=== PATIENT | male | born 1960 | race Caucasian/White ===

== ENCOUNTER → 2016-12-20 | Outpatient (REF) | payer OTHER ==
[~2016-12-20] MED LIST: /AMLO25TA PO; /METO25TAB OD; /MOXI40TA PO; ACET50TA PO; AMIT10TA PO; AMLO5TAB2 PO; ASPI1TAB PO; CEFT500T PO; CYCL1SOL17 OS; CYCL25TA PO; DARB30SYRN SC; EUCECRE2 TOP; GABA300C3 PO; HYDR-3713 PO; LEVO100T5 PO; LEVO50TA4 PO; LEVO88TA2 PO; LOPR50TA PO; MELA5TAB14 PO; METO50TA2 PO; MULT1CHW21 PO; OMEP10CA PO; OMEP20CA3 PO; OMEPRAZOLE DR PO; PRED50TA PO; PREDOPD OS; VALA1TAB PO; VITMTA PO; ZIRG0.152 OS
[2016-12-20 20:28] LABS: CREATININE FOR GFR 1.97 MG/DL (0.70-1.30); GLOMERULAR FILTRATION RATE 37.4 (>56)
== END ==
LOC: M LAB REF 09:01
PROVIDERS: ATTEND Internal Medicine Pulmonary Disease
DX: Z01.812 Encounter for preprocedural laboratory examination (principal); R91.8 Other nonspecific abnormal finding of lung field

== ENCOUNTER → 2016-12-22 | Outpatient (CLI) | payer OTHER ==
--- NOTE | 2016-12-22 11:21 | REP ---
Clinical: Lung mass. Comparison: 06/24/2016. Findings: There is a 2.6 cm multilobulated mass in the medial aspect of the right lower lobe (images 59 - 79) which is unchanged from prior examination along with a more superior rounded lesion measuring 11 mm (images 52 - 56) which is also unchanged from prior examination. Remainder of lung patel are well-aerated, symmetric and clear. Subcentimeter mediastinal lymph nodes are again identified and nonspecific. No pleural effusion/reaction or pneumothorax. Tracheobronchial tree is patent. Mediastinum demonstrates normal heart/pericardium and thoracic aorta. Surrounding musculoskeletal structures are intact. Limited upper abdomen demonstrates normal bilateral adrenal glands and 2.1 cm right hepatic cyst. Impression: Lesions in the medial right lower lobe unchanged from prior examination. No new acute process appreciated. Signed by Alex Jacobsen MD 12/22/2016 11:12 A
== END ==
LOC: M RAD 10:38
PROVIDERS: ATTEND Internal Medicine Pulmonary Disease
DX: R91.8 Other nonspecific abnormal finding of lung field (principal); K76.89 Other specified diseases of liver

== ENCOUNTER → 2017-02-26 | Outpatient (REF) | payer OTHER ==
[~2017-02-26] MED LIST changes: +GABA-282 PO; -GABA300C3 PO
== END ==
LOC: M LAB REF 17:07
PROVIDERS: ATTEND Internal Medicine Nephrology
DX: E03.9 Hypothyroidism, unspecified (principal)

== ENCOUNTER → 2017-04-03 | Outpatient (REF) | payer OTHER ==
[2017-04-03 18:47] LABS: IMMUNOGLOBULIN A 36.6 MG/DL (70-400); IMMUNOGLOBULIN G 441 MG/DL (681-1648); IMMUNOGLOBULIN M 28.1 MG/DL (40-230); TOTAL PROTEIN 6.7 GM/DL (6.4-8.2)
[2017-04-05 12:35] LABS: ALBUMIN 4.45 GM/DL (3.29-5.55); ALBUMIN % 66.4 % (55.8-66.1); GAMMA GLOBULIN % 6.8 % (11.1-18.8)
[2017-04-06 00:06] LABS: BETA 2 MICROGLOBULIN 3.9 mg/L (0.6-2.4); FREE KAPPA LIGHT CHAINS SERUM 821.65 mg/L (3.30-19.40); FREE LAMBDA LIGHT CHAINS SERUM 18.98 mg/L (5.71-26.30); KAPPA/LAMBDA RATIO SERUM 43.29 (0.26-1.65)
== END ==
LOC: M LAB REF 16:56
PROVIDERS: ATTEND Internal Medicine Medical Oncology
DX: C90.00 Multiple myeloma not having achieved remission (principal)

== ENCOUNTER → 2017-04-10 | Outpatient (REF) | payer OTHER | LOC: M LAB REF 16:43 | PROVIDERS: ATTEND Internal Medicine Medical Oncology | DX: D75.1 Secondary polycythemia (principal); C90.00 Multiple myeloma not having achieved remission ==

== ENCOUNTER → 2017-04-13 | Outpatient (CLI) | payer OTHER ==
--- NOTE | 2017-04-13 16:13 | REP ---
Bilateral hip MRI study without contrast: History: Question AVN. Bilateral hip pain. History of steroids. Comparison radiographs are from 04/04/2017. Technique: Axial coronal and sagittal imaging planes are utilized. T1 and T2-weighted scans were obtained in the usual fashion with without fat saturation. MRI findings: Cortical and medullary bone signal intensity are normal in both proximal femurs. There is no MR evidence of avascular necrosis. The visualized bony pelvic ring shows normal cortical and medullary bone signal intensity as well. No hip joint effusion is seen. No periarticular bursal fluid collection is observed. Hamstring tendon insertions appear normal. No other evidence of tendinopathy is seen. No abdominal wall defect is observed. No acetabular labral cartilage disruption is appreciated. No mass or marrow replacement lesion is seen. Impression: Unremarkable MRI study both hips. No evidence to suggest avascular necrosis or other significant lesion. Signed by Aleksandar Garcia MD 04/13/2017 04:29 P
--- NOTE | 2017-04-13 16:14 | REP ---
MRI study of the femurs bilaterally. History: Bilateral hip and femur pain. History of multiple myeloma. Technique: Axial coronal and sagittal T1 and T2-weighted scans were obtained with without fat saturation. MRI findings: Cortical and medullary bone signal intensity are normal in the femurs bilaterally. No marrow replacement lesion is seen. There is some diffuse osteopenia. No soft tissue mass or cyst is seen. No vascular abnormality is observed. There is a 2.9 cm De La Cruz's cyst noted incidentally in the right posterior popliteal soft tissues. No other abnormalities seen. Impression: De La Cruz's cyst noted at the right knee. Otherwise negative MRI study of both femurs. Signed by Aleksandar Garcia MD 04/13/2017 04:29 P
== END ==
LOC: M RAD 13:39
PROVIDERS: ATTEND Internal Medicine Medical Oncology
DX: M25.551 Pain in right hip (principal); M25.552 Pain in left hip

== ENCOUNTER → 2017-04-15 | Outpatient (REF) | payer OTHER ==
[2017-04-20 10:15] LABS: FREE LAMBDA LIGHT CHAINS URINE 8.14 mg/L (0.24-6.66)
== END ==
LOC: M LAB REF 09:21
PROVIDERS: ATTEND Internal Medicine Medical Oncology
DX: D72.9 Disorder of white blood cells, unspecified (principal)

== ENCOUNTER → 2017-04-17 | Outpatient (CLI) | payer OTHER ==
--- NOTE | 2017-04-19 20:44 | REP ---
Whole body PET CT scan: Comparison is the chest CT dated 12/22/2016. There is also a comparison PET scan dated 2015. Scan is performed from skull base to the upper thighs. Neck and supraclavicular areas: There is uptake in bilateral normal size nodes at the thoracic inlet with the standard uptake value on the right measuring 5.3 and on the left 7.3. Chest: There is uptake in the bilateral hilar nodes with the standard uptake value maximally measuring 7.2 There is uptake in a normal size subcarinal mediastinal node within standard uptake value of 7.4. There is uptake in a periaortic node adjacent to the descending thoracic aorta with a standard uptake value of 13.3. The patient's known mass medially in the right lower lobe again demonstrates non hypermetabolic uptake with a standard uptake value with 1.90. Abdomen, pelvis and upper thighs: There are no hypermetabolic foci, as previously. Impression: There is uptake in lymph nodes at the thoracic inlet, edrrell and in a subcarinal mediastinal node. There is non hypermetabolic uptake in the patient's known right lung lower lobe mass. There are no hypermetabolic foci in the abdomen, pelvis or upper thighs. The studies performed with 10 mCi of F 18 F D G . Signed by Ezra Torre MD 04/19/2017 08:35 P
== END ==
LOC: M PLARAD 11:08
PROVIDERS: ATTEND Internal Medicine Medical Oncology
DX: C90.00 Multiple myeloma not having achieved remission (principal)

== ENCOUNTER → 2017-04-19 | Outpatient (REF) | payer OTHER ==
[2017-04-19 19:24] LABS: IMMUNOGLOBULIN A 35.6 MG/DL (70-400); IMMUNOGLOBULIN G 430 MG/DL (681-1648); IMMUNOGLOBULIN M 24.5 MG/DL (40-230)
[2017-04-22 00:06] LABS: FREE KAPPA LIGHT CHAINS SERUM 918.4 mg/L (3.3-19.4); FREE LAMBDA LIGHT CHAINS SERUM 17.6 mg/L (5.7-26.3); KAPPA/LAMBDA RATIO SERUM 52.18 (0.26-1.65)
== END ==
LOC: M LAB REF 16:46
PROVIDERS: ATTEND Internal Medicine Medical Oncology
DX: C90.00 Multiple myeloma not having achieved remission (principal)

== ENCOUNTER → 2017-04-24 | Outpatient (REF) | payer OTHER ==
[2017-04-25 14:46] LABS: TOTAL PROTEIN 6.8 GM/DL (6.4-8.2)
[2017-04-26 10:51] LABS: ALBUMIN 4.58 GM/DL (3.29-5.55); ALBUMIN % 67.3 % (55.8-66.1); GAMMA GLOBULIN % 6.6 % (11.1-18.8)
== END ==
LOC: M LAB REF 12:40
PROVIDERS: ATTEND Internal Medicine Medical Oncology
DX: C90.02 Multiple myeloma in relapse (principal)

== ENCOUNTER → 2017-05-04 | Outpatient (REF) | payer OTHER ==
[~2017-05-04] MED LIST changes: +ACYC200C8 PO; +DEXA4TA PO; -MELA5TAB14 PO; +MELA5TAB17 PO; -METO50TA2 PO; +METO50TA7 PO; +NEXI20CA PO; +REVL10CA2 PO; -VALA1TAB PO; +VALA1TAB2 PO; +VELC3.5I INJ; +[UNRECOGNIZED DRUG - OTHER] SC
== END ==
LOC: M LAB REF 10:48
PROVIDERS: ATTEND Internal Medicine Medical Oncology
DX: C90.00 Multiple myeloma not having achieved remission (principal)

== ENCOUNTER → 2017-05-09 | Outpatient (REF) | payer OTHER ==
[2017-05-09 17:53] LABS: INR 0.98
[2017-05-09 19:51] LABS: IMMUNOGLOBULIN A 34.1 MG/DL (70-400); IMMUNOGLOBULIN G 428 MG/DL (681-1648); TOTAL PROTEIN 6.8 GM/DL (6.4-8.2)
[2017-05-10 10:51] LABS: ALBUMIN 4.59 GM/DL (3.29-5.55); ALBUMIN % 67.5 % (55.8-66.1); GAMMA GLOBULIN % 6.6 % (11.1-18.8)
[2017-05-12 00:08] LABS: FREE KAPPA LIGHT CHAINS SERUM 755.6 mg/L (3.3-19.4); FREE LAMBDA LIGHT CHAINS SERUM 18.8 mg/L (5.7-26.3); KAPPA/LAMBDA RATIO SERUM 40.19 (0.26-1.65)
== END ==
LOC: M LAB REF 17:17
PROVIDERS: ATTEND Internal Medicine Medical Oncology
DX: C90.00 Multiple myeloma not having achieved remission (principal)

== ENCOUNTER → 2017-06-05 | Outpatient (REF) | payer OTHER ==
[~2017-06-05] MED LIST changes: +ASPI1TAB20 PO; +SIMV40TA2 PO
== END ==
LOC: M LAB REF 09:30
PROVIDERS: ATTEND Internal Medicine Medical Oncology
DX: C90.00 Multiple myeloma not having achieved remission (principal)

== ENCOUNTER → 2017-06-06 | Outpatient (REF) | payer OTHER ==
[2017-06-06 20:25] LABS: IMMUNOGLOBULIN A 33.3 MG/DL (70-400); IMMUNOGLOBULIN G 353 MG/DL (681-1648); IMMUNOGLOBULIN M 59.3 MG/DL (40-230); TOTAL PROTEIN 6.1 GM/DL (6.4-8.2)
[2017-06-07 10:35] LABS: ALBUMIN 3.91 GM/DL (3.29-5.55); ALBUMIN % 64.1 % (55.8-66.1); GAMMA GLOBULIN % 6.3 % (11.1-18.8)
[2017-06-09 00:07] LABS: FREE KAPPA LIGHT CHAINS SERUM 142.5 mg/L (3.3-19.4); FREE LAMBDA LIGHT CHAINS SERUM 26.7 mg/L (5.7-26.3); KAPPA/LAMBDA RATIO SERUM 5.34 (0.26-1.65)
== END ==
LOC: M LAB REF 16:30
PROVIDERS: ATTEND Internal Medicine Medical Oncology
DX: C90.00 Multiple myeloma not having achieved remission (principal)

== ENCOUNTER → 2017-08-08 | Outpatient (REF) | payer OTHER ==
[2017-08-08 16:15] LABS: IMMUNOGLOBULIN A 70.1 MG/DL (70-400); IMMUNOGLOBULIN G 398 MG/DL (681-1648); THYROXINE (T4) 14.1 UG/DL (4.5-12.0); TOTAL PROTEIN 6.7 GM/DL (6.4-8.2)
[2017-08-09 12:54] LABS: ALBUMIN 4.25 GM/DL (3.29-5.55); ALBUMIN % 63.4 % (55.8-66.1); GAMMA GLOBULIN % 6.5 % (11.1-18.8)
[2017-08-11 00:08] LABS: BETA 2 MICROGLOBULIN 2.4 mg/L (0.6-2.4); FREE LAMBDA LIGHT CHAINS SERUM 21.5 mg/L (5.7-26.3); KAPPA/LAMBDA RATIO SERUM 1.53 (0.26-1.65)
== END ==
LOC: M LAB REF 15:16
PROVIDERS: ATTEND Internal Medicine Medical Oncology
DX: C90.00 Multiple myeloma not having achieved remission (principal)

== ENCOUNTER → 2017-08-14 | Outpatient (CLI) | payer OTHER ==
--- NOTE | 2017-08-14 09:41 | REP ---
CT study of the chest without contrast: History: Hoarseness with pulmonary nodules. Comparison CT study: December 22, 2016. There is also a comparison chest CT study from June 24, 2016. CT findings: A pectus excavatum deformity is again seen. There are clips in the gallbladder fossa. A stable 2.3 cm cyst is seen in the right lobe of the liver as before. Scattered small stable normal-sized mediastinal lymph nodes are visible. The previously noted lobulated right lower lobe lung lesion is again seen. This has a elongate dimension cranial caudally of 5.0 cm which is unchanged. Its maximum transverse dimensions are 2.8 x 2.0 cm. It appears unchanged from the June 24, 2016 prior study. Above this main nodule is an additional centrally calcified right lower lobe lung nodule measuring 11 mm. This too is unchanged. No new pulmonary nodule is appreciated. Lung patel are otherwise clear. No endobronchial disease is seen. No bony destructive lesion is appreciated. Impression: Stable nodular lesions in the right lower lobe. Stable right hepatic cyst. No new lung lesion or adenopathy. Signed by Aleksandar Garcia MD 08/14/2017 05:26 P
== END ==
LOC: M RAD 07:10
PROVIDERS: ATTEND Internal Medicine Medical Oncology
DX: R49.0 Dysphonia (principal); K76.89 Other specified diseases of liver; R91.8 Other nonspecific abnormal finding of lung field

== ENCOUNTER → 2017-08-28 | Outpatient (REF) | payer OTHER | LOC: M LAB REF 09:20 | PROVIDERS: ATTEND Internal Medicine Medical Oncology | DX: C90.00 Multiple myeloma not having achieved remission (principal) ==

== ENCOUNTER → 2017-10-11 | Outpatient (REF) | payer OTHER ==
[2017-10-11 19:41] LABS: BASO # 0.1 10^3/uL (0.0-0.2); BASO % 2.1 % (0.0-1.0); EOS # 0.1 10^3/uL (0.0-0.50); EOS % 2.3 % (0.0-3.0); IMMATURE GRANULOCYTE % 1.2 % (0-0); LYMPH # 0.8 10^3/uL (1.5-4.5); LYMPH % 15.5 % (24.0-44.0); MEAN CORPUSCULAR HEMOGLOBIN 32.7 pg (27.0-33.0); MEAN CORPUSCULAR HGB CONC 34.4 g/dl (32.0-36.5); MEAN CORPUSCULAR VOLUME 95.2 fl (80.0-96.0); MONO # 0.8 10^3/uL (0.0-0.8); MONO % 15.7 % (0.0-5.0); NEUTROPHILS # 3.3 10^3/uL (1.8-7.7); NEUTROPHILS % 63.2 % (36.0-66.0); PLATELET COUNT, AUTOMATED 196 10^3/uL (150-450); RED CELL DISTRIBUTION WIDTH 15.2 % (11.5-14.5); WHITE BLOOD COUNT 5.2 10^3/uL (4.0-10.0)
[2017-10-11 20:10] LABS: ALBUMIN 3.1 GM/DL (3.2-5.2); ALBUMIN/GLOBULIN RATIO 1.07 (1.00-1.93); BILIRUBIN,TOTAL 0.4 MG/DL (0.2-1.0); CALCIUM LEVEL 8.6 MG/DL (8.5-10.1); CREATININE FOR GFR 1.65 MG/DL (0.70-1.30); GLOMERULAR FILTRATION RATE 45.7 (>56); PHOSPHORUS LEVEL 3.2 MG/DL (2.5-4.9); POTASSIUM SERUM 4.6 MEQ/L (3.5-5.1)
== END ==
LOC: M LABDRWAD 19:20
DX: C90.00 Multiple myeloma not having achieved remission (principal); Z94.81 Bone marrow transplant status

== ENCOUNTER → 2017-10-25 | Outpatient (REF) | payer OTHER ==
[2017-10-25 20:51] LABS: BASO # 0.1 10^3/uL (0.0-0.2); BASO % 1.4 % (0.0-1.0); EOS # 0.5 10^3/uL (0.0-0.50); EOS % 7.6 % (0.0-3.0); LYMPH # 1.3 10^3/uL (1.5-4.5); LYMPH % 18.2 % (24.0-44.0); MEAN CORPUSCULAR HEMOGLOBIN 31.9 pg (27.0-33.0); MEAN CORPUSCULAR HGB CONC 33.7 g/dl (32.0-36.5); MEAN CORPUSCULAR VOLUME 94.5 fl (80.0-96.0); MONO # 0.9 10^3/uL (0.0-0.8); MONO % 12.7 % (0.0-5.0); NEUTROPHILS # 4.2 10^3/uL (1.8-7.7); NEUTROPHILS % 59.1 % (36.0-66.0); PLATELET COUNT, AUTOMATED 207 10^3/uL (150-450); RED CELL DISTRIBUTION WIDTH 15.9 % (11.5-14.5); WHITE BLOOD COUNT 7.1 10^3/uL (4.0-10.0)
[2017-10-25 20:55] LABS: ALBUMIN 3.9 GM/DL (3.2-5.2); ALBUMIN/GLOBULIN RATIO 1.77 (1.00-1.93); BILIRUBIN,TOTAL 0.5 MG/DL (0.2-1.0); CALCIUM LEVEL 8.9 MG/DL (8.5-10.1); CREATININE FOR GFR 1.59 MG/DL (0.70-1.30); GLOMERULAR FILTRATION RATE 47.7 (>56); TOTAL PROTEIN 6.1 GM/DL (6.4-8.2)
== END ==
LOC: M LAB REF 12:04
PROVIDERS: ATTEND Nurse Practitioner Family
DX: C90.00 Multiple myeloma not having achieved remission (principal); Z94.81 Bone marrow transplant status

== ENCOUNTER 2017-11-13 12:38 | Outpatient (RCR) | payer OTHER | END 2017-12-05 | LOC: M OT 12:38 | DX: I69.320 Aphasia following cerebral infarction (principal) | CPT/HCPCS: 97530 ==

== ENCOUNTER → 2017-12-19 | Outpatient (REF) | payer OTHER ==
[2017-12-19 18:08] LABS: URINE TOTAL PROTEIN 30.7 MG/DL (0-12)
[2017-12-19 18:11] LABS: IMMUNOGLOBULIN G 183 MG/DL (681-1648); IMMUNOGLOBULIN M 24.8 MG/DL (40-230); TOTAL PROTEIN 6.3 GM/DL (6.4-8.2)
[2017-12-19 18:27] LABS: IMMUNOGLOBULIN A 11.7 MG/DL (70-400)
[2017-12-21 11:17] LABS: ALBUMIN 4.04 GM/DL (3.29-5.55); ALBUMIN % 64.1 % (55.8-66.1); ALPHA-1-GLOBULIN % 6.9 % (2.9-4.9); ALPHA-1-GLOBULINS 0.43 GM/DL (0.17-0.41); ALPHA-2-GLOBULINS 0.92 GM/DL (0.42-0.99); ALPHA-2-GLOBULINS % 14.6 % (7.1-11.8); BETA-1-GLOBULINS 0.39 GM/DL (0.28-0.60); BETA-1-GLOBULINS % 6.2 % (4.7-7.2); BETA-2-GLOBULINS 0.28 GM/DL (0.19-0.55); BETA-2-GLOBULINS % 4.4 % (3.2-6.5); GAMMA GLOBULIN % 3.8 % (11.1-18.8); GAMMA GLOBULINS 0.24 GM/DL (0.65-1.58)
[2017-12-22 00:06] LABS: FREE KAPPA LIGHT CHAINS SERUM 15.3 mg/L (3.3-19.4); FREE LAMBDA LIGHT CHAINS SERUM 22.6 mg/L (5.7-26.3); KAPPA/LAMBDA RATIO SERUM 0.68 (0.26-1.65)
== END ==
LOC: M LAB REF 16:26
DX: C90.00 Multiple myeloma not having achieved remission (principal)

== ENCOUNTER → 2017-12-20 | Outpatient (REF) | payer OTHER ==
[2017-12-20 19:16] LABS: THYROID STIMULATING HORMONE 0.017 uIU/ML (0.358-3.740)
== END ==
LOC: M LAB REF 17:26
DX: E03.9 Hypothyroidism, unspecified (principal)

== ENCOUNTER → 2017-12-21 | Outpatient (CLI) | payer OTHER ==
[2017-12-21 12:39] LABS: BASO # 0.1 10^3/uL (0.0-0.2); BASO % 0.7 % (0.0-1.0); EOS # 0.4 10^3/uL (0.0-0.50); EOS % 5.5 % (0.0-3.0); HEMATOCRIT 45.4 % (42.0-52.0); HEMOGLOBIN 15.4 g/dl (14.0-18.0); IMMATURE GRANULOCYTE % 0.3 % (0-3.0); LYMPH # 1.8 10^3/uL (1.5-4.5); LYMPH % 26.2 % (24.0-44.0); MEAN CORPUSCULAR HEMOGLOBIN 32.4 pg (27.0-33.0); MEAN CORPUSCULAR HGB CONC 33.9 g/dl (32.0-36.5); MEAN CORPUSCULAR VOLUME 95.6 fl (80.0-96.0); MONO # 0.8 10^3/uL (0.0-0.8); MONO % 11.8 % (0.0-5.0); NEUTROPHILS # 3.8 10^3/uL (1.8-7.7); NEUTROPHILS % 55.5 % (36.0-66.0); PLATELET COUNT, AUTOMATED 179 10^3/uL (150-450); RED BLOOD COUNT 4.75 10^6/uL (4.30-6.10); RED CELL DISTRIBUTION WIDTH 13.2 % (11.5-14.5); WHITE BLOOD COUNT 6.9 10^3/uL (4.0-10.0)
== END ==
LOC: M ADAMS 09:31
DX: J20.9 Acute bronchitis, unspecified (principal)
CPT/HCPCS: 85025

== ENCOUNTER → 2018-01-01 | Outpatient (CLI) | payer OTHER | LOC: M RAD 09:15 | DX: R91.8 Other nonspecific abnormal finding of lung field (principal) | CPT/HCPCS: 71250 ==

== ENCOUNTER → 2018-01-31 | Outpatient (REF) | payer OTHER ==
[2018-01-31 14:18] LABS: IMMUNOGLOBULIN G 831 MG/DL (681-1648); IMMUNOGLOBULIN M 42.9 MG/DL (40-230); TOTAL PROTEIN 6.6 GM/DL (6.4-8.2)
[2018-01-31 14:52] LABS: IMMUNOGLOBULIN A 11.4 MG/DL (70-400)
[2018-02-02 00:08] LABS: FREE KAPPA LIGHT CHAINS SERUM 39.5 mg/L (3.3-19.4); FREE LAMBDA LIGHT CHAINS SERUM 37.4 mg/L (5.7-26.3); KAPPA/LAMBDA RATIO SERUM 1.06 (0.26-1.65)
[2018-02-05 11:37] LABS: ALBUMIN 4.14 GM/DL (3.29-5.55); ALBUMIN % 62.8 % (55.8-66.1); ALPHA-1-GLOBULIN % 4.8 % (2.9-4.9); ALPHA-1-GLOBULINS 0.32 GM/DL (0.17-0.41); ALPHA-2-GLOBULINS 0.67 GM/DL (0.42-0.99); ALPHA-2-GLOBULINS % 10.2 % (7.1-11.8); BETA-1-GLOBULINS % 6.1 % (4.7-7.2); BETA-2-GLOBULINS 0.22 GM/DL (0.19-0.55); BETA-2-GLOBULINS % 3.4 % (3.2-6.5); GAMMA GLOBULIN % 12.7 % (11.1-18.8); GAMMA GLOBULINS 0.84 GM/DL (0.65-1.58)
== END ==
LOC: M LAB REF 13:20
DX: C90.00 Multiple myeloma not having achieved remission (principal)

== ENCOUNTER → 2018-03-05 | Outpatient (REF) | payer OTHER ==
[2018-03-05 14:06] LABS: URINE TOTAL PROTEIN 34.5 MG/DL (0-12)
[2018-03-05 14:32] LABS: IMMUNOGLOBULIN G 591 MG/DL (681-1648); TOTAL PROTEIN 6.2 GM/DL (6.4-8.2)
[2018-03-05 14:57] LABS: IMMUNOGLOBULIN A < 7.8 MG/DL (70-400); IMMUNOGLOBULIN M 13.2 MG/DL (40-230)
[2018-03-07 00:07] LABS: FREE KAPPA LIGHT CHAINS SERUM 17.9 mg/L (3.3-19.4); FREE LAMBDA LIGHT CHAINS SERUM 17.7 mg/L (5.7-26.3); KAPPA/LAMBDA RATIO SERUM 1.01 (0.26-1.65)
[2018-03-07 10:56] LABS: ALBUMIN % 64.3 % (55.8-66.1)
[2018-03-07 10:57] LABS: ALBUMIN 3.99 GM/DL (3.29-5.55); ALPHA-1-GLOBULIN % 5.3 % (2.9-4.9); ALPHA-1-GLOBULINS 0.33 GM/DL (0.17-0.41); ALPHA-2-GLOBULINS 0.63 GM/DL (0.42-0.99); ALPHA-2-GLOBULINS % 10.1 % (7.1-11.8); BETA-1-GLOBULINS % 6.5 % (4.7-7.2); BETA-2-GLOBULINS 0.24 GM/DL (0.19-0.55); BETA-2-GLOBULINS % 3.8 % (3.2-6.5); GAMMA GLOBULINS 0.62 GM/DL (0.65-1.58)
[2018-03-07 13:10] LABS: UPEP INTERPRETATION NO M-SPIKE NOTED; URINE VOLUME RANDOM ML
== END ==
LOC: M LAB REF 13:17
DX: C90.00 Multiple myeloma not having achieved remission (principal)
CPT/HCPCS: 84165

== ENCOUNTER → 2018-04-04 | Outpatient (REF) | payer OTHER ==
[2018-04-04 15:15] LABS: IMMUNOGLOBULIN G 531 MG/DL (681-1648); TOTAL PROTEIN 6.2 GM/DL (6.4-8.2)
[2018-04-04 15:29] LABS: IMMUNOGLOBULIN A < 7.8 MG/DL (70-400); IMMUNOGLOBULIN M 10.7 MG/DL (40-230)
[2018-04-06 00:07] LABS: FREE KAPPA LIGHT CHAINS SERUM 13.4 mg/L (3.3-19.4); FREE LAMBDA LIGHT CHAINS SERUM 13.8 mg/L (5.7-26.3); KAPPA/LAMBDA RATIO SERUM 0.97 (0.26-1.65)
[2018-04-09 14:29] LABS: ALBUMIN 4.01 GM/DL (3.29-5.55); ALBUMIN % 64.6 % (55.8-66.1); ALPHA-1-GLOBULIN % 5.6 % (2.9-4.9); ALPHA-1-GLOBULINS 0.35 GM/DL (0.17-0.41); ALPHA-2-GLOBULINS 0.67 GM/DL (0.42-0.99); ALPHA-2-GLOBULINS % 10.8 % (7.1-11.8); BETA-1-GLOBULINS 0.42 GM/DL (0.28-0.60); BETA-1-GLOBULINS % 6.8 % (4.7-7.2); BETA-2-GLOBULINS 0.24 GM/DL (0.19-0.55); BETA-2-GLOBULINS % 3.8 % (3.2-6.5); GAMMA GLOBULIN % 8.4 % (11.1-18.8); GAMMA GLOBULINS 0.52 GM/DL (0.65-1.58)
== END ==
LOC: M LAB REF 13:59
DX: C90.00 Multiple myeloma not having achieved remission (principal)

== ENCOUNTER → 2018-04-24 | Outpatient (REF) | payer OTHER | LOC: M LAB REF 13:21 | DX: E03.9 Hypothyroidism, unspecified (principal) ==

== ENCOUNTER → 2018-05-09 | Outpatient (REF) | payer OTHER ==
[2018-05-09 14:40] LABS: IMMUNOGLOBULIN G 445 MG/DL (681-1648); TOTAL PROTEIN 5.9 GM/DL (6.4-8.2)
[2018-05-09 14:41] LABS: IMMUNOGLOBULIN A 7.9 MG/DL (70-400); IMMUNOGLOBULIN M 7.39 MG/DL (40-230)
[2018-05-11 09:13] LABS: FREE KAPPA LIGHT CHAINS SERUM 11.5 mg/L (3.3-19.4); FREE LAMBDA LIGHT CHAINS SERUM 11.8 mg/L (5.7-26.3); KAPPA/LAMBDA RATIO SERUM 0.97 (0.26-1.65)
[2018-05-11 09:13] LABS: BETA 2 MICROGLOBULIN 3.2 mg/L (0.6-2.4)
[2018-05-14 11:26] LABS: ALBUMIN 3.98 GM/DL (3.29-5.55); ALBUMIN % 67.5 % (55.8-66.1); ALPHA-1-GLOBULIN % 5.1 % (2.9-4.9); ALPHA-2-GLOBULINS 0.55 GM/DL (0.42-0.99); ALPHA-2-GLOBULINS % 9.4 % (7.1-11.8)
[2018-05-14 11:27] LABS: BETA-1-GLOBULINS % 6.8 % (4.7-7.2); BETA-2-GLOBULINS 0.21 GM/DL (0.19-0.55); BETA-2-GLOBULINS % 3.6 % (3.2-6.5); GAMMA GLOBULIN % 7.6 % (11.1-18.8); GAMMA GLOBULINS 0.45 GM/DL (0.65-1.58)
== END ==
LOC: M LAB REF 13:43
DX: R59.1 Generalized enlarged lymph nodes (principal); D75.1 Secondary polycythemia; Z79.899 Other long term (current) drug therapy; R49.0 Dysphonia

== ENCOUNTER → 2018-06-09 | Outpatient (CLI) | payer OTHER | LOC: M ADAMS 09:12 | DX: M79.671 Pain in right foot (principal) ==

== ENCOUNTER → 2018-06-10 | Outpatient (REF) | payer OTHER ==
[2018-06-10 14:31] LABS: IMMUNOGLOBULIN A < 7.8 MG/DL (70-400); IMMUNOGLOBULIN G 439 MG/DL (681-1648); IMMUNOGLOBULIN M 7.19 MG/DL (40-230); TOTAL PROTEIN 5.9 GM/DL (6.4-8.2)
[2018-06-12 00:07] LABS: FREE KAPPA LIGHT CHAINS SERUM 11.3 mg/L (3.3-19.4); FREE LAMBDA LIGHT CHAINS SERUM 10.5 mg/L (5.7-26.3); KAPPA/LAMBDA RATIO SERUM 1.08 (0.26-1.65)
[2018-06-12 11:57] LABS: ALBUMIN 3.96 GM/DL (3.29-5.55); ALBUMIN % 67.2 % (55.8-66.1); ALPHA-1-GLOBULIN % 5.2 % (2.9-4.9); ALPHA-2-GLOBULINS % 9.5 % (7.1-11.8); BETA-1-GLOBULINS % 6.6 % (4.7-7.2); BETA-2-GLOBULINS % 3.7 % (3.2-6.5); GAMMA GLOBULIN % 7.8 % (11.1-18.8)
[2018-06-12 11:58] LABS: ALPHA-1-GLOBULINS 0.31 GM/DL (0.17-0.41); ALPHA-2-GLOBULINS 0.56 GM/DL (0.42-0.99); BETA-1-GLOBULINS 0.39 GM/DL (0.28-0.60); BETA-2-GLOBULINS 0.22 GM/DL (0.19-0.55); GAMMA GLOBULINS 0.46 GM/DL (0.65-1.58)
== END ==
LOC: M LAB REF 13:19
DX: R59.1 Generalized enlarged lymph nodes (principal); R49.0 Dysphonia; D75.1 Secondary polycythemia; Z79.899 Other long term (current) drug therapy
CPT/HCPCS: 84165

== ENCOUNTER → 2018-07-12 | Outpatient (REF) | payer OTHER ==
[2018-07-12 16:36] LABS: IMMUNOGLOBULIN G 451 MG/DL (681-1648); TOTAL PROTEIN 6.1 GM/DL (6.4-8.2)
[2018-07-12 16:39] LABS: IMMUNOGLOBULIN A < 7.8 MG/DL (70-400); IMMUNOGLOBULIN M 5.42 MG/DL (40-230)
[2018-07-14 00:07] LABS: FREE KAPPA LIGHT CHAINS SERUM 9.7 mg/L (3.3-19.4); FREE LAMBDA LIGHT CHAINS SERUM 9.2 mg/L (5.7-26.3); KAPPA/LAMBDA RATIO SERUM 1.05 (0.26-1.65)
[2018-07-17 16:09] LABS: ALBUMIN 4.17 GM/DL (3.29-5.55); ALBUMIN % 68.4 % (55.8-66.1); ALPHA-1-GLOBULIN % 4.8 % (2.9-4.9); ALPHA-1-GLOBULINS 0.29 GM/DL (0.17-0.41); ALPHA-2-GLOBULINS 0.57 GM/DL (0.42-0.99); ALPHA-2-GLOBULINS % 9.4 % (7.1-11.8); BETA-1-GLOBULINS 0.39 GM/DL (0.28-0.60); BETA-1-GLOBULINS % 6.4 % (4.7-7.2); BETA-2-GLOBULINS 0.23 GM/DL (0.19-0.55); BETA-2-GLOBULINS % 3.7 % (3.2-6.5); GAMMA GLOBULIN % 7.3 % (11.1-18.8); GAMMA GLOBULINS 0.45 GM/DL (0.65-1.58)
== END ==
LOC: M LAB REF 13:15
DX: Z51.81 Encounter for therapeutic drug level monitoring (principal); Z79.899 Other long term (current) drug therapy; R59.1 Generalized enlarged lymph nodes; D75.1 Secondary polycythemia; R59.0 Localized enlarged lymph nodes
CPT/HCPCS: 84165

== ENCOUNTER → 2018-07-29 | Outpatient (CLI) | payer OTHER ==
[2018-07-29 13:43] LABS: CHOLESTEROL LEVEL 105 MG/DL (<200); CHOLESTEROL RISK RATIO 2.441 (<5); FREE T4 1.11 NG/DL (0.76-1.46); HDL CHOLESTEROL 43 MG/DL (>40); LDL CHOLESTEROL 49 MG/DL (<100); NON-HDL-C 62 MG/DL; TRIGLYCERIDES LEVEL 66 MG/DL (<150)
== END ==
LOC: M ADAMS 10:33
DX: E03.9 Hypothyroidism, unspecified (principal); E78.2 Mixed hyperlipidemia
CPT/HCPCS: 84443

== ENCOUNTER → 2018-12-20 | Outpatient (REF) | payer OTHER ==
[~2018-12-20] MED LIST changes: +CALC1CAP31 PO; +GABA-1171 PO; -GABA-282 PO; +GABA-843 PO; +REVL5CAP2 PO
== END ==
LOC: M LAB REF 12:47
PROVIDERS: ATTEND Internal Medicine Nephrology
DX: E03.9 Hypothyroidism, unspecified (principal)

== ENCOUNTER → 2019-02-21 | Outpatient (CLI) | payer OTHER ==
[~2019-02-21] MED LIST changes: -/AMLO25TA PO; -/METO25TAB OD; -/MOXI40TA PO; -ACET50TA PO; -ASPI1TAB PO; +ASPI81TA26 PO; +AVEL1TAB2 PO; +MAPA500T17 PO; +METO1TAB87 OD; +NORV2TAB PO; +SYNT75TA PO
[2019-02-21 19:42] LABS: BASO # 0.1 10^3/uL (0.0-0.2); EOS # 0.3 10^3/uL (0.0-0.50); EOS % 12.2 % (0.0-3.0); HEMATOCRIT 44.3 % (42.0-52.0); HEMOGLOBIN 14.9 g/dl (13.5-17.5); LYMPH # 0.3 10^3/uL (1.5-4.5); MEAN CORPUSCULAR HEMOGLOBIN 32.5 pg (27.0-33.0); MEAN CORPUSCULAR HGB CONC 33.6 g/dl (32.0-36.5); MEAN CORPUSCULAR VOLUME 96.5 fl (80.0-96.0); MONO # 0.3 10^3/uL (0.0-0.8); NEUTROPHILS # 1.3 10^3/uL (1.8-7.7); NEUTROPHILS % 55.8 % (36.0-66.0); PLATELET COUNT, AUTOMATED 118 10^3/uL (150-450); RED BLOOD COUNT 4.59 10^6/uL (4.30-6.10); WHITE BLOOD COUNT 2.3 10^3/uL (4.0-10.0)
[2019-02-21 20:14] LABS: BASO % 3.1 % (0.0-1.0)
[2019-02-21 20:18] LABS: IMMUNOGLOBULIN A 8.4 MG/DL (70-400); IMMUNOGLOBULIN G 399 MG/DL (681-1648); LDH LACTATE DEHYDROGENASE 181 U/L (87-241)
[2019-02-21 20:19] LABS: IMMUNOGLOBULIN M 8.42 MG/DL (40-230); TOTAL PROTEIN 5.5 GM/DL (6.4-8.2)
[2019-02-25 12:44] LABS: ALBUMIN % 66.9 % (55.8-66.1); ALPHA-1-GLOBULIN % 5.3 % (2.9-4.9)
[2019-02-25 12:45] LABS: ALBUMIN 3.68 GM/DL (3.29-5.55); ALPHA-1-GLOBULINS 0.29 GM/DL (0.17-0.41); ALPHA-2-GLOBULINS 0.56 GM/DL (0.42-0.99); ALPHA-2-GLOBULINS % 10.1 % (7.1-11.8); BETA-1-GLOBULINS 0.39 GM/DL (0.28-0.60); BETA-2-GLOBULINS % 3.6 % (3.2-6.5); GAMMA GLOBULIN % 7.1 % (11.1-18.8); GAMMA GLOBULINS 0.39 GM/DL (0.65-1.58)
[2019-02-26 00:06] LABS: FREE KAPPA LIGHT CHAINS SERUM 13.3 mg/L (3.3-19.4); FREE LAMBDA LIGHT CHAINS SERUM 9.8 mg/L (5.7-26.3); KAPPA/LAMBDA RATIO SERUM 1.36 (0.26-1.65); TISSUE TRANSGLUTAMINASE IgA <2 U/mL (0-3)
== END ==
LOC: M LABDRWAD 11:44
PROVIDERS: ATTEND Internal Medicine Medical Oncology
DX: C90.00 Multiple myeloma not having achieved remission (principal)

== ENCOUNTER → 2019-03-24 | Outpatient (REF) | payer OTHER ==
[2019-03-24 13:12] LABS: BASO # 0.1 10^3/uL (0.0-0.2); BASO % 2.3 % (0.0-1.0); EOS # 0.3 10^3/uL (0.0-0.50); EOS % 9.8 % (0.0-3.0); HEMATOCRIT 46.5 % (42.0-52.0); HEMOGLOBIN 15.4 g/dl (13.5-17.5); LYMPH # 0.3 10^3/uL (1.5-4.5); LYMPH % 11.7 % (24.0-44.0); MEAN CORPUSCULAR HEMOGLOBIN 32.6 pg (27.0-33.0); MEAN CORPUSCULAR HGB CONC 33.1 g/dl (32.0-36.5); MEAN CORPUSCULAR VOLUME 98.5 fl (80.0-96.0); MONO # 0.4 10^3/uL (0.0-0.8); MONO % 15.8 % (0.0-5.0); NEUTROPHILS # 1.6 10^3/uL (1.8-7.7); PLATELET COUNT, AUTOMATED 128 10^3/uL (150-450); RED BLOOD COUNT 4.72 10^6/uL (4.30-6.10); WHITE BLOOD COUNT 2.7 10^3/uL (4.0-10.0)
[2019-03-25 11:25] LABS: IMMUNOGLOBULIN A < 7.8 MG/DL (70-400); IMMUNOGLOBULIN G 379 MG/DL (681-1648); LDH LACTATE DEHYDROGENASE 148 U/L (87-241); TOTAL PROTEIN 5.8 GM/DL (6.4-8.2)
[2019-03-25 13:29] LABS: ALBUMIN 3.94 GM/DL (3.29-5.55); ALBUMIN % 67.9 % (55.8-66.1); ALPHA-1-GLOBULIN % 5.1 % (2.9-4.9); ALPHA-2-GLOBULINS 0.55 GM/DL (0.42-0.99); ALPHA-2-GLOBULINS % 9.4 % (7.1-11.8); BETA-1-GLOBULINS 0.42 GM/DL (0.28-0.60); BETA-1-GLOBULINS % 7.2 % (4.7-7.2); BETA-2-GLOBULINS 0.21 GM/DL (0.19-0.55); BETA-2-GLOBULINS % 3.6 % (3.2-6.5); GAMMA GLOBULIN % 6.8 % (11.1-18.8); GAMMA GLOBULINS 0.39 GM/DL (0.65-1.58)
[2019-03-25 13:36] LABS: IMMUNOGLOBULIN M < 5.3 MG/DL (40-230)
[2019-03-26 00:08] LABS: FREE LAMBDA LIGHT CHAINS SERUM 11.4 mg/L (5.7-26.3); KAPPA/LAMBDA RATIO SERUM 1.23 (0.26-1.65)
== END ==
LOC: M LABDRWAD 12:12
PROVIDERS: ATTEND Internal Medicine Medical Oncology
DX: C90.00 Multiple myeloma not having achieved remission (principal); Z79.82 Long term (current) use of aspirin

== ENCOUNTER → 2019-04-18 | Outpatient (CLI) | payer OTHER ==
[2019-04-18 13:41] LABS: BASO # 0.1 10^3/uL (0.0-0.2); EOS # 0.3 10^3/uL (0.0-0.50); EOS % 10.7 % (0.0-3.0); HEMATOCRIT 44.8 % (42.0-52.0); HEMOGLOBIN 14.9 g/dl (13.5-17.5); LYMPH # 0.3 10^3/uL (1.5-4.5); LYMPH % 10.7 % (24.0-44.0); MEAN CORPUSCULAR HEMOGLOBIN 32.1 pg (27.0-33.0); MEAN CORPUSCULAR HGB CONC 33.3 g/dl (32.0-36.5); MEAN CORPUSCULAR VOLUME 96.6 fl (80.0-96.0); MONO # 0.4 10^3/uL (0.0-0.8); MONO % 16.5 % (0.0-5.0); NEUTROPHILS # 1.4 10^3/uL (1.8-7.7); NEUTROPHILS % 57.6 % (36.0-66.0); PLATELET COUNT, AUTOMATED 107 10^3/uL (150-450); RED BLOOD COUNT 4.64 10^6/uL (4.30-6.10); WHITE BLOOD COUNT 2.4 10^3/uL (4.0-10.0)
[2019-04-18 14:18] LABS: BASO % 4.1 % (0.0-1.0)
[2019-04-18 15:16] LABS: IMMUNOGLOBULIN A < 7.8 MG/DL (70-400); IMMUNOGLOBULIN G 441 MG/DL (681-1648); LDH LACTATE DEHYDROGENASE 207 U/L (87-241); TOTAL PROTEIN 6.1 GM/DL (6.4-8.2)
[2019-04-18 16:34] LABS: IMMUNOGLOBULIN M < 5.3 MG/DL (40-230)
[2019-04-20 00:08] LABS: FREE KAPPA LIGHT CHAINS SERUM 11.2 mg/L (3.3-19.4); FREE LAMBDA LIGHT CHAINS SERUM 9.9 mg/L (5.7-26.3); KAPPA/LAMBDA RATIO SERUM 1.13 (0.26-1.65)
[2019-04-22 12:25] LABS: ALBUMIN 4.07 GM/DL (3.29-5.55); ALBUMIN % 66.7 % (55.8-66.1); ALPHA-1-GLOBULIN % 5.1 % (2.9-4.9); ALPHA-1-GLOBULINS 0.31 GM/DL (0.17-0.41); ALPHA-2-GLOBULINS 0.63 GM/DL (0.42-0.99); ALPHA-2-GLOBULINS % 10.3 % (7.1-11.8); BETA-1-GLOBULINS 0.43 GM/DL (0.28-0.60); BETA-1-GLOBULINS % 7.1 % (4.7-7.2); BETA-2-GLOBULINS 0.23 GM/DL (0.19-0.55); BETA-2-GLOBULINS % 3.7 % (3.2-6.5); GAMMA GLOBULIN % 7.1 % (11.1-18.8); GAMMA GLOBULINS 0.43 GM/DL (0.65-1.58)
== END ==
LOC: M LABDRWAD 08:40
PROVIDERS: ATTEND Internal Medicine Medical Oncology
DX: C90.00 Multiple myeloma not having achieved remission (principal)

== ENCOUNTER → 2019-05-19 | Outpatient (REF) | payer OTHER ==
[~2019-05-19] MED LIST changes: +ASPI-524 PO; -ASPI1TAB20 PO; -MELA5TAB17 PO; +MELA5TAB31 PO; -OMEP20CA3 PO; +OMEP20CA4 PO
[2019-05-19 13:05] LABS: BASO # 0.1 10^3/uL (0.0-0.2); EOS # 0.3 10^3/uL (0.0-0.50); EOS % 11.8 % (0.0-3.0); HEMATOCRIT 45.8 % (42.0-52.0); HEMOGLOBIN 15.4 g/dl (13.5-17.5); LYMPH # 0.3 10^3/uL (1.5-4.5); LYMPH % 12.2 % (24.0-44.0); MEAN CORPUSCULAR HGB CONC 33.6 g/dl (32.0-36.5); MEAN CORPUSCULAR VOLUME 95.2 fl (80.0-96.0); MONO # 0.3 10^3/uL (0.0-0.8); MONO % 13.3 % (0.0-5.0); NEUTROPHILS # 1.5 10^3/uL (1.8-7.7); NEUTROPHILS % 59.2 % (36.0-66.0); PLATELET COUNT, AUTOMATED 132 10^3/uL (150-450); RED BLOOD COUNT 4.81 10^6/uL (4.30-6.10); WHITE BLOOD COUNT 2.6 10^3/uL (4.0-10.0)
[2019-05-19 13:27] LABS: URINE TOTAL PROTEIN 27.6 MG/DL (0-12)
[2019-05-19 13:34] LABS: BASO % 3.1 % (0.0-1.0)
[2019-05-19 14:25] LABS: ALBUMIN 3.9 GM/DL (3.2-5.2); ALT/SGPT 17 U/L (12-78); BILIRUBIN,TOTAL 0.7 MG/DL (0.2-1.0); BLOOD UREA NITROGEN 31 MG/DL (7-18); CALCIUM LEVEL 9.3 MG/DL (8.8-10.2); CARBON DIOXIDE LEVEL 32 MEQ/L (21-32); CHLORIDE LEVEL 107 MEQ/L (98-107); CREATININE FOR GFR 1.97 MG/DL (0.70-1.30); GLUCOSE, FASTING 80 MG/DL (70-100); IMMUNOGLOBULIN A < 7.8 MG/DL (70-400); IMMUNOGLOBULIN G 384 MG/DL (681-1648); LDH LACTATE DEHYDROGENASE 152 U/L (87-241); POTASSIUM SERUM 4.3 MEQ/L (3.5-5.1); SODIUM LEVEL 143 MEQ/L (136-145); TOTAL PROTEIN 6.2 GM/DL (6.4-8.2)
[2019-05-19 14:27] LABS: IMMUNOGLOBULIN M < 5.3 MG/DL (40-230)
[2019-05-20 11:57] LABS: ALBUMIN % 67.7 % (55.8-66.1); ALPHA-1-GLOBULIN % 5.4 % (2.9-4.9); ALPHA-1-GLOBULINS 0.33 GM/DL (0.17-0.41); ALPHA-2-GLOBULINS % 9.7 % (7.1-11.8); BETA-1-GLOBULINS % 6.9 % (4.7-7.2); BETA-2-GLOBULINS % 3.8 % (3.2-6.5); GAMMA GLOBULIN % 6.5 % (11.1-18.8)
[2019-05-20 11:58] LABS: BETA-1-GLOBULINS 0.43 GM/DL (0.28-0.60); BETA-2-GLOBULINS 0.24 GM/DL (0.19-0.55)
[2019-05-21 00:06] LABS: FREE KAPPA LIGHT CHAINS SERUM 12.5 mg/L (3.3-19.4); FREE LAMBDA LIGHT CHAINS SERUM 9.8 mg/L (5.7-26.3); KAPPA/LAMBDA RATIO SERUM 1.28 (0.26-1.65)
[2019-05-22 12:30] LABS: UPEP INTERPRETATION NO M-SPIKE NOTED; URINE VOLUME RANDOM ML
== END ==
LOC: M LABDRWAD 12:32
PROVIDERS: ATTEND Internal Medicine Medical Oncology
DX: C90.00 Multiple myeloma not having achieved remission (principal)

== ENCOUNTER → 2019-06-13 | Outpatient (CLI) | payer OTHER ==
[~2019-06-13] MED LIST changes: -ASPI-524 PO; +ASPI325T57 PO; +OMEP1CAP73 PO; -OMEP20CA4 PO; -SIMV40TA2 PO; +SIMV40TA20 PO; +UNIS25TA3 PO; -VALA1TAB2 PO; +VALA1TAB64 PO
[2019-06-13 12:45] LABS: BASO # 0.1 10^3/uL (0.0-0.2); BASO % 2.7 % (0.0-1.0); EOS # 0.4 10^3/uL (0.0-0.50); EOS % 13.6 % (0.0-3.0); HEMATOCRIT 42.8 % (42.0-52.0); HEMOGLOBIN 14.5 g/dl (13.5-17.5); LYMPH % 6.1 % (24.0-44.0); MEAN CORPUSCULAR HEMOGLOBIN 33.1 pg (27.0-33.0); MEAN CORPUSCULAR HGB CONC 33.9 g/dl (32.0-36.5); MEAN CORPUSCULAR VOLUME 97.7 fl (80.0-96.0); MONO # 0.4 10^3/uL (0.0-0.8); MONO % 13.6 % (0.0-5.0); NEUTROPHILS # 1.9 10^3/uL (1.8-7.7); NEUTROPHILS % 63.7 % (36.0-66.0); PLATELET COUNT, AUTOMATED 110 10^3/uL (150-450); RED BLOOD COUNT 4.38 10^6/uL (4.30-6.10); WHITE BLOOD COUNT 2.9 10^3/uL (4.0-10.0)
[2019-06-13 12:48] LABS: LYMPH # 0.2 10^3/uL (1.5-4.5)
[2019-06-13 12:50] LABS: URINE TOTAL PROTEIN 36.3 MG/DL (0-12)
[2019-06-13 13:26] LABS: IMMUNOGLOBULIN A < 7.8 MG/DL (70-400); IMMUNOGLOBULIN G 373 MG/DL (681-1648); TOTAL PROTEIN 5.6 GM/DL (6.4-8.2)
[2019-06-13 13:30] LABS: IMMUNOGLOBULIN M < 5.3 MG/DL (40-230)
[2019-06-15 00:06] LABS: FREE KAPPA LIGHT CHAINS SERUM 10.8 mg/L (3.3-19.4); FREE LAMBDA LIGHT CHAINS SERUM 9.8 mg/L (5.7-26.3); KAPPA/LAMBDA RATIO SERUM 1.1 (0.26-1.65)
[2019-06-17 14:26] LABS: ALBUMIN 3.65 GM/DL (3.29-5.55); ALBUMIN % 65.2 % (55.8-66.1); ALPHA-1-GLOBULIN % 6.3 % (2.9-4.9); ALPHA-1-GLOBULINS 0.35 GM/DL (0.17-0.41); ALPHA-2-GLOBULINS 0.68 GM/DL (0.42-0.99); ALPHA-2-GLOBULINS % 12.1 % (7.1-11.8); BETA-1-GLOBULINS 0.35 GM/DL (0.28-0.60); BETA-1-GLOBULINS % 6.2 % (4.7-7.2); BETA-2-GLOBULINS 0.23 GM/DL (0.19-0.55); BETA-2-GLOBULINS % 4.1 % (3.2-6.5); GAMMA GLOBULIN % 6.1 % (11.1-18.8); GAMMA GLOBULINS 0.34 GM/DL (0.65-1.58)
[2019-06-20 11:52] LABS: UPEP INTERPRETATION NO M-SPIKE NOTED; URINE VOLUME RANDOM ML
== END ==
LOC: M LABDRWAD 08:48
PROVIDERS: ATTEND Internal Medicine Medical Oncology
DX: R05 Cough (principal)

== ENCOUNTER → 2019-07-04 | Outpatient (REF) | payer OTHER | LOC: M LAB REF 16:52 | PROVIDERS: ATTEND Internal Medicine Nephrology | DX: E03.9 Hypothyroidism, unspecified (principal) ==

== ENCOUNTER → 2019-07-09 | Outpatient (CLI) | payer OTHER ==
--- NOTE | 2019-07-09 12:16 | REP ---
Maxillofacial CT study without contrast: History: Severe sinusitis. Comparison is made with images from head CT study September 09, 2017. Findings: On soft-tissue window settings, incidental note is made of old encephalomalacia from right parietal and left frontal cortical infarctions. The visualized bony calvarium is intact. No intraorbital abnormality is seen. There is moderate mucosal thickening affecting the right maxillary sinus with circumferential mucosal thickening. Right ostiomeatal complex is obscured by mucosal thickening. The left OMC is patent. Nasal turbinate and soft tissues are symmetric. Bony nasal septum is in the midline. There is mild mucosal thickening in several right ethmoid septations. Frontal sinuses are clear. Mastoid aeration is normal and symmetric. Sphenoid sinuses are clear. Impression: 1. Moderate right maxillary sinusitis with mucosal thickening obscuring the ostiomeatal complex. Mild mucosal changes are seen in the right ethmoid air cells. 2. 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 Electronically Signed by Aleksandar Garcia MD 07/09/2019 01:43 P
== END ==
LOC: M RAD 09:43
PROVIDERS: ATTEND Internal Medicine Medical Oncology
DX: J32.0 Chronic maxillary sinusitis (principal)

== ENCOUNTER → 2019-07-28 | Outpatient (REF) | payer OTHER ==
[~2019-07-28] MED LIST changes: -OMEP1CAP73 PO; +OMEP20CA4 PO; +SIMV40TA2 PO; -SIMV40TA20 PO; -UNIS25TA3 PO; +VALA1TAB2 PO; -VALA1TAB64 PO
[2019-07-28 13:06] LABS: BASO # 0.1 10^3/uL (0.0-0.2); BASO % 2.1 % (0.0-1.0); EOS # 0.4 10^3/uL (0.0-0.5); EOS % 14.5 % (0.0-3.0); HEMATOCRIT 46.8 % (42.0-52.0); HEMOGLOBIN 15.5 g/dl (13.5-17.5); LYMPH % 8.7 % (24.0-44.0); MEAN CORPUSCULAR HEMOGLOBIN 32.4 pg (27.0-33.0); MEAN CORPUSCULAR HGB CONC 33.1 g/dl (32.0-36.5); MEAN CORPUSCULAR VOLUME 97.9 fl (80.0-96.0); MONO # 0.3 10^3/uL (0.0-0.8); MONO % 11.6 % (0.0-5.0); NEUTROPHILS # 1.5 10^3/uL (1.5-8.5); NEUTROPHILS % 62.7 % (36.0-66.0); PLATELET COUNT, AUTOMATED 118 10^3/uL (150-450); RED BLOOD COUNT 4.78 10^6/uL (4.30-6.10); WHITE BLOOD COUNT 2.4 10^3/uL (4.0-10.0)
[2019-07-28 13:07] LABS: LYMPH # 0.2 10^3/uL (1.5-5.0)
[2019-07-28 13:29] LABS: TOTAL PROTEIN,RANDOM URINE 31.2 MG/DL (0.0-12.0); URINE TOTAL PROTEIN 31.2 MG/DL (0-12)
[2019-07-28 13:44] LABS: ALBUMIN 3.8 GM/DL (3.2-5.2); ALT/SGPT 16 U/L (12-78); BLOOD UREA NITROGEN 31 MG/DL (7-18); CARBON DIOXIDE LEVEL 30 MEQ/L (21-32); CHLORIDE LEVEL 106 MEQ/L (98-107); CREATININE FOR GFR 2.03 MG/DL (0.70-1.30); GLOMERULAR FILTRATION RATE 35.7 (>49); GLUCOSE, FASTING 112 MG/DL (70-100); POTASSIUM SERUM 3.5 MEQ/L (3.5-5.1); SODIUM LEVEL 141 MEQ/L (136-145); TOTAL PROTEIN 5.9 GM/DL (6.4-8.2)
[2019-07-28 13:45] LABS: IMMUNOGLOBULIN A < 7.8 MG/DL (70-400); IMMUNOGLOBULIN G 368 MG/DL (681-1648); TOTAL PROTEIN 5.9 GM/DL (6.4-8.2)
[2019-07-28 13:59] LABS: IMMUNOGLOBULIN M < 5.3 MG/DL (40-230)
[2019-07-29 13:44] LABS: ALBUMIN 3.99 GM/DL (3.29-5.55); ALBUMIN % 67.6 % (55.8-66.1); ALPHA-1-GLOBULIN % 5.3 % (2.9-4.9); ALPHA-1-GLOBULINS 0.31 GM/DL (0.17-0.41); ALPHA-2-GLOBULINS 0.63 GM/DL (0.42-0.99); ALPHA-2-GLOBULINS % 10.6 % (7.1-11.8); BETA-1-GLOBULINS % 6.7 % (4.7-7.2); BETA-2-GLOBULINS 0.23 GM/DL (0.19-0.55); BETA-2-GLOBULINS % 3.9 % (3.2-6.5); GAMMA GLOBULIN % 5.9 % (11.1-18.8)
[2019-07-29 13:45] LABS: GAMMA GLOBULINS 0.35 GM/DL (0.65-1.58)
[2019-07-30 00:06] LABS: FREE LAMBDA LIGHT CHAINS SERUM 11.2 mg/L (5.7-26.3); KAPPA/LAMBDA RATIO SERUM 0.98 (0.26-1.65)
[2019-07-31 12:51] LABS: UPEP INTERPRETATION NO M-SPIKE NOTED; URINE VOLUME RANDOM ML
== END ==
LOC: M LABDRWAD 11:26
PROVIDERS: ATTEND Internal Medicine Medical Oncology
DX: J34.89 Other specified disorders of nose and nasal sinuses (principal)

== ENCOUNTER → 2019-08-25 | Outpatient (CLI) | payer OTHER ==
[~2019-08-25] MED LIST changes: +UNIS25TA3 PO
[2019-08-25 13:36] LABS: BASO # 0.1 10^3/uL (0.0-0.2); BASO % 1.7 % (0.0-1.0); EOS # 0.4 10^3/uL (0.0-0.5); EOS % 11.7 % (0.0-3.0); HEMATOCRIT 47.3 % (42.0-52.0); HEMOGLOBIN 15.7 g/dl (13.5-17.5); LYMPH # 0.3 10^3/uL (1.5-5.0); LYMPH % 10.1 % (24.0-44.0); MEAN CORPUSCULAR HEMOGLOBIN 32.2 pg (27.0-33.0); MEAN CORPUSCULAR HGB CONC 33.2 g/dl (32.0-36.5); MEAN CORPUSCULAR VOLUME 96.9 fl (80.0-96.0); MONO # 0.5 10^3/uL (0.0-0.8); MONO % 15.8 % (0.0-5.0); NEUTROPHILS # 1.8 10^3/uL (1.5-8.5); NEUTROPHILS % 60.4 % (36.0-66.0); PLATELET COUNT, AUTOMATED 132 10^3/uL (150-450); RED BLOOD COUNT 4.88 10^6/uL (4.30-6.10)
[2019-08-25 14:58] LABS: IMMUNOGLOBULIN A < 7.8 MG/DL (70-400); IMMUNOGLOBULIN G 405 MG/DL (681-1648); IMMUNOGLOBULIN M 6.5 MG/DL (40-230); LDH LACTATE DEHYDROGENASE 178 U/L (87-241); TOTAL PROTEIN 6.3 GM/DL (6.4-8.2)
[2019-08-26 11:50] LABS: ALBUMIN 4.31 GM/DL (3.29-5.55); ALBUMIN % 68.4 % (55.8-66.1); ALPHA-1-GLOBULIN % 5.1 % (2.9-4.9); ALPHA-1-GLOBULINS 0.32 GM/DL (0.17-0.41); ALPHA-2-GLOBULINS 0.61 GM/DL (0.42-0.99); ALPHA-2-GLOBULINS % 9.7 % (7.1-11.8); BETA-1-GLOBULINS 0.43 GM/DL (0.28-0.60); BETA-1-GLOBULINS % 6.8 % (4.7-7.2); BETA-2-GLOBULINS 0.23 GM/DL (0.19-0.55); BETA-2-GLOBULINS % 3.7 % (3.2-6.5); GAMMA GLOBULIN % 6.3 % (11.1-18.8)
[2019-08-27 00:06] LABS: FREE KAPPA LIGHT CHAINS SERUM 11.3 mg/L (3.3-19.4); FREE LAMBDA LIGHT CHAINS SERUM 11.9 mg/L (5.7-26.3); KAPPA/LAMBDA RATIO SERUM 0.95 (0.26-1.65)
== END ==
LOC: M ADAMS 09:13
PROVIDERS: ATTEND Internal Medicine Medical Oncology
DX: J34.89 Other specified disorders of nose and nasal sinuses (principal); E03.9 Hypothyroidism, unspecified

== ENCOUNTER → 2019-09-22 | Outpatient (REF) | payer OTHER ==
[2019-09-22 13:17] LABS: BASO # 0.1 10^3/uL (0.0-0.2); EOS # 0.4 10^3/uL (0.0-0.5); EOS % 8.9 % (0.0-3.0); HEMOGLOBIN 15.8 g/dl (13.5-17.5); LYMPH # 0.3 10^3/uL (1.5-5.0); LYMPH % 7.9 % (24.0-44.0); MEAN CORPUSCULAR HEMOGLOBIN 32.3 pg (27.0-33.0); MEAN CORPUSCULAR HGB CONC 33.6 g/dl (32.0-36.5); MEAN CORPUSCULAR VOLUME 96.1 fl (80.0-96.0); MONO # 0.5 10^3/uL (0.0-0.8); MONO % 11.8 % (0.0-5.0); NEUTROPHILS # 2.8 10^3/uL (1.5-8.5); NEUTROPHILS % 68.7 % (36.0-66.0); PLATELET COUNT, AUTOMATED 141 10^3/uL (150-450); RED BLOOD COUNT 4.89 10^6/uL (4.30-6.10); WHITE BLOOD COUNT 4.1 10^3/uL (4.0-10.0)
[2019-09-22 16:06] LABS: ALBUMIN 3.8 GM/DL (3.2-5.2); ALT/SGPT 19 U/L (12-78); BILIRUBIN,TOTAL 0.9 MG/DL (0.2-1.0); BLOOD UREA NITROGEN 29 MG/DL (7-18); CALCIUM LEVEL 9.4 MG/DL (8.8-10.2); CARBON DIOXIDE LEVEL 33 MEQ/L (21-32); CHLORIDE LEVEL 104 MEQ/L (98-107); CREATININE FOR GFR 1.83 MG/DL (0.70-1.30); GLOMERULAR FILTRATION RATE 40.3 (>49); GLUCOSE, FASTING 104 MG/DL (70-100); IMMUNOGLOBULIN A < 7.8 MG/DL (70-400); IMMUNOGLOBULIN G 396 MG/DL (681-1648); IMMUNOGLOBULIN M 7.2 MG/DL (40-230); POTASSIUM SERUM 4.2 MEQ/L (3.5-5.1); SODIUM LEVEL 141 MEQ/L (136-145); TOTAL PROTEIN 6.3 GM/DL (6.4-8.2)
[2019-09-23 11:12] LABS: ALBUMIN 4.09 GM/DL (3.29-5.55); ALBUMIN % 64.9 % (55.8-66.1); ALPHA-1-GLOBULINS 0.38 GM/DL (0.17-0.41); ALPHA-2-GLOBULINS 0.76 GM/DL (0.42-0.99); BETA-1-GLOBULINS 0.42 GM/DL (0.28-0.60); BETA-1-GLOBULINS % 6.6 % (4.7-7.2); BETA-2-GLOBULINS 0.27 GM/DL (0.19-0.55); BETA-2-GLOBULINS % 4.3 % (3.2-6.5); GAMMA GLOBULIN % 6.2 % (11.1-18.8); GAMMA GLOBULINS 0.39 GM/DL (0.65-1.58)
[2019-09-24 00:07] LABS: FREE KAPPA LIGHT CHAINS SERUM 12.7 mg/L (3.3-19.4); KAPPA/LAMBDA RATIO SERUM 0.98 (0.26-1.65)
[2019-09-24 10:57] LABS: URINE TOTAL PROTEIN 22.5 MG/DL (0-12)
== END ==
LOC: M LAB REF 12:41
PROVIDERS: ATTEND Internal Medicine Medical Oncology
DX: C90.00 Multiple myeloma not having achieved remission (principal)

== ENCOUNTER → 2019-10-20 | Outpatient (REF) | payer OTHER ==
[~2019-10-20] MED LIST changes: +OMEP-172 PO; -OMEP20CA4 PO; -SIMV40TA2 PO; +SIMV40TA20 PO; -VALA1TAB2 PO; +VALA1TAB64 PO
[2019-10-20 12:48] LABS: BASO # 0.1 10^3/uL (0.0-0.2); BASO % 2.7 % (0.0-1.0); EOS # 0.3 10^3/uL (0.0-0.5); EOS % 9.7 % (0.0-3.0); HEMATOCRIT 51.5 % (42.0-52.0); HEMOGLOBIN 16.7 g/dl (13.5-17.5); LYMPH # 0.3 10^3/uL (1.5-5.0); LYMPH % 10.7 % (24.0-44.0); MEAN CORPUSCULAR HEMOGLOBIN 31.6 pg (27.0-33.0); MEAN CORPUSCULAR HGB CONC 32.4 g/dl (32.0-36.5); MEAN CORPUSCULAR VOLUME 97.4 fl (80.0-96.0); MONO # 0.4 10^3/uL (0.0-0.8); MONO % 13.4 % (0.0-5.0); NEUTROPHILS # 1.9 10^3/uL (1.5-8.5); NEUTROPHILS % 62.8 % (36.0-66.0); PLATELET COUNT, AUTOMATED 113 10^3/uL (150-450); RED BLOOD COUNT 5.29 10^6/uL (4.30-6.10)
[2019-10-20 13:56] LABS: IMMUNOGLOBULIN A < 7.8 MG/DL (70-400); IMMUNOGLOBULIN G 402 MG/DL (681-1648); LDH LACTATE DEHYDROGENASE 160 U/L (87-241); TOTAL PROTEIN 6.2 GM/DL (6.4-8.2)
[2019-10-20 14:39] LABS: IMMUNOGLOBULIN M < 5.3 MG/DL (40-230)
[2019-10-21 12:50] LABS: ALBUMIN % 69.4 % (55.8-66.1); ALPHA-1-GLOBULIN % 4.5 % (2.9-4.9); ALPHA-1-GLOBULINS 0.28 GM/DL (0.17-0.41); ALPHA-2-GLOBULINS % 9.7 % (7.1-11.8); BETA-1-GLOBULINS % 6.5 % (4.7-7.2); BETA-2-GLOBULINS % 3.5 % (3.2-6.5); GAMMA GLOBULIN % 6.4 % (11.1-18.8)
[2019-10-21 12:51] LABS: BETA-2-GLOBULINS 0.22 GM/DL (0.19-0.55)
== END ==
LOC: M LABDRWAD 12:04
PROVIDERS: ATTEND Internal Medicine Medical Oncology
DX: C90.00 Multiple myeloma not having achieved remission (principal)

== ENCOUNTER → 2019-11-24 | Outpatient (CLI) | payer MEDICARE, OTHER ==
[~2019-11-24] MED LIST changes: -OMEP-172 PO; +OMEP1CAP73 PO
[2019-11-24 14:05] LABS: EOS # 0.3 10^3/uL (0.0-0.5); EOS % 6.9 % (0.0-3.0); HEMATOCRIT 48.2 % (42.0-52.0); HEMOGLOBIN 16.4 g/dl (13.5-17.5); LYMPH # 0.5 10^3/uL (1.5-5.0); LYMPH % 12.1 % (24.0-44.0); MEAN CORPUSCULAR HEMOGLOBIN 32.4 pg (27.0-33.0); MEAN CORPUSCULAR VOLUME 95.3 fl (80.0-96.0); MONO # 0.6 10^3/uL (0.0-0.8); MONO % 15.6 % (0.0-5.0); NEUTROPHILS # 2.5 10^3/uL (1.5-8.5); NEUTROPHILS % 63.9 % (36.0-66.0); PLATELET COUNT, AUTOMATED 118 10^3/uL (150-450); RED BLOOD COUNT 5.06 10^6/uL (4.30-6.10); WHITE BLOOD COUNT 3.9 10^3/uL (4.0-10.0)
[2019-11-24 14:23] LABS: TOTAL PROTEIN,RANDOM URINE 33.5 MG/DL (0.0-12.0)
[2019-11-24 14:29] LABS: ALT/SGPT 24 U/L (12-78); BILIRUBIN,TOTAL 0.9 MG/DL (0.2-1.0); BLOOD UREA NITROGEN 34 MG/DL (7-18); CALCIUM LEVEL 8.9 MG/DL (8.8-10.2); CARBON DIOXIDE LEVEL 33 MEQ/L (21-32); CHLORIDE LEVEL 105 MEQ/L (98-107); CREATININE FOR GFR 1.92 MG/DL (0.70-1.30); GLOMERULAR FILTRATION RATE 38.1 (>49); GLUCOSE, FASTING 103 MG/DL (70-100); POTASSIUM SERUM 4.2 MEQ/L (3.5-5.1); SODIUM LEVEL 142 MEQ/L (136-145); TOTAL PROTEIN 6.1 GM/DL (6.4-8.2)
[2019-11-25 13:15] LABS: ALBUMIN % 68.9 % (55.8-66.1); ALPHA-1-GLOBULIN % 4.8 % (2.9-4.9); ALPHA-2-GLOBULINS % 9.8 % (7.1-11.8); BETA-1-GLOBULINS % 6.6 % (4.7-7.2); BETA-2-GLOBULINS % 3.7 % (3.2-6.5); GAMMA GLOBULIN % 6.2 % (11.1-18.8)
[2019-11-25 13:16] LABS: ALPHA-1-GLOBULINS 0.29 GM/DL (0.17-0.41); BETA-2-GLOBULINS 0.23 GM/DL (0.19-0.55); GAMMA GLOBULINS 0.38 GM/DL (0.65-1.58)
[2019-11-26 00:06] LABS: FREE KAPPA LIGHT CHAINS SERUM 10.9 mg/L (3.3-19.4); FREE LAMBDA LIGHT CHAINS SERUM 10.6 mg/L (5.7-26.3); KAPPA/LAMBDA RATIO SERUM 1.03 (0.26-1.65)
== END ==
LOC: M LABDRWAD 08:23
PROVIDERS: ATTEND Internal Medicine Medical Oncology
DX: C90.00 Multiple myeloma not having achieved remission (principal)

== ENCOUNTER → 2019-12-22 | Outpatient (REF) | payer MEDICARE, OTHER ==
[~2019-12-22] MED LIST changes: +VALA1TAB5 PO; -VALA1TAB64 PO
[2019-12-22 14:33] LABS: BASO # 0.1 10^3/uL (0.0-0.2); EOS # 0.4 10^3/uL (0.0-0.5); EOS % 12.4 % (0.0-3.0); HEMATOCRIT 52.7 % (42.0-52.0); HEMOGLOBIN 17.8 g/dl (13.5-17.5); LYMPH # 0.4 10^3/uL (1.5-5.0); LYMPH % 13.7 % (24.0-44.0); MEAN CORPUSCULAR HEMOGLOBIN 31.8 pg (27.0-33.0); MEAN CORPUSCULAR HGB CONC 33.8 g/dl (32.0-36.5); MEAN CORPUSCULAR VOLUME 94.1 fl (80.0-96.0); MONO # 0.4 10^3/uL (0.0-0.8); MONO % 14.4 % (0.0-5.0); NEUTROPHILS # 1.7 10^3/uL (1.5-8.5); NEUTROPHILS % 55.5 % (36.0-66.0); PLATELET COUNT, AUTOMATED 119 10^3/uL (150-450); WHITE BLOOD COUNT 3.1 10^3/uL (4.0-10.0)
[2019-12-22 14:39] LABS: ALBUMIN 4.3 GM/DL (3.2-5.2); ALT/SGPT 26 U/L (12-78); BLOOD UREA NITROGEN 39 MG/DL (7-18); CALCIUM LEVEL 9.1 MG/DL (8.8-10.2); CARBON DIOXIDE LEVEL 33 MEQ/L (21-32); CHLORIDE LEVEL 106 MEQ/L (98-107); CREATININE FOR GFR 1.97 MG/DL (0.70-1.30); GLUCOSE, FASTING 76 MG/DL (70-100); POTASSIUM SERUM 4.5 MEQ/L (3.5-5.1); SODIUM LEVEL 141 MEQ/L (136-145); TOTAL PROTEIN 6.5 GM/DL (6.4-8.2)
[2019-12-22 14:50] LABS: BASO % 3.3 % (0.0-1.0)
[2019-12-23 10:49] LABS: ALBUMIN 4.46 GM/DL (3.29-5.55); ALBUMIN % 68.6 % (55.8-66.1); ALPHA-1-GLOBULIN % 4.7 % (2.9-4.9); ALPHA-1-GLOBULINS 0.31 GM/DL (0.17-0.41); ALPHA-2-GLOBULINS 0.62 GM/DL (0.42-0.99); ALPHA-2-GLOBULINS % 9.5 % (7.1-11.8); BETA-1-GLOBULINS 0.47 GM/DL (0.28-0.60); BETA-1-GLOBULINS % 7.2 % (4.7-7.2); BETA-2-GLOBULINS % 3.8 % (3.2-6.5); GAMMA GLOBULIN % 6.2 % (11.1-18.8)
[2019-12-23 10:50] LABS: BETA-2-GLOBULINS 0.25 GM/DL (0.19-0.55)
[2019-12-24 00:06] LABS: FREE LAMBDA LIGHT CHAINS SERUM 9.9 mg/L (5.7-26.3); KAPPA/LAMBDA RATIO SERUM 1.21 (0.26-1.65)
== END ==
LOC: M LABDRWAD 12:42
PROVIDERS: ATTEND Internal Medicine Medical Oncology
DX: C90.00 Multiple myeloma not having achieved remission (principal)

== ENCOUNTER → 2020-01-08 | Outpatient (REF) | payer MEDICARE, OTHER | LOC: M LAB REF 13:10 | PROVIDERS: ATTEND Internal Medicine Nephrology | DX: E03.9 Hypothyroidism, unspecified (principal) ==

== ENCOUNTER → 2020-01-19 | Outpatient (REF) | payer MEDICARE, OTHER ==
[2020-01-19 13:01] LABS: BASO # 0.1 10^3/uL (0.0-0.2); BASO % 2.9 % (0.0-1.0); EOS # 0.5 10^3/uL (0.0-0.5); HEMATOCRIT 49.9 % (42.0-52.0); HEMOGLOBIN 16.5 g/dl (13.5-17.5); LYMPH # 0.4 10^3/uL (1.5-5.0); LYMPH % 10.9 % (24.0-44.0); MEAN CORPUSCULAR HEMOGLOBIN 31.4 pg (27.0-33.0); MEAN CORPUSCULAR HGB CONC 33.1 g/dl (32.0-36.5); MEAN CORPUSCULAR VOLUME 94.9 fl (80.0-96.0); MONO # 0.7 10^3/uL (0.0-0.8); MONO % 17.3 % (0.0-5.0); NEUTROPHILS # 2.1 10^3/uL (1.5-8.5); NEUTROPHILS % 56.6 % (36.0-66.0); PLATELET COUNT, AUTOMATED 132 10^3/uL (150-450); RED BLOOD COUNT 5.26 10^6/uL (4.30-6.10); WHITE BLOOD COUNT 3.8 10^3/uL (4.0-10.0)
[2020-01-19 13:23] LABS: ALBUMIN 3.8 GM/DL (3.2-5.2); ALT/SGPT 28 U/L (12-78); BILIRUBIN,TOTAL 0.6 MG/DL (0.2-1.0); BLOOD UREA NITROGEN 32 MG/DL (7-18); CALCIUM LEVEL 9.1 MG/DL (8.8-10.2); CARBON DIOXIDE LEVEL 33 MEQ/L (21-32); CHLORIDE LEVEL 106 MEQ/L (98-107); GLOMERULAR FILTRATION RATE 38.6 (>49); GLUCOSE, FASTING 59 MG/DL (70-100); POTASSIUM SERUM 4.3 MEQ/L (3.5-5.1); SODIUM LEVEL 144 MEQ/L (136-145); TOTAL PROTEIN 5.9 GM/DL (6.4-8.2)
[2020-01-20 10:48] LABS: ALBUMIN 3.97 GM/DL (3.29-5.55); ALBUMIN % 67.3 % (55.8-66.1); ALPHA-1-GLOBULIN % 5.1 % (2.9-4.9); ALPHA-2-GLOBULINS 0.61 GM/DL (0.42-0.99); ALPHA-2-GLOBULINS % 10.4 % (7.1-11.8); BETA-1-GLOBULINS 0.42 GM/DL (0.28-0.60); BETA-1-GLOBULINS % 7.1 % (4.7-7.2); BETA-2-GLOBULINS 0.22 GM/DL (0.19-0.55); BETA-2-GLOBULINS % 3.8 % (3.2-6.5); GAMMA GLOBULIN % 6.3 % (11.1-18.8); GAMMA GLOBULINS 0.37 GM/DL (0.65-1.58)
[2020-01-21 00:06] LABS: FREE KAPPA LIGHT CHAINS SERUM 10.6 mg/L (3.3-19.4); FREE LAMBDA LIGHT CHAINS SERUM 14.6 mg/L (5.7-26.3); KAPPA/LAMBDA RATIO SERUM 0.73 (0.26-1.65)
== END ==
LOC: M LABDRWAD 12:21
PROVIDERS: ATTEND Internal Medicine Medical Oncology
DX: C90.00 Multiple myeloma not having achieved remission (principal)

== ENCOUNTER → 2020-04-21 | Outpatient (REF) | payer OTHER, MEDICARE ==
[~2020-04-21] MED LIST changes: +AMLO25TA PO; +GABA-282 PO; -GABA-843 PO; -MELA5TAB31 PO; +MELA5TAB36 PO
[2020-04-21 13:14] LABS: HEMATOCRIT 51.2 % (42.0-52.0); HEMOGLOBIN 16.7 g/dl (13.5-17.5); MEAN CORPUSCULAR HEMOGLOBIN 30.8 pg (27.0-33.0); MEAN CORPUSCULAR HGB CONC 32.6 g/dl (32.0-36.5); MEAN CORPUSCULAR VOLUME 94.5 fl (80.0-96.0); PLATELET COUNT, AUTOMATED 101 10^3/uL (150-450); RED BLOOD COUNT 5.42 10^6/uL (4.30-6.10); WHITE BLOOD COUNT 3.5 10^3/uL (4.0-10.0)
[2020-04-21 14:11] LABS: ALT/SGPT 20 U/L (12-78); BILIRUBIN,TOTAL 1.1 MG/DL (0.2-1.0); BLOOD UREA NITROGEN 34 MG/DL (7-18); CALCIUM LEVEL 9.2 MG/DL (8.8-10.2); CARBON DIOXIDE LEVEL 33 MEQ/L (21-32); CHLORIDE LEVEL 105 MEQ/L (98-107); CREATININE FOR GFR 1.86 MG/DL (0.70-1.30); GLOMERULAR FILTRATION RATE 39.4 (>49); GLUCOSE, FASTING 83 MG/DL (70-100); IMMUNOGLOBULIN A < 7.8 MG/DL (70-400); IMMUNOGLOBULIN G 396 MG/DL (681-1648); IMMUNOGLOBULIN M 5.8 MG/DL (40-230); POTASSIUM SERUM 4.5 MEQ/L (3.5-5.1); SODIUM LEVEL 142 MEQ/L (136-145); TOTAL PROTEIN 6.2 GM/DL (6.4-8.2)
[2020-04-22 17:08] LABS: FREE KAPPA LIGHT CHAINS SERUM 9.4 mg/L (3.3-19.4); FREE LAMBDA LIGHT CHAINS SERUM 9.4 mg/L (5.7-26.3)
[2020-04-23 11:18] LABS: ALBUMIN 4.29 GM/DL (3.29-5.55); ALBUMIN % 69.2 % (55.8-66.1); ALPHA-1-GLOBULIN % 4.5 % (2.9-4.9); ALPHA-1-GLOBULINS 0.28 GM/DL (0.17-0.41); ALPHA-2-GLOBULINS 0.59 GM/DL (0.42-0.99); ALPHA-2-GLOBULINS % 9.5 % (7.1-11.8); BETA-2-GLOBULINS % 3.6 % (3.2-6.5); GAMMA GLOBULIN % 6.2 % (11.1-18.8)
[2020-04-23 11:19] LABS: BETA-1-GLOBULINS 0.43 GM/DL (0.28-0.60); BETA-2-GLOBULINS 0.22 GM/DL (0.19-0.55); GAMMA GLOBULINS 0.38 GM/DL (0.65-1.58)
== END ==
LOC: M LABDRWAD 12:25
PROVIDERS: ATTEND Internal Medicine Medical Oncology
DX: Z01.89 Encounter for other specified special examinations (principal)

== ENCOUNTER → 2020-07-09 | Outpatient (REF) | payer MEDICARE, OTHER ==
[~2020-07-09] MED LIST changes: -AMLO25TA PO; -GABA-282 PO; +GABA-843 PO
== END ==
LOC: M LAB REF 17:21
PROVIDERS: ATTEND Internal Medicine Nephrology
DX: E03.9 Hypothyroidism, unspecified (principal)

== ENCOUNTER → 2020-09-17 | Outpatient (CLI) | payer MEDICARE, OTHER ==
--- NOTE | 2020-09-17 11:50 | REP ---
INDICATION: SOB. COMPARISON: December 21, 2017. TECHNIQUE: Two views.. FINDINGS: The lungs are well inflated and free of infiltrate. The pleural angles are sharp. The heart size is normal. Pulmonary vasculature is not increased. No significant bony abnormality is seen. There is a mild pectus deformity again noted on lateral radiograph. There are clips in the upper abdomen visible on lateral film. IMPRESSION: Pectus deformity. No active disease.. <Electronically signed by Erasto Garcia > 09/17/20 0904
== END ==
LOC: M ADAMS 09:26
PROVIDERS: ATTEND Physician Assistant
DX: R06.02 Shortness of breath (principal)

== ENCOUNTER → 2020-10-19 | Outpatient (REF) | payer MEDICARE, OTHER ==
[2020-10-19 13:58] LABS: BASO # 0.1 10^3/uL (0.0-0.2); BASO % 1.9 % (0.0-1.0); EOS # 0.6 10^3/uL (0.0-0.5); EOS % 13.2 % (0.0-3.0); HEMATOCRIT 49.2 % (42.0-52.0); HEMOGLOBIN 15.6 g/dl (13.5-17.5); LYMPH # 0.4 10^3/uL (1.5-5.0); LYMPH % 9.6 % (24.0-44.0); MEAN CORPUSCULAR HEMOGLOBIN 29.3 pg (27.0-33.0); MEAN CORPUSCULAR HGB CONC 31.7 g/dl (32.0-36.5); MEAN CORPUSCULAR VOLUME 92.5 fl (80.0-96.0); MONO # 0.8 10^3/uL (0.0-0.8); MONO % 18.2 % (0.0-5.0); NEUTROPHILS # 2.4 10^3/uL (1.5-8.5); NEUTROPHILS % 56.4 % (36.0-66.0); PLATELET COUNT, AUTOMATED 136 10^3/uL (150-450); RED BLOOD COUNT 5.32 10^6/uL (4.30-6.10); WHITE BLOOD COUNT 4.2 10^3/uL (4.0-10.0)
[2020-10-19 14:22] LABS: ALBUMIN 4.3 GM/DL (3.2-5.2); ALT/SGPT 27 U/L (12-78); BILIRUBIN,TOTAL 0.9 MG/DL (0.2-1.0); BLOOD UREA NITROGEN 37 MG/DL (7-18); CALCIUM LEVEL 10.1 MG/DL (8.8-10.2); CARBON DIOXIDE LEVEL 31 MEQ/L (21-32); CHLORIDE LEVEL 102 MEQ/L (98-107); CREATININE FOR GFR 1.91 MG/DL (0.70-1.30); GLOMERULAR FILTRATION RATE 38.2 (>49); GLUCOSE, FASTING 85 MG/DL (70-100); POTASSIUM SERUM 4.5 MEQ/L (3.5-5.1); SODIUM LEVEL 138 MEQ/L (136-145); TOTAL PROTEIN 6.9 GM/DL (6.4-8.2)
[2020-10-20 12:26] LABS: ALBUMIN % 65.2 % (55.8-66.1); ALPHA-1-GLOBULIN % 6.3 % (2.9-4.9); ALPHA-2-GLOBULINS % 12.1 % (7.1-11.8); BETA-2-GLOBULINS % 4.4 % (3.2-6.5)
[2020-10-20 12:27] LABS: ALPHA-1-GLOBULINS 0.43 GM/DL (0.17-0.41); ALPHA-2-GLOBULINS 0.83 GM/DL (0.42-0.99); BETA-1-GLOBULINS 0.48 GM/DL (0.28-0.60); GAMMA GLOBULINS 0.35 GM/DL (0.65-1.58)
[2020-10-21 14:08] LABS: FREE KAPPA LIGHT CHAINS SERUM 15.1 mg/L (3.3-19.4); FREE KAPPA LIGHT CHAINS URINE 94.45 mg/L (0.63-113.79); FREE LAMBDA LIGHT CHAINS URINE 10.97 mg/L (0.47-11.77); KAPPA/LAMBDA RATIO SERUM 1.08 (0.26-1.65); KAPPA/LAMBDA RATIO URINE 8.61 (1.03-31.76)
== END ==
LOC: M LABDRWAD 12:26
PROVIDERS: ATTEND Specialist
DX: C90.00 Multiple myeloma not having achieved remission (principal)

== ENCOUNTER → 2020-11-29 | Outpatient (REF) | payer MEDICARE, OTHER ==
[~2020-11-29] MED LIST changes: +AMLO25TA PO; +GABA-282 PO; -GABA-843 PO
[2020-11-29 13:20] LABS: BASO # 0.1 10^3/uL (0.0-0.2); BASO % 2.7 % (0.0-1.0); EOS # 0.4 10^3/uL (0.0-0.5); EOS % 14.4 % (0.0-3.0); HEMATOCRIT 45.9 % (42.0-52.0); HEMOGLOBIN 14.7 g/dl (13.5-17.5); LYMPH # 0.2 10^3/uL (1.5-5.0); LYMPH % 9.1 % (24.0-44.0); MEAN CORPUSCULAR HEMOGLOBIN 29.2 pg (27.0-33.0); MEAN CORPUSCULAR VOLUME 91.1 fl (80.0-96.0); MONO # 0.5 10^3/uL (0.0-0.8); MONO % 18.6 % (0.0-5.0); NEUTROPHILS # 1.5 10^3/uL (1.5-8.5); NEUTROPHILS % 54.8 % (36.0-66.0); PLATELET COUNT, AUTOMATED 148 10^3/uL (150-450); RED BLOOD COUNT 5.04 10^6/uL (4.30-6.10); WHITE BLOOD COUNT 2.6 10^3/uL (4.0-10.0)
[2020-11-29 14:10] LABS: BLOOD UREA NITROGEN 31 MG/DL (7-18); CALCIUM LEVEL 9.6 MG/DL (8.8-10.2); CARBON DIOXIDE LEVEL 32 MEQ/L (21-32); CHLORIDE LEVEL 105 MEQ/L (98-107); CREATININE FOR GFR 1.78 MG/DL (0.70-1.30); GLOMERULAR FILTRATION RATE 41.4 (>49); GLUCOSE, FASTING 91 MG/DL (70-100); POTASSIUM SERUM 4.6 MEQ/L (3.5-5.1); SODIUM LEVEL 142 MEQ/L (136-145)
[2020-11-29 14:11] LABS: ALBUMIN 3.8 GM/DL (3.2-5.2); ALT/SGPT 15 U/L (12-78); BILIRUBIN,TOTAL 0.7 MG/DL (0.2-1.0); TOTAL PROTEIN 6.1 GM/DL (6.4-8.2)
[2020-11-29 15:11] LABS: IMMUNOGLOBULIN A < 7.8 MG/DL (70-400); IMMUNOGLOBULIN G 277 MG/DL (681-1648); IMMUNOGLOBULIN M 13.7 MG/DL (40-230)
[2020-11-30 20:08] LABS: FREE KAPPA LIGHT CHAINS SERUM 11.4 mg/L (3.3-19.4); FREE LAMBDA LIGHT CHAINS SERUM 15.9 mg/L (5.7-26.3); KAPPA/LAMBDA RATIO SERUM 0.72 (0.26-1.65)
[2020-12-01 12:18] LABS: ALBUMIN 4.14 GM/DL (3.29-5.55); ALBUMIN % 67.9 % (55.8-66.1); ALPHA-1-GLOBULIN % 5.4 % (2.9-4.9); ALPHA-1-GLOBULINS 0.33 GM/DL (0.17-0.41); ALPHA-2-GLOBULINS 0.66 GM/DL (0.42-0.99); ALPHA-2-GLOBULINS % 10.8 % (7.1-11.8); BETA-1-GLOBULINS 0.45 GM/DL (0.28-0.60); BETA-1-GLOBULINS % 7.3 % (4.7-7.2); BETA-2-GLOBULINS 0.24 GM/DL (0.19-0.55); BETA-2-GLOBULINS % 3.9 % (3.2-6.5); GAMMA GLOBULIN % 4.7 % (11.1-18.8); GAMMA GLOBULINS 0.29 GM/DL (0.65-1.58)
== END ==
LOC: M LAB REF 12:30 → M LABDRWAD 12:30
PROVIDERS: ATTEND Internal Medicine Medical Oncology
DX: G62.9 Polyneuropathy, unspecified (principal)

== ENCOUNTER → 2020-12-23 | Outpatient (REF) | payer MEDICARE, OTHER ==
[2020-12-23 13:38] LABS: BASO # 0.1 10^3/uL (0.0-0.2); BASO % 1.5 % (0.0-1.0); EOS # 0.3 10^3/uL (0.0-0.5); EOS % 8.2 % (0.0-3.0); HEMATOCRIT 47.6 % (42.0-52.0); LYMPH # 0.3 10^3/uL (1.5-5.0); MEAN CORPUSCULAR HEMOGLOBIN 29.5 pg (27.0-33.0); MEAN CORPUSCULAR HGB CONC 31.5 g/dl (32.0-36.5); MEAN CORPUSCULAR VOLUME 93.5 fl (80.0-96.0); MONO # 0.5 10^3/uL (0.0-0.8); MONO % 12.2 % (2.0-8.0); NEUTROPHILS # 2.8 10^3/uL (1.5-8.5); NEUTROPHILS % 69.1 % (36.0-66.0); PLATELET COUNT, AUTOMATED 173 10^3/uL (150-450); RED BLOOD COUNT 5.09 10^6/uL (4.30-6.10)
[2020-12-23 14:34] LABS: ALT/SGPT 20 U/L (12-78); BILIRUBIN,TOTAL 0.6 MG/DL (0.2-1.0); BLOOD UREA NITROGEN 34 MG/DL (7-18); CARBON DIOXIDE LEVEL 31 MEQ/L (21-32); CHLORIDE LEVEL 105 MEQ/L (98-107); GLOMERULAR FILTRATION RATE 38.4 (>49); GLUCOSE, FASTING 110 MG/DL (70-100); IMMUNOGLOBULIN A < 7.8 MG/DL (70-400); IMMUNOGLOBULIN G 295 MG/DL (681-1648); IMMUNOGLOBULIN M 12.1 MG/DL (40-230); POTASSIUM SERUM 4.1 MEQ/L (3.5-5.1); SODIUM LEVEL 143 MEQ/L (136-145); TOTAL PROTEIN 6.1 GM/DL (6.4-8.2)
[2020-12-24 10:56] LABS: ALBUMIN 4.12 GM/DL (3.29-5.55); ALBUMIN % 67.5 % (55.8-66.1); ALPHA-1-GLOBULINS 0.31 GM/DL (0.17-0.41); ALPHA-2-GLOBULINS 0.68 GM/DL (0.42-0.99); ALPHA-2-GLOBULINS % 11.2 % (7.1-11.8); BETA-1-GLOBULINS 0.45 GM/DL (0.28-0.60); BETA-1-GLOBULINS % 7.4 % (4.7-7.2); BETA-2-GLOBULINS 0.23 GM/DL (0.19-0.55); BETA-2-GLOBULINS % 3.7 % (3.2-6.5); GAMMA GLOBULIN % 5.2 % (11.1-18.8); GAMMA GLOBULINS 0.32 GM/DL (0.65-1.58)
[2020-12-24 18:09] LABS: KAPPA/LAMBDA RATIO SERUM 0.87 (0.26-1.65)
== END ==
LOC: M LABDRWAD 12:33
PROVIDERS: ATTEND Internal Medicine Medical Oncology
DX: G62.9 Polyneuropathy, unspecified (principal)

== ENCOUNTER → 2021-01-19 | Outpatient (REF) | payer MEDICARE, OTHER ==
[~2021-01-19] MED LIST changes: -AMIT10TA PO; +AMIT10TA7 PO
[2021-01-19 12:58] LABS: BASO # 0.1 10^3/uL (0.0-0.2); BASO % 1.3 % (0.0-1.0); EOS # 0.4 10^3/uL (0.0-0.5); EOS % 8.8 % (0.0-3.0); HEMATOCRIT 49.3 % (42.0-52.0); LYMPH # 0.4 10^3/uL (1.5-5.0); MEAN CORPUSCULAR HEMOGLOBIN 29.8 pg (27.0-33.0); MEAN CORPUSCULAR HGB CONC 32.5 g/dl (32.0-36.5); MEAN CORPUSCULAR VOLUME 91.8 fl (80.0-96.0); MONO # 0.7 10^3/uL (0.0-0.8); MONO % 16.5 % (2.0-8.0); NEUTROPHILS # 2.6 10^3/uL (1.5-8.5); NEUTROPHILS % 63.9 % (36.0-66.0); PLATELET COUNT, AUTOMATED 123 10^3/uL (150-450); RED BLOOD COUNT 5.37 10^6/uL (4.30-6.10)
[2021-01-19 14:08] LABS: ALT/SGPT 12 U/L (12-78); BILIRUBIN,TOTAL 0.7 MG/DL (0.2-1.0); BLOOD UREA NITROGEN 33 MG/DL (7-18); CALCIUM LEVEL 9.8 MG/DL (8.8-10.2); CARBON DIOXIDE LEVEL 31 MEQ/L (21-32); CHLORIDE LEVEL 106 MEQ/L (98-107); CREATININE FOR GFR 1.81 MG/DL (0.70-1.30); GLOMERULAR FILTRATION RATE 40.6 (>49); GLUCOSE, FASTING 104 MG/DL (70-100); POTASSIUM SERUM 4.7 MEQ/L (3.5-5.1); SODIUM LEVEL 142 MEQ/L (136-145); TOTAL PROTEIN 6.1 GM/DL (6.4-8.2)
[2021-01-19 16:13] LABS: IMMUNOGLOBULIN G 275 MG/DL (681-1648); IMMUNOGLOBULIN M 10.4 MG/DL (40-230)
[2021-01-19 16:14] LABS: IMMUNOGLOBULIN A < 7.8 MG/DL (70-400)
[2021-01-20 17:08] LABS: KAPPA/LAMBDA RATIO SERUM 0.76 (0.26-1.65)
== END ==
LOC: M LABDRWAD 12:26
PROVIDERS: ATTEND Internal Medicine Medical Oncology
DX: G62.9 Polyneuropathy, unspecified (principal)

== ENCOUNTER → 2021-04-14 | Outpatient (CLI) | payer MEDICARE, OTHER ==
--- NOTE | 2021-04-14 11:27 | REP ---
INDICATION: COUGH COMPARISON: 09/09/2017. TECHNIQUE: PA/Lateral FINDINGS: Lungs: Clear, no infiltrate. Heart: Normal in size. Mediastinum: Mediastinal silhouette unremarkable. Pleural angles: Unremarkable.. Bones and soft tissues: Unremarkable. IMPRESSION: No acute pulmonary disease. <Electronically signed by Ezra Hogue > 04/14/21 [id number]
== END ==
LOC: M RAD 11:02
PROVIDERS: ATTEND Family Medicine
DX: R05 Cough (principal); G62.9 Polyneuropathy, unspecified

== ENCOUNTER → 2021-04-14 | Outpatient (REF) | payer MEDICARE, OTHER ==
[2021-04-14 13:45] LABS: BASO # 0.1 10^3/uL (0.0-0.2); BASO % 1.8 % (0.0-1.0); EOS # 0.3 10^3/uL (0.0-0.5); EOS % 5.2 % (0.0-3.0); HEMATOCRIT 48.1 % (42.0-52.0); HEMOGLOBIN 15.5 g/dl (13.5-17.5); LYMPH # 0.4 10^3/uL (1.5-5.0); LYMPH % 5.4 % (24.0-44.0); MEAN CORPUSCULAR HGB CONC 32.2 g/dl (32.0-36.5); MEAN CORPUSCULAR VOLUME 93.2 fl (80.0-96.0); MONO # 0.7 10^3/uL (0.0-0.8); MONO % 11.4 % (2.0-8.0); NEUTROPHILS # 4.9 10^3/uL (1.5-8.5); NEUTROPHILS % 75.4 % (36.0-66.0); PLATELET COUNT, AUTOMATED 153 10^3/uL (150-450); RED BLOOD COUNT 5.16 10^6/uL (4.30-6.10); WHITE BLOOD COUNT 6.5 10^3/uL (4.0-10.0)
[2021-04-14 15:57] LABS: ALBUMIN 3.7 GM/DL (3.2-5.2); ALT/SGPT 14 U/L (12-78); BILIRUBIN,TOTAL 0.9 MG/DL (0.2-1.0); BLOOD UREA NITROGEN 33 MG/DL (7-18); CALCIUM LEVEL 8.8 MG/DL (8.8-10.2); CARBON DIOXIDE LEVEL 31 MEQ/L (21-32); CHLORIDE LEVEL 105 MEQ/L (98-107); CREATININE FOR GFR 1.95 MG/DL (0.70-1.30); GLOMERULAR FILTRATION RATE 37.2 (>49); GLUCOSE, FASTING 103 MG/DL (70-100); IMMUNOGLOBULIN A < 7.8 MG/DL (70-400); IMMUNOGLOBULIN G 333 MG/DL (681-1648); POTASSIUM SERUM 3.9 MEQ/L (3.5-5.1); SODIUM LEVEL 142 MEQ/L (136-145); TOTAL PROTEIN 5.9 GM/DL (6.4-8.2)
[2021-04-15 17:19] LABS: FREE KAPPA LIGHT CHAINS SERUM 35.6 mg/L (3.3-19.4); FREE LAMBDA LIGHT CHAINS SERUM 25.7 mg/L (5.7-26.3); KAPPA/LAMBDA RATIO SERUM 1.39 (0.26-1.65)
[2021-04-18 13:25] LABS: ALBUMIN % 65.4 % (55.8-66.1); ALPHA-1-GLOBULINS 0.35 GM/DL (0.17-0.41); ALPHA-2-GLOBULINS 0.76 GM/DL (0.42-0.99); ALPHA-2-GLOBULINS % 12.8 % (7.1-11.8); BETA-1-GLOBULINS % 6.8 % (4.7-7.2); BETA-2-GLOBULINS 0.23 GM/DL (0.19-0.55); BETA-2-GLOBULINS % 3.9 % (3.2-6.5); GAMMA GLOBULIN % 5.1 % (11.1-18.8)
[2021-04-18 13:26] LABS: ALBUMIN 3.86 GM/DL (3.29-5.55)
== END ==
LOC: M LAB REF 12:41 → M LABDRWAD 12:41
PROVIDERS: ATTEND Internal Medicine Medical Oncology
DX: G62.9 Polyneuropathy, unspecified (principal)

== ENCOUNTER → 2021-05-23 | Outpatient (REF) | payer MEDICARE, OTHER ==
[~2021-05-23] MED LIST changes: +PRED10TA2 PO
== END ==
LOC: M LAB REF 17:17
PROVIDERS: ATTEND Internal Medicine Nephrology
DX: E03.9 Hypothyroidism, unspecified (principal)

== ENCOUNTER → 2021-06-02 | Outpatient (CLI) | payer MEDICARE, OTHER ==
--- NOTE | 2021-06-02 15:57 | REP ---
INDICATION: COUGH. History of multiple myeloma. COMPARISON: Comparison studies are reviewed dated May 27, 2019, January 01, 2018, and August 14, 2017.. TECHNIQUE: Helical scanning is acquired. 3 mm axial images are generated. Coronal and sagittal MPR and coronal MIP images are generated. FINDINGS: Preliminary digital insurance risk manager radiograph is unremarkable. There are clips in right upper quadrant. On lung window settings, there is a centrally calcified nodule in the posteromedial aspect of the right lower lobe 1.6 cm in greatest diameter which is actually somewhat smaller in appearance when compared to the May 27, 2019 study. This is felt to be granulomatous. On coronal and sagittal MPR images, there is a 2nd granulomatous nodule above the 1st, linearly opposed to the larger nodule. This is also felt to be unchanged when compared with the prior study. In the AprilMay 27, 2019 prior study there was 3rd centrally calcified granuloma. This appears smaller and is more medially positioned with some adjacent fibrosis. In any event, no progressive changes seen. No suspicious finding here. No new pulmonary nodule is appreciated. No infiltrate or mass lesion is observed. There is a mild pectus excavatum again seen. No pleural or pericardial effusion is noted. No hilar or mediastinal mass or adenopathy is observed. No bony destructive lesion is seen. In the upper abdomen, there are clips in the gallbladder fossa. There are 2 stable low-density cysts in the liver. These are unchanged from the 2018 prior study. Normal adrenal glands are observed. IMPRESSION: There are 3 granulomatous centrally calcified nodules in the right lower lobe aligned in a linearly opposed vertical array in the right lower lobe unchanged from multiple prior studies. Otherwise no active disease. No acute abnormality. <Electronically signed by Erasto Garcia > 06/02/21 [id number]
== END ==
LOC: M RAD 15:03
PROVIDERS: ATTEND Family Medicine
DX: R91.8 Other nonspecific abnormal finding of lung field (principal); R05 Cough; C90.00 Multiple myeloma not having achieved remission

== ENCOUNTER 2021-06-16 09:18 | Outpatient (CLI) | payer MEDICARE, OTHER ==
[~2021-06-16] VITALS: Ht 177.8 cm; Wt 65.3 kg
[~2021-06-16 09:18] MED LIST changes: +ACETAMINOPHEN TAB 650MG DOSE (2X325MG) PO ONE; +ALBUTEROL SULFATE 2.5 MG/0.5 ML INH NEB SOLN INH PRN; +CENT1TAB PO; +EPINEPHrine INJ 1 MG/ML 1ML AMP IM PRN; +FAMOTIDINE INJ 20MG/2ML VIAL (S0028 PER 1) IV PRN; +IMMUNE GLOBULIN 10% 20 GM in IV 1 EA IV ONE; +IMMUNE GLOBULIN 10% 5 GM in IV 1 EA IV ONE; +POMA4CAP PO; +dexameTHASONE 20MG/5ML VIAL (J1100 PER 1MG) IV PRN; +diphenhydrAMINE 50MG/ML VIAL (J1200) IV ONE; +diphenhydrAMINE 50MG/ML VIAL (J1200) IV PRN
[2021-06-16 09:55] VITALS: BP 136/79
[2021-06-16] MEDS ORDERED: REVL5CAP2 PO (10:25)
[2021-06-16] MEDS ORDERED: IMMUN20IV2 IV (10:26)
[2021-06-16 10:31] LABS: HEMATOCRIT 42.5 % (42.0-52.0); MEAN CORPUSCULAR HEMOGLOBIN 30.2 pg (27.0-33.0); MEAN CORPUSCULAR HGB CONC 32.9 g/dl (32.0-36.5); MEAN CORPUSCULAR VOLUME 91.8 fl (80.0-96.0); PLATELET COUNT, AUTOMATED 165 10^3/uL (150-450); RED BLOOD COUNT 4.63 10^6/uL (4.30-6.10); WHITE BLOOD COUNT 3.8 10^3/uL (4.0-10.0)
[2021-06-16 10:45] LABS: ALBUMIN 3.3 GM/DL (3.2-5.2); BILIRUBIN,TOTAL 0.7 MG/DL (0.2-1.0); CALCIUM LEVEL 8.4 MG/DL (8.8-10.2); CREATININE FOR GFR 1.72 MG/DL (0.70-1.30); POTASSIUM SERUM 3.6 MEQ/L (3.5-5.1); TOTAL PROTEIN 5.5 GM/DL (6.4-8.2)
[2021-06-16 11:49] VITALS: BP 143/90
[2021-06-16 12:20] VITALS: BP 119/66
[2021-06-16 13:20] VITALS: BP 122/68
[2021-06-16 14:00] VITALS: BP 136/80
== END 2021-06-16 14:30 | disposition home or self-care (01) ==
LOC: M INFU 09:18
PROVIDERS: ATTEND Internal Medicine Medical Oncology
DX: D80.1 Nonfamilial hypogammaglobulinemia (principal); C90.00 Multiple myeloma not having achieved remission
CPT/HCPCS: 36592; 80053; 85027; 96365; 96366; 96375; J1200; J1459

== ENCOUNTER → 2021-07-05 | Outpatient (CLI) | payer MEDICARE, OTHER ==
[~2021-07-05] MED LIST changes: -ACETAMINOPHEN TAB 650MG DOSE (2X325MG) PO ONE; -ALBUTEROL SULFATE 2.5 MG/0.5 ML INH NEB SOLN INH PRN; -EPINEPHrine INJ 1 MG/ML 1ML AMP IM PRN; -FAMOTIDINE INJ 20MG/2ML VIAL (S0028 PER 1) IV PRN; +IMMUN20IV2 IV; -IMMUNE GLOBULIN 10% 20 GM in IV 1 EA IV ONE; -IMMUNE GLOBULIN 10% 5 GM in IV 1 EA IV ONE; +LIDOCAINE 1% MDV 20ML VIAL As Ordered ONE; -dexameTHASONE 20MG/5ML VIAL (J1100 PER 1MG) IV PRN; -diphenhydrAMINE 50MG/ML VIAL (J1200) IV ONE; -diphenhydrAMINE 50MG/ML VIAL (J1200) IV PRN
[2021-07-05 09:28] LABS: BASO # 0.2 10^3/uL (0.0-0.2); BASO % 4.4 % (0.0-1.0); EOS # 0.2 10^3/uL (0.0-0.5); EOS % 6.7 % (0.0-3.0); HEMATOCRIT 49.7 % (42.0-52.0); HEMOGLOBIN 16.3 g/dl (13.5-17.5); LYMPH # 0.4 10^3/uL (1.5-5.0); LYMPH % 11.4 % (24.0-44.0); MEAN CORPUSCULAR HEMOGLOBIN 30.8 pg (27.0-33.0); MEAN CORPUSCULAR HGB CONC 32.8 g/dl (32.0-36.5); MEAN CORPUSCULAR VOLUME 93.8 fl (80.0-96.0); MONO # 0.7 10^3/uL (0.0-0.8); MONO % 19.9 % (2.0-8.0); NEUTROPHILS % 57.3 % (36.0-66.0); PLATELET COUNT, AUTOMATED 157 10^3/uL (150-450); WHITE BLOOD COUNT 3.4 10^3/uL (4.0-10.0)
[2021-07-05 10:38] VITALS: BP 133/80
--- NOTE | 2021-07-05 16:29 | REP ---
INDICATION: MULTIPLE MYELOMA IN REMISSION. COMPARISON: None. TECHNIQUE: The procedure was performed under the direct supervision of Dr. Hogue. The risks and benefits of the procedure were explained to the patient and informed consent was obtained. The right iliac bone was localized using CT guidance. The skin was prepped and draped in a sterile fashion. 5 mL of 1% lidocaine was used as a local anesthetic. Using CT guidance an 11 gauge bone biopsy needle system was inserted and 10 mL of marrow fluid was withdrawn. One core biopsy sample was then obtained. Estimated blood loss: Less than 1 mL The patient tolerated the procedure well and there were no immediate complications. After the appropriate amount to monitor convalescence the patient was discharged from the department. FINDINGS: None IMPRESSION: CT-guided right iliac bone marrow biopsy. <Electronically signed by Huseyin Lagunas > 07/05/21 [id number] <Electronically signed by Ezra Hogue > 07/05/21 [id number]
== END ==
LOC: M IRPRO 08:31
PROVIDERS: ATTEND Internal Medicine Medical Oncology
DX: C90.01 Multiple myeloma in remission (principal)

== ENCOUNTER 2021-07-14 08:58 | Outpatient (CLI) | payer MEDICARE, OTHER ==
[~2021-07-14] VITALS: Ht 177.8 cm; Wt 65.3 kg
[~2021-07-14 08:58] MED LIST changes: +ALBUTEROL SULFATE 2.5 MG/0.5 ML INH NEB SOLN INH PRN; +EPINEPHrine INJ 1 MG/ML 1ML AMP IM PRN; +FAMOTIDINE IV BAG 20 MG in IV 1 EA IV PRN; -LIDOCAINE 1% MDV 20ML VIAL As Ordered ONE; +dexameTHASONE 20MG/5ML VIAL (J1100 PER 1MG) IV PRN; +diphenhydrAMINE 25MG CAP PO ONE; +diphenhydrAMINE 50MG/ML VIAL (J1200) IV PRN
[2021-07-14 09:05] VITALS: BP 134/87
[2021-07-14] MEDS ORDERED: ACETAMINOPHEN TAB 650MG DOSE (2X325MG) PO ONE (09:30)
[2021-07-14] MEDS ORDERED: IMMUNE GLOBULIN 10% 5 GM in IV 1 EA IV ONE (09:30)
[2021-07-14] MEDS ORDERED: IMMUNE GLOBULIN 10% 20 GM in IV 1 EA IV ONE (09:30)
[2021-07-14] MEDS ORDERED: POMA4CAP PO (09:52)
[2021-07-14] MEDS ORDERED: DECA4TAB PO (09:55)
[2021-07-14 10:00] VITALS: BP 140/69
[2021-07-14 10:30] VITALS: BP 132/72
[2021-07-14 11:00] VITALS: BP 125/75
[2021-07-14 11:30] VITALS: BP 138/83
[2021-07-14 12:09] VITALS: BP 140/81
== END 2021-07-14 12:05 | disposition home or self-care (01) ==
LOC: M INFU 08:58
PROVIDERS: ATTEND Internal Medicine Medical Oncology
DX: D80.1 Nonfamilial hypogammaglobulinemia (principal); C90.00 Multiple myeloma not having achieved remission
CPT/HCPCS: 96365; 96366; J1459

== ENCOUNTER → 2021-07-22 | Outpatient (REF) | payer MEDICARE, OTHER ==
[~2021-07-22] MED LIST changes: -ALBUTEROL SULFATE 2.5 MG/0.5 ML INH NEB SOLN INH PRN; +ATIV1TAB7 PO; +DECA4TAB PO; -EPINEPHrine INJ 1 MG/ML 1ML AMP IM PRN; -FAMOTIDINE IV BAG 20 MG in IV 1 EA IV PRN; -dexameTHASONE 20MG/5ML VIAL (J1100 PER 1MG) IV PRN; -diphenhydrAMINE 25MG CAP PO ONE; -diphenhydrAMINE 50MG/ML VIAL (J1200) IV PRN
[2021-07-22 13:47] LABS: BASO % 0.4 % (0.0-1.0); EOS # 0.3 10^3/uL (0.0-0.5); EOS % 6.7 % (0.0-3.0); HEMATOCRIT 48.5 % (42.0-52.0); HEMOGLOBIN 15.7 g/dl (13.5-17.5); LYMPH # 0.2 10^3/uL (1.5-5.0); MEAN CORPUSCULAR HEMOGLOBIN 31.2 pg (27.0-33.0); MEAN CORPUSCULAR HGB CONC 32.4 g/dl (32.0-36.5); MEAN CORPUSCULAR VOLUME 96.2 fl (80.0-96.0); MONO # 0.5 10^3/uL (0.0-0.8); MONO % 11.1 % (2.0-8.0); NEUTROPHILS # 3.5 10^3/uL (1.5-8.5); NEUTROPHILS % 77.6 % (36.0-66.0); PLATELET COUNT, AUTOMATED 126 10^3/uL (150-450); RED BLOOD COUNT 5.04 10^6/uL (4.30-6.10); WHITE BLOOD COUNT 4.5 10^3/uL (4.0-10.0)
[2021-07-22 14:53] LABS: ALBUMIN 3.6 GM/DL (3.2-5.2); ALT/SGPT 19 U/L (12-78); BILIRUBIN,TOTAL 0.6 MG/DL (0.2-1.0); BLOOD UREA NITROGEN 38 MG/DL (7-18); CALCIUM LEVEL 9.8 MG/DL (8.8-10.2); CARBON DIOXIDE LEVEL 32 MEQ/L (21-32); CHLORIDE LEVEL 107 MEQ/L (98-107); CREATININE FOR GFR 1.65 MG/DL (0.70-1.30); GLOMERULAR FILTRATION RATE 45.1 (>49); GLUCOSE, FASTING 97 MG/DL (70-100); IMMUNOGLOBULIN A < 7.8 MG/DL (70-400); IMMUNOGLOBULIN G 877 MG/DL (681-1648); IMMUNOGLOBULIN M 12.1 MG/DL (40-230); POTASSIUM SERUM 4.8 MEQ/L (3.5-5.1); SODIUM LEVEL 143 MEQ/L (136-145); TOTAL PROTEIN 6.6 GM/DL (6.4-8.2)
[2021-07-23 18:07] LABS: FREE KAPPA LIGHT CHAINS SERUM 6.8 mg/L (3.3-19.4); FREE LAMBDA LIGHT CHAINS SERUM 7.8 mg/L (5.7-26.3); KAPPA/LAMBDA RATIO SERUM 0.87 (0.26-1.65)
[2021-07-26 13:18] LABS: ALBUMIN % 62.9 % (55.8-66.1)
[2021-07-26 13:19] LABS: ALBUMIN 4.15 GM/DL (3.29-5.55); ALPHA-1-GLOBULIN % 4.6 % (2.9-4.9); ALPHA-2-GLOBULINS 0.71 GM/DL (0.42-0.99); ALPHA-2-GLOBULINS % 10.8 % (7.1-11.8); BETA-1-GLOBULINS 0.42 GM/DL (0.28-0.60); BETA-1-GLOBULINS % 6.3 % (4.7-7.2); BETA-2-GLOBULINS 0.24 GM/DL (0.19-0.55); BETA-2-GLOBULINS % 3.7 % (3.2-6.5); GAMMA GLOBULIN % 11.7 % (11.1-18.8); GAMMA GLOBULINS 0.77 GM/DL (0.65-1.58)
== END ==
LOC: M LABDRWAD 13:23
PROVIDERS: ATTEND Internal Medicine Medical Oncology
DX: C90.00 Multiple myeloma not having achieved remission (principal)

== ENCOUNTER → 2021-07-29 | Outpatient (REF) | payer MEDICARE, OTHER ==
[~2021-07-29] MED LIST changes: -ATIV1TAB7 PO
[2021-07-29 12:03] LABS: BASO % 0.2 % (0.0-1.0); EOS # 0.2 10^3/uL (0.0-0.5); EOS % 2.8 % (0.0-3.0); HEMOGLOBIN 16.2 g/dl (13.5-17.5); LYMPH # 0.1 10^3/uL (1.5-5.0); LYMPH % 2.7 % (24.0-44.0); MEAN CORPUSCULAR HEMOGLOBIN 31.3 pg (27.0-33.0); MEAN CORPUSCULAR HGB CONC 32.4 g/dl (32.0-36.5); MEAN CORPUSCULAR VOLUME 96.7 fl (80.0-96.0); MONO # 0.5 10^3/uL (0.0-0.8); MONO % 9.7 % (2.0-8.0); NEUTROPHILS # 4.4 10^3/uL (1.5-8.5); PLATELET COUNT, AUTOMATED 108 10^3/uL (150-450); RED BLOOD COUNT 5.17 10^6/uL (4.30-6.10); WHITE BLOOD COUNT 5.3 10^3/uL (4.0-10.0)
[2021-07-29 13:23] LABS: ALBUMIN 3.4 GM/DL (3.2-5.2); ALT/SGPT 16 U/L (12-78); BILIRUBIN,TOTAL 0.5 MG/DL (0.2-1.0); BLOOD UREA NITROGEN 36 MG/DL (7-18); CALCIUM LEVEL 9.3 MG/DL (8.8-10.2); CARBON DIOXIDE LEVEL 32 MEQ/L (21-32); CHLORIDE LEVEL 106 MEQ/L (98-107); CREATININE FOR GFR 1.47 MG/DL (0.70-1.30); GLOMERULAR FILTRATION RATE 51.5 (>49); GLUCOSE, FASTING 74 MG/DL (70-100); IMMUNOGLOBULIN A < 7.8 MG/DL (70-400); IMMUNOGLOBULIN G 675 MG/DL (681-1648); IMMUNOGLOBULIN M 10.4 MG/DL (40-230); POTASSIUM SERUM 5.1 MEQ/L (3.5-5.1); SODIUM LEVEL 142 MEQ/L (136-145); TOTAL PROTEIN 6.1 GM/DL (6.4-8.2)
[2021-07-30 17:08] LABS: FREE KAPPA LIGHT CHAINS SERUM 6.2 mg/L (3.3-19.4); FREE LAMBDA LIGHT CHAINS SERUM 7.6 mg/L (5.7-26.3); KAPPA/LAMBDA RATIO SERUM 0.82 (0.26-1.65)
[2021-08-01 11:31] LABS: ALBUMIN 3.81 GM/DL (3.29-5.55); ALBUMIN % 62.5 % (55.8-66.1); ALPHA-1-GLOBULIN % 4.5 % (2.9-4.9); ALPHA-1-GLOBULINS 0.27 GM/DL (0.17-0.41); ALPHA-2-GLOBULINS 0.75 GM/DL (0.42-0.99); ALPHA-2-GLOBULINS % 12.3 % (7.1-11.8); BETA-1-GLOBULINS 0.41 GM/DL (0.28-0.60); BETA-1-GLOBULINS % 6.8 % (4.7-7.2); BETA-2-GLOBULINS 0.23 GM/DL (0.19-0.55); BETA-2-GLOBULINS % 3.7 % (3.2-6.5); GAMMA GLOBULIN % 10.2 % (11.1-18.8); GAMMA GLOBULINS 0.62 GM/DL (0.65-1.58)
== END ==
LOC: M LABDRWAD 11:21
PROVIDERS: ATTEND Internal Medicine Medical Oncology
DX: C90.01 Multiple myeloma in remission (principal)

== ENCOUNTER → 2021-08-05 | Outpatient (REF) | payer MEDICARE, OTHER ==
[2021-08-05 11:59] LABS: BASO % 1.1 % (0.0-1.0); EOS # 0.2 10^3/uL (0.0-0.5); HEMATOCRIT 45.2 % (42.0-52.0); HEMOGLOBIN 14.8 g/dl (13.5-17.5); LYMPH # 0.2 10^3/uL (1.5-5.0); MEAN CORPUSCULAR HEMOGLOBIN 31.8 pg (27.0-33.0); MEAN CORPUSCULAR HGB CONC 32.7 g/dl (32.0-36.5); MEAN CORPUSCULAR VOLUME 97.2 fl (80.0-96.0); MONO # 0.2 10^3/uL (0.0-0.8); MONO % 27.3 % (2.0-8.0); NEUTROPHILS % 29.6 % (36.0-66.0); PLATELET COUNT, AUTOMATED 117 10^3/uL (150-450); RED BLOOD COUNT 4.65 10^6/uL (4.30-6.10)
[2021-08-05 12:00] LABS: NEUTROPHILS # 0.3 10^3/uL (1.5-8.5); WHITE BLOOD COUNT 0.9 10^3/uL (4.0-10.0)
[2021-08-05 12:55] LABS: BLOOD UREA NITROGEN 36 MG/DL (7-18); GLOMERULAR FILTRATION RATE 46.7 (>49); GLUCOSE, FASTING 93 MG/DL (70-100)
[2021-08-05 12:56] LABS: ALBUMIN 3.1 GM/DL (3.2-5.2); ALT/SGPT 15 U/L (12-78); BILIRUBIN,TOTAL 0.5 MG/DL (0.2-1.0); CALCIUM LEVEL 9.1 MG/DL (8.8-10.2); CARBON DIOXIDE LEVEL 28 MEQ/L (21-32); CHLORIDE LEVEL 111 MEQ/L (98-107); IMMUNOGLOBULIN A < 7.8 MG/DL (70-400); IMMUNOGLOBULIN G 527 MG/DL (681-1648); IMMUNOGLOBULIN M 7.2 MG/DL (40-230); POTASSIUM SERUM 5.5 MEQ/L (3.5-5.1); SODIUM LEVEL 143 MEQ/L (136-145); TOTAL PROTEIN 5.5 GM/DL (6.4-8.2)
[2021-08-06 17:07] LABS: FREE KAPPA LIGHT CHAINS SERUM 5.4 mg/L (3.3-19.4); FREE LAMBDA LIGHT CHAINS SERUM 4.6 mg/L (5.7-26.3); KAPPA/LAMBDA RATIO SERUM 1.17 (0.26-1.65)
[2021-08-09 13:21] LABS: ALBUMIN % 63.2 % (55.8-66.1); ALPHA-1-GLOBULIN % 5.4 % (2.9-4.9); ALPHA-2-GLOBULINS % 12.1 % (7.1-11.8); BETA-1-GLOBULINS % 6.6 % (4.7-7.2)
[2021-08-09 13:22] LABS: ALBUMIN 3.48 GM/DL (3.29-5.55); ALPHA-2-GLOBULINS 0.67 GM/DL (0.42-0.99); BETA-1-GLOBULINS 0.36 GM/DL (0.28-0.60); BETA-2-GLOBULINS 0.22 GM/DL (0.19-0.55); GAMMA GLOBULIN % 8.7 % (11.1-18.8); GAMMA GLOBULINS 0.48 GM/DL (0.65-1.58)
== END ==
LOC: M LABDRWAD 11:24
PROVIDERS: ATTEND Internal Medicine Medical Oncology
DX: C90.00 Multiple myeloma not having achieved remission (principal)

== ENCOUNTER 2021-08-11 09:09 | Outpatient (CLI) | payer MEDICARE, OTHER ==
[~2021-08-11] VITALS: Ht 177.8 cm; Wt 63.6 kg
[~2021-08-11 09:09] MED LIST changes: +ALBUTEROL SULFATE (2.5MG/0.5ML) NEB INH PRN; +EPINEPHrine (1MG/ML) IV IM PRN; +FAMOTIDINE IV BAG 20 MG IV PRN; +UNRESOLVED CLARIFICATION ENTRY XX SCH; +dexameTHASONE 20MG/5ML VIAL (J1100 PER 1MG) IV PRN; +diphenhydrAMINE (50MG/ML) IV IV PRN
[2021-08-11 09:25] VITALS: BP 131/72
[2021-08-11] MEDS ORDERED: IMMUNE GLOBULIN 10% 20 GM in IV 1 EA IV ONE (09:30)
[2021-08-11] MEDS ORDERED: ACETAMINOPHEN TAB 650MG DOSE (2X325MG) PO ONE (09:30)
[2021-08-11] MEDS ORDERED: IMMUNE GLOBULIN 10% 5 GM in IV 1 EA IV ONE (09:30)
[2021-08-11] MEDS ORDERED: diphenhydrAMINE 25MG CAP PO ONE (09:35)
[2021-08-11 10:15] VITALS: BP 117/66
[2021-08-11 10:45] VITALS: BP 123/70
[2021-08-11 11:15] VITALS: BP 117/69
[2021-08-11 11:45] VITALS: BP 122/71
[2021-08-11 12:30] VITALS: BP 131/79
== END 2021-08-11 12:40 | disposition home or self-care (01) ==
LOC: M INFU 09:09
PROVIDERS: ATTEND Internal Medicine Medical Oncology
DX: D80.1 Nonfamilial hypogammaglobulinemia (principal); C90.00 Multiple myeloma not having achieved remission
CPT/HCPCS: 96365; 96366; J1459

== ENCOUNTER → 2021-08-12 | Outpatient (CLI) | payer MEDICARE, OTHER ==
[~2021-08-12] MED LIST changes: -ALBUTEROL SULFATE (2.5MG/0.5ML) NEB INH PRN; -EPINEPHrine (1MG/ML) IV IM PRN; -FAMOTIDINE IV BAG 20 MG IV PRN; -UNRESOLVED CLARIFICATION ENTRY XX SCH; -dexameTHASONE 20MG/5ML VIAL (J1100 PER 1MG) IV PRN; -diphenhydrAMINE (50MG/ML) IV IV PRN
[2021-08-12 10:37] LABS: BASO # 0.1 10^3/uL (0.0-0.2); BASO % 1.7 % (0.0-1.0); EOS # 0.1 10^3/uL (0.0-0.5); EOS % 1.1 % (0.0-3.0); HEMATOCRIT 47.9 % (42.0-52.0); HEMOGLOBIN 15.7 g/dl (13.5-17.5); LYMPH # 0.2 10^3/uL (1.5-5.0); LYMPH % 4.2 % (24.0-44.0); MEAN CORPUSCULAR HEMOGLOBIN 31.7 pg (27.0-33.0); MEAN CORPUSCULAR HGB CONC 32.8 g/dl (32.0-36.5); MEAN CORPUSCULAR VOLUME 96.8 fl (80.0-96.0); MONO # 0.2 10^3/uL (0.0-0.8); MONO % 5.1 % (2.0-8.0); NEUTROPHILS # 4.1 10^3/uL (1.5-8.5); NEUTROPHILS % 87.3 % (36.0-66.0); PLATELET COUNT, AUTOMATED 165 10^3/uL (150-450); RED BLOOD COUNT 4.95 10^6/uL (4.30-6.10); WHITE BLOOD COUNT 4.7 10^3/uL (4.0-10.0)
[2021-08-12 11:54] LABS: ALBUMIN 3.4 GM/DL (3.2-5.2); BILIRUBIN,TOTAL 0.4 MG/DL (0.2-1.0); CREATININE FOR GFR 1.57 MG/DL (0.70-1.30); GLOMERULAR FILTRATION RATE 47.7 (>49); POTASSIUM SERUM 4.1 MEQ/L (3.5-5.1); TOTAL PROTEIN 6.8 GM/DL (6.4-8.2)
== END ==
LOC: M PLALAB 09:12
PROVIDERS: ATTEND Internal Medicine Medical Oncology
DX: C90.00 Multiple myeloma not having achieved remission (principal)

== ENCOUNTER → 2021-08-19 | Outpatient (REF) | payer MEDICARE, OTHER ==
[2021-08-19 15:41] LABS: BASO # 0.1 10^3/uL (0.0-0.2); BASO % 1.7 % (0.0-1.0); EOS # 0.1 10^3/uL (0.0-0.5); EOS % 2.6 % (0.0-3.0); HEMATOCRIT 46.6 % (42.0-52.0); HEMOGLOBIN 15.2 g/dl (13.5-17.5); LYMPH # 0.2 10^3/uL (1.5-5.0); LYMPH % 4.3 % (24.0-44.0); MEAN CORPUSCULAR HEMOGLOBIN 31.9 pg (27.0-33.0); MEAN CORPUSCULAR HGB CONC 32.6 g/dl (32.0-36.5); MEAN CORPUSCULAR VOLUME 97.7 fl (80.0-96.0); MONO # 0.2 10^3/uL (0.0-0.8); MONO % 3.6 % (2.0-8.0); NEUTROPHILS # 3.7 10^3/uL (1.5-8.5); NEUTROPHILS % 87.3 % (36.0-66.0); PLATELET COUNT, AUTOMATED 205 10^3/uL (150-450); RED BLOOD COUNT 4.77 10^6/uL (4.30-6.10); WHITE BLOOD COUNT 4.2 10^3/uL (4.0-10.0)
[2021-08-19 16:55] LABS: ALBUMIN 3.3 GM/DL (3.2-5.2); ALT/SGPT 15 U/L (12-78); BILIRUBIN,TOTAL 0.4 MG/DL (0.2-1.0); BLOOD UREA NITROGEN 36 MG/DL (7-18); CALCIUM LEVEL 9.3 MG/DL (8.8-10.2); CARBON DIOXIDE LEVEL 31 MEQ/L (21-32); CHLORIDE LEVEL 109 MEQ/L (98-107); CREATININE FOR GFR 1.77 MG/DL (0.70-1.30); GLOMERULAR FILTRATION RATE 41.6 (>49); GLUCOSE, FASTING 83 MG/DL (70-100); IMMUNOGLOBULIN A < 7.8 MG/DL (70-400); IMMUNOGLOBULIN G 838 MG/DL (681-1648); MAGNESIUM LEVEL 1.7 MG/DL (1.8-2.4); POTASSIUM SERUM 5.3 MEQ/L (3.5-5.1); SODIUM LEVEL 143 MEQ/L (136-145); TOTAL PROTEIN 6.2 GM/DL (6.4-8.2)
== END ==
LOC: M LABDRWAD 12:39
PROVIDERS: ATTEND Internal Medicine Medical Oncology
DX: C90.00 Multiple myeloma not having achieved remission (principal)

== ENCOUNTER → 2021-08-26 | Outpatient (REF) | payer MEDICARE, OTHER ==
[2021-08-26 13:06] LABS: BASO # 0.1 10^3/uL (0.0-0.2); BASO % 0.9 % (0.0-1.0); EOS # 0.3 10^3/uL (0.0-0.5); EOS % 5.1 % (0.0-3.0); HEMATOCRIT 47.9 % (42.0-52.0); HEMOGLOBIN 15.5 g/dl (13.5-17.5); LYMPH # 0.2 10^3/uL (1.5-5.0); LYMPH % 3.8 % (24.0-44.0); MEAN CORPUSCULAR HEMOGLOBIN 31.8 pg (27.0-33.0); MEAN CORPUSCULAR HGB CONC 32.4 g/dl (32.0-36.5); MEAN CORPUSCULAR VOLUME 98.2 fl (80.0-96.0); MONO # 1.1 10^3/uL (0.0-0.8); MONO % 19.1 % (2.0-8.0); NEUTROPHILS # 4.1 10^3/uL (1.5-8.5); NEUTROPHILS % 70.2 % (36.0-66.0); PLATELET COUNT, AUTOMATED 204 10^3/uL (150-450); RED BLOOD COUNT 4.88 10^6/uL (4.30-6.10); WHITE BLOOD COUNT 5.9 10^3/uL (4.0-10.0)
[2021-08-26 14:10] LABS: ALBUMIN 3.5 GM/DL (3.2-5.2); ALT/SGPT 17 U/L (12-78); BILIRUBIN,TOTAL 0.4 MG/DL (0.2-1.0); BLOOD UREA NITROGEN 37 MG/DL (7-18); CALCIUM LEVEL 9.4 MG/DL (8.8-10.2); CARBON DIOXIDE LEVEL 30 MEQ/L (21-32); CHLORIDE LEVEL 108 MEQ/L (98-107); CREATININE FOR GFR 1.58 MG/DL (0.70-1.30); GLOMERULAR FILTRATION RATE 47.4 (>49); GLUCOSE, FASTING 89 MG/DL (70-100); IMMUNOGLOBULIN A < 7.8 MG/DL (70-400); IMMUNOGLOBULIN G 654 MG/DL (681-1648); IMMUNOGLOBULIN M 6.1 MG/DL (40-230); POTASSIUM SERUM 5.4 MEQ/L (3.5-5.1); SODIUM LEVEL 142 MEQ/L (136-145); TOTAL PROTEIN 6.3 GM/DL (6.4-8.2)
[2021-08-27 16:07] LABS: FREE KAPPA LIGHT CHAINS SERUM 5.2 mg/L (3.3-19.4); KAPPA/LAMBDA RATIO SERUM 1.3 (0.26-1.65)
[2021-08-29 10:20] LABS: ALBUMIN 3.97 GM/DL (3.29-5.55); ALPHA-1-GLOBULIN % 4.3 % (2.9-4.9); ALPHA-1-GLOBULINS 0.27 GM/DL (0.17-0.41); ALPHA-2-GLOBULINS 0.72 GM/DL (0.42-0.99); ALPHA-2-GLOBULINS % 11.4 % (7.1-11.8); BETA-1-GLOBULINS 0.45 GM/DL (0.28-0.60); BETA-1-GLOBULINS % 7.2 % (4.7-7.2); BETA-2-GLOBULINS 0.23 GM/DL (0.19-0.55); BETA-2-GLOBULINS % 3.7 % (3.2-6.5); GAMMA GLOBULIN % 10.4 % (11.1-18.8); GAMMA GLOBULINS 0.66 GM/DL (0.65-1.58)
== END ==
LOC: M LABDRWAD 12:38
PROVIDERS: ATTEND Internal Medicine Medical Oncology
DX: C90.00 Multiple myeloma not having achieved remission (principal)

== ENCOUNTER → 2021-09-02 | Outpatient (CLI) | payer MEDICARE, OTHER ==
[2021-09-02 12:52] LABS: BASO % 0.8 % (0.0-1.0); EOS # 0.6 10^3/uL (0.0-0.5); HEMOGLOBIN 14.9 g/dl (13.5-17.5); LYMPH # 0.2 10^3/uL (1.5-5.0); LYMPH % 4.5 % (24.0-44.0); MEAN CORPUSCULAR HGB CONC 32.4 g/dl (32.0-36.5); MEAN CORPUSCULAR VOLUME 98.9 fl (80.0-96.0); MONO # 0.7 10^3/uL (0.0-0.8); MONO % 19.9 % (2.0-8.0); NEUTROPHILS # 2.1 10^3/uL (1.5-8.5); PLATELET COUNT, AUTOMATED 131 10^3/uL (150-450); RED BLOOD COUNT 4.65 10^6/uL (4.30-6.10); WHITE BLOOD COUNT 3.6 10^3/uL (4.0-10.0)
[2021-09-02 14:32] LABS: ALBUMIN 3.4 GM/DL (3.2-5.2); ALT/SGPT 20 U/L (12-78); BILIRUBIN,TOTAL 0.4 MG/DL (0.2-1.0); BLOOD UREA NITROGEN 36 MG/DL (7-18); CARBON DIOXIDE LEVEL 30 MEQ/L (21-32); CHLORIDE LEVEL 107 MEQ/L (98-107); GLOMERULAR FILTRATION RATE 50.3 (>49); GLUCOSE, FASTING 104 MG/DL (70-100); IMMUNOGLOBULIN A < 7.8 MG/DL (70-400); IMMUNOGLOBULIN G 636 MG/DL (681-1648); IMMUNOGLOBULIN M 5.9 MG/DL (40-230); POTASSIUM SERUM 4.8 MEQ/L (3.5-5.1); SODIUM LEVEL 141 MEQ/L (136-145); TOTAL PROTEIN 5.9 GM/DL (6.4-8.2)
[2021-09-03 18:09] LABS: FREE LAMBDA LIGHT CHAINS SERUM 4.2 mg/L (5.7-26.3); KAPPA/LAMBDA RATIO SERUM 1.19 (0.26-1.65)
== END ==
LOC: M ADAMS 08:08
PROVIDERS: ATTEND Internal Medicine Medical Oncology
DX: C90.00 Multiple myeloma not having achieved remission (principal)

== ENCOUNTER 2021-09-08 10:03 | Outpatient (CLI) | payer MEDICARE, OTHER ==
[~2021-09-08] VITALS: Ht 177.8 cm; Wt 63.6 kg
[~2021-09-08 10:03] MED LIST changes: +ACETAMINOPHEN TAB 650MG DOSE (2X325MG) PO ONE; +ALBUTEROL SULFATE (2.5MG/0.5ML) NEB INH PRN; +EPINEPHrine (1MG/ML) IV IM PRN; +FAMOTIDINE IV BAG 20 MG IV PRN; +IMMUNE GLOBULIN 10% 20 GM in IV 1 EA IV ONE; +IMMUNE GLOBULIN 10% 5 GM in IV 1 EA IV ONE; +dexameTHASONE 20MG/5ML VIAL (J1100 PER 1MG) IV PRN; +diphenhydrAMINE (50MG/ML) IV IV PRN; +diphenhydrAMINE 25MG CAP PO ONE
[2021-09-08 10:25] VITALS: BP 136/76
[2021-09-08 10:45] VITALS: BP 147/81
[2021-09-08 11:45] VITALS: BP 144/79
[2021-09-08 13:20] VITALS: BP 132/75
[2021-09-09] MEDS ORDERED: UNRESOLVED CLARIFICATION ENTRY XX SCH (00:01)
== END 2021-09-08 13:20 | disposition home or self-care (01) ==
LOC: M INFU 10:03
PROVIDERS: ATTEND Internal Medicine Medical Oncology
DX: D80.1 Nonfamilial hypogammaglobulinemia (principal); C90.00 Multiple myeloma not having achieved remission
CPT/HCPCS: 96365; 96366; J1459

== ENCOUNTER → 2021-09-09 | Outpatient (REF) | payer MEDICARE, OTHER ==
[~2021-09-09] MED LIST changes: -ACETAMINOPHEN TAB 650MG DOSE (2X325MG) PO ONE; -ALBUTEROL SULFATE (2.5MG/0.5ML) NEB INH PRN; -EPINEPHrine (1MG/ML) IV IM PRN; -FAMOTIDINE IV BAG 20 MG IV PRN; -IMMUNE GLOBULIN 10% 20 GM in IV 1 EA IV ONE; -IMMUNE GLOBULIN 10% 5 GM in IV 1 EA IV ONE; -dexameTHASONE 20MG/5ML VIAL (J1100 PER 1MG) IV PRN; -diphenhydrAMINE (50MG/ML) IV IV PRN; -diphenhydrAMINE 25MG CAP PO ONE
[2021-09-09 13:39] LABS: BASO % 1.1 % (0.0-1.0); EOS # 0.1 10^3/uL (0.0-0.5); EOS % 3.2 % (0.0-3.0); HEMATOCRIT 51.2 % (42.0-52.0); HEMOGLOBIN 16.7 g/dl (13.5-17.5); LYMPH # 0.1 10^3/uL (1.5-5.0); MEAN CORPUSCULAR HEMOGLOBIN 32.2 pg (27.0-33.0); MEAN CORPUSCULAR HGB CONC 32.6 g/dl (32.0-36.5); MEAN CORPUSCULAR VOLUME 98.8 fl (80.0-96.0); MONO # 0.4 10^3/uL (0.0-0.8); MONO % 12.9 % (2.0-8.0); NEUTROPHILS # 2.2 10^3/uL (1.5-8.5); NEUTROPHILS % 77.4 % (36.0-66.0); PLATELET COUNT, AUTOMATED 134 10^3/uL (150-450); RED BLOOD COUNT 5.18 10^6/uL (4.30-6.10); WHITE BLOOD COUNT 2.8 10^3/uL (4.0-10.0)
[2021-09-09 14:42] LABS: ALBUMIN 3.5 GM/DL (3.2-5.2); ALT/SGPT 36 U/L (12-78); BILIRUBIN,TOTAL 0.6 MG/DL (0.2-1.0); BLOOD UREA NITROGEN 36 MG/DL (7-18); CALCIUM LEVEL 9.5 MG/DL (8.8-10.2); CARBON DIOXIDE LEVEL 29 MEQ/L (21-32); CHLORIDE LEVEL 108 MEQ/L (98-107); CREATININE FOR GFR 1.59 MG/DL (0.70-1.30); GLUCOSE, FASTING 106 MG/DL (70-100); IMMUNOGLOBULIN A < 7.8 MG/DL (70-400); IMMUNOGLOBULIN G 1380 MG/DL (681-1648); IMMUNOGLOBULIN M 5.4 MG/DL (40-230); POTASSIUM SERUM 5.4 MEQ/L (3.5-5.1); SODIUM LEVEL 141 MEQ/L (136-145); TOTAL PROTEIN 6.9 GM/DL (6.4-8.2)
[2021-09-10 17:07] LABS: FREE KAPPA LIGHT CHAINS SERUM 5.2 mg/L (3.3-19.4); FREE LAMBDA LIGHT CHAINS SERUM 6.4 mg/L (5.7-26.3); KAPPA/LAMBDA RATIO SERUM 0.81 (0.26-1.65)
[2021-09-12 11:05] LABS: ALBUMIN 3.95 GM/DL (3.29-5.55); ALBUMIN % 57.3 % (55.8-66.1); ALPHA-1-GLOBULIN % 3.8 % (2.9-4.9); ALPHA-1-GLOBULINS 0.26 GM/DL (0.17-0.41); ALPHA-2-GLOBULINS 0.68 GM/DL (0.42-0.99); BETA-1-GLOBULINS 0.47 GM/DL (0.28-0.60); BETA-1-GLOBULINS % 6.8 % (4.7-7.2); BETA-2-GLOBULINS 0.25 GM/DL (0.19-0.55); BETA-2-GLOBULINS % 3.6 % (3.2-6.5); GAMMA GLOBULIN % 18.5 % (11.1-18.8); GAMMA GLOBULINS 1.28 GM/DL (0.65-1.58)
== END ==
LOC: M LABDRWAD 12:12 → M LAB REF 12:12
PROVIDERS: ATTEND Internal Medicine Medical Oncology
DX: C90.00 Multiple myeloma not having achieved remission (principal)

== ENCOUNTER 2021-10-06 11:48 | Outpatient (CLI) | payer MEDICARE, OTHER ==
[~2021-10-06] VITALS: Ht 177.8 cm; Wt 65.3 kg
[2021-10-06 11:55] VITALS: BP 159/86
[2021-10-06] MEDS ORDERED: IMMUNE GLOBULIN 10% 5 GM in IV 1 EA IV ONE (12:00)
[2021-10-06] MEDS ORDERED: IMMUNE GLOBULIN 10% 20 GM in IV 1 EA IV ONE (12:00)
[2021-10-06] MEDS ORDERED: diphenhydrAMINE (50MG/ML) IV IV PRN (12:00)
[2021-10-06] MEDS ORDERED: ACETAMINOPHEN TAB 650MG DOSE (2X325MG) PO ONE ×2 (12:00)
[2021-10-06] MEDS ORDERED: FAMOTIDINE IV BAG 20 MG IV PRN ×2 (12:00)
[2021-10-06] MEDS ORDERED: EPINEPHrine (1MG/ML) IV IM PRN (12:00)
[2021-10-06] MEDS ORDERED: dexameTHASONE 20MG/5ML VIAL (J1100 PER 1MG) IV PRN (12:00)
[2021-10-06] MEDS ORDERED: ALBUTEROL SULFATE (2.5MG/0.5ML) NEB INH PRN (12:00)
[2021-10-06 12:30] VITALS: BP 138/72
[2021-10-06 13:00] VITALS: BP 147/68
[2021-10-06 13:30] VITALS: BP 145/70
[2021-10-06 14:00] VITALS: BP 137/68
== END 2021-10-06 14:50 | disposition home or self-care (01) ==
LOC: M INFU 11:48
PROVIDERS: ATTEND Internal Medicine Medical Oncology
DX: D80.1 Nonfamilial hypogammaglobulinemia (principal); C90.00 Multiple myeloma not having achieved remission
CPT/HCPCS: 96365; 96366; J1459

== ENCOUNTER → 2021-10-14 | Outpatient (REF) | payer MEDICARE, OTHER ==
[~2021-10-14] MED LIST changes: +ATIV1TAB7 PO
[2021-10-14 13:03] LABS: BASO # 0.1 10^3/uL (0.0-0.2); BASO % 2.6 % (0.0-1.0); EOS # 0.4 10^3/uL (0.0-0.5); EOS % 8.1 % (0.0-3.0); HEMATOCRIT 46.8 % (42.0-52.0); HEMOGLOBIN 15.5 g/dl (13.5-17.5); LYMPH # 0.1 10^3/uL (1.5-5.0); LYMPH % 3.3 % (24.0-44.0); MEAN CORPUSCULAR HEMOGLOBIN 32.6 pg (27.0-33.0); MEAN CORPUSCULAR HGB CONC 33.1 g/dl (32.0-36.5); MEAN CORPUSCULAR VOLUME 98.3 fl (80.0-96.0); MONO # 0.3 10^3/uL (0.0-0.8); MONO % 7.7 % (2.0-8.0); NEUTROPHILS # 3.2 10^3/uL (1.5-8.5); NEUTROPHILS % 74.6 % (36.0-66.0); PLATELET COUNT, AUTOMATED 204 10^3/uL (150-450); RED BLOOD COUNT 4.76 10^6/uL (4.30-6.10); WHITE BLOOD COUNT 4.3 10^3/uL (4.0-10.0)
[2021-10-14 13:59] LABS: ALBUMIN 3.4 GM/DL (3.2-5.2); ALT/SGPT 17 U/L (12-78); BILIRUBIN,TOTAL 0.5 MG/DL (0.2-1.0); BLOOD UREA NITROGEN 40 MG/DL (7-18); CARBON DIOXIDE LEVEL 31 MEQ/L (21-32); CHLORIDE LEVEL 108 MEQ/L (98-107); CREATININE FOR GFR 1.78 MG/DL (0.70-1.30); GLOMERULAR FILTRATION RATE 41.3 (>49); GLUCOSE, FASTING 118 MG/DL (70-100); IMMUNOGLOBULIN A < 7.8 MG/DL (70-400); IMMUNOGLOBULIN G 854 MG/DL (681-1648); IMMUNOGLOBULIN M < 5.3 MG/DL (40-230); POTASSIUM SERUM 4.6 MEQ/L (3.5-5.1); SODIUM LEVEL 142 MEQ/L (136-145); TOTAL PROTEIN 6.4 GM/DL (6.4-8.2)
[2021-10-15 17:10] LABS: FREE LAMBDA LIGHT CHAINS SERUM 2.9 mg/L (5.7-26.3); KAPPA/LAMBDA RATIO SERUM 1.38 (0.26-1.65)
[2021-10-17 11:55] LABS: ALBUMIN % 59.9 % (55.8-66.1); ALPHA-1-GLOBULIN % 5.1 % (2.9-4.9); ALPHA-2-GLOBULINS % 12.2 % (7.1-11.8); BETA-1-GLOBULINS % 6.6 % (4.7-7.2); BETA-2-GLOBULINS % 4.4 % (3.2-6.5)
[2021-10-17 11:56] LABS: ALBUMIN 3.83 GM/DL (3.29-5.55); ALPHA-1-GLOBULINS 0.33 GM/DL (0.17-0.41); ALPHA-2-GLOBULINS 0.78 GM/DL (0.42-0.99); BETA-1-GLOBULINS 0.42 GM/DL (0.28-0.60); BETA-2-GLOBULINS 0.28 GM/DL (0.19-0.55); GAMMA GLOBULIN % 11.8 % (11.1-18.8); GAMMA GLOBULINS 0.76 GM/DL (0.65-1.58)
== END ==
LOC: M LABDRWAD 12:34
PROVIDERS: ATTEND Internal Medicine Medical Oncology
DX: C90.00 Multiple myeloma not having achieved remission (principal)

== ENCOUNTER → 2021-10-27 | Outpatient (REF) | payer MEDICARE, OTHER ==
[~2021-10-27] MED LIST changes: -ATIV1TAB7 PO
[2021-10-27 15:07] LABS: BASO # 0.1 10^3/uL (0.0-0.2); BASO % 1.5 % (0.0-1.0); EOS # 0.8 10^3/uL (0.0-0.5); EOS % 17.5 % (0.0-3.0); HEMATOCRIT 47.9 % (42.0-52.0); HEMOGLOBIN 15.6 g/dl (13.5-17.5); LYMPH # 0.1 10^3/uL (1.5-5.0); LYMPH % 2.7 % (24.0-44.0); MEAN CORPUSCULAR HEMOGLOBIN 32.6 pg (27.0-33.0); MEAN CORPUSCULAR HGB CONC 32.6 g/dl (32.0-36.5); MEAN CORPUSCULAR VOLUME 100.2 fl (80.0-96.0); MONO # 0.8 10^3/uL (0.0-0.8); MONO % 17.7 % (2.0-8.0); NEUTROPHILS # 2.8 10^3/uL (1.5-8.5); NEUTROPHILS % 59.8 % (36.0-66.0); PLATELET COUNT, AUTOMATED 186 10^3/uL (150-450); RED BLOOD COUNT 4.78 10^6/uL (4.30-6.10); WHITE BLOOD COUNT 4.7 10^3/uL (4.0-10.0)
[2021-10-27 16:06] LABS: ALBUMIN 3.6 GM/DL (3.2-5.2); ALT/SGPT 16 U/L (12-78); BILIRUBIN,TOTAL 0.5 MG/DL (0.2-1.0); BLOOD UREA NITROGEN 43 MG/DL (7-18); CALCIUM LEVEL 9.2 MG/DL (8.8-10.2); CARBON DIOXIDE LEVEL 29 MEQ/L (21-32); CHLORIDE LEVEL 108 MEQ/L (98-107); CREATININE FOR GFR 1.55 MG/DL (0.70-1.30); GLOMERULAR FILTRATION RATE 48.5 (>49); GLUCOSE, FASTING 81 MG/DL (70-100); IMMUNOGLOBULIN A < 7.8 MG/DL (70-400); IMMUNOGLOBULIN G 625 MG/DL (681-1648); IMMUNOGLOBULIN M < 5.3 MG/DL (40-230); POTASSIUM SERUM 4.6 MEQ/L (3.5-5.1); SODIUM LEVEL 141 MEQ/L (136-145); TOTAL PROTEIN 6.3 GM/DL (6.4-8.2)
[2021-10-28 16:08] LABS: FREE KAPPA LIGHT CHAINS SERUM 3.7 mg/L (3.3-19.4); FREE LAMBDA LIGHT CHAINS SERUM 3.3 mg/L (5.7-26.3); KAPPA/LAMBDA RATIO SERUM 1.12 (0.26-1.65)
[2021-10-31 14:08] LABS: ALBUMIN 3.84 GM/DL (3.29-5.55); ALBUMIN % 60.9 % (55.8-66.1); ALPHA-1-GLOBULIN % 5.6 % (2.9-4.9); ALPHA-1-GLOBULINS 0.35 GM/DL (0.17-0.41); ALPHA-2-GLOBULINS 0.84 GM/DL (0.42-0.99); ALPHA-2-GLOBULINS % 13.4 % (7.1-11.8); BETA-1-GLOBULINS 0.43 GM/DL (0.28-0.60); BETA-1-GLOBULINS % 6.8 % (4.7-7.2); BETA-2-GLOBULINS 0.26 GM/DL (0.19-0.55); BETA-2-GLOBULINS % 4.2 % (3.2-6.5); GAMMA GLOBULIN % 9.1 % (11.1-18.8); GAMMA GLOBULINS 0.57 GM/DL (0.65-1.58)
== END ==
LOC: M LABDRWAD 14:39
PROVIDERS: ATTEND Internal Medicine Medical Oncology
DX: C90.00 Multiple myeloma not having achieved remission (principal)

== ENCOUNTER 2021-11-03 11:49 | Outpatient (CLI) | payer MEDICARE, OTHER ==
[~2021-11-03] VITALS: Ht 175.3 cm; Wt 68.3 kg
[~2021-11-03 11:49] MED LIST changes: +ALBUTEROL SULFATE (2.5MG/0.5ML) NEB INH PRN; +EPINEPHrine (1MG/ML) IV IM PRN; +FAMOTIDINE 20MG IVP IV PRN; +NS 1,000 ML IV PRN; +diphenhydrAMINE (50MG/ML) IV IV PRN; +methylPREDNISolone (125 MG/2 ML) IV IV PRN
[2021-11-03 11:50] VITALS: BP 147/76
[2021-11-03] MEDS ORDERED: IMMUNE GLOBULIN 10% 5 GM in IV 1 EA IV ONE (12:00)
[2021-11-03] MEDS ORDERED: IMMUNE GLOBULIN 10% 20 GM in IV 1 EA IV ONE (12:00)
[2021-11-03] MEDS ORDERED: ACETAMINOPHEN 650 MG PO PO ONE (12:00)
[2021-11-03 13:00] VITALS: BP 125/69
[2021-11-03 13:30] VITALS: BP 116/71
[2021-11-03 14:00] VITALS: BP 128/75
[2021-11-03 15:05] VITALS: BP 144/73
== END 2021-11-03 15:05 | disposition home or self-care (01) ==
LOC: M INFU 11:49
PROVIDERS: ATTEND Internal Medicine Medical Oncology
DX: C90.00 Multiple myeloma not having achieved remission (principal); D80.1 Nonfamilial hypogammaglobulinemia
CPT/HCPCS: 96365; 96366; J1459

== ENCOUNTER → 2021-11-11 | Outpatient (REF) | payer MEDICARE, OTHER ==
[~2021-11-11] MED LIST changes: -ALBUTEROL SULFATE (2.5MG/0.5ML) NEB INH PRN; -EPINEPHrine (1MG/ML) IV IM PRN; -FAMOTIDINE 20MG IVP IV PRN; -NS 1,000 ML IV PRN; -diphenhydrAMINE (50MG/ML) IV IV PRN; -methylPREDNISolone (125 MG/2 ML) IV IV PRN
[2021-11-11 12:32] LABS: BASO # 0.1 10^3/uL (0.0-0.2); BASO % 2.6 % (0.0-1.0); EOS # 0.3 10^3/uL (0.0-0.5); EOS % 5.7 % (0.0-3.0); HEMATOCRIT 47.6 % (42.0-52.0); HEMOGLOBIN 15.7 g/dl (13.5-17.5); LYMPH # 0.2 10^3/uL (1.5-5.0); LYMPH % 3.1 % (24.0-44.0); MEAN CORPUSCULAR HEMOGLOBIN 32.3 pg (27.0-33.0); MEAN CORPUSCULAR VOLUME 97.9 fl (80.0-96.0); MONO # 0.5 10^3/uL (0.0-0.8); MONO % 8.3 % (2.0-8.0); NEUTROPHILS # 4.2 10^3/uL (1.5-8.5); NEUTROPHILS % 77.5 % (36.0-66.0); PLATELET COUNT, AUTOMATED 255 10^3/uL (150-450); RED BLOOD COUNT 4.86 10^6/uL (4.30-6.10); WHITE BLOOD COUNT 5.4 10^3/uL (4.0-10.0)
[2021-11-11 13:19] LABS: ALBUMIN 3.6 GM/DL (3.2-5.2); ALT/SGPT 20 U/L (12-78); BILIRUBIN,TOTAL 0.5 MG/DL (0.2-1.0); BLOOD UREA NITROGEN 34 MG/DL (7-18); CALCIUM LEVEL 9.5 MG/DL (8.8-10.2); CARBON DIOXIDE LEVEL 30 MEQ/L (21-32); CHLORIDE LEVEL 106 MEQ/L (98-107); CREATININE FOR GFR 1.68 MG/DL (0.70-1.30); GLOMERULAR FILTRATION RATE 44.2 (>49); GLUCOSE, FASTING 79 MG/DL (70-100); IMMUNOGLOBULIN A < 7.8 MG/DL (70-400); IMMUNOGLOBULIN G 881 MG/DL (681-1648); IMMUNOGLOBULIN M < 5.3 MG/DL (40-230); POTASSIUM SERUM 4.5 MEQ/L (3.5-5.1); SODIUM LEVEL 142 MEQ/L (136-145); TOTAL PROTEIN 6.9 GM/DL (6.4-8.2)
[2021-11-12 18:07] LABS: FREE KAPPA LIGHT CHAINS SERUM 3.4 mg/L (3.3-19.4); FREE LAMBDA LIGHT CHAINS SERUM 2.9 mg/L (5.7-26.3); KAPPA/LAMBDA RATIO SERUM 1.17 (0.26-1.65)
[2021-11-15 13:40] LABS: ALBUMIN 4.03 GM/DL (3.29-5.55); ALBUMIN % 58.4 % (55.8-66.1); ALPHA-1-GLOBULIN % 5.6 % (2.9-4.9); ALPHA-1-GLOBULINS 0.39 GM/DL (0.17-0.41); BETA-1-GLOBULINS 0.46 GM/DL (0.28-0.60); BETA-1-GLOBULINS % 6.6 % (4.7-7.2); BETA-2-GLOBULINS 0.29 GM/DL (0.19-0.55); BETA-2-GLOBULINS % 4.2 % (3.2-6.5); GAMMA GLOBULIN % 12.2 % (11.1-18.8)
[2021-11-15 13:41] LABS: GAMMA GLOBULINS 0.84 GM/DL (0.65-1.58)
== END ==
LOC: M LABDRWAD 12:07
PROVIDERS: ATTEND Internal Medicine Medical Oncology
DX: C90.00 Multiple myeloma not having achieved remission (principal)

== ENCOUNTER → 2021-11-25 | Outpatient (CLI) | payer MEDICARE, OTHER ==
[2021-11-25 10:41] LABS: BASO # 0.1 10^3/uL (0.0-0.2); BASO % 0.8 % (0.0-1.0); EOS % 14.4 % (0.0-3.0); HEMATOCRIT 49.2 % (42.0-52.0); LYMPH # 0.2 10^3/uL (1.5-5.0); LYMPH % 2.4 % (24.0-44.0); MEAN CORPUSCULAR HEMOGLOBIN 32.5 pg (27.0-33.0); MEAN CORPUSCULAR HGB CONC 32.5 g/dl (32.0-36.5); MONO % 15.8 % (2.0-8.0); NEUTROPHILS # 4.3 10^3/uL (1.5-8.5); NEUTROPHILS % 65.5 % (36.0-66.0); PLATELET COUNT, AUTOMATED 178 10^3/uL (150-450); RED BLOOD COUNT 4.92 10^6/uL (4.30-6.10); WHITE BLOOD COUNT 6.6 10^3/uL (4.0-10.0)
[2021-11-25 11:46] LABS: ALBUMIN 3.6 GM/DL (3.2-5.2); ALT/SGPT 16 U/L (12-78); BILIRUBIN,TOTAL 0.5 MG/DL (0.2-1.0); BLOOD UREA NITROGEN 38 MG/DL (7-18); CALCIUM LEVEL 9.2 MG/DL (8.8-10.2); CARBON DIOXIDE LEVEL 33 MEQ/L (21-32); CHLORIDE LEVEL 106 MEQ/L (98-107); CREATININE FOR GFR 1.54 MG/DL (0.70-1.30); GLOMERULAR FILTRATION RATE 48.8 (>49); GLUCOSE, FASTING 96 MG/DL (70-100); IMMUNOGLOBULIN A < 7.8 MG/DL (70-400); IMMUNOGLOBULIN G 594 MG/DL (681-1648); IMMUNOGLOBULIN M < 5.3 MG/DL (40-230); POTASSIUM SERUM 5.3 MEQ/L (3.5-5.1); SODIUM LEVEL 141 MEQ/L (136-145); TOTAL PROTEIN 6.4 GM/DL (6.4-8.2)
[2021-11-26 16:08] LABS: FREE KAPPA LIGHT CHAINS SERUM 3.2 mg/L (3.3-19.4); FREE LAMBDA LIGHT CHAINS SERUM 3.6 mg/L (5.7-26.3); KAPPA/LAMBDA RATIO SERUM 0.89 (0.26-1.65)
== END ==
LOC: M PLALAB 09:21
PROVIDERS: ATTEND Internal Medicine Medical Oncology
DX: C90.00 Multiple myeloma not having achieved remission (principal)

== ENCOUNTER 2021-12-01 11:45 | Outpatient (CLI) | payer MEDICARE, OTHER ==
[~2021-12-01] VITALS: Ht 177.8 cm; Wt 71.2 kg
[~2021-12-01 11:45] MED LIST changes: +ALBUTEROL SULFATE (2.5MG/0.5ML) NEB INH PRN; +EPINEPHrine (1MG/ML) IV IM PRN; +FAMOTIDINE 20MG IVP IV PRN; +NS 1,000 ML IV PRN; +diphenhydrAMINE (50MG/ML) IV IV PRN
[2021-12-01 12:00] VITALS: BP 145/88
[2021-12-01] MEDS ORDERED: IMMUNE GLOBULIN 10% 5 GM in IV 1 EA IV ONE (12:00)
[2021-12-01] MEDS ORDERED: ACETAMINOPHEN TAB 650MG DOSE (2X325MG) PO ONE (12:00)
[2021-12-01] MEDS ORDERED: IMMUNE GLOBULIN 10% 20 GM in IV 1 EA IV ONE (12:00)
[2021-12-01] MEDS ORDERED: diphenhydrAMINE 25MG CAP PO ONE (12:00)
[2021-12-01] MEDS ORDERED: dexameTHASONE 20MG/5ML VIAL (J1100 PER 1MG) IV PRN (12:00)
[2021-12-01 13:30] VITALS: BP 132/74
[2021-12-01 15:02] VITALS: BP 143/63
== END 2021-12-01 15:00 | disposition home or self-care (01) ==
LOC: M INFU 11:45
PROVIDERS: ATTEND Internal Medicine Medical Oncology
DX: D80.1 Nonfamilial hypogammaglobulinemia (principal); C90.00 Multiple myeloma not having achieved remission
CPT/HCPCS: 96365; 96366; J1459

== ENCOUNTER → 2021-12-09 | Outpatient (REF) | payer MEDICARE, OTHER ==
[~2021-12-09] MED LIST changes: -ALBUTEROL SULFATE (2.5MG/0.5ML) NEB INH PRN; +ATIV1TAB7 PO; -EPINEPHrine (1MG/ML) IV IM PRN; -FAMOTIDINE 20MG IVP IV PRN; -NS 1,000 ML IV PRN; -diphenhydrAMINE (50MG/ML) IV IV PRN
[2021-12-09 12:55] LABS: BASO # 0.1 10^3/uL (0.0-0.2); BASO % 2.7 % (0.0-1.0); EOS # 0.3 10^3/uL (0.0-0.5); EOS % 8.4 % (0.0-3.0); HEMATOCRIT 48.4 % (42.0-52.0); HEMOGLOBIN 15.8 g/dl (13.5-17.5); LYMPH # 0.2 10^3/uL (1.5-5.0); LYMPH % 4.4 % (24.0-44.0); MEAN CORPUSCULAR HEMOGLOBIN 32.4 pg (27.0-33.0); MEAN CORPUSCULAR HGB CONC 32.6 g/dl (32.0-36.5); MEAN CORPUSCULAR VOLUME 99.4 fl (80.0-96.0); MONO # 0.6 10^3/uL (0.0-0.8); MONO % 15.5 % (2.0-8.0); NEUTROPHILS # 2.4 10^3/uL (1.5-8.5); NEUTROPHILS % 64.9 % (36.0-66.0); PLATELET COUNT, AUTOMATED 224 10^3/uL (150-450); RED BLOOD COUNT 4.87 10^6/uL (4.30-6.10); WHITE BLOOD COUNT 3.7 10^3/uL (4.0-10.0)
[2021-12-09 14:03] LABS: ALBUMIN 3.7 GM/DL (3.2-5.2); ALT/SGPT 18 U/L (12-78); BILIRUBIN,TOTAL 0.4 MG/DL (0.2-1.0); BLOOD UREA NITROGEN 39 MG/DL (7-18); CALCIUM LEVEL 9.4 MG/DL (8.8-10.2); CARBON DIOXIDE LEVEL 30 MEQ/L (21-32); CHLORIDE LEVEL 109 MEQ/L (98-107); CREATININE FOR GFR 1.64 MG/DL (0.70-1.30); GLOMERULAR FILTRATION RATE 45.4 (>49); GLUCOSE, FASTING 93 MG/DL (70-100); IMMUNOGLOBULIN A < 7.8 MG/DL (70-400); IMMUNOGLOBULIN G 816 MG/DL (681-1648); IMMUNOGLOBULIN M < 5.3 MG/DL (40-230); POTASSIUM SERUM 5.1 MEQ/L (3.5-5.1); SODIUM LEVEL 144 MEQ/L (136-145); TOTAL PROTEIN 6.3 GM/DL (6.4-8.2)
[2021-12-10 17:09] LABS: FREE KAPPA LIGHT CHAINS SERUM 3.6 mg/L (3.3-19.4); FREE LAMBDA LIGHT CHAINS SERUM 3.1 mg/L (5.7-26.3); KAPPA/LAMBDA RATIO SERUM 1.16 (0.26-1.65)
[2021-12-13 10:58] LABS: ALBUMIN 3.87 GM/DL (3.29-5.55); ALBUMIN % 61.5 % (55.8-66.1); ALPHA-1-GLOBULIN % 4.6 % (2.9-4.9); ALPHA-1-GLOBULINS 0.29 GM/DL (0.17-0.41); ALPHA-2-GLOBULINS 0.74 GM/DL (0.42-0.99); ALPHA-2-GLOBULINS % 11.7 % (7.1-11.8); BETA-1-GLOBULINS 0.41 GM/DL (0.28-0.60); BETA-1-GLOBULINS % 6.5 % (4.7-7.2); BETA-2-GLOBULINS 0.25 GM/DL (0.19-0.55); GAMMA GLOBULIN % 11.7 % (11.1-18.8); GAMMA GLOBULINS 0.74 GM/DL (0.65-1.58)
== END ==
LOC: M LABDRWAD 12:17
PROVIDERS: ATTEND Internal Medicine Medical Oncology
DX: C90.00 Multiple myeloma not having achieved remission (principal)

== ENCOUNTER → 2021-12-23 | Outpatient (CLI) | payer MEDICARE, OTHER ==
[2021-12-23 13:09] LABS: BASO # 0.1 10^3/uL (0.0-0.2); BASO % 1.9 % (0.0-1.0); EOS # 0.6 10^3/uL (0.0-0.5); EOS % 15.4 % (0.0-3.0); HEMATOCRIT 49.3 % (42.0-52.0); HEMOGLOBIN 16.2 g/dl (13.5-17.5); LYMPH # 0.2 10^3/uL (1.5-5.0); MEAN CORPUSCULAR HEMOGLOBIN 32.2 pg (27.0-33.0); MEAN CORPUSCULAR HGB CONC 32.9 g/dl (32.0-36.5); MONO # 0.7 10^3/uL (0.0-0.8); MONO % 18.3 % (2.0-8.0); NEUTROPHILS # 2.3 10^3/uL (1.5-8.5); NEUTROPHILS % 59.6 % (36.0-66.0); PLATELET COUNT, AUTOMATED 175 10^3/uL (150-450); RED BLOOD COUNT 5.03 10^6/uL (4.30-6.10); WHITE BLOOD COUNT 3.8 10^3/uL (4.0-10.0)
[2021-12-23 14:26] LABS: ALBUMIN 3.7 GM/DL (3.2-5.2); ALT/SGPT 16 U/L (12-78); BILIRUBIN,TOTAL 0.6 MG/DL (0.2-1.0); BLOOD UREA NITROGEN 36 MG/DL (7-18); CALCIUM LEVEL 9.1 MG/DL (8.8-10.2); CARBON DIOXIDE LEVEL 30 MEQ/L (21-32); CHLORIDE LEVEL 103 MEQ/L (98-107); CREATININE FOR GFR 1.65 MG/DL (0.70-1.30); GLOMERULAR FILTRATION RATE 45.1 (>49); GLUCOSE, FASTING 117 MG/DL (70-100); IMMUNOGLOBULIN A < 7.8 MG/DL (70-400); IMMUNOGLOBULIN G 593 MG/DL (681-1648); IMMUNOGLOBULIN M < 5.3 MG/DL (40-230); POTASSIUM SERUM 4.4 MEQ/L (3.5-5.1); SODIUM LEVEL 143 MEQ/L (136-145); TOTAL PROTEIN 6.4 GM/DL (6.4-8.2)
[2021-12-24 17:06] LABS: FREE KAPPA LIGHT CHAINS SERUM 3.8 mg/L (3.3-19.4); FREE LAMBDA LIGHT CHAINS SERUM 3.8 mg/L (5.7-26.3)
[2021-12-27 11:09] LABS: ALBUMIN 4.03 GM/DL (3.29-5.55); ALBUMIN % 62.9 % (55.8-66.1); ALPHA-1-GLOBULIN % 5.1 % (2.9-4.9); ALPHA-1-GLOBULINS 0.33 GM/DL (0.17-0.41); ALPHA-2-GLOBULINS 0.81 GM/DL (0.42-0.99); ALPHA-2-GLOBULINS % 12.6 % (7.1-11.8); BETA-1-GLOBULINS 0.42 GM/DL (0.28-0.60); BETA-1-GLOBULINS % 6.6 % (4.7-7.2); BETA-2-GLOBULINS 0.26 GM/DL (0.19-0.55); BETA-2-GLOBULINS % 4.1 % (3.2-6.5); GAMMA GLOBULIN % 8.7 % (11.1-18.8); GAMMA GLOBULINS 0.56 GM/DL (0.65-1.58)
== END ==
LOC: M PLALAB 09:44
PROVIDERS: ATTEND Internal Medicine Medical Oncology
DX: C90.00 Multiple myeloma not having achieved remission (principal)

== ENCOUNTER 2021-12-29 11:47 | Outpatient (CLI) | payer MEDICARE, OTHER ==
[~2021-12-29] VITALS: Ht 177.8 cm; Wt 71.2 kg
[~2021-12-29 11:47] MED LIST changes: +ALBUTEROL SULFATE (2.5MG/0.5ML) NEB INH PRN; +EPINEPHrine (1MG/ML) IV IM PRN; +FAMOTIDINE 20MG IVP IV PRN; +dexameTHASONE 20MG/5ML VIAL (J1100 PER 1MG) IV PRN; +diphenhydrAMINE (50MG/ML) IV IV PRN
[2021-12-29] MEDS ORDERED: diphenhydrAMINE 25MG CAP PO ONE (12:00)
[2021-12-29] MEDS ORDERED: IMMUNE GLOBULIN 10% 5 GM in IV 1 EA IV ONE (12:00)
[2021-12-29] MEDS ORDERED: IMMUNE GLOBULIN 10% 20 GM in IV 1 EA IV ONE (12:00)
[2021-12-29] MEDS ORDERED: ACETAMINOPHEN TAB 650MG DOSE (2X325MG) PO ONE (12:00)
[2021-12-29 12:02] VITALS: BP 139/80
[2021-12-29 12:35] VITALS: BP 143/74
[2021-12-29 13:05] VITALS: BP 134/65
[2021-12-29 13:39] VITALS: BP 138/67
[2021-12-29 14:44] VITALS: BP 140/83
== END 2021-12-29 14:45 | disposition home or self-care (01) ==
LOC: M INFU 11:47
PROVIDERS: ATTEND Internal Medicine Medical Oncology
DX: D80.1 Nonfamilial hypogammaglobulinemia (principal); C90.00 Multiple myeloma not having achieved remission
CPT/HCPCS: 96365; 96366; J1459

== ENCOUNTER → 2022-01-06 | Outpatient (REF) | payer MEDICARE, OTHER ==
[~2022-01-06] MED LIST changes: -ALBUTEROL SULFATE (2.5MG/0.5ML) NEB INH PRN; -EPINEPHrine (1MG/ML) IV IM PRN; -FAMOTIDINE 20MG IVP IV PRN; -dexameTHASONE 20MG/5ML VIAL (J1100 PER 1MG) IV PRN; -diphenhydrAMINE (50MG/ML) IV IV PRN
[2022-01-06 13:36] LABS: BASO # 0.1 10^3/uL (0.0-0.2); BASO % 2.7 % (0.0-1.0); EOS # 0.5 10^3/uL (0.0-0.5); EOS % 11.3 % (0.0-3.0); HEMATOCRIT 47.8 % (42.0-52.0); HEMOGLOBIN 15.7 g/dl (13.5-17.5); LYMPH # 0.1 10^3/uL (1.5-5.0); LYMPH % 2.7 % (24.0-44.0); MEAN CORPUSCULAR HGB CONC 32.8 g/dl (32.0-36.5); MEAN CORPUSCULAR VOLUME 97.6 fl (80.0-96.0); MONO # 0.4 10^3/uL (0.0-0.8); MONO % 9.9 % (2.0-8.0); NEUTROPHILS # 2.9 10^3/uL (1.5-8.5); NEUTROPHILS % 71.4 % (36.0-66.0); PLATELET COUNT, AUTOMATED 218 10^3/uL (150-450); WHITE BLOOD COUNT 4.1 10^3/uL (4.0-10.0)
[2022-01-06 16:03] LABS: ALBUMIN 3.7 GM/DL (3.2-5.2); ALT/SGPT 20 U/L (12-78); BILIRUBIN,TOTAL 0.4 MG/DL (0.2-1.0); BLOOD UREA NITROGEN 38 MG/DL (7-18); CALCIUM LEVEL 10.2 MG/DL (8.8-10.2); CARBON DIOXIDE LEVEL 33 MEQ/L (21-32); CHLORIDE LEVEL 109 MEQ/L (98-107); CREATININE FOR GFR 1.75 MG/DL (0.70-1.30); GLOMERULAR FILTRATION RATE 42.1 (>49); GLUCOSE, FASTING 81 MG/DL (70-100); IMMUNOGLOBULIN A < 7.8 MG/DL (70-400); IMMUNOGLOBULIN G 853 MG/DL (681-1648); POTASSIUM SERUM 4.8 MEQ/L (3.5-5.1); SODIUM LEVEL 146 MEQ/L (136-145); TOTAL PROTEIN 6.5 GM/DL (6.4-8.2)
[2022-01-06 16:04] LABS: IMMUNOGLOBULIN M < 5.3 MG/DL (40-230)
[2022-01-07 17:07] LABS: FREE KAPPA LIGHT CHAINS SERUM 1.6 mg/L (3.3-19.4); FREE LAMBDA LIGHT CHAINS SERUM 3.1 mg/L (5.7-26.3); KAPPA/LAMBDA RATIO SERUM 0.52 (0.26-1.65)
[2022-01-09 10:53] LABS: ALBUMIN 3.97 GM/DL (3.29-5.55); ALPHA-1-GLOBULIN % 4.8 % (2.9-4.9); ALPHA-1-GLOBULINS 0.31 GM/DL (0.17-0.41); ALPHA-2-GLOBULINS 0.76 GM/DL (0.42-0.99); ALPHA-2-GLOBULINS % 11.7 % (7.1-11.8); BETA-1-GLOBULINS 0.42 GM/DL (0.28-0.60); BETA-1-GLOBULINS % 6.4 % (4.7-7.2); BETA-2-GLOBULINS 0.27 GM/DL (0.19-0.55); BETA-2-GLOBULINS % 4.1 % (3.2-6.5); GAMMA GLOBULINS 0.78 GM/DL (0.65-1.58)
== END ==
LOC: M LABDRWAD 12:34
PROVIDERS: ATTEND Internal Medicine Medical Oncology
DX: C90.00 Multiple myeloma not having achieved remission (principal)

== ENCOUNTER 2022-01-26 11:39 | Outpatient (CLI) | payer MEDICARE, OTHER ==
[~2022-01-26] VITALS: Ht 177.8 cm; Wt 71.2 kg
[~2022-01-26 11:39] MED LIST changes: +ACETAMINOPHEN TAB 650MG DOSE (2X325MG) PO ONE; +ALBUTEROL SULFATE 2.5 MG/0.5 ML INH NEB SOLN INH PRN; +EPINEPHrine INJ 1 MG/ML 1ML AMP IM PRN; +FAMOTIDINE INJ 20MG/2ML VIAL (S0028 PER 1) IV PRN; +dexameTHASONE 20MG/5ML VIAL (J1100 PER 1MG) IV PRN; +diphenhydrAMINE 25MG CAP PO ONE; +diphenhydrAMINE 50MG/ML VIAL (J1200) IV PRN
[2022-01-26] MEDS ORDERED: ACETAMINOPHEN TAB 650MG DOSE (2X325MG) PO ONE (12:00)
[2022-01-26] MEDS ORDERED: IMMUNE GLOBULIN 10% 20 GM in IV 1 EA IV ONE (12:00)
[2022-01-26] MEDS ORDERED: IMMUNE GLOBULIN 10% 5 GM in IV 1 EA IV ONE (12:00)
[2022-01-26] MEDS ORDERED: diphenhydrAMINE 25MG CAP PO ONE (12:00)
[2022-01-26 12:19] VITALS: BP 129/78
[2022-01-26 12:45] VITALS: BP 134/78
[2022-01-26 14:45] VITALS: BP 140/79
== END 2022-01-26 14:45 | disposition home or self-care (01) ==
LOC: M INFU 11:39
PROVIDERS: ATTEND Internal Medicine Medical Oncology
DX: D80.1 Nonfamilial hypogammaglobulinemia (principal); C90.00 Multiple myeloma not having achieved remission
CPT/HCPCS: 96365; 96366; J1459

== ENCOUNTER → 2022-02-03 | Outpatient (CLI) | payer MEDICARE, OTHER ==
[~2022-02-03] MED LIST changes: -ACETAMINOPHEN TAB 650MG DOSE (2X325MG) PO ONE; -ALBUTEROL SULFATE 2.5 MG/0.5 ML INH NEB SOLN INH PRN; -EPINEPHrine INJ 1 MG/ML 1ML AMP IM PRN; -FAMOTIDINE INJ 20MG/2ML VIAL (S0028 PER 1) IV PRN; -dexameTHASONE 20MG/5ML VIAL (J1100 PER 1MG) IV PRN; -diphenhydrAMINE 25MG CAP PO ONE; -diphenhydrAMINE 50MG/ML VIAL (J1200) IV PRN
[2022-02-03 13:42] LABS: BASO # 0.1 10^3/uL (0.0-0.2); BASO % 2.6 % (0.0-1.0); EOS # 0.4 10^3/uL (0.0-0.5); EOS % 8.9 % (0.0-3.0); HEMATOCRIT 49.3 % (42.0-52.0); HEMOGLOBIN 16.7 g/dl (13.5-17.5); LYMPH # 0.1 10^3/uL (1.5-5.0); LYMPH % 3.3 % (24.0-44.0); MEAN CORPUSCULAR HEMOGLOBIN 32.3 pg (27.0-33.0); MEAN CORPUSCULAR HGB CONC 33.9 g/dl (32.0-36.5); MEAN CORPUSCULAR VOLUME 95.4 fl (80.0-96.0); MONO # 0.3 10^3/uL (0.0-0.8); MONO % 6.5 % (2.0-8.0); NEUTROPHILS # 3.3 10^3/uL (1.5-8.5); NEUTROPHILS % 76.4 % (36.0-66.0); PLATELET COUNT, AUTOMATED 192 10^3/uL (150-450); RED BLOOD COUNT 5.17 10^6/uL (4.30-6.10); WHITE BLOOD COUNT 4.3 10^3/uL (4.0-10.0)
[2022-02-03 14:35] LABS: ALBUMIN 3.5 GM/DL (3.2-5.2); ALT/SGPT 19 U/L (12-78); BILIRUBIN,TOTAL 0.5 MG/DL (0.2-1.0); BLOOD UREA NITROGEN 28 MG/DL (7-18); CALCIUM LEVEL 9.3 MG/DL (8.8-10.2); CARBON DIOXIDE LEVEL 33 MEQ/L (21-32); CHLORIDE LEVEL 108 MEQ/L (98-107); CREATININE FOR GFR 1.64 MG/DL (0.70-1.30); GLOMERULAR FILTRATION RATE 45.4 (>49); GLUCOSE, FASTING 122 MG/DL (70-100); IMMUNOGLOBULIN A < 7.8 MG/DL (70-400); IMMUNOGLOBULIN G 769 MG/DL (681-1648); IMMUNOGLOBULIN M 6.2 MG/DL (40-230); POTASSIUM SERUM 4.6 MEQ/L (3.5-5.1); SODIUM LEVEL 143 MEQ/L (136-145); TOTAL PROTEIN 6.5 GM/DL (6.4-8.2)
[2022-02-04 17:07] LABS: FREE KAPPA LIGHT CHAINS SERUM 1.8 mg/L (3.3-19.4); KAPPA/LAMBDA RATIO SERUM 0.6 (0.26-1.65)
== END ==
LOC: M ADAMS 08:41
PROVIDERS: ATTEND Internal Medicine Medical Oncology
DX: C90.00 Multiple myeloma not having achieved remission (principal)

== ENCOUNTER 2022-02-23 11:52 | Outpatient (CLI) | payer MEDICARE, OTHER ==
[~2022-02-23] VITALS: Ht 177.8 cm; Wt 66.8 kg
[~2022-02-23 11:52] MED LIST changes: +ALBUTEROL SULFATE 2.5 MG/0.5 ML INH NEB SOLN INH PRN; +EPINEPHrine INJ 1 MG/ML 1ML AMP IM PRN; +FAMOTIDINE 20MG/2ML VIAL IV PRN; +dexameTHASONE 20MG/5ML VIAL (J1100 PER 1MG) IV PRN; +diphenhydrAMINE 50MG/ML VIAL (J1200) IV PRN
[2022-02-23] MEDS ORDERED: diphenhydrAMINE 25MG CAP PO ONE ×2 (12:00)
[2022-02-23] MEDS ORDERED: ACETAMINOPHEN TAB 650MG DOSE (2X325MG) PO ONE ×2 (12:00)
[2022-02-23] MEDS ORDERED: IMMUNE GLOBULIN 10% 5 GM in IV 1 EA IV ONE (12:00)
[2022-02-23] MEDS ORDERED: IMMUNE GLOBULIN 10% 20 GM in IV 1 EA IV ONE (12:00)
[2022-02-23 12:11] VITALS: BP 135/84
[2022-02-23 13:00] VITALS: BP 124/69
[2022-02-23 13:30] VITALS: BP 133/76
[2022-02-23 14:00] VITALS: BP 142/76
[2022-02-23 14:30] VITALS: BP 137/77
[2022-02-23 15:00] VITALS: BP 128/75
== END 2022-02-23 15:05 | disposition home or self-care (01) ==
LOC: M INFU 11:52
PROVIDERS: ATTEND Internal Medicine Medical Oncology
DX: D80.1 Nonfamilial hypogammaglobulinemia (principal); C90.00 Multiple myeloma not having achieved remission
CPT/HCPCS: 96365; 96366; J1459

== ENCOUNTER → 2022-03-03 | Outpatient (CLI) | payer MEDICARE, OTHER ==
[~2022-03-03] MED LIST changes: -ALBUTEROL SULFATE 2.5 MG/0.5 ML INH NEB SOLN INH PRN; -EPINEPHrine INJ 1 MG/ML 1ML AMP IM PRN; -FAMOTIDINE 20MG/2ML VIAL IV PRN; -dexameTHASONE 20MG/5ML VIAL (J1100 PER 1MG) IV PRN; -diphenhydrAMINE 50MG/ML VIAL (J1200) IV PRN
[2022-03-03 13:04] LABS: BASO # 0.1 10^3/uL (0.0-0.2); BASO % 2.5 % (0.0-1.0); EOS # 0.6 10^3/uL (0.0-0.5); EOS % 10.7 % (0.0-3.0); HEMATOCRIT 51.8 % (42.0-52.0); HEMOGLOBIN 17.1 g/dl (13.5-17.5); LYMPH # 0.1 10^3/uL (1.5-5.0); LYMPH % 1.9 % (24.0-44.0); MEAN CORPUSCULAR HEMOGLOBIN 31.4 pg (27.0-33.0); MEAN CORPUSCULAR VOLUME 95.2 fl (80.0-96.0); MONO # 0.3 10^3/uL (0.0-0.8); MONO % 6.2 % (2.0-8.0); NEUTROPHILS # 3.8 10^3/uL (1.5-8.5); PLATELET COUNT, AUTOMATED 237 10^3/uL (150-450); RED BLOOD COUNT 5.44 10^6/uL (4.30-6.10); WHITE BLOOD COUNT 5.1 10^3/uL (4.0-10.0)
[2022-03-03 13:43] LABS: ALBUMIN 3.5 GM/DL (3.2-5.2); ALT/SGPT 18 U/L (12-78); BILIRUBIN,TOTAL 0.5 MG/DL (0.2-1.0); BLOOD UREA NITROGEN 32 MG/DL (7-18); CALCIUM LEVEL 10.3 MG/DL (8.8-10.2); CARBON DIOXIDE LEVEL 32 MEQ/L (21-32); CHLORIDE LEVEL 107 MEQ/L (98-107); CREATININE FOR GFR 1.71 MG/DL (0.70-1.30); GLOMERULAR FILTRATION RATE 43.3 (>49); GLUCOSE, FASTING 79 MG/DL (70-100); IMMUNOGLOBULIN A < 7.8 MG/DL (70-400); IMMUNOGLOBULIN G 815 MG/DL (681-1648); IMMUNOGLOBULIN M 23.3 MG/DL (40-230); POTASSIUM SERUM 4.6 MEQ/L (3.5-5.1); SODIUM LEVEL 143 MEQ/L (136-145); TOTAL PROTEIN 6.4 GM/DL (6.4-8.2)
[2022-03-04 17:07] LABS: FREE KAPPA LIGHT CHAINS SERUM 1.6 mg/L (3.3-19.4); FREE LAMBDA LIGHT CHAINS SERUM 3.1 mg/L (5.7-26.3); KAPPA/LAMBDA RATIO SERUM 0.52 (0.26-1.65)
== END ==
LOC: M ADAMS 08:28
PROVIDERS: ATTEND Internal Medicine Medical Oncology
DX: C90.00 Multiple myeloma not having achieved remission (principal)

== ENCOUNTER → 2022-03-20 | Outpatient (CLI) | payer MEDICARE, OTHER ==
[2022-03-20 17:55] LABS: BASO # 0.1 10^3/uL (0.0-0.2); BASO % 1.8 % (0.0-1.0); EOS % 0.3 % (0.0-3.0); HEMATOCRIT 49.8 % (42.0-52.0); HEMOGLOBIN 16.3 g/dl (13.5-17.5); LYMPH # 0.1 10^3/uL (1.5-5.0); LYMPH % 3.9 % (24.0-44.0); MEAN CORPUSCULAR HEMOGLOBIN 31.5 pg (27.0-33.0); MEAN CORPUSCULAR HGB CONC 32.7 g/dl (32.0-36.5); MEAN CORPUSCULAR VOLUME 96.3 fl (80.0-96.0); MONO # 0.1 10^3/uL (0.0-0.8); NEUTROPHILS % 89.5 % (36.0-66.0); PLATELET COUNT, AUTOMATED 155 10^3/uL (150-450); RED BLOOD COUNT 5.17 10^6/uL (4.30-6.10); WHITE BLOOD COUNT 3.3 10^3/uL (4.0-10.0)
[2022-03-20 18:13] LABS: ALBUMIN 3.5 GM/DL (3.2-5.2); BILIRUBIN,TOTAL 0.6 MG/DL (0.2-1.0); CALCIUM LEVEL 13.2 MG/DL (8.8-10.2); CREATININE FOR GFR 2.24 MG/DL (0.70-1.30); GLOMERULAR FILTRATION RATE 31.7 (>49); POTASSIUM SERUM 5.3 MEQ/L (3.5-5.1); TOTAL PROTEIN 6.6 GM/DL (6.4-8.2)
== END ==
LOC: M PLAIMG 13:03 → M PLALAB 13:03
PROVIDERS: ATTEND Nurse Practitioner Family
DX: R05.9 Cough, unspecified (principal); R06.02 Shortness of breath

== ENCOUNTER → 2022-03-20 | Outpatient (CLI) | payer MEDICARE, OTHER | LOC: M PLALAB 09:32 | PROVIDERS: ATTEND Nurse Practitioner Family | DX: R05.9 Cough, unspecified (principal) ==

== ENCOUNTER → 2022-03-24 | Outpatient (CLI) | payer MEDICARE, OTHER ==
[~2022-03-24] MED LIST changes: +AMLO2.5T3 PO; +ASPI32ECTA PO; +FURO20TA2 PO; +MUCI600T31 PO; +ZZZQ25CA PO
[2022-03-24 17:10] LABS: BASO # 0.1 10^3/uL (0.0-0.2); EOS # 0.9 10^3/uL (0.0-0.5); EOS % 14.3 % (0.0-3.0); HEMATOCRIT 50.7 % (42.0-52.0); HEMOGLOBIN 16.9 g/dl (13.5-17.5); LYMPH # 0.1 10^3/uL (1.5-5.0); LYMPH % 1.7 % (24.0-44.0); MEAN CORPUSCULAR HEMOGLOBIN 31.1 pg (27.0-33.0); MEAN CORPUSCULAR HGB CONC 33.3 g/dl (32.0-36.5); MEAN CORPUSCULAR VOLUME 93.4 fl (80.0-96.0); MONO # 0.8 10^3/uL (0.0-0.8); NEUTROPHILS # 4.6 10^3/uL (1.5-8.5); NEUTROPHILS % 69.5 % (36.0-66.0); PLATELET COUNT, AUTOMATED 190 10^3/uL (150-450); RED BLOOD COUNT 5.43 10^6/uL (4.30-6.10); WHITE BLOOD COUNT 6.6 10^3/uL (4.0-10.0)
[2022-03-24 18:19] LABS: ALBUMIN 3.6 GM/DL (3.2-5.2); ALT/SGPT 14 U/L (12-78); BILIRUBIN,TOTAL 0.9 MG/DL (0.2-1.0); BLOOD UREA NITROGEN 44 MG/DL (7-18); CALCIUM LEVEL 11.9 MG/DL (8.8-10.2); CARBON DIOXIDE LEVEL 28 MEQ/L (21-32); CHLORIDE LEVEL 106 MEQ/L (98-107); CREATININE FOR GFR 2.19 MG/DL (0.70-1.30); GLOMERULAR FILTRATION RATE 32.5 (>49); GLUCOSE, FASTING 84 MG/DL (70-100); IMMUNOGLOBULIN A < 7.8 MG/DL (70-400); IMMUNOGLOBULIN G 451 MG/DL (681-1648); POTASSIUM SERUM 4.2 MEQ/L (3.5-5.1); SODIUM LEVEL 143 MEQ/L (136-145); TOTAL PROTEIN 6.2 GM/DL (6.4-8.2)
[2022-03-28 13:46] LABS: ALBUMIN 3.75 GM/DL (3.29-5.55); ALBUMIN % 60.5 % (55.8-66.1); ALPHA-1-GLOBULIN % 6.5 % (2.9-4.9); ALPHA-2-GLOBULINS 0.94 GM/DL (0.42-0.99); ALPHA-2-GLOBULINS % 15.1 % (7.1-11.8); BETA-1-GLOBULINS % 6.2 % (4.7-7.2); BETA-2-GLOBULINS % 4.6 % (3.2-6.5); GAMMA GLOBULIN % 7.1 % (11.1-18.8)
[2022-03-28 13:47] LABS: BETA-1-GLOBULINS 0.38 GM/DL (0.28-0.60); BETA-2-GLOBULINS 0.29 GM/DL (0.19-0.55); GAMMA GLOBULINS 0.44 GM/DL (0.65-1.58)
[2022-03-28 16:24] LABS: FREE KAPPA LIGHT CHAINS SERUM 3.5 mg/L (3.3-19.4); FREE LAMBDA LIGHT CHAINS SERUM 3.5 mg/L (5.7-26.3)
== END ==
LOC: M ADAMS 12:11
PROVIDERS: ATTEND Internal Medicine Medical Oncology
DX: C90.00 Multiple myeloma not having achieved remission (principal)

== ENCOUNTER → 2022-03-24 | Outpatient (REF) | payer MEDICARE, OTHER | LOC: M LAB REF 17:46 | PROVIDERS: ATTEND Internal Medicine Nephrology | DX: E03.9 Hypothyroidism, unspecified (principal) ==

== ENCOUNTER → 2022-03-24 | Outpatient (CLI) | payer MEDICARE, OTHER ==
[~2022-03-24] MED LIST changes: +ACYC1CAP20 PO; +BACI50OI TOP; +BACIOIN5 TOP; +LEVO88TA3 PO; +LORA1TAB4 PO; +SYNT88TA2 PO
== END ==
LOC: M RAD 15:17
PROVIDERS: ATTEND Internal Medicine Nephrology
DX: R06.02 Shortness of breath (principal); I26.99 Other pulmonary embolism without acute cor pulmonale; E03.9 Hypothyroidism, unspecified; C90.00 Multiple myeloma not having achieved remission
CPT/HCPCS: 36415; 78582; 80053; 82784; 83521; 84165; 84443; 85025; A9540; A9567

== ENCOUNTER 2022-03-28 17:05 | Inpatient (IN) | payer MEDICARE, OTHER ==
[~2022-03-28] VITALS: Ht 177.8 cm; Wt 66.3 kg
[~2022-03-28 17:05] MED LIST changes: -ACYC1CAP20 PO; -AMLO2.5T3 PO; -ASPI32ECTA PO; -BACI50OI TOP; -BACIOIN5 TOP; -FURO20TA2 PO; -LEVO88TA3 PO; -LORA1TAB4 PO; -MUCI600T31 PO; -SYNT88TA2 PO; -ZZZQ25CA PO
[2022-03-28 18:34] VITALS: BP 144/81
[2022-03-28 19:52] LABS: BASO # 0.1 10^3/uL (0.0-0.2); BASO % 1.3 % (0.0-1.0); EOS % 0.4 % (0.0-3.0); HEMATOCRIT 49.3 % (42.0-52.0); HEMOGLOBIN 16.9 g/dl (13.5-17.5); LYMPH # 0.1 10^3/uL (1.5-5.0); LYMPH % 1.3 % (24.0-44.0); MEAN CORPUSCULAR HEMOGLOBIN 31.4 pg (27.0-33.0); MEAN CORPUSCULAR HGB CONC 34.3 g/dl (32.0-36.5); MEAN CORPUSCULAR VOLUME 91.5 fl (80.0-96.0); MONO # 1.5 10^3/uL (0.0-0.8); MONO % 19.2 % (2.0-8.0); NEUTROPHILS # 5.9 10^3/uL (1.5-8.5); PLATELET COUNT, AUTOMATED 312 10^3/uL (150-450); RED BLOOD COUNT 5.39 10^6/uL (4.30-6.10); WHITE BLOOD COUNT 7.7 10^3/uL (4.0-10.0)
[2022-03-28 20:04] LABS: INR 0.87; PARTIAL THROMBOPLASTIN TIME 20.8 SECONDS (25.9-37.0); PROTHROMBIN TIME 12.2 SECONDS (12.7-14.5)
[2022-03-28 20:08] LABS: D-DIMER QUANT < 270 ng/ml (<500)
[2022-03-28 20:10] LABS: CK-MB VALUE MASS 7.5 NG/ML (<3.6); MB/CK RELATIVE INDEX 2.71 (< OR =4)
[2022-03-28 20:18] LABS: ALBUMIN 3.9 GM/DL (3.2-5.2); BILIRUBIN,TOTAL 0.5 MG/DL (0.2-1.0); CALCIUM LEVEL 10.8 MG/DL (8.8-10.2); CREATININE FOR GFR 2.17 MG/DL (0.70-1.30); GLOMERULAR FILTRATION RATE 32.8 (>49); POTASSIUM SERUM 3.6 MEQ/L (3.5-5.1); TOTAL PROTEIN 6.9 GM/DL (6.4-8.2)
[2022-03-28 20:30] VITALS: BP 128/60
[2022-03-28] MEDS ORDERED: ACETAMINOPHEN TAB 650MG DOSE (2X325MG) PO PRN (20:40)
[2022-03-28] MEDS ORDERED: DECA4TAB PO (22:18)
[2022-03-28] MEDS ORDERED: AMLO2.5T3 PO (22:18)
[2022-03-28] MEDS ORDERED: ASPI32ECTA PO (22:18)
[2022-03-28] MEDS ORDERED: MUCI600T31 PO (22:22)
[2022-03-28] MEDS ORDERED: SIMV40TA20 PO (22:22)
[2022-03-28] MEDS ORDERED: ZZZQ25CA PO (22:22)
[2022-03-28] MEDS ORDERED: SYNT75TA PO (22:22)
[2022-03-28] MEDS ORDERED: FURO20TA2 PO (22:22)
[2022-03-28] MEDS ORDERED: HOME MED LIST COMPLETE! XX SCH (22:25)
[2022-03-28] MEDS ORDERED: LORazepam 1 MG TAB PO PRN (22:55)
[2022-03-28] MEDS ORDERED: REMDESIVIR 200 MG in NS 250 ML IV ONE (23:00)
[2022-03-28] MEDS: SIMVASTATIN 40 MG TAB PO SCH (23:17)
[2022-03-28 23:20] VITALS: BP 123/73
[2022-03-28 23:30] LABS: APPEARANCE, URINE CLEAR (CLEAR); BACTERIA, URINE AUTO NEGATIVE (NEGATIVE); BILIRUBIN, URINE AUTO NEGATIVE (NEGATIVE); BLOOD, URINE BLOOD NEGATIVE (NEGATIVE); CALCIUM OXALATE CRYSTALS SMALL; COLOR, URINE YELLOW (YELLOW); GLUCOSE, URINE (UA) AUTO NEGATIVE (NEGATIVE); KETONE, URINE AUTO NEGATIVE (NEGATIVE); LEUKOCYTE ESTERASE, URINE AUTO NEGATIVE (NEGATIVE); MUCUS, URINE SMALL (NEGATIVE); NITRITE, URINE AUTO NEGATIVE (NEGATIVE); PROTEIN, URINE AUTO NEGATIVE (NEGATIVE); RBC, URINE AUTO 1 /HPF (0-3); SPECIFIC GRAVITY URINE AUTO 1.016 (1.002-1.035); SQUAMOUS EPITHELIAL CELL UR AU 0 /HPF (0-6); UROBILINOGEN, URINE AUTO 0.2 mg/dL (0.0-2.0); WBC, URINE AUTO 1 /HPF (0-3)
[2022-03-29] MEDS: ACYCLOVIR 200 MG CAPSULE PO SCH ×3 (00:06→20:32)
[2022-03-29 00:20] VITALS: BP 136/85
[2022-03-29] MEDS ORDERED: SODIUM CHLORIDE 0.9% INJ 10 ML SYR IV ONE (01:00)
[2022-03-29 04:52] VITALS: BP 128/76
[2022-03-29] MEDS: LEVOTHYROXINE 75MCG TABLET (0.075MG) PO SCH (05:16)
[2022-03-29 07:25] LABS: HEMATOCRIT 47.9 % (42.0-52.0); MEAN CORPUSCULAR HEMOGLOBIN 30.9 pg (27.0-33.0); MEAN CORPUSCULAR HGB CONC 33.4 g/dl (32.0-36.5); MEAN CORPUSCULAR VOLUME 92.5 fl (80.0-96.0); PLATELET COUNT, AUTOMATED 274 10^3/uL (150-450); RED BLOOD COUNT 5.18 10^6/uL (4.30-6.10); WHITE BLOOD COUNT 5.8 10^3/uL (4.0-10.0)
[2022-03-29 07:40] LABS: ALBUMIN 3.2 GM/DL (3.2-5.2); BILIRUBIN,DIRECT 0.1 MG/DL (0.0-0.2); BILIRUBIN,TOTAL 0.6 MG/DL (0.2-1.0); CALCIUM LEVEL 9.8 MG/DL (8.8-10.2); CREATININE FOR GFR 1.93 MG/DL (0.70-1.30); GLOMERULAR FILTRATION RATE 37.5 (>49); MAGNESIUM LEVEL 1.7 MG/DL (1.8-2.4); POTASSIUM SERUM 3.4 MEQ/L (3.5-5.1); TOTAL PROTEIN 6.2 GM/DL (6.4-8.2)
[2022-03-29] MEDS ORDERED: POTASSIUM CHLORIDE 10MEQ SR TABLET PO ONE (07:45)
[2022-03-29 08:00] VITALS: BP 133/72
[2022-03-29] MEDS: NS 1,000 ML IV SCH ×2 (08:38→20:33)
[2022-03-29] MEDS: ASPIRIN ENTERIC 325 MG TAB PO SCH (08:38)
[2022-03-29] MEDS: guaiFENesin ER 600 MG TAB PO SCH ×2 (08:38→20:32)
[2022-03-29 12:00] VITALS: BP 124/70
[2022-03-29] MEDS: BACITRACIN OINTMENT 30GM TUBE TOP SCH ×2 (16:25→20:32)
[2022-03-29 18:00] VITALS: BP 151/75
[2022-03-29 20:00] VITALS: BP 129/71
[2022-03-29] MEDS: SIMVASTATIN 40 MG TAB PO SCH (20:32)
[2022-03-29] MEDS: REMDESIVIR 100 MG in NS 250 ML IV SCH (20:33)
[2022-03-29] MEDS ORDERED: SODIUM CHLORIDE 0.9% INJ 10 ML SYR IV SCH (22:00)
[2022-03-30] VITALS: BP 109/68
[2022-03-30 04:00] VITALS: BP 129/72
[2022-03-30] MEDS: LEVOTHYROXINE 75MCG TABLET (0.075MG) PO SCH (06:01)
[2022-03-30 06:21] LABS: HEMATOCRIT 40.6 % (42.0-52.0); MEAN CORPUSCULAR HEMOGLOBIN 31.6 pg (27.0-33.0); MEAN CORPUSCULAR VOLUME 92.9 fl (80.0-96.0); PLATELET COUNT, AUTOMATED 199 10^3/uL (150-450); RED BLOOD COUNT 4.37 10^6/uL (4.30-6.10); WHITE BLOOD COUNT 5.3 10^3/uL (4.0-10.0)
[2022-03-30 06:26] LABS: HEMOGLOBIN 13.8 g/dl (13.5-17.5)
[2022-03-30 07:03] LABS: ALBUMIN 2.6 GM/DL (3.2-5.2); BILIRUBIN,TOTAL 0.5 MG/DL (0.2-1.0); CALCIUM LEVEL 8.9 MG/DL (8.8-10.2); CREATININE FOR GFR 1.65 MG/DL (0.70-1.30); GLOMERULAR FILTRATION RATE 44.9 (>49); MAGNESIUM LEVEL 1.6 MG/DL (1.8-2.4); POTASSIUM SERUM 4.2 MEQ/L (3.5-5.1); TOTAL PROTEIN 4.6 GM/DL (6.4-8.2)
[2022-03-30 07:20] LABS: FREE T4 1.06 NG/DL (0.76-1.46)
[2022-03-30 08:00] VITALS: BP 121/76
[2022-03-30 09:49] VITALS: BP 121/76
[2022-03-30] MEDS: guaiFENesin ER 600 MG TAB PO SCH (09:49)
[2022-03-30] MEDS: ACYCLOVIR 200 MG CAPSULE PO SCH (09:49)
[2022-03-30] MEDS: BACITRACIN OINTMENT 30GM TUBE TOP SCH (09:50)
[2022-03-30] MEDS ORDERED: BACI50OI TOP (11:05)
[2022-03-30] MEDS ORDERED: SYNT88TA2 PO (11:05)
[2022-03-30 12:00] VITALS: BP 112/70
[2022-03-30] MEDS ORDERED: LOPERAMIDE 2 MG CAPLET PO PRN (12:05)
[2022-03-30] MEDS: MAG SULF 1GM/100ML (MAG RUN) 1 GM in IV 1 EA IV SCH ×2 (12:45→13:52)
[2022-03-30] MEDS: ASPIRIN ENTERIC 325 MG TAB PO SCH (12:56)
[2022-03-30] MEDS: REMDESIVIR 100 MG in NS 250 ML IV SCH (14:58)
[2022-03-31] MEDS ORDERED: LEVOTHYROXINE 88MCG TABLET (0.088 MG) PO SCH (06:00)
== END 2022-03-30 16:29 | disposition home or self-care (01) | DRG 178 ==
LOC: M PCU 17:32 → M 4MAIN 03-29 00:28
PROVIDERS: ADMIT Internal Medicine; ATTEND Internal Medicine
PROC: XW033E5 Introduction of Remdesivir Anti-infective into Peripheral Vein, Percutaneous Approach, New Technology Group 5 (ICD-10-PCS; 2022-03-28)
PROC: B246ZZZ Ultrasonography of Right and Left Heart (ICD-10-PCS; principal; 2022-03-29)
DX: U07.1 COVID-19 (principal); C90.01 Multiple myeloma in remission; N17.9 Acute kidney failure, unspecified; I12.9 Hypertensive chronic kidney disease with stage 1 through stage 4 chronic kidney disease, or unspecified chronic kidney disease; N18.30 Chronic kidney disease, stage 3 unspecified; E03.9 Hypothyroidism, unspecified; Z86.73 Personal history of transient ischemic attack (TIA), and cerebral infarction without residual deficits; Z90.49 Acquired absence of other specified parts of digestive tract; E78.5 Hyperlipidemia, unspecified; F32.A Depression, unspecified; F41.9 Anxiety disorder, unspecified; Z79.899 Other long term (current) drug therapy

== ENCOUNTER 2022-04-07 10:30 | Inpatient (IN) | payer MEDICARE, OTHER ==
[~2022-04-07] VITALS: Ht 177.8 cm; Wt 65.7 kg
[~2022-04-07 10:30] MED LIST changes: +AMLO2.5T3 PO; +ASPI32ECTA PO; +BACI50OI TOP; +FURO20TA2 PO; +MUCI600T31 PO; +SYNT88TA2 PO; +ZZZQ25CA PO
[2022-04-07] MEDS ORDERED: cefTRIAXone SOD 2 GM in D5W MINI-BAG PLUS 50 ML IV ONE (11:00)
[2022-04-07] MEDS ORDERED: NS 1,960 ML in IV 1 EA IV ONE (11:00)
[2022-04-07 11:20] LABS: MEAN CORPUSCULAR HEMOGLOBIN 31.3 pg (27.0-33.0); MEAN CORPUSCULAR HGB CONC 34.1 g/dl (32.0-36.5); MEAN CORPUSCULAR VOLUME 91.9 fl (80.0-96.0); PLATELET COUNT, AUTOMATED 209 10^3/uL (150-450); RED BLOOD COUNT 4.79 10^6/uL (4.30-6.10); WHITE BLOOD COUNT 14.6 10^3/uL (4.0-10.0)
[2022-04-07 11:39] LABS: PARTIAL THROMBOPLASTIN TIME 25.5 SECONDS (25.9-37.0); PROTHROMBIN TIME 13.6 SECONDS (12.7-14.5)
[2022-04-07 11:46] LABS: LYMPHOCYTES 1 % (16-44); MONOCYTES 1 % (0-5); NEUTROPHILS 95 % (28-66)
[2022-04-07 11:47] LABS: PLATELET ESTIMATE NORMAL (NORMAL)
[2022-04-07 11:55] LABS: CK-MB VALUE MASS 1.5 NG/ML (<3.6); CREATININE FOR GFR 2.21 MG/DL (0.70-1.30); GLOMERULAR FILTRATION RATE 32.1 (>49); MB/CK RELATIVE INDEX 3.75 (< OR =4); POTASSIUM SERUM 4.1 MEQ/L (3.5-5.1)
[2022-04-07 11:56] LABS: ALBUMIN 2.6 GM/DL (3.2-5.2); BILIRUBIN,DIRECT 0.2 MG/DL (0.0-0.2); BILIRUBIN,TOTAL 0.7 MG/DL (0.2-1.0); C REACTIVE PROTEIN QUANTITATIV 9.47 MG/DL (0.00-0.30); CALCIUM LEVEL 10.7 MG/DL (8.8-10.2); TOTAL PROTEIN 5.3 GM/DL (6.4-8.2)
[2022-04-07 12:20] LABS: INFLUENZA A AMPLIFICATION NEGATIVE (NEGATIVE); INFLUENZA B AMPLIFICATION NEGATIVE (NEGATIVE)
[2022-04-07 12:32] LABS: AMORPHOUS SEDIMENT SMALL (NEGATIVE); APPEARANCE, URINE HAZY (CLEAR); BACTERIA, URINE AUTO NEGATIVE (NEGATIVE); BILIRUBIN, URINE AUTO NEGATIVE (NEGATIVE); BLOOD, URINE BLOOD NEGATIVE (NEGATIVE); COLOR, URINE YELLOW (YELLOW); GLUCOSE, URINE (UA) AUTO NEGATIVE (NEGATIVE); GRANULAR CAST, URINE AUTO 13 /LPF; KETONE, URINE AUTO NEGATIVE (NEGATIVE); LEUKOCYTE ESTERASE, URINE AUTO NEGATIVE (NEGATIVE); MUCUS, URINE SMALL (NEGATIVE); NITRITE, URINE AUTO NEGATIVE (NEGATIVE); PROTEIN, URINE AUTO 1+ mg/dL (NEGATIVE); RBC, URINE AUTO 1 /HPF (0-3); SPECIFIC GRAVITY URINE AUTO 1.019 (1.002-1.035); SQUAMOUS EPITHELIAL CELL UR AU 0 /HPF (0-6); UROBILINOGEN, URINE AUTO 0.2 mg/dL (0.0-2.0); WBC, URINE AUTO 2 /HPF (0-3)
[2022-04-07 13:51] LABS: PTH INTACT 9.4 PG/ML (18.5-88.0)
[2022-04-07] MEDS ORDERED: ACYC1CAP20 PO (13:53)
[2022-04-07] MEDS ORDERED: BACIOIN5 TOP (13:53)
[2022-04-07] MEDS ORDERED: LEVO88TA3 PO (13:53)
[2022-04-07] MEDS ORDERED: LORA1TAB4 PO (13:53)
[2022-04-07] MEDS ORDERED: HOME MED LIST COMPLETE! XX SCH (13:55)
[2022-04-07 15:42] LABS: D-DIMER QUANT 1148.67 ng/ml (<500)
[2022-04-07] MEDS: NS 1,000 ML IV SCH (16:00)
[2022-04-07] MEDS ORDERED: diphenhydrAMINE 25MG CAP PO PRN (16:30)
[2022-04-07 18:00] VITALS: BP 121/65
[2022-04-07 18:45] VITALS: O2SAT 93
[2022-04-07 19:46] VITALS: BP 117/60
[2022-04-07 20:00] VITALS: O2SAT 93
[2022-04-07] MEDS: ACETAMINOPHEN TAB 650MG DOSE (2X325MG) PO PRN (21:35)
[2022-04-07] MEDS: guaiFENesin ER 600 MG TAB PO SCH (21:35)
[2022-04-07] MEDS: ACYCLOVIR 200 MG CAPSULE PO SCH (21:35)
[2022-04-07] MEDS: SIMVASTATIN 40 MG TAB PO SCH (21:36)
[2022-04-07] MEDS: BACITRACIN OINTMENT 30GM TUBE TOP SCH (21:36)
[2022-04-07] MEDS: LORazepam 1 MG TAB PO PRN (21:40)
[2022-04-07 23:32] VITALS: O2SAT 95
[2022-04-08] VITALS (8 sets, daily range): BP systolic 106–123; BP diastolic 57–79; O2SAT 93–97
[2022-04-08] MEDS: NS 1,000 ML IV SCH (03:15)
[2022-04-08] MEDS: LEVOTHYROXINE 88MCG TABLET (0.088 MG) PO SCH (05:46)
[2022-04-08 08:53] LABS: HEMATOCRIT 47.2 % (42.0-52.0); HEMOGLOBIN 15.4 g/dl (13.5-17.5); MEAN CORPUSCULAR HEMOGLOBIN 31.2 pg (27.0-33.0); MEAN CORPUSCULAR HGB CONC 32.6 g/dl (32.0-36.5); MEAN CORPUSCULAR VOLUME 95.5 fl (80.0-96.0); PLATELET COUNT, AUTOMATED 243 10^3/uL (150-450); RED BLOOD COUNT 4.94 10^6/uL (4.30-6.10); WHITE BLOOD COUNT 13.7 10^3/uL (4.0-10.0)
[2022-04-08] MEDS: FLUTICASONE PROP 0.05% NASAL SPRAY 16 GM (FLONASE) NARES SCH (09:00)
[2022-04-08] MEDS ORDERED: LEVALBUTEROL 1.25 MG/0.5 ML CONCENTRATE NEB INH PRN (09:00)
[2022-04-08 09:13] LABS: CALCIUM LEVEL 11.4 MG/DL (8.8-10.2); CREATININE FOR GFR 1.93 MG/DL (0.70-1.30); GLOMERULAR FILTRATION RATE 37.5 (>49); MAGNESIUM LEVEL 1.8 MG/DL (1.8-2.4); POTASSIUM SERUM 4.7 MEQ/L (3.5-5.1)
[2022-04-08] MEDS: LEVALBUTEROL 1.25 MG/0.5 ML CONCENTRATE NEB INH SCH ×3 (09:24→20:55)
[2022-04-08 09:42] LABS: EOSINOPHILS 4 % (0-3); MONOCYTES 3 % (0-5); NEUTROPHILS 87 % (28-66)
[2022-04-08 09:44] LABS: ANISOCYTOSIS 2+; PLATELET ESTIMATE NORMAL (NORMAL)
[2022-04-08 09:45] LABS: OVALOCYTES 1+; POIKILOCYTOSIS 1+; SCHISTOCYTES 1+; TEAR DROP CELLS 1+
[2022-04-08 09:46] LABS: SPHEROCYTES 1+
[2022-04-08] MEDS: ACYCLOVIR 200 MG CAPSULE PO SCH ×2 (10:30→19:52)
[2022-04-08] MEDS: ASPIRIN ENTERIC 325 MG TAB PO SCH (10:30)
[2022-04-08] MEDS: BACITRACIN OINTMENT 30GM TUBE TOP SCH ×2 (10:30→19:52)
[2022-04-08] MEDS: guaiFENesin ER 600 MG TAB PO SCH ×2 (10:31→19:52)
[2022-04-08] MEDS: dexameTHASONE 4 MG/ML 1ML VIAL (J1100 PER 1MG) IV SCH (10:31)
[2022-04-08] MEDS: AZITHROMYCIN INJ 500 MG, VIAL MATE ADAPTER 1 EACH in NS 250 ML IV SCH (10:31)
[2022-04-08] MEDS: ENOXAPARIN 30MG/0.3ML SYRINGE (J1650 PER 10MG) SC SCH (10:31)
[2022-04-08] MEDS: D5W/0.45% SODIUM CHLORIDE 1,000 ML IV SCH ×2 (10:32→19:52)
[2022-04-08] MEDS: cefTRIAXone SOD 1 GM in D5W MINI-BAG PLUS 50 ML IV SCH (12:42)
[2022-04-08] MEDS: ACETAMINOPHEN TAB 650MG DOSE (2X325MG) PO PRN (12:42)
[2022-04-08] MEDS: CETIRIZINE (ZyrTEC) 10 MG TAB PO SCH (19:52)
[2022-04-08] MEDS: SIMVASTATIN 40 MG TAB PO SCH (19:52)
[2022-04-08] MEDS: LORazepam 1 MG TAB PO PRN (19:58)
[2022-04-09] VITALS (12 sets, daily range): BP systolic 109–118; BP diastolic 57–63; O2SAT 91–100
[2022-04-09] MEDS: LEVALBUTEROL 1.25 MG/0.5 ML CONCENTRATE NEB INH SCH ×4 (01:53→22:03)
[2022-04-09] MEDS: LEVOTHYROXINE 88MCG TABLET (0.088 MG) PO SCH (05:08)
[2022-04-09] MEDS: D5W/0.45% SODIUM CHLORIDE 1,000 ML IV SCH ×2 (05:09→16:02)
[2022-04-09 08:14] LABS: BASO % 0.1 % (0.0-1.0); EOS % 0.1 % (0.0-3.0); HEMATOCRIT 35.2 % (42.0-52.0); HEMOGLOBIN 11.6 g/dl (13.5-17.5); LYMPH % 0.4 % (24.0-44.0); MEAN CORPUSCULAR HEMOGLOBIN 31.2 pg (27.0-33.0); MEAN CORPUSCULAR VOLUME 94.6 fl (80.0-96.0); MONO # 0.7 10^3/uL (0.0-0.8); MONO % 7.6 % (2.0-8.0); NEUTROPHILS # 8.3 10^3/uL (1.5-8.5); NEUTROPHILS % 91.4 % (36.0-66.0); PLATELET COUNT, AUTOMATED 178 10^3/uL (150-450); RED BLOOD COUNT 3.72 10^6/uL (4.30-6.10); WHITE BLOOD COUNT 9.1 10^3/uL (4.0-10.0)
[2022-04-09 08:22] LABS: INR 0.97; PROTHROMBIN TIME 13.3 SECONDS (12.7-14.5)
[2022-04-09 08:40] LABS: ALBUMIN 1.9 GM/DL (3.2-5.2); BILIRUBIN,DIRECT 0.2 MG/DL (0.0-0.2); BILIRUBIN,TOTAL 0.3 MG/DL (0.2-1.0); CALCIUM LEVEL 9.7 MG/DL (8.8-10.2); CREATININE FOR GFR 1.66 MG/DL (0.70-1.30); GLOMERULAR FILTRATION RATE 44.6 (>49); MAGNESIUM LEVEL 1.9 MG/DL (1.8-2.4); POTASSIUM SERUM 3.8 MEQ/L (3.5-5.1); TOTAL PROTEIN 4.2 GM/DL (6.4-8.2)
[2022-04-09] MEDS: ASPIRIN ENTERIC 325 MG TAB PO SCH (09:10)
[2022-04-09] MEDS: dexameTHASONE 4 MG/ML 1ML VIAL (J1100 PER 1MG) IV SCH (09:10)
[2022-04-09] MEDS: guaiFENesin ER 600 MG TAB PO SCH ×2 (09:10→20:18)
[2022-04-09] MEDS: ENOXAPARIN 30MG/0.3ML SYRINGE (J1650 PER 10MG) SC SCH (09:10)
[2022-04-09] MEDS: ACYCLOVIR 200 MG CAPSULE PO SCH ×2 (09:10→20:18)
[2022-04-09] MEDS: AZITHROMYCIN INJ 500 MG, VIAL MATE ADAPTER 1 EACH in NS 250 ML IV SCH (09:10)
[2022-04-09] MEDS: BACITRACIN OINTMENT 30GM TUBE TOP SCH ×2 (09:11→20:20)
[2022-04-09] MEDS: FLUTICASONE PROP 0.05% NASAL SPRAY 16 GM (FLONASE) NARES SCH (09:11)
[2022-04-09] MEDS: cefTRIAXone SOD 1 GM in D5W MINI-BAG PLUS 50 ML IV SCH (11:57)
[2022-04-09] MEDS: SIMVASTATIN 40 MG TAB PO SCH (20:18)
[2022-04-09] MEDS: LORazepam 1 MG TAB PO PRN (20:19)
[2022-04-09] MEDS: CETIRIZINE (ZyrTEC) 10 MG TAB PO SCH (20:19)
[2022-04-10] VITALS: O2SAT 97
[2022-04-10] MEDS: LEVALBUTEROL 1.25 MG/0.5 ML CONCENTRATE NEB INH SCH ×3 (02:30→13:36)
[2022-04-10] MEDS: D5W/0.45% SODIUM CHLORIDE 1,000 ML IV SCH ×2 (02:30→12:05)
[2022-04-10 04:00] VITALS: O2SAT 97
[2022-04-10 04:19] VITALS: BP 126/61
[2022-04-10 06:04] LABS: VENOUS BASE EXCESS -4.6 (-2.0-2.0); VENOUS HCO3 20.9 MEQ/L (23.0-27.0); VENOUS O2 SATURATION 63.1 % (60.0-80.0); VENOUS PARTIAL PRESSURE CO2 40.1 mmHg (38.0-50.0); VENOUS PARTIAL PRESSURE O2 33.5 mmHg (30.0-50.0); VENOUS PH 7.334 UNITS (7.330-7.430); VENOUS TOTAL CO2 22.1 MEQ/L (24.0-28.0)
[2022-04-10] MEDS: LEVOTHYROXINE 88MCG TABLET (0.088 MG) PO SCH (06:12)
[2022-04-10 06:20] LABS: BASO % 0.1 % (0.0-1.0); EOS % 0.1 % (0.0-3.0); HEMATOCRIT 35.6 % (42.0-52.0); HEMOGLOBIN 11.6 g/dl (13.5-17.5); LYMPH # 0.1 10^3/uL (1.5-5.0); LYMPH % 0.7 % (24.0-44.0); MEAN CORPUSCULAR HEMOGLOBIN 30.9 pg (27.0-33.0); MEAN CORPUSCULAR HGB CONC 32.6 g/dl (32.0-36.5); MEAN CORPUSCULAR VOLUME 94.9 fl (80.0-96.0); MONO # 1.3 10^3/uL (0.0-0.8); MONO % 13.1 % (2.0-8.0); NEUTROPHILS # 8.5 10^3/uL (1.5-8.5); NEUTROPHILS % 85.4 % (36.0-66.0); PLATELET COUNT, AUTOMATED 171 10^3/uL (150-450); RED BLOOD COUNT 3.75 10^6/uL (4.30-6.10); WHITE BLOOD COUNT 9.9 10^3/uL (4.0-10.0)
[2022-04-10 06:42] LABS: CALCIUM LEVEL 9.5 MG/DL (8.8-10.2); CREATININE FOR GFR 1.5 MG/DL (0.70-1.30); GLOMERULAR FILTRATION RATE 50.2 (>49); MAGNESIUM LEVEL 1.9 MG/DL (1.8-2.4); POTASSIUM SERUM 3.8 MEQ/L (3.5-5.1)
[2022-04-10] MEDS: AZITHROMYCIN INJ 500 MG, VIAL MATE ADAPTER 1 EACH in NS 250 ML IV SCH (08:31)
[2022-04-10 08:33] VITALS: O2SAT 93
[2022-04-10] MEDS: ACYCLOVIR 200 MG CAPSULE PO SCH (08:33)
[2022-04-10] MEDS: guaiFENesin ER 600 MG TAB PO SCH (08:33)
[2022-04-10] MEDS: dexameTHASONE 4 MG/ML 1ML VIAL (J1100 PER 1MG) IV SCH (08:33)
[2022-04-10] MEDS: ASPIRIN ENTERIC 325 MG TAB PO SCH (08:33)
[2022-04-10] MEDS: ENOXAPARIN 30MG/0.3ML SYRINGE (J1650 PER 10MG) SC SCH (08:33)
[2022-04-10] MEDS: FLUTICASONE PROP 0.05% NASAL SPRAY 16 GM (FLONASE) NARES SCH (08:34)
[2022-04-10] MEDS: BACITRACIN OINTMENT 30GM TUBE TOP SCH (08:34)
[2022-04-10] MEDS: cefTRIAXone SOD 1 GM in D5W MINI-BAG PLUS 50 ML IV SCH (11:59)
[2022-04-10 12:00] VITALS: BP 133/66
[2022-04-10] MEDS ORDERED: AZIT500T5 PO (13:46)
[2022-04-10] MEDS ORDERED: CEFD300C41 PO ×2 (13:46→14:03)
[2022-04-10 15:00] VITALS: O2SAT 95
[2022-04-12 16:08] LABS: BODY FLUID CULTURE Not indicated. (.); LEGIONELLA ANTIGEN URINE Negative (Negative); ORGANISM ID Not indicated. (.); SPECIMEN SOURCE Urine (.); URINE STREP PNEUMONIAE ANTIGEN Negative (Negative)
== END 2022-04-10 16:30 | disposition home or self-care (01) | DRG 177 ==
LOC: M ED 10:30 → M ED INP 15:00 → M 4MAIN 15:47 → ENRESERV 17:23
PROVIDERS: ADMIT Internal Medicine; ATTEND Internal Medicine
DX: U07.1 COVID-19 (principal); J96.01 Acute respiratory failure with hypoxia; J15.9 Unspecified bacterial pneumonia; D84.9 Immunodeficiency, unspecified; C90.00 Multiple myeloma not having achieved remission; N17.9 Acute kidney failure, unspecified; I95.9 Hypotension, unspecified; R19.7 Diarrhea, unspecified; E03.9 Hypothyroidism, unspecified; N18.9 Chronic kidney disease, unspecified; I12.9 Hypertensive chronic kidney disease with stage 1 through stage 4 chronic kidney disease, or unspecified chronic kidney disease; E78.5 Hyperlipidemia, unspecified; Z86.73 Personal history of transient ischemic attack (TIA), and cerebral infarction without residual deficits; Z92.21 Personal history of antineoplastic chemotherapy; Z79.899 Other long term (current) drug therapy; Z79.82 Long term (current) use of aspirin

== ENCOUNTER → 2022-04-14 | Outpatient (CLI) | payer MEDICARE, OTHER ==
[~2022-04-14] MED LIST changes: +ACYC1CAP20 PO; +AZIT500T5 PO; +BACIOIN5 TOP; +CEFD300C41 PO; +LEVO88TA3 PO; +LORA1TAB4 PO
[2022-04-14 12:46] LABS: BASO # 0.1 10^3/uL (0.0-0.2); BASO % 0.9 % (0.0-1.0); EOS # 1.8 10^3/uL (0.0-0.5); HEMATOCRIT 43.4 % (42.0-52.0); HEMOGLOBIN 14.4 g/dl (13.5-17.5); LYMPH # 0.1 10^3/uL (1.5-5.0); LYMPH % 1.1 % (24.0-44.0); MEAN CORPUSCULAR HEMOGLOBIN 30.5 pg (27.0-33.0); MEAN CORPUSCULAR HGB CONC 33.2 g/dl (32.0-36.5); MEAN CORPUSCULAR VOLUME 91.9 fl (80.0-96.0); MONO # 0.7 10^3/uL (0.0-0.8); MONO % 12.2 % (2.0-8.0); NEUTROPHILS # 2.7 10^3/uL (1.5-8.5); NEUTROPHILS % 51.5 % (36.0-66.0); PLATELET COUNT, AUTOMATED 219 10^3/uL (150-450); RED BLOOD COUNT 4.72 10^6/uL (4.30-6.10); WHITE BLOOD COUNT 5.3 10^3/uL (4.0-10.0)
[2022-04-14 16:08] LABS: ALBUMIN 2.5 GM/DL (3.2-5.2); ALT/SGPT 13 U/L (12-78); BILIRUBIN,TOTAL 0.6 MG/DL (0.2-1.0); BLOOD UREA NITROGEN 31 MG/DL (7-18); CALCIUM LEVEL 10.1 MG/DL (8.8-10.2); CARBON DIOXIDE LEVEL 27 MEQ/L (21-32); CHLORIDE LEVEL 110 MEQ/L (98-107); CREATININE FOR GFR 1.71 MG/DL (0.70-1.30); GLOMERULAR FILTRATION RATE 43.1 (>49); GLUCOSE, FASTING 128 MG/DL (70-100); IMMUNOGLOBULIN A < 7.8 MG/DL (70-400); IMMUNOGLOBULIN G 225 MG/DL (681-1648); IMMUNOGLOBULIN M 14.5 MG/DL (40-230); POTASSIUM SERUM 3.6 MEQ/L (3.5-5.1); SODIUM LEVEL 145 MEQ/L (136-145)
[2022-04-15 18:09] LABS: FREE KAPPA LIGHT CHAINS SERUM 3.9 mg/L (3.3-19.4); FREE LAMBDA LIGHT CHAINS SERUM 5.9 mg/L (5.7-26.3); KAPPA/LAMBDA RATIO SERUM 0.66 (0.26-1.65)
[2022-04-18 11:33] LABS: ALBUMIN 2.81 GM/DL (3.29-5.55); ALBUMIN % 56.1 % (55.8-66.1); ALPHA-1-GLOBULIN % 9.3 % (2.9-4.9); ALPHA-1-GLOBULINS 0.47 GM/DL (0.17-0.41); ALPHA-2-GLOBULINS 0.99 GM/DL (0.42-0.99); ALPHA-2-GLOBULINS % 19.8 % (7.1-11.8); BETA-1-GLOBULINS 0.29 GM/DL (0.28-0.60); BETA-1-GLOBULINS % 5.8 % (4.7-7.2); BETA-2-GLOBULINS 0.22 GM/DL (0.19-0.55); BETA-2-GLOBULINS % 4.3 % (3.2-6.5); GAMMA GLOBULIN % 4.7 % (11.1-18.8); GAMMA GLOBULINS 0.24 GM/DL (0.65-1.58)
== END ==
LOC: M ADAMS 08:25
PROVIDERS: ATTEND Internal Medicine Medical Oncology
DX: C90.00 Multiple myeloma not having achieved remission (principal)

== ENCOUNTER → 2022-05-03 | Outpatient (REF) | payer MEDICARE, OTHER ==
[2022-05-03 18:33] LABS: FREE T4 1.43 NG/DL (0.76-1.46); THYROID STIMULATING HORMONE 6.85 uIU/ML (0.358-3.740)
== END ==
LOC: M LAB REF 17:31
PROVIDERS: ATTEND Internal Medicine Nephrology
DX: E03.9 Hypothyroidism, unspecified (principal)

== ENCOUNTER → 2022-05-12 | Outpatient (CLI) | payer MEDICARE, OTHER ==
[~2022-05-12] MED LIST changes: +MIRT-10 PO; +[UNRECOGNIZED DRUG - CODE] IV
[2022-05-12 12:57] LABS: BASO # 0.1 10^3/uL (0.0-0.2); BASO % 0.9 % (0.0-1.0); EOS # 0.3 10^3/uL (0.0-0.5); EOS % 2.1 % (0.0-3.0); HEMATOCRIT 49.5 % (42.0-52.0); HEMOGLOBIN 15.9 g/dl (13.5-17.5); LYMPH # 0.1 10^3/uL (1.5-5.0); LYMPH % 0.7 % (24.0-44.0); MEAN CORPUSCULAR HEMOGLOBIN 30.1 pg (27.0-33.0); MEAN CORPUSCULAR HGB CONC 32.1 g/dl (32.0-36.5); MEAN CORPUSCULAR VOLUME 93.8 fl (80.0-96.0); MONO % 6.2 % (2.0-8.0); NEUTROPHILS # 14.3 10^3/uL (1.5-8.5); NEUTROPHILS % 88.6 % (36.0-66.0); PLATELET COUNT, AUTOMATED 272 10^3/uL (150-450); RED BLOOD COUNT 5.28 10^6/uL (4.30-6.10); WHITE BLOOD COUNT 16.2 10^3/uL (4.0-10.0)
[2022-05-12 14:00] LABS: ALBUMIN 2.6 GM/DL (3.2-5.2); ALT/SGPT 8 U/L (12-78); BILIRUBIN,TOTAL 0.8 MG/DL (0.2-1.0); BLOOD UREA NITROGEN 37 MG/DL (7-18); CALCIUM LEVEL 10.8 MG/DL (8.8-10.2); CARBON DIOXIDE LEVEL 25 MEQ/L (21-32); CHLORIDE LEVEL 108 MEQ/L (98-107); CREATININE FOR GFR 2.15 MG/DL (0.70-1.30); GLOMERULAR FILTRATION RATE 33.1 (>49); GLUCOSE, FASTING 118 MG/DL (70-100); IMMUNOGLOBULIN A < 7.8 MG/DL (70-400); IMMUNOGLOBULIN G 152 MG/DL (681-1648); IMMUNOGLOBULIN M 16.1 MG/DL (40-230); POTASSIUM SERUM 4.5 MEQ/L (3.5-5.1); SODIUM LEVEL 141 MEQ/L (136-145); TOTAL PROTEIN 5.4 GM/DL (6.4-8.2)
[2022-05-13 17:07] LABS: FREE KAPPA LIGHT CHAINS SERUM 3.2 mg/L (3.3-19.4); FREE LAMBDA LIGHT CHAINS SERUM 4.5 mg/L (5.7-26.3); KAPPA/LAMBDA RATIO SERUM 0.71 (0.26-1.65)
== END ==
LOC: M ADAMS 09:01
PROVIDERS: ATTEND Internal Medicine Medical Oncology
DX: C90.00 Multiple myeloma not having achieved remission (principal)

== ENCOUNTER 2022-05-15 09:29 | Inpatient (IN) | payer MEDICARE, OTHER ==
[~2022-05-15] VITALS: Ht 177.8 cm; Wt 56.6 kg
[~2022-05-15 09:29] MED LIST changes: -[UNRECOGNIZED DRUG - CODE] IV
[2022-05-15 10:16] LABS: HEMATOCRIT 46.2 % (42.0-52.0); MEAN CORPUSCULAR HEMOGLOBIN 30.2 pg (27.0-33.0); MEAN CORPUSCULAR HGB CONC 32.5 g/dl (32.0-36.5); PLATELET COUNT, AUTOMATED 262 10^3/uL (150-450); RED BLOOD COUNT 4.97 10^6/uL (4.30-6.10); WHITE BLOOD COUNT 8.5 10^3/uL (4.0-10.0)
[2022-05-15 10:39] LABS: BASOPHILS 1 % (0-1); EOSINOPHILS 2 % (0-3); LYMPHOCYTES 2 % (16-44); MONOCYTES 5 % (0-5); NEUTROPHILS 90 % (28-66); PLATELET ESTIMATE NORMAL (NORMAL)
[2022-05-15] MEDS ORDERED: dexameTHASONE 20MG/5ML VIAL (J1100 PER 1MG) IV ONE (10:45)
[2022-05-15 12:46] LABS: ALBUMIN 2.3 GM/DL (3.2-5.2); BILIRUBIN,DIRECT 0.1 MG/DL (0.0-0.2); BILIRUBIN,TOTAL 0.9 MG/DL (0.2-1.0); CALCIUM LEVEL 11.7 MG/DL (8.8-10.2); CREATININE FOR GFR 2.71 MG/DL (0.70-1.30); GLOMERULAR FILTRATION RATE 25.3 (>49); TOTAL PROTEIN 5.1 GM/DL (6.4-8.2)
[2022-05-15] MEDS ORDERED: [UNRECOGNIZED DRUG - CODE] IV (12:54)
[2022-05-15] MEDS ORDERED: HOME MED LIST COMPLETE! XX SCH (12:55)
[2022-05-15] MEDS ORDERED: NS 500 ML IV ONE (13:15)
[2022-05-15 13:50] LABS: CK-MB VALUE MASS < 1.0 NG/ML (<3.6); CPK CREATINE PHOSPHOKINASE 110 U/L (39-308); MB/CK RELATIVE INDEX 0.91 (< OR =4)
[2022-05-15] MEDS ORDERED: UNRESOLVED PATIENT OWN MED ORDER XX SCH (14:00)
[2022-05-15] MEDS ORDERED: MOM 30ML SUSPENSION UDC PO PRN (14:15)
[2022-05-15] MEDS ORDERED: cefTRIAXone SOD 2 GM in D5W MINI-BAG PLUS 50 ML IV ONE (16:00)
[2022-05-15] MEDS: methylPREDNISolone 40MG 1ML VIAL IV SCH (17:11)
[2022-05-15 19:03] LABS: INR 0.9; PROTHROMBIN TIME 12.6 SECONDS (12.7-14.5)
[2022-05-15 19:05] LABS: D-DIMER QUANT 1382.05 ng/ml (<500)
[2022-05-15] MEDS: ACYCLOVIR 200 MG CAPSULE PO SCH (22:38)
[2022-05-15] MEDS: SIMVASTATIN 40 MG TAB PO SCH (22:39)
[2022-05-15] MEDS: MIRTAZAPINE 15 MG TAB PO SCH (22:39)
[2022-05-15] MEDS: guaiFENesin ER 600 MG TAB PO SCH (22:39)
[2022-05-16] MEDS: methylPREDNISolone 40MG 1ML VIAL IV SCH ×4 (00:31→23:11)
[2022-05-16 02:00] VITALS: BP 121/71
[2022-05-16 03:06] VITALS: O2SAT 96
[2022-05-16 04:49] VITALS: BP 116/68
[2022-05-16 06:11] LABS: HEMATOCRIT 42.2 % (42.0-52.0); HEMOGLOBIN 13.9 g/dl (13.5-17.5); MEAN CORPUSCULAR HEMOGLOBIN 30.8 pg (27.0-33.0); MEAN CORPUSCULAR HGB CONC 32.9 g/dl (32.0-36.5); MEAN CORPUSCULAR VOLUME 93.4 fl (80.0-96.0); PLATELET COUNT, AUTOMATED 171 10^3/uL (150-450); RED BLOOD COUNT 4.52 10^6/uL (4.30-6.10); WHITE BLOOD COUNT 5.2 10^3/uL (4.0-10.0)
[2022-05-16] MEDS: LEVOTHYROXINE 88MCG TABLET (0.088 MG) PO SCH (06:17)
[2022-05-16 06:48] LABS: BILIRUBIN,TOTAL 0.4 MG/DL (0.2-1.0); CALCIUM LEVEL 10.8 MG/DL (8.8-10.2); CREATININE FOR GFR 2.24 MG/DL (0.70-1.30); GLOMERULAR FILTRATION RATE 31.6 (>49); MAGNESIUM LEVEL 2.2 MG/DL (1.8-2.4); POTASSIUM SERUM 4.4 MEQ/L (3.5-5.1); TOTAL PROTEIN 4.5 GM/DL (6.4-8.2)
[2022-05-16 06:49] LABS: ATYPICAL LYMPH 2 % (0-5); EOSINOPHILS 1 % (0-3); NEUTROPHILS 96 % (28-66); PLATELET ESTIMATE NORMAL (NORMAL)
[2022-05-16] MEDS ORDERED: NS 1,000 ML IV SCH (08:50)
[2022-05-16] MEDS: NS 0.45% 1,000 ML IV SCH ×2 (09:26→23:11)
[2022-05-16] MEDS: guaiFENesin ER 600 MG TAB PO SCH ×2 (09:26→20:49)
[2022-05-16] MEDS: ACYCLOVIR 200 MG CAPSULE PO SCH ×2 (09:26→20:49)
[2022-05-16] MEDS: ASPIRIN ENTERIC 325 MG TAB PO SCH (09:26)
[2022-05-16 12:51] LABS: INR 0.93; PROTHROMBIN TIME 12.9 SECONDS (12.7-14.5)
[2022-05-16 12:52] LABS: PARTIAL THROMBOPLASTIN TIME 25.9 SECONDS (25.9-37.0)
[2022-05-16 12:55] LABS: D-DIMER QUANT 1218.17 ng/ml (<500)
[2022-05-16 14:00] VITALS: BP 121/75
[2022-05-16] MEDS: POMALIDOMIDE 4 MG PO SCH (17:29)
[2022-05-16] MEDS ORDERED: LevoFLOXacin IV 750 MG in IV 1 EA IV SCH (18:00)
[2022-05-16 18:46] VITALS: O2SAT 98
[2022-05-16] MEDS: MIRTAZAPINE 15 MG TAB PO SCH (20:49)
[2022-05-16] MEDS: SIMVASTATIN 40 MG TAB PO SCH (20:49)
[2022-05-16 22:00] VITALS: BP 118/70
[2022-05-17] MEDS: LEVOTHYROXINE 88MCG TABLET (0.088 MG) PO SCH (05:12)
[2022-05-17 05:51] LABS: HEMOGLOBIN 13.6 g/dl (13.5-17.5); MEAN CORPUSCULAR HEMOGLOBIN 29.8 pg (27.0-33.0); MEAN CORPUSCULAR HGB CONC 32.4 g/dl (32.0-36.5); MEAN CORPUSCULAR VOLUME 92.1 fl (80.0-96.0); PLATELET COUNT, AUTOMATED 187 10^3/uL (150-450); RED BLOOD COUNT 4.56 10^6/uL (4.30-6.10); WHITE BLOOD COUNT 5.2 10^3/uL (4.0-10.0)
[2022-05-17 06:00] VITALS: BP 122/72
[2022-05-17 06:17] LABS: ALBUMIN 1.9 GM/DL (3.2-5.2); BILIRUBIN,TOTAL 0.4 MG/DL (0.2-1.0); CALCIUM LEVEL 10.6 MG/DL (8.8-10.2); CREATININE FOR GFR 1.85 MG/DL (0.70-1.30); GLOMERULAR FILTRATION RATE 39.4 (>49); MAGNESIUM LEVEL 2.1 MG/DL (1.8-2.4); POTASSIUM SERUM 4.7 MEQ/L (3.5-5.1)
[2022-05-17 07:21] LABS: ATYPICAL LYMPH 3 % (0-5); BASOPHILS 1 % (0-1); EOSINOPHILS 1 % (0-3); LYMPHOCYTES 4 % (16-44); MONOCYTES 10 % (0-5); NEUTROPHILS 79 % (28-66); OVALOCYTES 1+
[2022-05-17 07:48] LABS: PLATELET ESTIMATE NORMAL (NORMAL)
[2022-05-17] MEDS: methylPREDNISolone 40MG 1ML VIAL IV SCH (10:21)
[2022-05-17] MEDS: ASPIRIN ENTERIC 325 MG TAB PO SCH (10:22)
[2022-05-17] MEDS: POMALIDOMIDE 4 MG PO SCH (10:22)
[2022-05-17] MEDS: guaiFENesin ER 600 MG TAB PO SCH ×2 (10:23→21:39)
[2022-05-17] MEDS: NS 0.45% 1,000 ML IV SCH ×2 (10:23→21:39)
[2022-05-17] MEDS: ACYCLOVIR 200 MG CAPSULE PO SCH ×2 (10:23→21:38)
[2022-05-17 18:44] VITALS: O2SAT 74
[2022-05-17 18:50] VITALS: O2SAT 98
[2022-05-17] MEDS: SIMVASTATIN 40 MG TAB PO SCH (21:39)
[2022-05-17] MEDS: MIRTAZAPINE 15 MG TAB PO SCH (21:39)
[2022-05-17] MEDS: LORazepam 1 MG TAB PO PRN (21:39)
[2022-05-17 21:41] VITALS: BP 125/77
[2022-05-17 22:15] VITALS: O2SAT 98
[2022-05-18 02:15] VITALS: BP 117/78
[2022-05-18 03:50] VITALS: BP 128/77
[2022-05-18 03:57] LABS: HEMATOCRIT 37.4 % (42.0-52.0); HEMOGLOBIN 12.6 g/dl (13.5-17.5); MEAN CORPUSCULAR HGB CONC 33.7 g/dl (32.0-36.5); MEAN CORPUSCULAR VOLUME 92.1 fl (80.0-96.0); PLATELET COUNT, AUTOMATED 172 10^3/uL (150-450); RED BLOOD COUNT 4.06 10^6/uL (4.30-6.10); VENOUS BASE EXCESS -4.6 (-2.0-2.0); VENOUS HCO3 20.4 MEQ/L (23.0-27.0); VENOUS PARTIAL PRESSURE CO2 37.2 mmHg (38.0-50.0); VENOUS PARTIAL PRESSURE O2 180.5 mmHg (30.0-50.0); VENOUS PH 7.356 UNITS (7.330-7.430); VENOUS STANDARD HCO3 20.7 MEQ/L; VENOUS TOTAL CO2 21.5 MEQ/L (24.0-28.0); WHITE BLOOD COUNT 3.8 10^3/uL (4.0-10.0)
[2022-05-18] MEDS ORDERED: methylPREDNISolone 40MG 1ML VIAL IV SCH (04:00)
[2022-05-18] MEDS ORDERED: SODIUM CHLORIDE 0.45% 1000 ML IV ONE (04:00)
[2022-05-18 04:28] LABS: ALBUMIN 1.9 GM/DL (3.2-5.2); BILIRUBIN,TOTAL 0.4 MG/DL (0.2-1.0); CALCIUM LEVEL 9.9 MG/DL (8.8-10.2); CREATININE FOR GFR 1.65 MG/DL (0.70-1.30); GLOMERULAR FILTRATION RATE 44.9 (>49); POTASSIUM SERUM 4.1 MEQ/L (3.5-5.1)
[2022-05-18 04:29] LABS: ATYPICAL LYMPH 7 % (0-5); EOSINOPHILS 1 % (0-3); LYMPHOCYTES 7 % (16-44); MONOCYTES 6 % (0-5); NEUTROPHILS 75 % (28-66)
[2022-05-18 04:30] LABS: ANISOCYTOSIS 2+
[2022-05-18] MEDS: LEVOTHYROXINE 88MCG TABLET (0.088 MG) PO SCH (05:32)
[2022-05-18 06:23] LABS: PLATELET ESTIMATE NORMAL (NORMAL)
[2022-05-18 06:33] VITALS: BP 106/73
[2022-05-18 06:44] LABS: ALBUMIN 1.8 GM/DL (3.2-5.2); BILIRUBIN,TOTAL 0.3 MG/DL (0.2-1.0); CALCIUM LEVEL 9.8 MG/DL (8.8-10.2); CREATININE FOR GFR 1.49 MG/DL (0.70-1.30); GLOMERULAR FILTRATION RATE 50.5 (>49); MAGNESIUM LEVEL 1.9 MG/DL (1.8-2.4); TOTAL PROTEIN 3.8 GM/DL (6.4-8.2)
[2022-05-18 06:49] VITALS: BP_SYST 103; BP_SYST 104; BP_SYST 106; BP_DIAS 64; BP_DIAS 70; BP_DIAS 73
[2022-05-18] MEDS: ACYCLOVIR 200 MG CAPSULE PO SCH ×2 (09:17→21:11)
[2022-05-18] MEDS: ASPIRIN ENTERIC 325 MG TAB PO SCH (09:17)
[2022-05-18] MEDS: guaiFENesin ER 600 MG TAB PO SCH ×2 (09:17→21:12)
[2022-05-18] MEDS: POMALIDOMIDE 4 MG PO SCH (09:18)
[2022-05-18 14:00] VITALS: BP 114/62
[2022-05-18] MEDS: predniSONE 20 MG TAB PO SCH (17:01)
[2022-05-18] MEDS: LevoFLOXacin 750 MG TABLET PO SCH (17:01)
[2022-05-18] MEDS: MIRTAZAPINE 15 MG TAB PO SCH (21:12)
[2022-05-18] MEDS: SIMVASTATIN 40 MG TAB PO SCH (21:12)
[2022-05-18] MEDS: LORazepam 1 MG TAB PO PRN (21:13)
[2022-05-18 22:00] VITALS: BP 120/79
[2022-05-19 03:13] VITALS: O2SAT 96
[2022-05-19 05:53] LABS: HEMATOCRIT 37.9 % (42.0-52.0); HEMOGLOBIN 12.8 g/dl (13.5-17.5); MEAN CORPUSCULAR HEMOGLOBIN 31.4 pg (27.0-33.0); MEAN CORPUSCULAR HGB CONC 33.8 g/dl (32.0-36.5); MEAN CORPUSCULAR VOLUME 92.9 fl (80.0-96.0); PLATELET COUNT, AUTOMATED 165 10^3/uL (150-450); RED BLOOD COUNT 4.08 10^6/uL (4.30-6.10); WHITE BLOOD COUNT 3.2 10^3/uL (4.0-10.0)
[2022-05-19 06:04] VITALS: BP 130/78
[2022-05-19] MEDS: LEVOTHYROXINE 88MCG TABLET (0.088 MG) PO SCH (06:07)
[2022-05-19 06:20] LABS: ALBUMIN 1.8 GM/DL (3.2-5.2); BILIRUBIN,TOTAL 0.3 MG/DL (0.2-1.0); CREATININE FOR GFR 1.59 MG/DL (0.70-1.30); GLOMERULAR FILTRATION RATE 46.9 (>49); POTASSIUM SERUM 4.2 MEQ/L (3.5-5.1); TOTAL PROTEIN 4.6 GM/DL (6.4-8.2)
[2022-05-19 07:04] LABS: ANISOCYTOSIS 2+; LYMPHOCYTES 3 % (16-44); MONOCYTES 10 % (0-5); NEUTROPHILS 87 % (28-66); PLATELET ESTIMATE NORMAL (NORMAL)
[2022-05-19] MEDS: POMALIDOMIDE 4 MG PO SCH (08:30)
[2022-05-19] MEDS: predniSONE 20 MG TAB PO SCH (08:31)
[2022-05-19] MEDS: ACYCLOVIR 200 MG CAPSULE PO SCH ×2 (08:31→22:57)
[2022-05-19] MEDS: guaiFENesin ER 600 MG TAB PO SCH ×2 (08:31→22:57)
[2022-05-19] MEDS: ASPIRIN ENTERIC 325 MG TAB PO SCH (08:31)
[2022-05-19 14:00] VITALS: BP 106/62
[2022-05-19 22:00] VITALS: BP 122/70
[2022-05-19] MEDS: MIRTAZAPINE 15 MG TAB PO SCH (22:57)
[2022-05-19] MEDS: SIMVASTATIN 40 MG TAB PO SCH (22:57)
[2022-05-19] MEDS: LORazepam 1 MG TAB PO PRN (22:58)
[2022-05-20 02:10] VITALS: O2SAT 96
[2022-05-20 06:29] LABS: HEMATOCRIT 40.3 % (42.0-52.0); HEMOGLOBIN 13.4 g/dl (13.5-17.5); MEAN CORPUSCULAR HEMOGLOBIN 30.7 pg (27.0-33.0); MEAN CORPUSCULAR HGB CONC 33.3 g/dl (32.0-36.5); MEAN CORPUSCULAR VOLUME 92.2 fl (80.0-96.0); PLATELET COUNT, AUTOMATED 143 10^3/uL (150-450); RED BLOOD COUNT 4.37 10^6/uL (4.30-6.10); WHITE BLOOD COUNT 3.3 10^3/uL (4.0-10.0)
[2022-05-20] MEDS: LEVOTHYROXINE 88MCG TABLET (0.088 MG) PO SCH (06:37)
[2022-05-20 06:39] VITALS: BP 133/80
[2022-05-20 06:59] LABS: ALBUMIN 2.1 GM/DL (3.2-5.2); BILIRUBIN,TOTAL 0.5 MG/DL (0.2-1.0); CALCIUM LEVEL 9.7 MG/DL (8.8-10.2); CREATININE FOR GFR 1.45 MG/DL (0.70-1.30); GLOMERULAR FILTRATION RATE 52.2 (>49); POTASSIUM SERUM 3.5 MEQ/L (3.5-5.1); TOTAL PROTEIN 4.2 GM/DL (6.4-8.2)
[2022-05-20 07:12] LABS: ATYPICAL LYMPH 5 % (0-5); EOSINOPHILS 20 % (0-3); LYMPHOCYTES 1 % (16-44); MONOCYTES 6 % (0-5); MYELOCYTES 1 % (0-0); NEUTROPHILS 60 % (28-66)
[2022-05-20 07:13] LABS: PLATELET ESTIMATE DECREASED (NORMAL)
[2022-05-20 07:14] LABS: GIANT PLATELETS 1+; OVALOCYTES 3+
[2022-05-20 09:00] VITALS: O2SAT 95
[2022-05-20] MEDS: predniSONE 20 MG TAB PO SCH (09:05)
[2022-05-20] MEDS: ASPIRIN ENTERIC 325 MG TAB PO SCH (09:05)
[2022-05-20] MEDS: guaiFENesin ER 600 MG TAB PO SCH ×2 (09:06→22:03)
[2022-05-20] MEDS: ACYCLOVIR 200 MG CAPSULE PO SCH ×2 (09:06→22:04)
[2022-05-20] MEDS: POMALIDOMIDE 4 MG PO SCH (09:07)
[2022-05-20 13:07] LABS: ASPERGILLUS GALACTOMANNAN AG 0.05 Index (0.00-0.49); FUNGITELL, SERUM >500 pg/mL (<80)
[2022-05-20 14:00] VITALS: BP 100/66
[2022-05-20] MEDS: LevoFLOXacin 750 MG TABLET PO SCH (17:04)
[2022-05-20] MEDS: LORazepam 1 MG TAB PO PRN (22:03)
[2022-05-20] MEDS: SIMVASTATIN 40 MG TAB PO SCH (22:04)
[2022-05-20] MEDS: MIRTAZAPINE 15 MG TAB PO SCH (22:04)
[2022-05-20 22:11] VITALS: BP 120/76
[2022-05-21] VITALS (7 sets, daily range): BP systolic 105–117; BP diastolic 65–70; O2SAT 92–96
[2022-05-21] MEDS: LEVOTHYROXINE 88MCG TABLET (0.088 MG) PO SCH (06:30)
[2022-05-21 06:41] LABS: HEMATOCRIT 43.3 % (42.0-52.0); HEMOGLOBIN 13.8 g/dl (13.5-17.5); MEAN CORPUSCULAR HGB CONC 31.9 g/dl (32.0-36.5); MEAN CORPUSCULAR VOLUME 94.1 fl (80.0-96.0); PLATELET COUNT, AUTOMATED 169 10^3/uL (150-450); WHITE BLOOD COUNT 3.7 10^3/uL (4.0-10.0)
[2022-05-21 07:21] LABS: BILIRUBIN,TOTAL 0.5 MG/DL (0.2-1.0); CALCIUM LEVEL 9.3 MG/DL (8.8-10.2); CREATININE FOR GFR 1.52 MG/DL (0.70-1.30); GLOMERULAR FILTRATION RATE 49.4 (>49); MAGNESIUM LEVEL 2.1 MG/DL (1.8-2.4); POTASSIUM SERUM 4.1 MEQ/L (3.5-5.1); TOTAL PROTEIN 4.3 GM/DL (6.4-8.2)
[2022-05-21 07:28] LABS: ATYPICAL LYMPH 3 % (0-5); EOSINOPHILS 8 % (0-3); LYMPHOCYTES 6 % (16-44); METAMYELOCYTES 1 % (0-0); MONOCYTES 2 % (0-5); NEUTROPHILS 72 % (28-66)
[2022-05-21 07:30] LABS: MICROCYTOSIS 1+; OVALOCYTES 3+; PLATELET ESTIMATE NORMAL (NORMAL)
[2022-05-21] MEDS ORDERED: predniSONE 20 MG TAB PO SCH (09:00)
[2022-05-21] MEDS: ASPIRIN ENTERIC 325 MG TAB PO SCH (09:04)
[2022-05-21] MEDS: ACYCLOVIR 200 MG CAPSULE PO SCH ×2 (09:05→21:44)
[2022-05-21] MEDS: guaiFENesin ER 600 MG TAB PO SCH ×2 (09:05→21:44)
[2022-05-21] MEDS: POMALIDOMIDE 4 MG PO SCH (09:18)
[2022-05-21] MEDS: ACETAMINOPHEN TAB 650MG DOSE (2X325MG) PO PRN (14:08)
[2022-05-21] MEDS ORDERED: ACETAMINOPHEN 1000MG 100ML IV BTL (OFIRMEV) (J0131 PER 10MG) IV ONE (17:00)
[2022-05-21 17:41] LABS: C REACTIVE PROTEIN QUANTITATIV 6.49 MG/DL (0.00-0.30)
[2022-05-21 17:45] LABS: CK-MB VALUE MASS < 1.0 NG/ML (<3.6); CPK CREATINE PHOSPHOKINASE 23 U/L (39-308); MB/CK RELATIVE INDEX 4.35 (< OR =4)
[2022-05-21] MEDS: FILGRASTIM 300 MCG/0.5 ML SYRINGE **SC ADMINISTRATION ONLY SC SCH (18:17)
[2022-05-21] MEDS ORDERED: SODIUM CHLORIDE HYPERTONIC 3% 15ML NEB SOL NEB ONE (20:00)
[2022-05-21] MEDS: ATOVAQUONE SUSP 750MG/5ML 210 ML BTL PO SCH (21:43)
[2022-05-21] MEDS: MIRTAZAPINE 15 MG TAB PO SCH (21:43)
[2022-05-21] MEDS: VORICONAZOLE 200MG TABLET (VFEND) PO SCH (21:44)
[2022-05-21] MEDS: LORazepam 1 MG TAB PO PRN (21:46)
[2022-05-22] VITALS (17 sets, daily range): BP systolic 78–100; BP diastolic 50–62; O2SAT 97–100
[2022-05-22 05:46] LABS: HEMATOCRIT 41.3 % (42.0-52.0); HEMOGLOBIN 13.7 g/dl (13.5-17.5); MEAN CORPUSCULAR HEMOGLOBIN 30.3 pg (27.0-33.0); MEAN CORPUSCULAR HGB CONC 33.2 g/dl (32.0-36.5); MEAN CORPUSCULAR VOLUME 91.4 fl (80.0-96.0); PLATELET COUNT, AUTOMATED 163 10^3/uL (150-450); RED BLOOD COUNT 4.52 10^6/uL (4.30-6.10); WHITE BLOOD COUNT 6.7 10^3/uL (4.0-10.0)
[2022-05-22] MEDS ORDERED: SODIUM CHLORIDE HYPERTONIC 3% 15ML NEB SOL NEB ONE (06:00)
[2022-05-22 06:12] LABS: ALBUMIN 1.7 GM/DL (3.2-5.2); BILIRUBIN,TOTAL 0.6 MG/DL (0.2-1.0); CALCIUM LEVEL 9.2 MG/DL (8.8-10.2); CREATININE FOR GFR 1.55 MG/DL (0.70-1.30); GLOMERULAR FILTRATION RATE 48.3 (>49); MAGNESIUM LEVEL 1.6 MG/DL (1.8-2.4); POTASSIUM SERUM 4.1 MEQ/L (3.5-5.1)
[2022-05-22] MEDS: LEVOTHYROXINE 88MCG TABLET (0.088 MG) PO SCH (06:17)
[2022-05-22 06:42] LABS: EOSINOPHILS 17 % (0-3); MONOCYTES 2 % (0-5); NEUTROPHILS 81 % (28-66)
[2022-05-22 06:43] LABS: OVALOCYTES 2+; PLATELET ESTIMATE NORMAL (NORMAL)
[2022-05-22 06:44] LABS: MICROCYTOSIS 1+
[2022-05-22] MEDS ORDERED: MAG SULF 1GM/100ML (MAG RUN) 1 GM in IV 1 EA IV ONE (08:05)
[2022-05-22] MEDS: ATOVAQUONE SUSP 750MG/5ML 210 ML BTL PO SCH ×2 (10:34→20:41)
[2022-05-22] MEDS: POMALIDOMIDE 4 MG PO SCH (10:35)
[2022-05-22] MEDS: VORICONAZOLE 200MG TABLET (VFEND) PO SCH ×3 (10:37→20:41)
[2022-05-22] MEDS: guaiFENesin ER 600 MG TAB PO SCH ×2 (10:37→20:39)
[2022-05-22] MEDS: ASPIRIN ENTERIC 325 MG TAB PO SCH (10:37)
[2022-05-22] MEDS: ACYCLOVIR 200 MG CAPSULE PO SCH ×2 (10:37→20:41)
[2022-05-22] MEDS ORDERED: THROMBIN SOLN 20,000 UNITS KIT As Ordered ONE (12:37)
[2022-05-22] MEDS ORDERED: LIDOCAINE 1% SDV 30ML VIAL As Ordered ONE (12:37)
[2022-05-22] MEDS ORDERED: EPINEPHrine 1MG/10ML SYRINGE 1.5IN As Ordered ONE (12:38)
[2022-05-22] MEDS ORDERED: LIDOCAINE VISCOUS 2% SOLN 15ML UDC As Ordered ONE (12:38)
[2022-05-22] MEDS ORDERED: LIDOCAINE 4% TOPICAL SOLN 50 ML BTL As Ordered ONE (12:38)
[2022-05-22] MEDS ORDERED: CETACAINE SPRAY 5GM As Ordered ONE (12:40)
[2022-05-22] MEDS ORDERED: fentaNYL 100 MCG/2 ML INJECTION IV PRN (14:20)
[2022-05-22] MEDS ORDERED: NS 1,000 ML IV SCH ×2 (14:20→21:10)
[2022-05-22] MEDS ORDERED: MEPERIDINE INJ 25 MG/ML VIAL (J2175) IV PRN (14:20)
[2022-05-22] MEDS ORDERED: ONDANSETRON 4MG 2ML VIAL IV PRN (14:20)
[2022-05-22] MEDS ORDERED: NS 1,000 ML IV ONE ×2 (15:25→16:55)
[2022-05-22] MEDS: LEVALBUTEROL 1.25 MG/0.5 ML CONCENTRATE NEB NEB PRN (15:35)
[2022-05-22] MEDS ORDERED: diphenhydrAMINE 25MG CAP PO PRN (16:40)
[2022-05-22] MEDS ORDERED: LR 1,000 ML IV ONE ×2 (18:10→21:15)
[2022-05-22] MEDS: LevoFLOXacin 750 MG TABLET PO SCH (18:21)
[2022-05-22] MEDS: MIRTAZAPINE 15 MG TAB PO SCH (20:39)
[2022-05-22] MEDS: FILGRASTIM 300 MCG/0.5 ML SYRINGE **SC ADMINISTRATION ONLY SC SCH (20:40)
[2022-05-23] VITALS (24 sets, daily range): BP systolic 90–115; BP diastolic 53–74
[2022-05-23] MEDS: LEVOTHYROXINE 88MCG TABLET (0.088 MG) PO SCH (05:42)
[2022-05-23 05:44] LABS: MEAN CORPUSCULAR HEMOGLOBIN 30.5 pg (27.0-33.0); MEAN CORPUSCULAR HGB CONC 32.3 g/dl (32.0-36.5); MEAN CORPUSCULAR VOLUME 94.3 fl (80.0-96.0); PLATELET COUNT, AUTOMATED 133 10^3/uL (150-450); RED BLOOD COUNT 3.71 10^6/uL (4.30-6.10); WHITE BLOOD COUNT 9.3 10^3/uL (4.0-10.0)
[2022-05-23 05:57] LABS: HEMOGLOBIN 11.3 g/dl (13.5-17.5)
[2022-05-23 06:10] LABS: ALBUMIN 1.3 GM/DL (3.2-5.2); BILIRUBIN,TOTAL 0.5 MG/DL (0.2-1.0); CALCIUM LEVEL 8.4 MG/DL (8.8-10.2); CREATININE FOR GFR 1.44 MG/DL (0.70-1.30); GLOMERULAR FILTRATION RATE 52.6 (>49); POTASSIUM SERUM 4.4 MEQ/L (3.5-5.1); TOTAL PROTEIN 3.4 GM/DL (6.4-8.2)
[2022-05-23] MEDS: guaiFENesin ER 600 MG TAB PO SCH ×2 (08:07→19:24)
[2022-05-23] MEDS: ASPIRIN ENTERIC 325 MG TAB PO SCH (08:07)
[2022-05-23] MEDS: ACYCLOVIR 200 MG CAPSULE PO SCH ×2 (08:07→19:25)
[2022-05-23] MEDS: ATOVAQUONE SUSP 750MG/5ML 210 ML BTL PO SCH ×2 (08:08→19:23)
[2022-05-23] MEDS: VORICONAZOLE 200MG TABLET (VFEND) PO SCH ×3 (08:08→19:23)
[2022-05-23] MEDS ORDERED: ACETAMINOPHEN TAB 650MG DOSE (2X325MG) PO ONE (09:00)
[2022-05-23] MEDS ORDERED: IMMUNE GLOBULIN 10% 5 GM in IV 1 EA IV ONE (09:00)
[2022-05-23] MEDS ORDERED: IMMUNE GLOBULIN 10% 20 GM in IV 1 EA IV ONE (09:00)
[2022-05-23] MEDS ORDERED: IMMUNE GLOBULIN 10% 0 GM in IV 1 EA IV SCH (09:00)
[2022-05-23] MEDS ORDERED: diphenhydrAMINE 25MG CAP PO ONE (09:00)
[2022-05-23 12:30] LABS: CORTISOL AM 3.7 UG/DL (4.3-22.4)
[2022-05-23] MEDS: MIRTAZAPINE 15 MG TAB PO SCH (19:23)
[2022-05-24] VITALS (8 sets, daily range): BP systolic 97–137; BP diastolic 56–79
[2022-05-24 04:04] LABS: HEMATOCRIT 35.6 % (42.0-52.0); HEMOGLOBIN 11.4 g/dl (13.5-17.5); MEAN CORPUSCULAR HEMOGLOBIN 30.5 pg (27.0-33.0); MEAN CORPUSCULAR VOLUME 95.2 fl (80.0-96.0); PLATELET COUNT, AUTOMATED 153 10^3/uL (150-450); RED BLOOD COUNT 3.74 10^6/uL (4.30-6.10); WHITE BLOOD COUNT 11.8 10^3/uL (4.0-10.0)
[2022-05-24 04:33] LABS: ALBUMIN 1.5 GM/DL (3.2-5.2); BILIRUBIN,TOTAL 0.4 MG/DL (0.2-1.0); CALCIUM LEVEL 8.8 MG/DL (8.8-10.2); CREATININE FOR GFR 1.51 MG/DL (0.70-1.30); GLOMERULAR FILTRATION RATE 49.8 (>49); POTASSIUM SERUM 4.3 MEQ/L (3.5-5.1); TOTAL PROTEIN 4.4 GM/DL (6.4-8.2)
[2022-05-24] MEDS: LEVOTHYROXINE 88MCG TABLET (0.088 MG) PO SCH (06:08)
[2022-05-24] MEDS: ASPIRIN ENTERIC 325 MG TAB PO SCH (08:53)
[2022-05-24] MEDS: VORICONAZOLE 200MG TABLET (VFEND) PO SCH ×3 (08:53→20:51)
[2022-05-24] MEDS: ACYCLOVIR 200 MG CAPSULE PO SCH ×2 (08:53→20:50)
[2022-05-24] MEDS: guaiFENesin ER 600 MG TAB PO SCH ×2 (08:54→20:50)
[2022-05-24] MEDS: ATOVAQUONE SUSP 750MG/5ML 210 ML BTL PO SCH ×2 (08:54→20:51)
[2022-05-24] MEDS: predniSONE 20 MG TAB PO SCH (08:54)
[2022-05-24] MEDS: LevoFLOXacin 750 MG TABLET PO SCH (17:48)
[2022-05-24] MEDS: MIRTAZAPINE 15 MG TAB PO SCH (20:50)
[2022-05-24] MEDS: ACETAMINOPHEN TAB 650MG DOSE (2X325MG) PO PRN (20:51)
[2022-05-25] VITALS: BP 101/64
[2022-05-25 04:00] VITALS: BP 101/61
[2022-05-25] MEDS: LEVOTHYROXINE 88MCG TABLET (0.088 MG) PO SCH (05:10)
[2022-05-25 05:31] LABS: HEMATOCRIT 39.1 % (42.0-52.0); HEMOGLOBIN 12.5 g/dl (13.5-17.5); MEAN CORPUSCULAR HEMOGLOBIN 30.6 pg (27.0-33.0); MEAN CORPUSCULAR VOLUME 95.6 fl (80.0-96.0); PLATELET COUNT, AUTOMATED 176 10^3/uL (150-450); RED BLOOD COUNT 4.09 10^6/uL (4.30-6.10); WHITE BLOOD COUNT 9.8 10^3/uL (4.0-10.0)
[2022-05-25 05:55] LABS: ALBUMIN 1.6 GM/DL (3.2-5.2); ALT/SGPT < 6 U/L (12-78); BILIRUBIN,TOTAL 0.4 MG/DL (0.2-1.0); BLOOD UREA NITROGEN 38 MG/DL (7-18); CALCIUM LEVEL 9.1 MG/DL (8.8-10.2); CARBON DIOXIDE LEVEL 26 MEQ/L (21-32); CHLORIDE LEVEL 113 MEQ/L (98-107); CREATININE FOR GFR 1.63 MG/DL (0.70-1.30); GLOMERULAR FILTRATION RATE 45.6 (>49); GLUCOSE, FASTING 89 MG/DL (70-100); POTASSIUM SERUM 4.3 MEQ/L (3.5-5.1); SODIUM LEVEL 147 MEQ/L (136-145); TOTAL PROTEIN 4.7 GM/DL (6.4-8.2)
[2022-05-25 07:15] LABS: MONOCYTES/MACROPHAGES, BAL 85 %
[2022-05-25 07:22] LABS: MONOCYTES/MACROPHAGES, BAL 49 %
[2022-05-25 07:24] LABS: MONOCYTES/MACROPHAGES, BAL 75 %
[2022-05-25 08:00] VITALS: BP 101/66
[2022-05-25] MEDS: guaiFENesin ER 600 MG TAB PO SCH ×2 (08:16→21:20)
[2022-05-25] MEDS: ASPIRIN ENTERIC 325 MG TAB PO SCH (08:16)
[2022-05-25] MEDS: ATOVAQUONE SUSP 750MG/5ML 210 ML BTL PO SCH (08:16)
[2022-05-25] MEDS: predniSONE 20 MG TAB PO SCH ×2 (08:16→21:19)
[2022-05-25] MEDS: ACYCLOVIR 200 MG CAPSULE PO SCH ×2 (08:16→21:19)
[2022-05-25] MEDS: VORICONAZOLE 200MG TABLET (VFEND) PO SCH ×2 (08:16→16:16)
[2022-05-25] MEDS ORDERED: POMA4CAP PO (10:35)
[2022-05-25 12:32] VITALS: BP 103/61
[2022-05-25] MEDS ORDERED: LIDOCAINE 1% MDV 20ML VIAL As Ordered ONE (14:19)
[2022-05-25 16:12] VITALS: BP 114/56
[2022-05-25] MEDS: SODIUM CHLORIDE 0.9% INJ 10 ML SYR IV SCH (17:13)
[2022-05-25 20:00] VITALS: BP 103/59
[2022-05-25] MEDS: D5W IV SCH (21:18)
[2022-05-25] MEDS: TRIMETHOPRIM IV SCH (21:18)
[2022-05-25] MEDS: SULFAMETHOXAZOLE IV SCH (21:18)
[2022-05-25] MEDS: MIRTAZAPINE 15 MG TAB PO SCH (21:19)
[2022-05-25] MEDS: ACETAMINOPHEN TAB 650MG DOSE (2X325MG) PO PRN (21:19)
[2022-05-26] VITALS: BP 105/65
[2022-05-26 04:00] VITALS: BP 101/63
[2022-05-26] MEDS: SULFAMETHOXAZOLE IV SCH ×3 (04:54→21:20)
[2022-05-26] MEDS: D5W IV SCH ×3 (04:54→21:20)
[2022-05-26] MEDS: TRIMETHOPRIM IV SCH ×3 (04:54→21:20)
[2022-05-26] MEDS: LEVOTHYROXINE 88MCG TABLET (0.088 MG) PO SCH (05:50)
[2022-05-26] MEDS: SODIUM CHLORIDE 0.9% INJ 10 ML SYR IV PRN (05:50)
[2022-05-26] MEDS: SODIUM CHLORIDE 0.9% INJ 10 ML SYR IV SCH ×2 (05:50→17:21)
[2022-05-26 06:12] LABS: HEMATOCRIT 35.4 % (42.0-52.0); HEMOGLOBIN 11.5 g/dl (13.5-17.5); MEAN CORPUSCULAR HGB CONC 32.5 g/dl (32.0-36.5); MEAN CORPUSCULAR VOLUME 95.4 fl (80.0-96.0); PLATELET COUNT, AUTOMATED 149 10^3/uL (150-450); RED BLOOD COUNT 3.71 10^6/uL (4.30-6.10); WHITE BLOOD COUNT 4.8 10^3/uL (4.0-10.0)
[2022-05-26 07:10] LABS: ALBUMIN 1.5 GM/DL (3.2-5.2); BILIRUBIN,TOTAL 0.2 MG/DL (0.2-1.0); CALCIUM LEVEL 8.4 MG/DL (8.8-10.2); CREATININE FOR GFR 1.55 MG/DL (0.70-1.30); GLOMERULAR FILTRATION RATE 48.3 (>49); POTASSIUM SERUM 4.3 MEQ/L (3.5-5.1); TOTAL PROTEIN 4.2 GM/DL (6.4-8.2)
[2022-05-26 07:34] LABS: LYMPHOCYTES 2 % (16-44); MONOCYTES 2 % (0-5); NEUTROPHILS 91 % (28-66)
[2022-05-26 07:35] LABS: OVALOCYTES 3+
[2022-05-26 07:36] LABS: MICROCYTOSIS 1+; PLATELET ESTIMATE DECREASED (NORMAL); TEAR DROP CELLS 1+
[2022-05-26 08:19] VITALS: BP 98/58
[2022-05-26] MEDS: predniSONE 20 MG TAB PO SCH ×2 (08:24→21:21)
[2022-05-26] MEDS: LR 1,000 ML IV SCH ×2 (08:24→21:20)
[2022-05-26] MEDS: ACYCLOVIR 200 MG CAPSULE PO SCH ×2 (08:25→21:23)
[2022-05-26] MEDS: ASPIRIN ENTERIC 325 MG TAB PO SCH (08:25)
[2022-05-26] MEDS: guaiFENesin ER 600 MG TAB PO SCH ×2 (08:25→21:21)
[2022-05-26 12:21] VITALS: BP 125/60
[2022-05-26 16:33] VITALS: BP 101/56
[2022-05-26 20:00] VITALS: BP 109/58
[2022-05-26] MEDS: MIRTAZAPINE 15 MG TAB PO SCH (21:20)
[2022-05-27] VITALS: BP 99/54
[2022-05-27 04:00] VITALS: BP 103/66
[2022-05-27] MEDS: D5W IV SCH ×3 (04:52→21:19)
[2022-05-27] MEDS: TRIMETHOPRIM IV SCH ×3 (04:52→21:19)
[2022-05-27] MEDS: SULFAMETHOXAZOLE IV SCH ×3 (04:52→21:19)
[2022-05-27] MEDS: LEVOTHYROXINE 88MCG TABLET (0.088 MG) PO SCH (05:41)
[2022-05-27] MEDS: SODIUM CHLORIDE 0.9% INJ 10 ML SYR IV SCH ×2 (05:42→16:45)
[2022-05-27 05:58] LABS: HEMATOCRIT 30.4 % (42.0-52.0); HEMOGLOBIN 8.5 g/dl (13.5-17.5); MEAN CORPUSCULAR HEMOGLOBIN 30.1 pg (27.0-33.0); MEAN CORPUSCULAR VOLUME 107.8 fl (80.0-96.0); PLATELET COUNT, AUTOMATED 125 10^3/uL (150-450); RED BLOOD COUNT 2.82 10^6/uL (4.30-6.10); WHITE BLOOD COUNT 5.2 10^3/uL (4.0-10.0)
[2022-05-27 06:20] LABS: LYMPHOCYTES 4 % (16-44); MONOCYTES 4 % (0-5); NEUTROPHILS 88 % (28-66)
[2022-05-27 06:23] LABS: ANISOCYTOSIS 2+; OVALOCYTES 1+; PLATELET ESTIMATE DECREASED (NORMAL); TEAR DROP CELLS 1+
[2022-05-27 06:24] LABS: MICROCYTOSIS 1+
[2022-05-27 06:48] LABS: ALBUMIN 1.3 GM/DL (3.2-5.2); BILIRUBIN,TOTAL 0.2 MG/DL (0.2-1.0); CALCIUM LEVEL 6.7 MG/DL (8.8-10.2); CREATININE FOR GFR 1.54 MG/DL (0.70-1.30); GLOMERULAR FILTRATION RATE 48.7 (>49); POTASSIUM SERUM 3.4 MEQ/L (3.5-5.1); TOTAL PROTEIN 3.5 GM/DL (6.4-8.2)
[2022-05-27 08:30] VITALS: BP 140/62
[2022-05-27] MEDS: guaiFENesin ER 600 MG TAB PO SCH ×2 (08:34→21:19)
[2022-05-27] MEDS: ASPIRIN ENTERIC 325 MG TAB PO SCH (08:34)
[2022-05-27] MEDS: predniSONE 20 MG TAB PO SCH ×2 (08:34→21:20)
[2022-05-27] MEDS: ACYCLOVIR 200 MG CAPSULE PO SCH ×2 (08:34→21:20)
[2022-05-27 09:09] LABS: BASO # 0.1 10^3/uL (0.0-0.2); BASO % 0.8 % (0.0-1.0); EOS % 0.1 % (0.0-3.0); HEMATOCRIT 42.1 % (42.0-52.0); HEMOGLOBIN 13.3 g/dl (13.5-17.5); LYMPH # 0.1 10^3/uL (1.5-5.0); LYMPH % 0.9 % (24.0-44.0); MEAN CORPUSCULAR HEMOGLOBIN 29.6 pg (27.0-33.0); MEAN CORPUSCULAR HGB CONC 31.6 g/dl (32.0-36.5); MEAN CORPUSCULAR VOLUME 93.6 fl (80.0-96.0); MONO # 0.6 10^3/uL (0.0-0.8); NEUTROPHILS # 8.4 10^3/uL (1.5-8.5); NEUTROPHILS % 90.8 % (36.0-66.0); PLATELET COUNT, AUTOMATED 193 10^3/uL (150-450); WHITE BLOOD COUNT 9.2 10^3/uL (4.0-10.0)
[2022-05-27 09:35] LABS: CALCIUM LEVEL 8.9 MG/DL (8.8-10.2); CREATININE FOR GFR 1.68 MG/DL (0.70-1.30); POTASSIUM SERUM 4.4 MEQ/L (3.5-5.1)
[2022-05-27 15:04] VITALS: BP 116/56
[2022-05-27 20:00] VITALS: BP 114/61
[2022-05-27] MEDS: MIRTAZAPINE 15 MG TAB PO SCH (21:19)
[2022-05-28] MEDS: D5W IV SCH ×3 (05:48→20:48)
[2022-05-28] MEDS: SULFAMETHOXAZOLE IV SCH ×3 (05:48→20:48)
[2022-05-28] MEDS: TRIMETHOPRIM IV SCH ×3 (05:48→20:48)
[2022-05-28] MEDS: LEVOTHYROXINE 88MCG TABLET (0.088 MG) PO SCH (05:49)
[2022-05-28 07:14] VITALS: BP 105/55
[2022-05-28] MEDS: SODIUM CHLORIDE 0.9% INJ 10 ML SYR IV SCH ×2 (07:21→16:46)
[2022-05-28] MEDS: guaiFENesin ER 600 MG TAB PO SCH ×2 (08:26→20:49)
[2022-05-28] MEDS: predniSONE 20 MG TAB PO SCH ×2 (08:26→20:49)
[2022-05-28] MEDS: ACYCLOVIR 200 MG CAPSULE PO SCH ×2 (08:26→20:48)
[2022-05-28] MEDS: ASPIRIN ENTERIC 325 MG TAB PO SCH (08:26)
[2022-05-28 12:32] VITALS: BP 108/60
[2022-05-28 15:09] LABS: CLOSTRIDIUM DIFFICILE PCR NEGATIVE (NEGATIVE)
[2022-05-28 20:00] VITALS: BP 101/56
[2022-05-28] MEDS: MIRTAZAPINE 15 MG TAB PO SCH (20:48)
[2022-05-29 04:00] VITALS: BP 106/56
[2022-05-29] MEDS: LEVOTHYROXINE 88MCG TABLET (0.088 MG) PO SCH (05:59)
[2022-05-29] MEDS: SULFAMETHOXAZOLE IV SCH ×3 (05:59→21:15)
[2022-05-29] MEDS: TRIMETHOPRIM IV SCH ×3 (05:59→21:15)
[2022-05-29] MEDS: SODIUM CHLORIDE 0.9% INJ 10 ML SYR IV SCH ×2 (05:59→17:29)
[2022-05-29] MEDS: D5W IV SCH ×3 (05:59→21:15)
[2022-05-29 07:52] VITALS: BP 110/59
[2022-05-29 07:59] LABS: HEMATOCRIT 36.8 % (42.0-52.0); HEMOGLOBIN 11.8 g/dl (13.5-17.5); MEAN CORPUSCULAR HGB CONC 32.1 g/dl (32.0-36.5); MEAN CORPUSCULAR VOLUME 93.6 fl (80.0-96.0); PLATELET COUNT, AUTOMATED 168 10^3/uL (150-450); RED BLOOD COUNT 3.93 10^6/uL (4.30-6.10); WHITE BLOOD COUNT 8.8 10^3/uL (4.0-10.0)
[2022-05-29 08:38] LABS: ALBUMIN 1.6 GM/DL (3.2-5.2); BILIRUBIN,TOTAL 0.2 MG/DL (0.2-1.0); CALCIUM LEVEL 8.5 MG/DL (8.8-10.2); CREATININE FOR GFR 1.67 MG/DL (0.70-1.30); GLOMERULAR FILTRATION RATE 44.3 (>49); POTASSIUM SERUM 4.1 MEQ/L (3.5-5.1); TOTAL PROTEIN 5.2 GM/DL (6.4-8.2)
[2022-05-29] MEDS: ACYCLOVIR 200 MG CAPSULE PO SCH ×2 (08:59→20:55)
[2022-05-29] MEDS: guaiFENesin ER 600 MG TAB PO SCH ×2 (08:59→20:55)
[2022-05-29] MEDS: ASPIRIN ENTERIC 325 MG TAB PO SCH (08:59)
[2022-05-29] MEDS: predniSONE 20 MG TAB PO SCH ×2 (09:00→20:55)
[2022-05-29 11:23] VITALS: BP 106/58
[2022-05-29] MEDS: LACTOBACILLUS ACIDOPHILUS CAP (BACID) PO SCH (11:23)
[2022-05-29] MEDS: LOPERAMIDE 2 MG CAPLET PO PRN (11:24)
[2022-05-29] MEDS: HEPARIN SOD (PORCINE) 5000UNITS/ML 1ML VIAL/SYRINGE SQ SCH ×2 (14:16→20:55)
[2022-05-29 15:24] VITALS: BP 105/54
[2022-05-29] MEDS: SODIUM CHLORIDE 0.9% INJ 10 ML SYR IV PRN (15:26)
[2022-05-29 20:00] VITALS: BP 100/58
[2022-05-29] MEDS: MIRTAZAPINE 15 MG TAB PO SCH (20:55)
[2022-05-29] MEDS: LEVALBUTEROL 1.25 MG/0.5 ML CONCENTRATE NEB NEB PRN (21:18)
[2022-05-30] VITALS (14 sets, daily range): BP systolic 94–122; BP diastolic 50–69
[2022-05-30] MEDS: SULFAMETHOXAZOLE IV SCH ×3 (05:27→20:13)
[2022-05-30] MEDS: TRIMETHOPRIM IV SCH ×3 (05:27→20:13)
[2022-05-30] MEDS: LEVOTHYROXINE 88MCG TABLET (0.088 MG) PO SCH (05:27)
[2022-05-30] MEDS: D5W IV SCH ×3 (05:27→20:13)
[2022-05-30] MEDS: SODIUM CHLORIDE 0.9% INJ 10 ML SYR IV SCH ×2 (05:28→17:53)
[2022-05-30 05:44] LABS: HEMATOCRIT 35.2 % (42.0-52.0); HEMOGLOBIN 11.8 g/dl (13.5-17.5); MEAN CORPUSCULAR HEMOGLOBIN 31.1 pg (27.0-33.0); MEAN CORPUSCULAR HGB CONC 33.5 g/dl (32.0-36.5); MEAN CORPUSCULAR VOLUME 92.9 fl (80.0-96.0); PLATELET COUNT, AUTOMATED 173 10^3/uL (150-450); RED BLOOD COUNT 3.79 10^6/uL (4.30-6.10); WHITE BLOOD COUNT 10.2 10^3/uL (4.0-10.0)
[2022-05-30 06:49] LABS: ALBUMIN 1.6 GM/DL (3.2-5.2); BILIRUBIN,TOTAL 0.2 MG/DL (0.2-1.0); CALCIUM LEVEL 8.4 MG/DL (8.8-10.2); CREATININE FOR GFR 1.63 MG/DL (0.70-1.30); GLOMERULAR FILTRATION RATE 45.6 (>49); POTASSIUM SERUM 4.8 MEQ/L (3.5-5.1); TOTAL PROTEIN 4.5 GM/DL (6.4-8.2)
[2022-05-30 07:22] LABS: MAGNESIUM LEVEL 1.9 MG/DL (1.8-2.4)
[2022-05-30] MEDS: ACYCLOVIR 200 MG CAPSULE PO SCH ×2 (08:02→20:13)
[2022-05-30] MEDS: ASPIRIN ENTERIC 325 MG TAB PO SCH (08:02)
[2022-05-30] MEDS: HEPARIN SOD (PORCINE) 5000UNITS/ML 1ML VIAL/SYRINGE SQ SCH ×2 (08:02→20:13)
[2022-05-30] MEDS: guaiFENesin ER 600 MG TAB PO SCH ×2 (08:02→20:13)
[2022-05-30] MEDS: LACTOBACILLUS ACIDOPHILUS CAP (BACID) PO SCH (08:03)
[2022-05-30] MEDS: predniSONE 20 MG TAB PO SCH ×2 (08:03→20:13)
[2022-05-30] MEDS: MAALOX 30 ML SUSP *UDC PO PRN (08:04)
[2022-05-30] MEDS: LOPERAMIDE 2 MG CAPLET PO PRN ×2 (09:22→12:28)
[2022-05-30] MEDS: FUROSEMIDE 100MG/10ML VIAL (J1940) IV SCH ×3 (10:13→18:34)
[2022-05-30 18:27] LABS: CALCIUM LEVEL 9.2 MG/DL (8.8-10.2); CREATININE FOR GFR 1.81 MG/DL (0.70-1.30); GLOMERULAR FILTRATION RATE 40.4 (>49)
[2022-05-30] MEDS: MIRTAZAPINE 15 MG TAB PO SCH (20:13)
[2022-05-31] VITALS (25 sets, daily range): BP systolic 82–127; BP diastolic 50–59
[2022-05-31] MEDS ORDERED: MIDODRINE 5 MG TAB PO ONE (02:00)
[2022-05-31] MEDS: LEVOTHYROXINE 88MCG TABLET (0.088 MG) PO SCH (05:16)
[2022-05-31] MEDS: SULFAMETHOXAZOLE IV SCH ×3 (05:17→21:34)
[2022-05-31] MEDS: D5W IV SCH ×3 (05:17→21:34)
[2022-05-31] MEDS: TRIMETHOPRIM IV SCH ×3 (05:17→21:34)
[2022-05-31] MEDS: SODIUM CHLORIDE 0.9% INJ 10 ML SYR IV SCH ×2 (05:17→17:40)
[2022-05-31 05:34] LABS: HEMATOCRIT 30.8 % (42.0-52.0); HEMOGLOBIN 10.3 g/dl (13.5-17.5); MEAN CORPUSCULAR HGB CONC 33.4 g/dl (32.0-36.5); MEAN CORPUSCULAR VOLUME 92.8 fl (80.0-96.0); PLATELET COUNT, AUTOMATED 163 10^3/uL (150-450); RED BLOOD COUNT 3.32 10^6/uL (4.30-6.10); WHITE BLOOD COUNT 9.2 10^3/uL (4.0-10.0)
[2022-05-31 06:09] LABS: BILIRUBIN,TOTAL 0.2 MG/DL (0.2-1.0); CREATININE FOR GFR 1.78 MG/DL (0.70-1.30); GLOMERULAR FILTRATION RATE 41.2 (>49); POTASSIUM SERUM 4.2 MEQ/L (3.5-5.1); TOTAL PROTEIN 5.2 GM/DL (6.4-8.2)
[2022-05-31] MEDS: ASPIRIN ENTERIC 325 MG TAB PO SCH (08:38)
[2022-05-31] MEDS: ACYCLOVIR 200 MG CAPSULE PO SCH ×2 (08:38→21:33)
[2022-05-31] MEDS: LORazepam 1 MG TAB PO PRN (08:38)
[2022-05-31] MEDS: MAALOX 30 ML SUSP *UDC PO PRN (08:38)
[2022-05-31] MEDS: guaiFENesin ER 600 MG TAB PO SCH ×2 (08:38→21:33)
[2022-05-31] MEDS: predniSONE 20 MG TAB PO SCH ×2 (08:39→21:32)
[2022-05-31] MEDS: LACTOBACILLUS ACIDOPHILUS CAP (BACID) PO SCH (08:39)
[2022-05-31] MEDS ORDERED: FUROSEMIDE 40MG/4ML VIAL (J1940) IV ONE (09:00)
[2022-05-31] MEDS: HEPARIN SOD (PORCINE) 5000UNITS/ML 1ML VIAL/SYRINGE SQ SCH ×2 (10:15→21:33)
[2022-05-31] MEDS ORDERED: TIXAGEVIMAB/CILGAVIMAB (EVUSHELD) 150MG-150MG 3ML VIAL (EUA) IM NO SITE ONE (14:40)
[2022-05-31] MEDS: FUROSEMIDE 40MG/4ML VIAL (J1940) IV SCH (17:01)
[2022-05-31] MEDS: MIRTAZAPINE 15 MG TAB PO SCH (21:33)
[2022-06-01] VITALS (23 sets, daily range): BP systolic 95–116; BP diastolic 50–63
[2022-06-01] MEDS: SULFAMETHOXAZOLE IV SCH ×3 (05:27→20:14)
[2022-06-01] MEDS: LEVOTHYROXINE 88MCG TABLET (0.088 MG) PO SCH (05:27)
[2022-06-01] MEDS: TRIMETHOPRIM IV SCH ×3 (05:27→20:14)
[2022-06-01] MEDS: SODIUM CHLORIDE 0.9% INJ 10 ML SYR IV SCH ×2 (05:27→18:01)
[2022-06-01] MEDS: D5W IV SCH ×3 (05:27→20:14)
[2022-06-01 05:30] LABS: HEMATOCRIT 27.8 % (42.0-52.0); HEMOGLOBIN 9.2 g/dl (13.5-17.5); MEAN CORPUSCULAR HEMOGLOBIN 30.8 pg (27.0-33.0); MEAN CORPUSCULAR HGB CONC 33.1 g/dl (32.0-36.5); PLATELET COUNT, AUTOMATED 124 10^3/uL (150-450); RED BLOOD COUNT 2.99 10^6/uL (4.30-6.10); WHITE BLOOD COUNT 8.3 10^3/uL (4.0-10.0)
[2022-06-01 05:55] LABS: ALBUMIN 3.6 GM/DL (3.2-5.2); BILIRUBIN,TOTAL 0.2 MG/DL (0.2-1.0); CALCIUM LEVEL 9.3 MG/DL (8.8-10.2); CREATININE FOR GFR 1.94 MG/DL (0.70-1.30); GLOMERULAR FILTRATION RATE 37.3 (>49); POTASSIUM SERUM 4.2 MEQ/L (3.5-5.1); TOTAL PROTEIN 5.8 GM/DL (6.4-8.2)
[2022-06-01] MEDS: predniSONE 20 MG TAB PO SCH ×2 (09:33→20:13)
[2022-06-01] MEDS: ACYCLOVIR 200 MG CAPSULE PO SCH ×2 (09:34→20:13)
[2022-06-01] MEDS: LACTOBACILLUS ACIDOPHILUS CAP (BACID) PO SCH (09:34)
[2022-06-01] MEDS: HEPARIN SOD (PORCINE) 5000UNITS/ML 1ML VIAL/SYRINGE SQ SCH ×2 (09:34→20:13)
[2022-06-01] MEDS: guaiFENesin ER 600 MG TAB PO SCH ×2 (09:35→20:13)
[2022-06-01] MEDS: ASPIRIN ENTERIC 325 MG TAB PO SCH (09:35)
[2022-06-01] MEDS: FUROSEMIDE 40MG/4ML VIAL (J1940) IV SCH (09:38)
[2022-06-01] MEDS: MIRTAZAPINE 15 MG TAB PO SCH (20:25)
[2022-06-02 00:05] VITALS: BP 101/57
[2022-06-02] MEDS: TRIMETHOPRIM IV SCH (04:27)
[2022-06-02] MEDS: D5W IV SCH (04:27)
[2022-06-02] MEDS: SULFAMETHOXAZOLE IV SCH (04:27)
[2022-06-02 04:35] LABS: HEMATOCRIT 29.9 % (42.0-52.0); HEMOGLOBIN 9.9 g/dl (13.5-17.5); MEAN CORPUSCULAR HEMOGLOBIN 30.9 pg (27.0-33.0); MEAN CORPUSCULAR HGB CONC 33.1 g/dl (32.0-36.5); MEAN CORPUSCULAR VOLUME 93.4 fl (80.0-96.0); PLATELET COUNT, AUTOMATED 149 10^3/uL (150-450); WHITE BLOOD COUNT 9.5 10^3/uL (4.0-10.0)
[2022-06-02 05:09] LABS: ALBUMIN 3.7 GM/DL (3.2-5.2); BILIRUBIN,TOTAL 0.2 MG/DL (0.2-1.0); CALCIUM LEVEL 9.4 MG/DL (8.8-10.2); CREATININE FOR GFR 1.74 MG/DL (0.70-1.30); GLOMERULAR FILTRATION RATE 42.3 (>49); POTASSIUM SERUM 4.7 MEQ/L (3.5-5.1); TOTAL PROTEIN 5.6 GM/DL (6.4-8.2)
[2022-06-02] MEDS: LEVOTHYROXINE 88MCG TABLET (0.088 MG) PO SCH (05:44)
[2022-06-02] MEDS: SODIUM CHLORIDE 0.9% INJ 10 ML SYR IV SCH ×2 (05:45→17:01)
[2022-06-02 08:44] VITALS: BP 108/59
[2022-06-02] MEDS: predniSONE 20 MG TAB PO SCH (08:47)
[2022-06-02] MEDS: ASPIRIN ENTERIC 325 MG TAB PO SCH (08:47)
[2022-06-02] MEDS: ACYCLOVIR 200 MG CAPSULE PO SCH ×2 (08:47→22:02)
[2022-06-02] MEDS: HEPARIN SOD (PORCINE) 5000UNITS/ML 1ML VIAL/SYRINGE SQ SCH ×2 (08:47→21:59)
[2022-06-02] MEDS: LACTOBACILLUS ACIDOPHILUS CAP (BACID) PO SCH (08:47)
[2022-06-02] MEDS: guaiFENesin ER 600 MG TAB PO SCH ×2 (08:47→21:58)
[2022-06-02] MEDS: FUROSEMIDE 40MG/4ML VIAL (J1940) IV SCH (08:48)
[2022-06-02] MEDS: BACTRIM 160MG/800MG DS TAB PO SCH ×3 (10:59→21:59)
[2022-06-02 13:59] VITALS: BP 110/70
[2022-06-02] MEDS: MIRTAZAPINE 15 MG TAB PO SCH (21:58)
[2022-06-02 22:00] VITALS: BP 116/72
[2022-06-02] MEDS ORDERED: RAMELTEON 8 MG TAB (ROZEREM) PO PRN (23:50)
[2022-06-03] MEDS: LEVOTHYROXINE 88MCG TABLET (0.088 MG) PO SCH (05:37)
[2022-06-03] MEDS: SODIUM CHLORIDE 0.9% INJ 10 ML SYR IV SCH ×2 (05:38→17:07)
[2022-06-03] MEDS: SODIUM CHLORIDE 0.9% INJ 10 ML SYR IV PRN (05:38)
[2022-06-03 06:00] VITALS: BP 111/56
[2022-06-03] MEDS: ASPIRIN ENTERIC 325 MG TAB PO SCH (08:51)
[2022-06-03] MEDS: BACTRIM 160MG/800MG DS TAB PO SCH ×3 (08:51→20:58)
[2022-06-03] MEDS: ACYCLOVIR 200 MG CAPSULE PO SCH ×2 (08:51→20:58)
[2022-06-03] MEDS: FUROSEMIDE 40MG/4ML VIAL (J1940) IV SCH (08:51)
[2022-06-03] MEDS: predniSONE 20 MG TAB PO SCH (08:51)
[2022-06-03] MEDS: LACTOBACILLUS ACIDOPHILUS CAP (BACID) PO SCH (08:51)
[2022-06-03] MEDS: guaiFENesin ER 600 MG TAB PO SCH ×2 (08:51→20:58)
[2022-06-03] MEDS: HEPARIN SOD (PORCINE) 5000UNITS/ML 1ML VIAL/SYRINGE SQ SCH ×2 (08:52→20:57)
[2022-06-03 09:59] LABS: HEMATOCRIT 40.7 % (42.0-52.0); MEAN CORPUSCULAR HEMOGLOBIN 30.3 pg (27.0-33.0); MEAN CORPUSCULAR HGB CONC 32.2 g/dl (32.0-36.5); PLATELET COUNT, AUTOMATED 222 10^3/uL (150-450); RED BLOOD COUNT 4.33 10^6/uL (4.30-6.10); WHITE BLOOD COUNT 9.9 10^3/uL (4.0-10.0)
[2022-06-03 10:18] LABS: HEMOGLOBIN 13.1 g/dl (13.5-17.5)
[2022-06-03 10:32] LABS: BILIRUBIN,TOTAL 0.3 MG/DL (0.2-1.0); CALCIUM LEVEL 10.2 MG/DL (8.8-10.2); CREATININE FOR GFR 2.26 MG/DL (0.70-1.30); GLOMERULAR FILTRATION RATE 31.3 (>49); POTASSIUM SERUM 4.6 MEQ/L (3.5-5.1); TOTAL PROTEIN 6.3 GM/DL (6.4-8.2)
[2022-06-03 14:00] VITALS: BP 116/66
[2022-06-03] MEDS: MIRTAZAPINE 15 MG TAB PO SCH (20:58)
[2022-06-03 22:00] VITALS: BP 113/61
[2022-06-04] MEDS: SODIUM CHLORIDE 0.9% INJ 10 ML SYR IV SCH ×2 (05:03→16:50)
[2022-06-04] MEDS: LEVOTHYROXINE 88MCG TABLET (0.088 MG) PO SCH (05:42)
[2022-06-04] MEDS: ASPIRIN ENTERIC 325 MG TAB PO SCH (08:57)
[2022-06-04] MEDS: BACTRIM 160MG/800MG DS TAB PO SCH ×3 (08:58→21:31)
[2022-06-04] MEDS: HEPARIN SOD (PORCINE) 5000UNITS/ML 1ML VIAL/SYRINGE SQ SCH ×2 (08:58→21:30)
[2022-06-04] MEDS: LACTOBACILLUS ACIDOPHILUS CAP (BACID) PO SCH (08:58)
[2022-06-04] MEDS: predniSONE 20 MG TAB PO SCH (08:58)
[2022-06-04] MEDS: guaiFENesin ER 600 MG TAB PO SCH ×2 (08:58→21:30)
[2022-06-04] MEDS: ACYCLOVIR 200 MG CAPSULE PO SCH ×2 (08:58→21:30)
[2022-06-04 12:14] LABS: HEMOGLOBIN 12.4 g/dl (13.5-17.5); MEAN CORPUSCULAR HEMOGLOBIN 29.5 pg (27.0-33.0); MEAN CORPUSCULAR HGB CONC 31.8 g/dl (32.0-36.5); MEAN CORPUSCULAR VOLUME 92.9 fl (80.0-96.0); PLATELET COUNT, AUTOMATED 220 10^3/uL (150-450)
[2022-06-04 12:43] LABS: ALBUMIN 3.2 GM/DL (3.2-5.2); BILIRUBIN,TOTAL 0.2 MG/DL (0.2-1.0); CREATININE FOR GFR 2.3 MG/DL (0.70-1.30); GLOMERULAR FILTRATION RATE 30.6 (>49); TOTAL PROTEIN 5.6 GM/DL (6.4-8.2)
[2022-06-04 16:59] VITALS: BP 110/64
[2022-06-04 21:00] VITALS: BP 118/68
[2022-06-04] MEDS: MIRTAZAPINE 15 MG TAB PO SCH (21:30)
[2022-06-05] MEDS: LEVOTHYROXINE 88MCG TABLET (0.088 MG) PO SCH (05:50)
[2022-06-05] MEDS: SODIUM CHLORIDE 0.9% INJ 10 ML SYR IV SCH ×2 (05:51→17:54)
[2022-06-05 06:35] VITALS: BP 115/68
[2022-06-05] MEDS: LACTOBACILLUS ACIDOPHILUS CAP (BACID) PO SCH (09:27)
[2022-06-05] MEDS: ACYCLOVIR 200 MG CAPSULE PO SCH ×2 (09:27→21:24)
[2022-06-05] MEDS: ASPIRIN ENTERIC 325 MG TAB PO SCH (09:28)
[2022-06-05] MEDS: guaiFENesin ER 600 MG TAB PO SCH ×2 (09:28→21:24)
[2022-06-05] MEDS: predniSONE 20 MG TAB PO SCH (09:28)
[2022-06-05] MEDS: HEPARIN SOD (PORCINE) 5000UNITS/ML 1ML VIAL/SYRINGE SQ SCH ×2 (09:29→21:24)
[2022-06-05] MEDS: ATOVAQUONE SUSP 750MG/5ML 210 ML BTL PO SCH ×2 (09:45→21:23)
[2022-06-05 10:10] LABS: HEMATOCRIT 39.1 % (42.0-52.0); HEMOGLOBIN 12.9 g/dl (13.5-17.5); MEAN CORPUSCULAR HEMOGLOBIN 30.9 pg (27.0-33.0); MEAN CORPUSCULAR VOLUME 93.5 fl (80.0-96.0); PLATELET COUNT, AUTOMATED 272 10^3/uL (150-450); RED BLOOD COUNT 4.18 10^6/uL (4.30-6.10); WHITE BLOOD COUNT 8.7 10^3/uL (4.0-10.0)
[2022-06-05 10:36] LABS: ALBUMIN 3.4 GM/DL (3.2-5.2); BILIRUBIN,TOTAL 0.2 MG/DL (0.2-1.0); CALCIUM LEVEL 10.2 MG/DL (8.8-10.2); CREATININE FOR GFR 2.45 MG/DL (0.70-1.30); GLOMERULAR FILTRATION RATE 28.5 (>49); TOTAL PROTEIN 5.9 GM/DL (6.4-8.2)
[2022-06-05] MEDS: NS 1,000 ML IV SCH ×2 (11:33→21:22)
[2022-06-05 14:00] VITALS: BP 108/73
[2022-06-05] MEDS: MIRTAZAPINE 15 MG TAB PO SCH (21:24)
[2022-06-05 21:26] VITALS: BP 106/72
[2022-06-06] MEDS: SODIUM CHLORIDE 0.9% INJ 10 ML SYR IV SCH (05:55)
[2022-06-06] MEDS: LEVOTHYROXINE 88MCG TABLET (0.088 MG) PO SCH (05:55)
[2022-06-06] MEDS: NS 1,000 ML IV SCH ×2 (05:56→17:46)
[2022-06-06 06:00] VITALS: BP 108/70
[2022-06-06] MEDS: LACTOBACILLUS ACIDOPHILUS CAP (BACID) PO SCH (09:13)
[2022-06-06] MEDS: ASPIRIN ENTERIC 325 MG TAB PO SCH (09:13)
[2022-06-06] MEDS: HEPARIN SOD (PORCINE) 5000UNITS/ML 1ML VIAL/SYRINGE SQ SCH ×2 (09:13→20:28)
[2022-06-06] MEDS: ATOVAQUONE SUSP 750MG/5ML 210 ML BTL PO SCH ×2 (09:13→20:29)
[2022-06-06] MEDS: guaiFENesin ER 600 MG TAB PO SCH ×2 (09:13→20:28)
[2022-06-06] MEDS: predniSONE 20 MG TAB PO SCH (09:13)
[2022-06-06] MEDS: ACYCLOVIR 200 MG CAPSULE PO SCH ×2 (09:14→20:28)
[2022-06-06 09:26] LABS: HEMATOCRIT 39.5 % (42.0-52.0); HEMOGLOBIN 12.4 g/dl (13.5-17.5); MEAN CORPUSCULAR HGB CONC 31.4 g/dl (32.0-36.5); MEAN CORPUSCULAR VOLUME 95.6 fl (80.0-96.0); PLATELET COUNT, AUTOMATED 270 10^3/uL (150-450); RED BLOOD COUNT 4.13 10^6/uL (4.30-6.10)
[2022-06-06 10:17] LABS: BILIRUBIN,TOTAL 0.3 MG/DL (0.2-1.0); CALCIUM LEVEL 9.5 MG/DL (8.8-10.2); CREATININE FOR GFR 1.89 MG/DL (0.70-1.30); GLOMERULAR FILTRATION RATE 38.4 (>49); POTASSIUM SERUM 4.8 MEQ/L (3.5-5.1); TOTAL PROTEIN 5.4 GM/DL (6.4-8.2)
[2022-06-06 14:00] VITALS: BP 122/70
[2022-06-06 20:00] VITALS: BP 123/70
[2022-06-06] MEDS: MIRTAZAPINE 15 MG TAB PO SCH (20:28)
[2022-06-07 06:00] VITALS: BP 123/68
[2022-06-07] MEDS: NS 1,000 ML IV SCH (06:18)
[2022-06-07] MEDS: LEVOTHYROXINE 88MCG TABLET (0.088 MG) PO SCH (06:18)
[2022-06-07] MEDS: ATOVAQUONE SUSP 750MG/5ML 210 ML BTL PO SCH (09:24)
[2022-06-07] MEDS: LACTOBACILLUS ACIDOPHILUS CAP (BACID) PO SCH (09:25)
[2022-06-07] MEDS: ACYCLOVIR 200 MG CAPSULE PO SCH (09:25)
[2022-06-07] MEDS: guaiFENesin ER 600 MG TAB PO SCH (09:25)
[2022-06-07] MEDS: predniSONE 20 MG TAB PO SCH (09:25)
[2022-06-07] MEDS: ASPIRIN ENTERIC 325 MG TAB PO SCH (09:25)
[2022-06-07] MEDS: HEPARIN SOD (PORCINE) 5000UNITS/ML 1ML VIAL/SYRINGE SQ SCH ×2 (09:25→21:33)
[2022-06-07 09:58] LABS: CALCIUM LEVEL 9.5 MG/DL (8.8-10.2); CREATININE FOR GFR 1.54 MG/DL (0.70-1.30); GLOMERULAR FILTRATION RATE 48.7 (>49); POTASSIUM SERUM 5.2 MEQ/L (3.5-5.1)
[2022-06-07] MEDS ORDERED: SODIUM BICARBONATE 150 MEQ in STERILE WATER LITER BAG 1,000 ML IV SCH ×2 (13:00→15:00)
[2022-06-07 14:00] VITALS: BP 127/75
[2022-06-07 18:37] LABS: CALCIUM LEVEL 9.7 MG/DL (8.8-10.2); CREATININE FOR GFR 1.31 MG/DL (0.70-1.30); GLOMERULAR FILTRATION RATE 58.6 (>49); POTASSIUM SERUM 5.6 MEQ/L (3.5-5.1)
[2022-06-07 20:24] VITALS: BP 125/77
[2022-06-07] MEDS ORDERED: PATIROMER SORBITEX CALCIUM 8.4 GM POWDER PACKET (VELTASSA) PO ONE (20:30)
[2022-06-08] MEDS: ACYCLOVIR 200 MG CAPSULE PO SCH ×3 (01:26→21:37)
[2022-06-08] MEDS: MIRTAZAPINE 15 MG TAB PO SCH ×2 (01:26→21:37)
[2022-06-08] MEDS: guaiFENesin ER 600 MG TAB PO SCH ×3 (01:26→21:37)
[2022-06-08] MEDS: ATOVAQUONE SUSP 750MG/5ML 210 ML BTL PO SCH ×3 (01:27→21:37)
[2022-06-08] MEDS: LEVOTHYROXINE 88MCG TABLET (0.088 MG) PO SCH (05:33)
[2022-06-08 05:34] VITALS: BP 127/74
[2022-06-08 06:56] LABS: HEMATOCRIT 38.4 % (42.0-52.0); MEAN CORPUSCULAR HEMOGLOBIN 29.8 pg (27.0-33.0); MEAN CORPUSCULAR HGB CONC 31.3 g/dl (32.0-36.5); MEAN CORPUSCULAR VOLUME 95.3 fl (80.0-96.0); PLATELET COUNT, AUTOMATED 222 10^3/uL (150-450); RED BLOOD COUNT 4.03 10^6/uL (4.30-6.10); WHITE BLOOD COUNT 7.8 10^3/uL (4.0-10.0)
[2022-06-08 07:26] LABS: CALCIUM LEVEL 9.9 MG/DL (8.8-10.2); CREATININE FOR GFR 1.29 MG/DL (0.70-1.30); GLOMERULAR FILTRATION RATE 59.7 (>49); POTASSIUM SERUM 3.9 MEQ/L (3.5-5.1)
[2022-06-08] MEDS: ASPIRIN ENTERIC 325 MG TAB PO SCH (10:00)
[2022-06-08] MEDS: LACTOBACILLUS ACIDOPHILUS CAP (BACID) PO SCH (10:00)
[2022-06-08] MEDS: predniSONE 20 MG TAB PO SCH (10:00)
[2022-06-08] MEDS: HEPARIN SOD (PORCINE) 5000UNITS/ML 1ML VIAL/SYRINGE SQ SCH ×2 (10:01→21:37)
[2022-06-08 12:00] VITALS: BP 131/86
[2022-06-08 14:00] VITALS: BP 129/83
[2022-06-08 21:38] VITALS: BP 128/82
[2022-06-09] MEDS: MAG SULF 1GM/100ML (MAG RUN) 1 GM in IV 1 EA IV SCH ×3 (01:46→21:22)
[2022-06-09] MEDS: LEVOTHYROXINE 88MCG TABLET (0.088 MG) PO SCH (05:55)
[2022-06-09 05:56] VITALS: BP 128/81
[2022-06-09 07:43] LABS: CALCIUM LEVEL 9.8 MG/DL (8.8-10.2); CREATININE FOR GFR 1.31 MG/DL (0.70-1.30); GLOMERULAR FILTRATION RATE 58.6 (>49); POTASSIUM SERUM 3.7 MEQ/L (3.5-5.1)
[2022-06-09] MEDS: predniSONE 20 MG TAB PO SCH (08:45)
[2022-06-09] MEDS: LACTOBACILLUS ACIDOPHILUS CAP (BACID) PO SCH (08:45)
[2022-06-09] MEDS: ACYCLOVIR 200 MG CAPSULE PO SCH ×2 (08:45→21:21)
[2022-06-09] MEDS: ASPIRIN ENTERIC 325 MG TAB PO SCH (08:45)
[2022-06-09] MEDS: guaiFENesin ER 600 MG TAB PO SCH ×2 (08:45→21:21)
[2022-06-09] MEDS: HEPARIN SOD (PORCINE) 5000UNITS/ML 1ML VIAL/SYRINGE SQ SCH ×2 (08:45→21:22)
[2022-06-09] MEDS: ATOVAQUONE SUSP 750MG/5ML 210 ML BTL PO SCH ×2 (08:46→21:21)
[2022-06-09] MEDS ORDERED: LR 500 ML IV ONE (11:05)
[2022-06-09 11:31] LABS: MAGNESIUM LEVEL 1.6 MG/DL (1.8-2.4)
[2022-06-09] MEDS ORDERED: LR 500 ML IV SCH (11:40)
[2022-06-09] MEDS ORDERED: FLUID PLACE HOLDER IV ONE (11:45)
[2022-06-09] MEDS ORDERED: VANCOMYCIN HCL IV ONE (11:45)
[2022-06-09] MEDS: LORazepam 1 MG TAB PO PRN (12:40)
[2022-06-09] MEDS ORDERED: LACTATED RINGER'S 1000 ML IV ONE (13:30)
[2022-06-09 13:47] LABS: APPEARANCE, URINE CLEAR (CLEAR); BACTERIA, URINE AUTO NEGATIVE (NEGATIVE); BILIRUBIN, URINE AUTO NEGATIVE (NEGATIVE); BLOOD, URINE BLOOD NEGATIVE (NEGATIVE); COLOR, URINE YELLOW (YELLOW); GLUCOSE, URINE (UA) AUTO 2+ mg/dL (NEGATIVE); KETONE, URINE AUTO NEGATIVE (NEGATIVE); LEUKOCYTE ESTERASE, URINE AUTO NEGATIVE (NEGATIVE); MUCUS, URINE SMALL (NEGATIVE); NITRITE, URINE AUTO NEGATIVE (NEGATIVE); PROTEIN, URINE AUTO NEGATIVE (NEGATIVE); RBC, URINE AUTO 0 /HPF (0-3); SPECIFIC GRAVITY URINE AUTO 1.013 (1.002-1.035); SQUAMOUS EPITHELIAL CELL UR AU 0 /HPF (0-6); UROBILINOGEN, URINE AUTO 0.2 mg/dL (0.0-2.0); WBC, URINE AUTO 0 /HPF (0-3)
[2022-06-09] MEDS: CEFEPIME HCL 2 GM in D5W MINI-BAG PLUS 50 ML IV SCH (14:12)
[2022-06-09 14:15] VITALS: BP 131/88
[2022-06-09] MEDS: metroNIDAZOLE 500 MG in IV 1 EA IV SCH ×2 (15:08→22:36)
[2022-06-09] MEDS: LR 1,000 ML IV SCH (15:09)
[2022-06-09] MEDS: VANCOMYCIN HCL 750 MG, VIAL MATE ADAPTER 1 EACH in D5W 250 ML IV SCH (16:53)
[2022-06-09 20:37] VITALS: BP 106/73
[2022-06-09] MEDS: MIRTAZAPINE 15 MG TAB PO SCH (21:21)
[2022-06-10] MEDS: MAG SULF 1GM/100ML (MAG RUN) 1 GM in IV 1 EA IV SCH ×3 (00:10→01:47)
[2022-06-10] MEDS: CEFEPIME HCL 2 GM in D5W MINI-BAG PLUS 50 ML IV SCH ×2 (01:42→12:47)
[2022-06-10] MEDS: VANCOMYCIN HCL 750 MG, VIAL MATE ADAPTER 1 EACH in D5W 250 ML IV SCH ×2 (04:22→16:27)
[2022-06-10 05:42] VITALS: BP 115/75
[2022-06-10] MEDS: metroNIDAZOLE 500 MG in IV 1 EA IV SCH ×3 (05:46→21:06)
[2022-06-10] MEDS: LEVOTHYROXINE 88MCG TABLET (0.088 MG) PO SCH (05:46)
[2022-06-10 07:18] LABS: BLOOD UREA NITROGEN 24 MG/DL (7-18); CARBON DIOXIDE LEVEL 31 MEQ/L (21-32); CHLORIDE LEVEL 107 MEQ/L (98-107); CREATININE FOR GFR 1.18 MG/DL (0.70-1.30); GLOMERULAR FILTRATION RATE > 60.0 (>49); GLUCOSE, FASTING 92 MG/DL (70-100); POTASSIUM SERUM 4.8 MEQ/L (3.5-5.1); SODIUM LEVEL 141 MEQ/L (136-145)
[2022-06-10] MEDS: ACYCLOVIR 200 MG CAPSULE PO SCH ×2 (09:30→21:06)
[2022-06-10] MEDS: ASPIRIN ENTERIC 325 MG TAB PO SCH (09:30)
[2022-06-10] MEDS: LACTOBACILLUS ACIDOPHILUS CAP (BACID) PO SCH ×2 (09:30→21:06)
[2022-06-10] MEDS: predniSONE 20 MG TAB PO SCH (09:30)
[2022-06-10] MEDS: guaiFENesin ER 600 MG TAB PO SCH ×2 (09:31→21:07)
[2022-06-10] MEDS: HEPARIN SOD (PORCINE) 5000UNITS/ML 1ML VIAL/SYRINGE SQ SCH ×2 (09:31→21:06)
[2022-06-10] MEDS: ATOVAQUONE SUSP 750MG/5ML 210 ML BTL PO SCH ×2 (09:31→21:06)
[2022-06-10] MEDS: LR 1,000 ML IV SCH ×2 (09:35)
[2022-06-10 10:34] LABS: HEMATOCRIT 32.3 % (42.0-52.0); HEMOGLOBIN 10.4 g/dl (13.5-17.5); MEAN CORPUSCULAR HEMOGLOBIN 31.2 pg (27.0-33.0); MEAN CORPUSCULAR HGB CONC 32.2 g/dl (32.0-36.5); PLATELET COUNT, AUTOMATED 208 10^3/uL (150-450); RED BLOOD COUNT 3.33 10^6/uL (4.30-6.10); WHITE BLOOD COUNT 8.7 10^3/uL (4.0-10.0)
[2022-06-10 14:00] VITALS: BP 136/76
[2022-06-10 21:04] VITALS: BP 133/77
[2022-06-10] MEDS: MIRTAZAPINE 15 MG TAB PO SCH (21:07)
[2022-06-11] MEDS: CEFEPIME HCL 2 GM in D5W MINI-BAG PLUS 50 ML IV SCH ×2 (01:53→13:14)
[2022-06-11 05:06] VITALS: BP 131/77
[2022-06-11 05:21] LABS: HEMATOCRIT 33.4 % (42.0-52.0); HEMOGLOBIN 10.5 g/dl (13.5-17.5); MEAN CORPUSCULAR HEMOGLOBIN 30.3 pg (27.0-33.0); MEAN CORPUSCULAR HGB CONC 31.4 g/dl (32.0-36.5); MEAN CORPUSCULAR VOLUME 96.3 fl (80.0-96.0); PLATELET COUNT, AUTOMATED 187 10^3/uL (150-450); RED BLOOD COUNT 3.47 10^6/uL (4.30-6.10); WHITE BLOOD COUNT 9.9 10^3/uL (4.0-10.0)
[2022-06-11 05:44] LABS: BLOOD UREA NITROGEN 22 MG/DL (7-18); CALCIUM LEVEL 8.8 MG/DL (8.8-10.2); CARBON DIOXIDE LEVEL 32 MEQ/L (21-32); CHLORIDE LEVEL 110 MEQ/L (98-107); CREATININE FOR GFR 1.16 MG/DL (0.70-1.30); GLOMERULAR FILTRATION RATE > 60.0 (>49); GLUCOSE, FASTING 87 MG/DL (70-100); POTASSIUM SERUM 4.3 MEQ/L (3.5-5.1); SODIUM LEVEL 143 MEQ/L (136-145); VANCOMYCIN LEVEL TROUGH 18.1 UG/ML (10.0-20.0)
[2022-06-11] MEDS: LEVOTHYROXINE 88MCG TABLET (0.088 MG) PO SCH (05:56)
[2022-06-11] MEDS: VANCOMYCIN HCL 750 MG, VIAL MATE ADAPTER 1 EACH in D5W 250 ML IV SCH (05:57)
[2022-06-11] MEDS: metroNIDAZOLE 500 MG in IV 1 EA IV SCH ×2 (07:02→14:42)
[2022-06-11] MEDS: ATOVAQUONE SUSP 750MG/5ML 210 ML BTL PO SCH ×2 (09:18→21:40)
[2022-06-11] MEDS: HEPARIN SOD (PORCINE) 5000UNITS/ML 1ML VIAL/SYRINGE SQ SCH ×2 (09:18→21:39)
[2022-06-11] MEDS: ASPIRIN ENTERIC 325 MG TAB PO SCH (09:19)
[2022-06-11] MEDS: guaiFENesin ER 600 MG TAB PO SCH ×2 (09:19→21:39)
[2022-06-11] MEDS: LACTOBACILLUS ACIDOPHILUS CAP (BACID) PO SCH ×2 (09:19→21:39)
[2022-06-11] MEDS: predniSONE 20 MG TAB PO SCH (09:19)
[2022-06-11] MEDS: ACYCLOVIR 200 MG CAPSULE PO SCH ×2 (09:19→21:39)
[2022-06-11 14:00] VITALS: BP 128/82
[2022-06-11 20:00] VITALS: BP 118/74
[2022-06-11] MEDS ORDERED: VANCOMYCIN HCL 1,000 MG, VIAL MATE ADAPTER 1 EACH in D5W 250 ML IV SCH (21:00)
[2022-06-11] MEDS: MIRTAZAPINE 15 MG TAB PO SCH (21:39)
[2022-06-12] MEDS: CEFEPIME HCL 2 GM in D5W MINI-BAG PLUS 50 ML IV SCH ×2 (01:56→13:46)
[2022-06-12 05:32] VITALS: BP 117/65
[2022-06-12 06:46] LABS: HEMATOCRIT 39.6 % (42.0-52.0); MEAN CORPUSCULAR HEMOGLOBIN 30.4 pg (27.0-33.0); MEAN CORPUSCULAR HGB CONC 31.8 g/dl (32.0-36.5); MEAN CORPUSCULAR VOLUME 95.4 fl (80.0-96.0); PLATELET COUNT, AUTOMATED 285 10^3/uL (150-450); RED BLOOD COUNT 4.15 10^6/uL (4.30-6.10); WHITE BLOOD COUNT 13.1 10^3/uL (4.0-10.0)
[2022-06-12 06:53] LABS: HEMOGLOBIN 12.6 g/dl (13.5-17.5)
[2022-06-12] MEDS: LEVOTHYROXINE 88MCG TABLET (0.088 MG) PO SCH (06:56)
[2022-06-12 07:15] LABS: BLOOD UREA NITROGEN 25 MG/DL (7-18); CALCIUM LEVEL 9.5 MG/DL (8.8-10.2); CARBON DIOXIDE LEVEL 30 MEQ/L (21-32); CHLORIDE LEVEL 107 MEQ/L (98-107); CREATININE FOR GFR 1.21 MG/DL (0.70-1.30); GLOMERULAR FILTRATION RATE > 60.0 (>49); GLUCOSE, FASTING 92 MG/DL (70-100); POTASSIUM SERUM 4.4 MEQ/L (3.5-5.1); SODIUM LEVEL 142 MEQ/L (136-145)
[2022-06-12] MEDS: ATOVAQUONE SUSP 750MG/5ML 210 ML BTL PO SCH ×2 (09:06→22:08)
[2022-06-12] MEDS: predniSONE 20 MG TAB PO SCH (09:07)
[2022-06-12] MEDS: guaiFENesin ER 600 MG TAB PO SCH ×2 (09:07→22:10)
[2022-06-12] MEDS: LACTOBACILLUS ACIDOPHILUS CAP (BACID) PO SCH ×2 (09:07→22:10)
[2022-06-12] MEDS: HEPARIN SOD (PORCINE) 5000UNITS/ML 1ML VIAL/SYRINGE SQ SCH ×2 (09:07→22:09)
[2022-06-12] MEDS: ACYCLOVIR 200 MG CAPSULE PO SCH ×2 (09:07→22:10)
[2022-06-12] MEDS: ASPIRIN ENTERIC 325 MG TAB PO SCH (09:07)
[2022-06-12 14:00] VITALS: BP 124/82
[2022-06-12 22:00] VITALS: BP 123/77
[2022-06-12] MEDS: MIRTAZAPINE 15 MG TAB PO SCH (22:10)
[2022-06-13 06:24] LABS: BASO # 0.1 10^3/uL (0.0-0.2); BASO % 0.6 % (0.0-1.0); EOS # 0.6 10^3/uL (0.0-0.5); EOS % 4.6 % (0.0-3.0); HEMATOCRIT 38.7 % (42.0-52.0); LYMPH # 0.1 10^3/uL (1.5-5.0); LYMPH % 0.6 % (24.0-44.0); MEAN CORPUSCULAR HEMOGLOBIN 30.2 pg (27.0-33.0); MEAN CORPUSCULAR VOLUME 97.5 fl (80.0-96.0); MONO # 0.5 10^3/uL (0.0-0.8); MONO % 4.1 % (2.0-8.0); NEUTROPHILS # 10.8 10^3/uL (1.5-8.5); NEUTROPHILS % 87.3 % (36.0-66.0); PLATELET COUNT, AUTOMATED 253 10^3/uL (150-450); RED BLOOD COUNT 3.97 10^6/uL (4.30-6.10); WHITE BLOOD COUNT 12.3 10^3/uL (4.0-10.0)
[2022-06-13] MEDS: LEVOTHYROXINE 88MCG TABLET (0.088 MG) PO SCH (06:34)
[2022-06-13 06:54] LABS: CALCIUM LEVEL 9.1 MG/DL (8.8-10.2); CREATININE FOR GFR 1.32 MG/DL (0.70-1.30); GLOMERULAR FILTRATION RATE 58.1 (>49); POTASSIUM SERUM 4.4 MEQ/L (3.5-5.1)
[2022-06-13] MEDS: guaiFENesin ER 600 MG TAB PO SCH (09:00)
[2022-06-13] MEDS: LACTOBACILLUS ACIDOPHILUS CAP (BACID) PO SCH (09:01)
[2022-06-13] MEDS: ACYCLOVIR 200 MG CAPSULE PO SCH (09:02)
[2022-06-13] MEDS: predniSONE 20 MG TAB PO SCH (09:02)
[2022-06-13] MEDS: ATOVAQUONE SUSP 750MG/5ML 210 ML BTL PO SCH (09:03)
[2022-06-13] MEDS: ASPIRIN ENTERIC 325 MG TAB PO SCH (09:03)
[2022-06-13] MEDS: HEPARIN SOD (PORCINE) 5000UNITS/ML 1ML VIAL/SYRINGE SQ SCH (09:03)
[2022-06-13] MEDS ORDERED: NS 1,000 ML IV SCH (10:20)
[2022-06-13] MEDS ORDERED: RISATAB3 PO (10:46)
[2022-06-13] MEDS ORDERED: ATOV5SUS PO (10:46)
[2022-06-13] MEDS ORDERED: PRED10PA2 PO (10:48)
[2022-06-13 10:53] LABS: C REACTIVE PROTEIN QUANTITATIV 0.94 MG/DL (0.00-0.30)
[2022-06-13] MEDS ORDERED: BACT800T5 PO (10:53)
[2022-06-13 11:22] LABS: ERYTHROCYTE SEDIMENTATION RATE 37 mm/hr (0-20)
[2022-06-13 14:00] VITALS: BP 123/80
[2022-06-13 14:38] LABS: CALCIUM LEVEL 9.5 MG/DL (8.8-10.2); CREATININE FOR GFR 1.32 MG/DL (0.70-1.30); GLOMERULAR FILTRATION RATE 58.1 (>49); POTASSIUM SERUM 4.4 MEQ/L (3.5-5.1)
[2022-06-15] MEDS ORDERED: AZIT500T5 PO (15:42)
[2022-06-15] MEDS ORDERED: RIFA30CA PO (15:42)
[2022-06-15] MEDS ORDERED: ETHA1TAB2 PO (15:42)
[2022-06-16] MEDS ORDERED: BACTRIM 160MG/800MG DS TAB PO SCH (09:00)
[2022-06-19] MEDS ORDERED: NYST50SS PO (11:04)
== END 2022-06-13 16:15 | disposition home health service (06) | DRG 871 ==
LOC: M ED 09:29 → M ED INP 14:15 → ENRESERV 05-16 01:28 → M MSPAV 05-16 02:00 → M ICU 05-22 20:51 → M MSPAV 06-02 13:45
PROVIDERS: ADMIT Family Medicine; ATTEND General Practice
PROC: 0B9K8ZX Drainage of Right Lung, Via Natural or Artificial Opening Endoscopic, Diagnostic (ICD-10-PCS; 2022-05-22)
PROC: 0BB Respiratory System, Excision (ICD-10-PCS; 2022-05-22)
PROC: 02HV33Z Insertion of Infusion Device into Superior Vena Cava, Percutaneous Approach (ICD-10-PCS; principal; 2022-05-25 15:00)
DX: A41.9 Sepsis, unspecified organism (principal); U07.1 COVID-19; J96.01 Acute respiratory failure with hypoxia; R65.21 Severe sepsis with septic shock; B59 Pneumocystosis; J12.82 Pneumonia due to coronavirus disease 2019; C90.00 Multiple myeloma not having achieved remission; N18.4 Chronic kidney disease, stage 4 (severe); D84.9 Immunodeficiency, unspecified; N17.9 Acute kidney failure, unspecified; E87.2 Acidosis; D61.818 Other pancytopenia; D80.1 Nonfamilial hypogammaglobulinemia; E27.40 Unspecified adrenocortical insufficiency; B49 Unspecified mycosis; E87.0 Hyperosmolality and hypernatremia; E87.1 Hypo-osmolality and hyponatremia; I12.9 Hypertensive chronic kidney disease with stage 1 through stage 4 chronic kidney disease, or unspecified chronic kidney disease; E03.9 Hypothyroidism, unspecified; E83.42 Hypomagnesemia; I95.9 Hypotension, unspecified; E87.5 Hyperkalemia; E86.0 Dehydration; F41.9 Anxiety disorder, unspecified; F32.A Depression, unspecified; R19.7 Diarrhea, unspecified; Z86.73 Personal history of transient ischemic attack (TIA), and cerebral infarction without residual deficits; Z79.899 Other long term (current) drug therapy; D86.0 Sarcoidosis of lung

== ENCOUNTER → 2022-05-22 | Outpatient (CLI) | payer MEDICARE, OTHER ==
[~2022-05-22] MED LIST changes: +ATOV5SUS PO; +BACT800T5 PO; +ETHA1TAB2 PO; +LEVO100C PO; +LIDOCAINE 2% 100MG/5ML SDV (FOR ANES.) As Ordered ONE; +LIDOCAINE 2% INJ 100 MG/5 ML SYRINGE As Ordered ONE; +MIDAZOLAM INJ 2MG/2ML VIAL (J2250 PER 1MG) As Ordered ONE; +NYST50SS PO; +ONDANSETRON 4MG 2ML VIAL As Ordered ONE; +PHENYLephrine 500MCG 5ML (100MCG/ML) SYRINGE As Ordered ONE; +PRED10PA2 PO; +RIFA30CA PO; +RISATAB3 PO; +ROCURONIUM BROMIDE 50 MG/5 ML VIAL As Ordered ONE; +[UNRECOGNIZED DRUG - CODE] IV; +dexameTHASONE 4 MG/ML 1ML VIAL (J1100 PER 1MG) As Ordered ONE; +fentaNYL 100 MCG/2 ML INJECTION As Ordered ONE; +propofoL 200 MG/20 ML VIAL As Ordered ONE
== END ==
LOC: M RAD 14:30
PROVIDERS: ATTEND Internal Medicine Nephrology
DX: R09.02 Hypoxemia (principal); R47.02 Dysphasia
CPT/HCPCS: 71045; J1100; J2250; J2370; J2405; J3010

== ENCOUNTER → 2022-06-16 | Outpatient (CLI) | payer MEDICARE, OTHER ==
[~2022-06-16] MED LIST changes: -LEVO100C PO; -LIDOCAINE 2% 100MG/5ML SDV (FOR ANES.) As Ordered ONE; -LIDOCAINE 2% INJ 100 MG/5 ML SYRINGE As Ordered ONE; -MIDAZOLAM INJ 2MG/2ML VIAL (J2250 PER 1MG) As Ordered ONE; -ONDANSETRON 4MG 2ML VIAL As Ordered ONE; -PHENYLephrine 500MCG 5ML (100MCG/ML) SYRINGE As Ordered ONE; -ROCURONIUM BROMIDE 50 MG/5 ML VIAL As Ordered ONE; -dexameTHASONE 4 MG/ML 1ML VIAL (J1100 PER 1MG) As Ordered ONE; -fentaNYL 100 MCG/2 ML INJECTION As Ordered ONE; -propofoL 200 MG/20 ML VIAL As Ordered ONE
[2022-06-16 12:47] LABS: BASO # 0.1 10^3/uL (0.0-0.2); BASO % 0.7 % (0.0-1.0); EOS # 0.5 10^3/uL (0.0-0.5); EOS % 4.5 % (0.0-3.0); HEMATOCRIT 43.6 % (42.0-52.0); HEMOGLOBIN 13.2 g/dl (13.5-17.5); LYMPH # 0.1 10^3/uL (1.5-5.0); LYMPH % 0.9 % (24.0-44.0); MEAN CORPUSCULAR HEMOGLOBIN 30.7 pg (27.0-33.0); MEAN CORPUSCULAR HGB CONC 30.3 g/dl (32.0-36.5); MEAN CORPUSCULAR VOLUME 101.4 fl (80.0-96.0); MONO # 0.6 10^3/uL (0.0-0.8); MONO % 5.1 % (2.0-8.0); NEUTROPHILS # 10.1 10^3/uL (1.5-8.5); NEUTROPHILS % 87.3 % (36.0-66.0); PLATELET COUNT, AUTOMATED 309 10^3/uL (150-450); WHITE BLOOD COUNT 11.6 10^3/uL (4.0-10.0)
[2022-06-16 13:52] LABS: ALBUMIN 2.9 GM/DL (3.2-5.2); ALT/SGPT 17 U/L (12-78); BILIRUBIN,TOTAL 0.4 MG/DL (0.2-1.0); BLOOD UREA NITROGEN 36 MG/DL (7-18); CALCIUM LEVEL 9.9 MG/DL (8.8-10.2); CARBON DIOXIDE LEVEL 31 MEQ/L (21-32); CHLORIDE LEVEL 102 MEQ/L (98-107); CREATININE FOR GFR 1.58 MG/DL (0.70-1.30); GLOMERULAR FILTRATION RATE 47.2 (>49); GLUCOSE, FASTING 129 MG/DL (70-100); IMMUNOGLOBULIN A < 7.8 MG/DL (70-400); IMMUNOGLOBULIN G 180 MG/DL (681-1648); IMMUNOGLOBULIN M 9.6 MG/DL (40-230); POTASSIUM SERUM 3.8 MEQ/L (3.5-5.1); SODIUM LEVEL 140 MEQ/L (136-145); TOTAL PROTEIN 5.6 GM/DL (6.4-8.2)
[2022-06-17 17:06] LABS: FREE KAPPA LIGHT CHAINS SERUM 3.1 mg/L (3.3-19.4); FREE LAMBDA LIGHT CHAINS SERUM 3.9 mg/L (5.7-26.3); KAPPA/LAMBDA RATIO SERUM 0.79 (0.26-1.65)
[2022-06-20 15:27] LABS: ALBUMIN 3.35 GM/DL (3.29-5.55); ALBUMIN % 59.9 % (55.8-66.1); ALPHA-1-GLOBULINS 0.45 GM/DL (0.17-0.41); ALPHA-2-GLOBULINS 0.98 GM/DL (0.42-0.99); ALPHA-2-GLOBULINS % 17.5 % (7.1-11.8); BETA-1-GLOBULINS 0.39 GM/DL (0.28-0.60); BETA-2-GLOBULINS % 4.1 % (3.2-6.5); GAMMA GLOBULIN % 3.5 % (11.1-18.8)
[2022-06-20 15:28] LABS: BETA-2-GLOBULINS 0.23 GM/DL (0.19-0.55)
== END ==
LOC: M ADAMS 08:16
PROVIDERS: ATTEND Internal Medicine Medical Oncology
DX: C90.00 Multiple myeloma not having achieved remission (principal)

== ENCOUNTER 2022-06-21 10:02 | Outpatient (CLI) | payer MEDICARE, OTHER ==
[~2022-06-21] VITALS: Ht 175.3 cm; Wt 65.0 kg
[2022-06-21 10:05] VITALS: BP 115/72
[2022-06-21] MEDS ORDERED: diphenhydrAMINE 25MG CAP PO ONE (10:30)
[2022-06-21] MEDS ORDERED: ACETAMINOPHEN TAB 650MG DOSE (2X325MG) PO ONE (10:30)
[2022-06-21 10:59] VITALS: BP 117/70
[2022-06-21] MEDS ORDERED: IMMUNE GLOBULIN 10% 20 GM in IV 1 EA IV ONE (11:00)
[2022-06-21 12:00] VITALS: BP 113/74
[2022-06-21 13:00] VITALS: BP 118/75
== END 2022-06-21 13:00 | disposition home or self-care (01) ==
LOC: M INFU 10:02
PROVIDERS: ATTEND Internal Medicine Medical Oncology
DX: D80.1 Nonfamilial hypogammaglobulinemia (principal)
CPT/HCPCS: 96365; 96366; J1459

== ENCOUNTER → 2022-06-23 | Outpatient (REF) | payer MEDICARE, OTHER | LOC: M LAB REF 16:51 | PROVIDERS: ATTEND Internal Medicine Nephrology | DX: E03.9 Hypothyroidism, unspecified (principal) ==

== ENCOUNTER → 2022-07-03 | Outpatient (CLI) | payer MEDICARE, OTHER | LOC: M ADAMS 13:19 | PROVIDERS: ATTEND Internal Medicine Infectious Disease | DX: B59 Pneumocystosis (principal) ==

== ENCOUNTER → 2022-07-03 | Outpatient (CLI) | payer MEDICARE, OTHER ==
[2022-07-03 13:40] LABS: BASO % 0.8 % (0.0-1.0); EOS # 0.1 10^3/uL (0.0-0.5); EOS % 2.9 % (0.0-3.0); HEMATOCRIT 42.2 % (42.0-52.0); HEMOGLOBIN 13.5 g/dl (13.5-17.5); LYMPH # 0.5 10^3/uL (1.5-5.0); LYMPH % 9.2 % (24.0-44.0); MEAN CORPUSCULAR HEMOGLOBIN 32.3 pg (27.0-33.0); MONO # 0.9 10^3/uL (0.0-0.8); MONO % 17.8 % (2.0-8.0); NEUTROPHILS # 3.4 10^3/uL (1.5-8.5); NEUTROPHILS % 68.7 % (36.0-66.0); PLATELET COUNT, AUTOMATED 182 10^3/uL (150-450); RED BLOOD COUNT 4.18 10^6/uL (4.30-6.10); WHITE BLOOD COUNT 4.9 10^3/uL (4.0-10.0)
[2022-07-03 16:11] LABS: ALBUMIN 3.2 GM/DL (3.2-5.2); ALT/SGPT 11 U/L (12-78); BILIRUBIN,TOTAL 0.3 MG/DL (0.2-1.0); BLOOD UREA NITROGEN 27 MG/DL (7-18); CALCIUM LEVEL 9.1 MG/DL (8.8-10.2); CARBON DIOXIDE LEVEL 25 MEQ/L (21-32); CHLORIDE LEVEL 111 MEQ/L (98-107); CREATININE FOR GFR 1.56 MG/DL (0.70-1.30); GLOMERULAR FILTRATION RATE 47.9 (>49); GLUCOSE, FASTING 110 MG/DL (70-100); IMMUNOGLOBULIN A < 7.8 MG/DL (70-400); IMMUNOGLOBULIN G 452 MG/DL (681-1648); IMMUNOGLOBULIN M 28.2 MG/DL (40-230); POTASSIUM SERUM 4.3 MEQ/L (3.5-5.1); SODIUM LEVEL 143 MEQ/L (136-145); TOTAL PROTEIN 5.9 GM/DL (6.4-8.2)
[2022-07-04 17:07] LABS: FREE KAPPA LIGHT CHAINS SERUM 5.9 mg/L (3.3-19.4); FREE LAMBDA LIGHT CHAINS SERUM 9.4 mg/L (5.7-26.3); KAPPA/LAMBDA RATIO SERUM 0.63 (0.26-1.65)
== END ==
LOC: M ADAMS 08:12
PROVIDERS: ATTEND Internal Medicine Medical Oncology
DX: C90.00 Multiple myeloma not having achieved remission (principal)

== ENCOUNTER → 2022-07-07 | Outpatient (REF) | payer MEDICARE, OTHER ==
[~2022-07-07] MED LIST changes: +LEVO100C PO
== END ==
LOC: M LAB REF 13:40
PROVIDERS: ATTEND Internal Medicine Infectious Disease
DX: B59 Pneumocystosis (principal)

== ENCOUNTER → 2022-07-11 | Outpatient (REF) | payer MEDICARE, OTHER | LOC: M LAB REF 16:47 | PROVIDERS: ATTEND Internal Medicine Nephrology | DX: E03.9 Hypothyroidism, unspecified (principal) ==

== ENCOUNTER → 2022-07-12 | Outpatient (CLI) | payer MEDICARE, OTHER | LOC: M PLAIMG 08:44 | PROVIDERS: ATTEND Internal Medicine Infectious Disease | DX: J18.9 Pneumonia, unspecified organism (principal) ==

== ENCOUNTER 2022-07-19 10:40 | Outpatient (CLI) | payer MEDICARE, OTHER ==
[~2022-07-19] VITALS: Ht 175.3 cm; Wt 65.0 kg
[2022-07-19 10:40] VITALS: BP 146/76
[~2022-07-19 10:40] MED LIST changes: +ACETAMINOPHEN TAB 650MG DOSE (2X325MG) PO ONE; +IMMUNE GLOBULIN 10% 20 GM in IV 1 EA IV ONE; +diphenhydrAMINE 25MG CAP PO ONE
[2022-07-19 11:40] VITALS: BP 137/81
[2022-07-19 12:10] VITALS: BP 141/77
[2022-07-19 12:40] VITALS: BP 135/76
[2022-07-19 13:40] VITALS: BP 144/78
[2022-07-19] MEDS ORDERED: DECA4TAB PO (16:18)
== END 2022-07-19 13:40 | disposition home or self-care (01) ==
LOC: M INFU 10:40
PROVIDERS: ATTEND Internal Medicine Medical Oncology
DX: D80.1 Nonfamilial hypogammaglobulinemia (principal)
CPT/HCPCS: 96365; 96366; J1459

== ENCOUNTER → 2022-07-31 | Outpatient (CLI) | payer MEDICARE, OTHER ==
[~2022-07-31] MED LIST changes: -ACETAMINOPHEN TAB 650MG DOSE (2X325MG) PO ONE; -IMMUNE GLOBULIN 10% 20 GM in IV 1 EA IV ONE; -diphenhydrAMINE 25MG CAP PO ONE
[2022-07-31 12:52] LABS: BASO # 0.1 10^3/uL (0.0-0.2); BASO % 2.3 % (0.0-1.0); EOS # 0.1 10^3/uL (0.0-0.5); EOS % 3.4 % (0.0-3.0); HEMATOCRIT 44.8 % (42.0-52.0); HEMOGLOBIN 14.5 g/dl (13.5-17.5); LYMPH # 0.3 10^3/uL (1.5-5.0); MEAN CORPUSCULAR HEMOGLOBIN 32.2 pg (27.0-33.0); MEAN CORPUSCULAR HGB CONC 32.4 g/dl (32.0-36.5); MEAN CORPUSCULAR VOLUME 99.6 fl (80.0-96.0); MONO # 0.7 10^3/uL (0.0-0.8); MONO % 20.9 % (2.0-8.0); NEUTROPHILS # 2.3 10^3/uL (1.5-8.5); NEUTROPHILS % 65.1 % (36.0-66.0); PLATELET COUNT, AUTOMATED 203 10^3/uL (150-450); WHITE BLOOD COUNT 3.5 10^3/uL (4.0-10.0)
[2022-07-31 14:44] LABS: ALBUMIN 3.6 GM/DL (3.2-5.2); ALT/SGPT 20 U/L (12-78); BILIRUBIN,TOTAL 0.4 MG/DL (0.2-1.0); BLOOD UREA NITROGEN 32 MG/DL (7-18); CALCIUM LEVEL 9.4 MG/DL (8.8-10.2); CARBON DIOXIDE LEVEL 28 MEQ/L (21-32); CHLORIDE LEVEL 106 MEQ/L (98-107); CREATININE FOR GFR 1.33 MG/DL (0.70-1.30); GLOMERULAR FILTRATION RATE 57.6 (>49); GLUCOSE, FASTING 90 MG/DL (70-100); IMMUNOGLOBULIN A < 7.8 MG/DL (70-400); IMMUNOGLOBULIN G 640 MG/DL (681-1648); IMMUNOGLOBULIN M 25.4 MG/DL (40-230); POTASSIUM SERUM 5.3 MEQ/L (3.5-5.1); SODIUM LEVEL 140 MEQ/L (136-145); TOTAL PROTEIN 6.5 GM/DL (6.4-8.2)
[2022-08-01 12:22] LABS: ALBUMIN 4.08 GM/DL (3.29-5.55); ALBUMIN % 62.7 % (55.8-66.1); ALPHA-1-GLOBULIN % 4.4 % (2.9-4.9); ALPHA-1-GLOBULINS 0.29 GM/DL (0.17-0.41); ALPHA-2-GLOBULINS 0.86 GM/DL (0.42-0.99); ALPHA-2-GLOBULINS % 13.3 % (7.1-11.8); BETA-1-GLOBULINS 0.46 GM/DL (0.28-0.60); BETA-2-GLOBULINS 0.25 GM/DL (0.19-0.55); BETA-2-GLOBULINS % 3.9 % (3.2-6.5); GAMMA GLOBULIN % 8.7 % (11.1-18.8); GAMMA GLOBULINS 0.57 GM/DL (0.65-1.58)
[2022-08-01 18:09] LABS: FREE KAPPA LIGHT CHAINS SERUM 1.4 mg/L (3.3-19.4); FREE LAMBDA LIGHT CHAINS SERUM 3.2 mg/L (5.7-26.3); KAPPA/LAMBDA RATIO SERUM 0.44 (0.26-1.65)
== END ==
LOC: M ADAMS 11:01
PROVIDERS: ATTEND Internal Medicine Medical Oncology
DX: C90.00 Multiple myeloma not having achieved remission (principal)

== ENCOUNTER 2022-08-16 11:55 | Outpatient (CLI) | payer MEDICARE, OTHER ==
[~2022-08-16] VITALS: Ht 177.8 cm; Wt 55.4 kg
[2022-08-16 11:57] VITALS: BP 146/77
[2022-08-16] MEDS ORDERED: diphenhydrAMINE 25MG CAP PO ONE (12:00)
[2022-08-16] MEDS ORDERED: IMMUNE GLOBULIN 10% 20 GM in IV 1 EA IV ONE (12:00)
[2022-08-16] MEDS ORDERED: ACETAMINOPHEN TAB 650MG DOSE (2X325MG) PO ONE (12:00)
[2022-08-16 12:40] VITALS: BP 145/73
[2022-08-16 13:00] VITALS: BP 133/77
[2022-08-16 14:00] VITALS: BP 141/75
[2022-08-16 14:37] VITALS: BP 142/75
== END 2022-08-16 14:45 | disposition home or self-care (01) ==
LOC: M INFU 11:55
PROVIDERS: ATTEND Internal Medicine Medical Oncology
DX: D80.1 Nonfamilial hypogammaglobulinemia (principal)
CPT/HCPCS: 96365; J1459

== ENCOUNTER → 2022-08-28 | Outpatient (CLI) | payer MEDICARE, OTHER ==
[2022-08-28 13:31] LABS: BASO # 0.1 10^3/uL (0.0-0.2); BASO % 1.7 % (0.0-1.0); EOS # 0.2 10^3/uL (0.0-0.5); EOS % 4.7 % (0.0-3.0); HEMATOCRIT 48.6 % (42.0-52.0); HEMOGLOBIN 15.6 g/dl (13.5-17.5); LYMPH # 0.2 10^3/uL (1.5-5.0); LYMPH % 6.7 % (24.0-44.0); MEAN CORPUSCULAR HEMOGLOBIN 32.7 pg (27.0-33.0); MEAN CORPUSCULAR HGB CONC 32.1 g/dl (32.0-36.5); MEAN CORPUSCULAR VOLUME 101.9 fl (80.0-96.0); MONO # 0.8 10^3/uL (0.0-0.8); MONO % 21.9 % (2.0-8.0); NEUTROPHILS # 2.3 10^3/uL (1.5-8.5); NEUTROPHILS % 64.4 % (36.0-66.0); PLATELET COUNT, AUTOMATED 196 10^3/uL (150-450); RED BLOOD COUNT 4.77 10^6/uL (4.30-6.10); WHITE BLOOD COUNT 3.6 10^3/uL (4.0-10.0)
[2022-08-28 14:54] LABS: ALBUMIN 3.7 GM/DL (3.2-5.2); ALT/SGPT 23 U/L (12-78); BILIRUBIN,TOTAL 0.5 MG/DL (0.2-1.0); BLOOD UREA NITROGEN 38 MG/DL (7-18); CALCIUM LEVEL 9.3 MG/DL (8.8-10.2); CARBON DIOXIDE LEVEL 27 MEQ/L (21-32); CHLORIDE LEVEL 106 MEQ/L (98-107); CREATININE FOR GFR 1.49 MG/DL (0.70-1.30); GLOMERULAR FILTRATION RATE 50.5 (>49); GLUCOSE, FASTING 124 MG/DL (70-100); IMMUNOGLOBULIN A < 7.8 MG/DL (70-400); IMMUNOGLOBULIN G 689 MG/DL (681-1648); POTASSIUM SERUM 4.2 MEQ/L (3.5-5.1); SODIUM LEVEL 140 MEQ/L (136-145); TOTAL PROTEIN 6.4 GM/DL (6.4-8.2)
[2022-08-29 17:07] LABS: FREE KAPPA LIGHT CHAINS SERUM 1.2 mg/L (3.3-19.4); FREE LAMBDA LIGHT CHAINS SERUM 1.8 mg/L (5.7-26.3); KAPPA/LAMBDA RATIO SERUM 0.67 (0.26-1.65)
[2022-08-30 07:36] LABS: ALBUMIN % 62.6 % (55.8-66.1); ALPHA-1-GLOBULIN % 4.3 % (2.9-4.9); ALPHA-2-GLOBULINS % 12.6 % (7.1-11.8); BETA-2-GLOBULINS % 3.9 % (3.2-6.5)
[2022-08-30 07:37] LABS: ALBUMIN 4.01 GM/DL (3.29-5.55); ALPHA-1-GLOBULINS 0.28 GM/DL (0.17-0.41); ALPHA-2-GLOBULINS 0.81 GM/DL (0.42-0.99); BETA-1-GLOBULINS 0.45 GM/DL (0.28-0.60); BETA-2-GLOBULINS 0.25 GM/DL (0.19-0.55); GAMMA GLOBULIN % 9.6 % (11.1-18.8); GAMMA GLOBULINS 0.61 GM/DL (0.65-1.58)
== END ==
LOC: M LABDRWAD 09:11
PROVIDERS: ATTEND Internal Medicine Medical Oncology
DX: C90.00 Multiple myeloma not having achieved remission (principal)

== ENCOUNTER 2022-09-13 12:00 | Outpatient (CLI) | payer MEDICARE, OTHER ==
[~2022-09-13] VITALS: Ht 177.8 cm; Wt 60.5 kg
[~2022-09-13 12:00] MED LIST changes: +ACETAMINOPHEN TAB 650MG DOSE (2X325MG) PO ONE; +IMMUNE GLOBULIN 10% 20 GM in IV 1 EA IV ONE; +diphenhydrAMINE 25MG CAP PO ONE
[2022-09-13 12:11] VITALS: BP 144/78
[2022-09-13 13:45] VITALS: BP 126/75
[2022-09-13 14:15] VITALS: BP 145/74
[2022-09-13 15:10] VITALS: BP 147/87
== END 2022-09-13 15:10 | disposition home or self-care (01) ==
LOC: M INFU 12:00
PROVIDERS: ATTEND Internal Medicine Medical Oncology
DX: D80.1 Nonfamilial hypogammaglobulinemia (principal)
CPT/HCPCS: 96365; 96366; J1459

== ENCOUNTER → 2022-09-25 | Outpatient (CLI) | payer MEDICARE, OTHER ==
[~2022-09-25] MED LIST changes: -ACETAMINOPHEN TAB 650MG DOSE (2X325MG) PO ONE; -IMMUNE GLOBULIN 10% 20 GM in IV 1 EA IV ONE; -diphenhydrAMINE 25MG CAP PO ONE
[2022-09-25 13:55] LABS: BASO # 0.1 10^3/uL (0.0-0.2); EOS # 0.3 10^3/uL (0.0-0.5); EOS % 4.2 % (0.0-3.0); HEMOGLOBIN 16.2 g/dl (13.5-17.5); LYMPH # 0.4 10^3/uL (1.5-5.0); LYMPH % 5.2 % (24.0-44.0); MEAN CORPUSCULAR HEMOGLOBIN 31.8 pg (27.0-33.0); MEAN CORPUSCULAR HGB CONC 31.8 g/dl (32.0-36.5); MONO # 1.3 10^3/uL (0.0-0.8); MONO % 19.7 % (2.0-8.0); NEUTROPHILS # 4.6 10^3/uL (1.5-8.5); NEUTROPHILS % 69.3 % (36.0-66.0); PLATELET COUNT, AUTOMATED 170 10^3/uL (150-450); WHITE BLOOD COUNT 6.7 10^3/uL (4.0-10.0)
[2022-09-25 14:48] LABS: ALBUMIN 3.9 G/DL (3.2-5.2); BILIRUBIN,TOTAL 0.4 MG/DL (0.3-1.2); CALCIUM LEVEL 8.9 MG/DL (8.3-10.6); CREATININE FOR GFR 1.34 MG/DL (0.70-1.30); GLOMERULAR FILTRATION RATE 57.1 (>49); POTASSIUM SERUM 4.2 MMOL/L (3.5-5.1); TOTAL PROTEIN 6.3 G/DL (5.7-8.2); TOTAL PROTEIN 6.3 GM/DL (6.4-8.2)
[2022-09-25 15:18] LABS: IMMUNOGLOBULIN M 20.99999 MG/DL (50-300)
[2022-09-26 18:09] LABS: FREE KAPPA LIGHT CHAINS SERUM 1.3 mg/L (3.3-19.4); FREE LAMBDA LIGHT CHAINS SERUM 2.1 mg/L (5.7-26.3); KAPPA/LAMBDA RATIO SERUM 0.62 (0.26-1.65)
== END ==
LOC: M LABDRWAD 08:31
PROVIDERS: ATTEND Internal Medicine Medical Oncology
DX: C90.00 Multiple myeloma not having achieved remission (principal)

== ENCOUNTER → 2022-10-09 | Outpatient (REF) | payer MEDICARE, OTHER | LOC: M LABDRWAD 13:06 | PROVIDERS: ATTEND Internal Medicine Critical Care Medicine | DX: D86.1 Sarcoidosis of lymph nodes (principal) ==

== ENCOUNTER 2022-10-11 11:35 | Outpatient (CLI) | payer MEDICARE, OTHER ==
[~2022-10-11] VITALS: Ht 177.8 cm; Wt 60.5 kg
[2022-10-11 11:35] VITALS: BP 134/75
[2022-10-11] MEDS ORDERED: IMMUNE GLOBULIN 10% 20 GM in IV 1 EA IV ONE (12:00)
[2022-10-11] MEDS ORDERED: ACETAMINOPHEN TAB 650MG DOSE (2X325MG) PO ONE (12:00)
[2022-10-11] MEDS ORDERED: diphenhydrAMINE 25MG CAP PO ONE (12:00)
[2022-10-11 12:15] VITALS: BP 125/79
[2022-10-11 12:45] VITALS: BP 131/59
[2022-10-11 13:15] VITALS: BP 119/72
[2022-10-11 14:25] VITALS: BP 120/76
== END 2022-10-11 14:30 | disposition home or self-care (01) ==
LOC: M INFU 11:35
PROVIDERS: ATTEND Internal Medicine Medical Oncology
DX: D80.1 Nonfamilial hypogammaglobulinemia (principal)
CPT/HCPCS: 96365; 96366; J1459

== ENCOUNTER → 2022-10-12 | Outpatient (CLI) | payer MEDICARE, OTHER | LOC: M PLAIMG 10:31 | PROVIDERS: ATTEND Internal Medicine Critical Care Medicine | DX: R91.8 Other nonspecific abnormal finding of lung field (principal) ==

== ENCOUNTER → 2022-10-17 | Outpatient (REF) | payer MEDICARE, OTHER | LOC: M LAB REF 17:13 | PROVIDERS: ATTEND Internal Medicine Nephrology | DX: E03.9 Hypothyroidism, unspecified (principal) ==

== ENCOUNTER → 2022-10-20 | Outpatient (REF) | payer MEDICARE, OTHER | LOC: M LAB REF 12:54 | PROVIDERS: ATTEND Internal Medicine Critical Care Medicine | DX: R05.1 Acute cough (principal) ==

== ENCOUNTER 2022-10-31 16:04 | Observation (INO) | payer MEDICARE, OTHER ==
[~2022-10-31] VITALS: Ht 177.8 cm; Wt 62.2 kg
[~2022-10-31 16:04] MED LIST changes: -ALBU6.7H6 INH; -ATOV750S PO; -MAGN400T2 PO; +NYST-38 PO; -NYST50SS PO; -TUSS15SY2 PO
[2022-10-31] MEDS ORDERED: NS 1,000 ML IV ONE (17:15)
[2022-10-31 17:33] LABS: HEMATOCRIT 48.8 % (42.0-52.0); HEMOGLOBIN 15.9 g/dl (13.5-17.5); MEAN CORPUSCULAR HEMOGLOBIN 31.1 pg (27.0-33.0); MEAN CORPUSCULAR HGB CONC 32.6 g/dl (32.0-36.5); MEAN CORPUSCULAR VOLUME 95.5 fl (80.0-96.0); PLATELET COUNT, AUTOMATED 316 10^3/uL (150-450); RED BLOOD COUNT 5.11 10^6/uL (4.30-6.10); WHITE BLOOD COUNT 6.9 10^3/uL (4.0-10.0)
[2022-10-31 17:54] LABS: BLOOD UREA NITROGEN 29 MG/DL (9-23); CARBON DIOXIDE LEVEL 26 MMOL/L (20-31); CHLORIDE LEVEL 106 MMOL/L (98-107); CK-MB VALUE MASS < 1.0 NG/ML (<3.6); CREATININE FOR GFR 1.47 MG/DL (0.70-1.30); GLOMERULAR FILTRATION RATE 51.3 (>49); GLUCOSE, FASTING 85 MG/DL (74-106); POTASSIUM SERUM 5.5 MMOL/L (3.5-5.1); SODIUM LEVEL 140 MMOL/L (136-145)
[2022-10-31 17:55] LABS: CPK CREATINE PHOSPHOKINASE 77 U/L (46-171); MB/CK RELATIVE INDEX 1.29 (< OR =4)
[2022-10-31 18:02] LABS: BASOPHILS 3 % (0-1); EOSINOPHILS 2 % (0-3); LYMPHOCYTES 6 % (16-44); MONOCYTES 2 % (0-5); NEUTROPHILS 84 % (28-66); PLATELET ESTIMATE NORMAL (NORMAL)
[2022-10-31 18:03] LABS: ANISOCYTOSIS 1+
[2022-10-31] MEDS ORDERED: SOD POLYSTYRENE SULFONATE SUSP 15GM 60ML UD PO ONE (18:10)
[2022-10-31 18:30] LABS: RSV AMPLIFICATION NEGATIVE (NEGATIVE)
[2022-10-31] MEDS ORDERED: CALCIUM GLUCONATE 1,000 MG in D5W MINI-BAG PLUS 100 ML IV ONE (18:40)
[2022-10-31] MEDS ORDERED: ACETAMINOPHEN TAB 650MG DOSE (2X325MG) PO PRN (19:10)
[2022-10-31] MEDS ORDERED: TUSS15SY2 PO (20:38)
[2022-10-31] MEDS ORDERED: VITMTA PO (20:38)
[2022-10-31] MEDS ORDERED: ALBU6.7H6 INH (20:39)
[2022-10-31] MEDS ORDERED: HOME MED LIST COMPLETE! XX SCH (20:40)
[2022-10-31] MEDS: ACYCLOVIR 200 MG CAPSULE PO SCH (21:00)
[2022-10-31] MEDS ORDERED: LORazepam 1 MG TAB PO PRN (21:05)
[2022-10-31] MEDS ORDERED: ALBUTEROL 90 MCG/ACT 8GM HFA INHALER INH PRN (21:05)
[2022-10-31] MEDS: HEPARIN SOD (PORCINE) 5000UNITS/ML 1ML VIAL/SYRINGE SC SCH (23:50)
[2022-11-01 00:16] LABS: CALCIUM LEVEL 8.7 MG/DL (8.3-10.6); CREATININE FOR GFR 1.54 MG/DL (0.70-1.30); GLOMERULAR FILTRATION RATE 48.7 (>49); POTASSIUM SERUM 5.3 MMOL/L (3.5-5.1)
[2022-11-01] MEDS ORDERED: PATIROMER SORBITEX CALCIUM 8.4 GM POWDER PACKET (VELTASSA) PO ONE (06:00)
[2022-11-01] MEDS ORDERED: LEVOTHYROXINE 100MCG TABLET (0.1MG) PO SCH (06:00)
[2022-11-01] MEDS: HEPARIN SOD (PORCINE) 5000UNITS/ML 1ML VIAL/SYRINGE SC SCH (06:51)
[2022-11-01 07:04] LABS: HEMATOCRIT 42.7 % (42.0-52.0); MEAN CORPUSCULAR HEMOGLOBIN 31.4 pg (27.0-33.0); MEAN CORPUSCULAR HGB CONC 32.6 g/dl (32.0-36.5); MEAN CORPUSCULAR VOLUME 96.6 fl (80.0-96.0); PLATELET COUNT, AUTOMATED 256 10^3/uL (150-450); RED BLOOD COUNT 4.42 10^6/uL (4.30-6.10); WHITE BLOOD COUNT 5.6 10^3/uL (4.0-10.0)
[2022-11-01 07:13] LABS: HEMOGLOBIN 13.9 g/dl (13.5-17.5)
[2022-11-01 07:20] LABS: MAGNESIUM LEVEL 1.6 MG/DL (1.8-2.4)
[2022-11-01 07:21] LABS: CALCIUM LEVEL 8.6 MG/DL (8.3-10.6); CREATININE FOR GFR 1.35 MG/DL (0.70-1.30); GLOMERULAR FILTRATION RATE 56.6 (>49); POTASSIUM SERUM 5.2 MMOL/L (3.5-5.1)
[2022-11-01] MEDS ORDERED: POMALIDOMIDE 4 MG PO SCH (09:00)
[2022-11-01] MEDS ORDERED: MULTIVITAMINS/MINERALS THERAP 1 TAB PO SCH (09:00)
[2022-11-01] MEDS ORDERED: ASPIRIN ENTERIC 325MG TAB PO SCH (09:00)
[2022-11-01] MEDS ORDERED: guaiFENesin ER 600 MG TAB PO SCH (09:00)
[2022-11-01] MEDS ORDERED: ATOVAQUONE SUSP 750MG/5ML 210 ML BTL PO SCH (09:00)
[2022-11-01] MEDS ORDERED: BACTRIM 160MG/800MG DS TAB PO SCH (09:00)
[2022-11-01] MEDS ORDERED: ATOV750S PO ×2 (10:12→11:19)
[2022-11-01] MEDS: ACYCLOVIR 200 MG CAPSULE PO SCH (10:31)
[2022-11-01] MEDS: MAG SULF 1GM/100ML (MAG RUN) 1 GM in IV 1 EA IV SCH ×3 (10:31→11:35)
[2022-11-01 10:40] LABS: CALCIUM LEVEL 9.3 MG/DL (8.3-10.6); CREATININE FOR GFR 1.29 MG/DL (0.70-1.30); GLOMERULAR FILTRATION RATE 59.7 (>49); POTASSIUM SERUM 4.9 MMOL/L (3.5-5.1)
[2022-11-01] MEDS ORDERED: MAGN400T2 PO (11:23)
[2022-11-01 13:00] VITALS: BP 149/78
[2022-11-01] MEDS ORDERED: SIMVASTATIN 40 MG TAB PO SCH (21:00)
[2022-11-13] MEDS ORDERED: POMA4CAP PO (15:49)
== END 2022-11-01 16:07 | disposition home or self-care (01) ==
LOC: M ED 16:04 → M ED INP 16:05
PROVIDERS: ADMIT Internal Medicine; ATTEND Internal Medicine
DX: N17.9 Acute kidney failure, unspecified (principal); N18.4 Chronic kidney disease, stage 4 (severe); C90.00 Multiple myeloma not having achieved remission; E87.5 Hyperkalemia; Z79.82 Long term (current) use of aspirin; Z79.899 Other long term (current) drug therapy; Z86.73 Personal history of transient ischemic attack (TIA), and cerebral infarction without residual deficits; I12.9 Hypertensive chronic kidney disease with stage 1 through stage 4 chronic kidney disease, or unspecified chronic kidney disease; D80.4 Selective deficiency of immunoglobulin M [IgM]
CPT/HCPCS: 36415; 71045; 80048; 80053; 82550; 82553; 82784; 83521; 83735; 84145; 84165; 84484; 85025; 85027; 87631; 93005; 96361; 96372; 96374; 99285; G0378; J3475

== ENCOUNTER → 2022-10-31 | Outpatient (CLI) | payer MEDICARE, OTHER ==
[~2022-10-31] MED LIST changes: +ALBU6.7H6 INH; +ATOV750S PO; +MAGN400T2 PO; +TUSS15SY2 PO
[2022-10-31 12:40] LABS: BASO # 0.1 10^3/uL (0.0-0.2); BASO % 1.4 % (0.0-1.0); EOS # 0.1 10^3/uL (0.0-0.5); EOS % 2.4 % (0.0-3.0); HEMATOCRIT 50.6 % (42.0-52.0); HEMOGLOBIN 15.9 g/dl (13.5-17.5); LYMPH # 0.2 10^3/uL (1.5-5.0); LYMPH % 2.9 % (24.0-44.0); MEAN CORPUSCULAR HEMOGLOBIN 30.6 pg (27.0-33.0); MEAN CORPUSCULAR HGB CONC 31.4 g/dl (32.0-36.5); MEAN CORPUSCULAR VOLUME 97.3 fl (80.0-96.0); MONO # 0.4 10^3/uL (0.0-0.8); MONO % 6.1 % (2.0-8.0); NEUTROPHILS # 4.9 10^3/uL (1.5-8.5); NEUTROPHILS % 85.1 % (36.0-66.0); PLATELET COUNT, AUTOMATED 336 10^3/uL (150-450); WHITE BLOOD COUNT 5.8 10^3/uL (4.0-10.0)
[2022-10-31 13:02] LABS: IMMUNOGLOBULIN G 561 MG/DL (650-1600)
[2022-10-31 13:22] LABS: ALBUMIN 3.3 G/DL (3.2-5.2); ALKALINE PHOSPHATASE 107 U/L (46-116); ALT/SGPT 13 U/L (7.0-40); AST/SGOT 23 U/L (<34); BILIRUBIN,TOTAL 0.4 MG/DL (0.3-1.2); BLOOD UREA NITROGEN 29 MG/DL (9-23); CALCIUM LEVEL 9.7 MG/DL (8.3-10.6); CARBON DIOXIDE LEVEL 28 MMOL/L (20-31); CHLORIDE LEVEL 106 MMOL/L (98-107); CREATININE FOR GFR 1.69 MG/DL (0.70-1.30); GLOMERULAR FILTRATION RATE 43.7 (>49); GLUCOSE, FASTING 84 MG/DL (74-106); IMMUNOGLOBULIN A < 33.0 MG/DL (40-350); IMMUNOGLOBULIN M < 21.0 MG/DL (50-300); POTASSIUM SERUM 6.6 MMOL/L (3.5-5.1); SODIUM LEVEL 144 MMOL/L (136-145); TOTAL PROTEIN 6.2 G/DL (5.7-8.2); TOTAL PROTEIN 6.2 GM/DL (6.4-8.2)
[2022-11-01 16:08] LABS: FREE KAPPA LIGHT CHAINS SERUM 1.2 mg/L (3.3-19.4); FREE LAMBDA LIGHT CHAINS SERUM 2.1 mg/L (5.7-26.3); KAPPA/LAMBDA RATIO SERUM 0.57 (0.26-1.65)
== END ==
LOC: M LABDRWAD 10:11
PROVIDERS: ATTEND Internal Medicine Medical Oncology
DX: C90.00 Multiple myeloma not having achieved remission (principal)

== ENCOUNTER → 2022-11-07 | Outpatient (REF) | payer MEDICARE, OTHER ==
[~2022-11-07] MED LIST changes: +ALBU6.7H6 INH; +ATOV750S PO; +MAGN400T2 PO; -NYST-38 PO; +NYST50SS PO; +TUSS15SY2 PO
[2022-11-07 17:17] LABS: CALCIUM LEVEL 9.2 MG/DL (8.3-10.6); CREATININE FOR GFR 1.37 MG/DL (0.70-1.30); GLOMERULAR FILTRATION RATE 55.7 (>49); POTASSIUM SERUM 5.6 MMOL/L (3.5-5.1)
== END ==
LOC: M LABDRWAD 16:01
PROVIDERS: ATTEND Family Medicine
DX: E87.5 Hyperkalemia (principal)

== ENCOUNTER 2022-11-08 11:55 | Outpatient (CLI) | payer MEDICARE, OTHER ==
[~2022-11-08] VITALS: Ht 177.8 cm; Wt 60.5 kg
[2022-11-08 11:55] VITALS: BP 119/75
[~2022-11-08 11:55] MED LIST changes: +NYST-38 PO; -NYST50SS PO
[2022-11-08] MEDS ORDERED: ACETAMINOPHEN TAB 650MG DOSE (2X325MG) PO ONE (12:00)
[2022-11-08] MEDS ORDERED: diphenhydrAMINE 25MG CAP PO ONE (12:00)
[2022-11-08] MEDS ORDERED: IMMUNE GLOBULIN 10% 20 GM in IV 1 EA IV ONE (12:00)
[2022-11-08 13:00] VITALS: BP 130/70
[2022-11-08 13:30] VITALS: BP 126/72
[2022-11-08 14:00] VITALS: BP 132/78
[2022-11-08 14:56] VITALS: BP 146/81
== END 2022-11-08 14:55 | disposition home or self-care (01) ==
LOC: M INFU 11:55
PROVIDERS: ATTEND Internal Medicine Medical Oncology
DX: D80.1 Nonfamilial hypogammaglobulinemia (principal)
CPT/HCPCS: 96365; 96366; J1459

== ENCOUNTER → 2022-11-15 | Outpatient (REF) | payer MEDICARE, OTHER ==
[2022-11-17 15:08] LABS: G6PD2 4.9 x10E6/uL (4.14-5.80)
== END ==
LOC: M LAB REF 16:51
PROVIDERS: ATTEND Internal Medicine Infectious Disease
DX: B59 Pneumocystosis (principal)

== ENCOUNTER → 2022-12-01 | Outpatient (CLI) | payer MEDICARE, OTHER ==
[~2022-12-01] MED LIST changes: +CALC1CAP31; +DAPS10TA
[2022-12-01 13:39] LABS: BASO # 0.1 10^3/uL (0.0-0.2); BASO % 1.1 % (0.0-1.0); EOS # 0.2 10^3/uL (0.0-0.5); EOS % 3.5 % (0.0-3.0); HEMATOCRIT 46.7 % (42.0-52.0); HEMOGLOBIN 14.7 g/dl (13.5-17.5); LYMPH # 0.5 10^3/uL (1.5-5.0); LYMPH % 7.1 % (24.0-44.0); MEAN CORPUSCULAR HEMOGLOBIN 31.3 pg (27.0-33.0); MEAN CORPUSCULAR HGB CONC 31.5 g/dl (32.0-36.5); MEAN CORPUSCULAR VOLUME 99.6 fl (80.0-96.0); MONO # 0.7 10^3/uL (0.0-0.8); MONO % 10.2 % (2.0-8.0); NEUTROPHILS # 4.9 10^3/uL (1.5-8.5); NEUTROPHILS % 77.3 % (36.0-66.0); PLATELET COUNT, AUTOMATED 179 10^3/uL (150-450); RED BLOOD COUNT 4.69 10^6/uL (4.30-6.10); WHITE BLOOD COUNT 6.4 10^3/uL (4.0-10.0)
[2022-12-01 14:08] LABS: ALBUMIN 3.6 G/DL (3.2-5.2); ALKALINE PHOSPHATASE 104 U/L (46-116); ALT/SGPT 18 U/L (7.0-40); AST/SGOT 29 U/L (<34); BLOOD UREA NITROGEN 32 MG/DL (9-23); CALCIUM LEVEL 8.9 MG/DL (8.3-10.6); CARBON DIOXIDE LEVEL 29 MMOL/L (20-31); CHLORIDE LEVEL 107 MMOL/L (98-107); CREATININE FOR GFR 1.46 MG/DL (0.70-1.30); GLOMERULAR FILTRATION RATE 51.7 (>49); GLUCOSE, FASTING 86 MG/DL (74-106); IMMUNOGLOBULIN G 549 MG/DL (650-1600); POTASSIUM SERUM 4.6 MMOL/L (3.5-5.1); SODIUM LEVEL 143 MMOL/L (136-145)
[2022-12-01 14:23] LABS: IMMUNOGLOBULIN A < 33.0 MG/DL (40-350); IMMUNOGLOBULIN M < 21.0 MG/DL (50-300)
[2022-12-02 17:08] LABS: FREE LAMBDA LIGHT CHAINS SERUM 3.1 mg/L (5.7-26.3); KAPPA/LAMBDA RATIO SERUM 0.65 (0.26-1.65)
[2022-12-04 19:07] LABS: ALBUMIN 3.7 g/dL (2.9-4.4); ALPHA-1-GLOBULINS 0.2 g/dL (0.0-0.4); ALPHA-2-GLOBULINS 0.6 g/dL (0.4-1.0); BETA-1-GLOBULINS 0.8 g/dL (0.7-1.3); GAMMA GLOBULINS 0.5 g/dL (0.4-1.8); TOTAL PROTEIN ELECTROPHORESIS 5.7 g/dL (6.0-8.5)
== END ==
LOC: M LABDRWAD 08:22
PROVIDERS: ATTEND Internal Medicine Medical Oncology
DX: C90.00 Multiple myeloma not having achieved remission (principal)

== ENCOUNTER 2022-12-06 11:55 | Outpatient (CLI) | payer MEDICARE, OTHER ==
[~2022-12-06] VITALS: Ht 177.8 cm; Wt 60.5 kg
[2022-12-06 11:55] VITALS: BP 138/63
[2022-12-06] MEDS ORDERED: IMMUNE GLOBULIN 10% 20 GM in IV 1 EA IV ONE (12:00)
[2022-12-06] MEDS ORDERED: diphenhydrAMINE 25MG CAP PO ONE (12:00)
[2022-12-06] MEDS ORDERED: ACETAMINOPHEN TAB 650MG DOSE (2X325MG) PO ONE (12:00)
[2022-12-06 12:45] VITALS: BP 139/72
[2022-12-06 13:15] VITALS: BP 140/77
[2022-12-06 13:45] VITALS: BP 128/67
[2022-12-06 14:39] VITALS: BP 137/74
[2022-12-06 14:40] VITALS: BP 137/74
[2022-12-08] MEDS ORDERED: POMA4CAP PO (13:04)
== END 2022-12-06 14:40 | disposition home or self-care (01) ==
LOC: M INFU 11:55
PROVIDERS: ATTEND Internal Medicine Medical Oncology
DX: D80.1 Nonfamilial hypogammaglobulinemia (principal)
CPT/HCPCS: 96365; 96366; J1459

== ENCOUNTER → 2022-12-27 | Outpatient (CLI) | payer MEDICARE, OTHER ==
[2022-12-27 13:11] LABS: BASO # 0.1 10^3/uL (0.0-0.2); BASO % 2.4 % (0.0-1.0); EOS # 0.2 10^3/uL (0.0-0.5); EOS % 4.8 % (0.0-3.0); HEMATOCRIT 46.2 % (42.0-52.0); HEMOGLOBIN 14.1 g/dl (13.5-17.5); LYMPH # 0.5 10^3/uL (1.5-5.0); LYMPH % 10.7 % (24.0-44.0); MEAN CORPUSCULAR HEMOGLOBIN 31.3 pg (27.0-33.0); MEAN CORPUSCULAR HGB CONC 30.5 g/dl (32.0-36.5); MEAN CORPUSCULAR VOLUME 102.7 fl (80.0-96.0); MONO # 0.6 10^3/uL (0.0-0.8); NEUTROPHILS # 3.2 10^3/uL (1.5-8.5); PLATELET COUNT, AUTOMATED 191 10^3/uL (150-450); WHITE BLOOD COUNT 4.6 10^3/uL (4.0-10.0)
[2022-12-27 13:24] LABS: IMMUNOGLOBULIN G 576 MG/DL (650-1600)
[2022-12-27 13:39] LABS: ALBUMIN 3.7 G/DL (3.2-5.2); ALKALINE PHOSPHATASE 102 U/L (46-116); ALT/SGPT 15 U/L (7.0-40); AST/SGOT 32 U/L (<34); BILIRUBIN,TOTAL 0.8 MG/DL (0.3-1.2); BLOOD UREA NITROGEN 27 MG/DL (9-23); CALCIUM LEVEL 9.6 MG/DL (8.3-10.6); CARBON DIOXIDE LEVEL 29 MMOL/L (20-31); CHLORIDE LEVEL 106 MMOL/L (98-107); CREATININE FOR GFR 1.47 MG/DL (0.70-1.30); GLOMERULAR FILTRATION RATE 51.3 (>49); GLUCOSE, FASTING 67 MG/DL (74-106); IMMUNOGLOBULIN A < 33.0 MG/DL (40-350); IMMUNOGLOBULIN M < 21.0 MG/DL (50-300); POTASSIUM SERUM 5.7 MMOL/L (3.5-5.1); SODIUM LEVEL 142 MMOL/L (136-145)
[2022-12-27 18:40] LABS: TOTAL PROTEIN 6.1 G/DL (5.7-8.2)
[2022-12-28 20:07] LABS: FREE KAPPA LIGHT CHAINS SERUM 1.3 mg/L (3.3-19.4); FREE LAMBDA LIGHT CHAINS SERUM 1.8 mg/L (5.7-26.3); KAPPA/LAMBDA RATIO SERUM 0.72 (0.26-1.65)
== END ==
LOC: M LABDRWAD 08:20
PROVIDERS: ATTEND Internal Medicine Medical Oncology
DX: C90.00 Multiple myeloma not having achieved remission (principal)

== ENCOUNTER 2023-01-03 11:45 | Outpatient (CLI) | payer MEDICARE, OTHER ==
[~2023-01-03] VITALS: Ht 175.3 cm; Wt 60.5 kg
[2023-01-03 11:45] VITALS: BP 142/70
[2023-01-03] MEDS ORDERED: ACETAMINOPHEN TAB 650MG DOSE (2X325MG) PO ONE (12:00)
[2023-01-03] MEDS ORDERED: IMMUNE GLOBULIN 10% 20 GM in IV 1 EA IV ONE (12:00)
[2023-01-03] MEDS ORDERED: diphenhydrAMINE 25MG CAP PO ONE (12:00)
[2023-01-03 12:30] VITALS: BP 156/77
[2023-01-03 13:00] VITALS: BP 148/77
[2023-01-03 14:30] VITALS: BP 141/79
== END 2023-01-03 14:30 | disposition home or self-care (01) ==
LOC: M INFU 11:45
PROVIDERS: ATTEND Internal Medicine Medical Oncology
DX: D80.1 Nonfamilial hypogammaglobulinemia (principal)
CPT/HCPCS: 96365; 96366; J1459

== ENCOUNTER → 2023-01-24 | Outpatient (CLI) | payer MEDICARE, OTHER ==
[~2023-01-24] MED LIST changes: +VELT1POW
[2023-01-24 13:33] LABS: BASO # 0.1 10^3/uL (0.0-0.2); BASO % 1.4 % (0.0-1.0); EOS # 0.1 10^3/uL (0.0-0.5); EOS % 2.7 % (0.0-3.0); HEMATOCRIT 43.1 % (42.0-52.0); HEMOGLOBIN 13.3 g/dl (13.5-17.5); LYMPH # 0.4 10^3/uL (1.5-5.0); LYMPH % 8.2 % (24.0-44.0); MEAN CORPUSCULAR HEMOGLOBIN 31.3 pg (27.0-33.0); MEAN CORPUSCULAR HGB CONC 30.9 g/dl (32.0-36.5); MEAN CORPUSCULAR VOLUME 101.4 fl (80.0-96.0); MONO # 0.4 10^3/uL (0.0-0.8); MONO % 8.2 % (2.0-8.0); NEUTROPHILS # 3.9 10^3/uL (1.5-8.5); NEUTROPHILS % 79.1 % (36.0-66.0); PLATELET COUNT, AUTOMATED 136 10^3/uL (150-450); RED BLOOD COUNT 4.25 10^6/uL (4.30-6.10); WHITE BLOOD COUNT 4.9 10^3/uL (4.0-10.0)
[2023-01-24 14:06] LABS: ALBUMIN 3.5 G/DL (3.2-5.2); ALKALINE PHOSPHATASE 79 U/L (46-116); ALT/SGPT 15 U/L (7.0-40); AST/SGOT 39 U/L (<34); BILIRUBIN,TOTAL 0.8 MG/DL (0.3-1.2); BLOOD UREA NITROGEN 24 MG/DL (9-23); CALCIUM LEVEL 8.8 MG/DL (8.3-10.6); CARBON DIOXIDE LEVEL 31 MMOL/L (20-31); CHLORIDE LEVEL 108 MMOL/L (98-107); CREATININE FOR GFR 1.53 MG/DL (0.70-1.30); GLUCOSE, FASTING 92 MG/DL (74-106); POTASSIUM SERUM 5.1 MMOL/L (3.5-5.1); SODIUM LEVEL 147 MMOL/L (136-145); TOTAL PROTEIN 5.5 G/DL (5.7-8.2)
[2023-01-24 14:09] LABS: IMMUNOGLOBULIN G 547 MG/DL (650-1600)
[2023-01-24 14:26] LABS: IMMUNOGLOBULIN A < 33.0 MG/DL (40-350); IMMUNOGLOBULIN M < 21.0 MG/DL (50-300)
[2023-01-26 20:07] LABS: FREE LAMBDA LIGHT CHAINS SERUM 1.8 mg/L (5.7-26.3); KAPPA/LAMBDA RATIO SERUM 0.56 (0.26-1.65)
== END ==
LOC: M LABDRWAD 08:49
PROVIDERS: ATTEND Internal Medicine Medical Oncology
DX: C90.00 Multiple myeloma not having achieved remission (principal)

== ENCOUNTER 2023-01-31 11:39 | Outpatient (CLI) | payer MEDICARE, OTHER ==
[~2023-01-31] VITALS: Ht 175.3 cm; Wt 63.8 kg
[2023-01-31 11:45] VITALS: BP 172/68
[2023-01-31] MEDS ORDERED: diphenhydrAMINE 25MG CAP PO ONE (12:00)
[2023-01-31] MEDS ORDERED: ACETAMINOPHEN TAB 650MG DOSE (2X325MG) PO ONE (12:00)
[2023-01-31] MEDS ORDERED: IMMUNE GLOBULIN 10% 5 GM in IV 1 EA IV ONE (12:00)
[2023-01-31] MEDS ORDERED: IMMUNE GLOBULIN 10% 20 GM in IV 1 EA IV ONE (12:00)
[2023-01-31 12:30] VITALS: BP 165/85
[2023-01-31 13:00] VITALS: BP 171/88
[2023-01-31 13:30] VITALS: BP 164/80
[2023-01-31 15:00] VITALS: BP 160/80
[2023-02-01] MEDS ORDERED: POMA4CAP PO (11:42)
== END 2023-01-31 15:00 | disposition home or self-care (01) ==
LOC: M INFU 11:39
PROVIDERS: ATTEND Internal Medicine Medical Oncology
DX: D80.1 Nonfamilial hypogammaglobulinemia (principal)
CPT/HCPCS: 96365; 96366; J1459

== ENCOUNTER → 2023-02-21 | Outpatient (REF) | payer MEDICARE, OTHER ==
[~2023-02-21] MED LIST changes: +AMLO1TAB24 PO; +CYCL1SOL14 OS; -CYCL1SOL17 OS
[2023-02-21 14:06] LABS: BASO # 0.1 10^3/uL (0.0-0.2); BASO % 3.7 % (0.0-1.0); EOS # 0.1 10^3/uL (0.0-0.5); EOS % 5.8 % (0.0-3.0); LYMPH # 0.2 10^3/uL (1.5-5.0); LYMPH % 9.4 % (24.0-44.0); MEAN CORPUSCULAR HEMOGLOBIN 30.7 pg (27.0-33.0); MEAN CORPUSCULAR HGB CONC 29.8 g/dl (32.0-36.5); MEAN CORPUSCULAR VOLUME 103.1 fl (80.0-96.0); MONO # 0.2 10^3/uL (0.0-0.8); NEUTROPHILS # 1.3 10^3/uL (1.5-8.5); NEUTROPHILS % 68.6 % (36.0-66.0); PLATELET COUNT, AUTOMATED 138 10^3/uL (150-450); RED BLOOD COUNT 4.56 10^6/uL (4.30-6.10); WHITE BLOOD COUNT 1.9 10^3/uL (4.0-10.0)
[2023-02-21 14:29] LABS: IMMUNOGLOBULIN G 605 MG/DL (650-1600)
[2023-02-21 14:30] LABS: ALBUMIN 3.7 G/DL (3.2-5.2); ALKALINE PHOSPHATASE 85 U/L (46-116); ALT/SGPT 13 U/L (7.0-40); AST/SGOT 40 U/L (<34); BILIRUBIN,TOTAL 0.7 MG/DL (0.3-1.2); BLOOD UREA NITROGEN 24 MG/DL (9-23); CALCIUM LEVEL 8.7 MG/DL (8.3-10.6); CARBON DIOXIDE LEVEL 29 MMOL/L (20-31); CHLORIDE LEVEL 106 MMOL/L (98-107); CREATININE FOR GFR 1.42 MG/DL (0.70-1.30); GLOMERULAR FILTRATION RATE 53.4 (>49); GLUCOSE, FASTING 77 MG/DL (74-106); POTASSIUM SERUM 3.9 MMOL/L (3.5-5.1); SODIUM LEVEL 145 MMOL/L (136-145); TOTAL PROTEIN 6.1 G/DL (5.7-8.2)
[2023-02-21 14:40] LABS: IMMUNOGLOBULIN M < 21.0 MG/DL (50-300)
[2023-02-21 14:41] LABS: IMMUNOGLOBULIN A < 33.0 MG/DL (40-350)
[2023-02-22 19:07] LABS: FREE KAPPA LIGHT CHAINS SERUM 3.3 mg/L (3.3-19.4); FREE LAMBDA LIGHT CHAINS SERUM 1.9 mg/L (5.7-26.3); KAPPA/LAMBDA RATIO SERUM 1.74 (0.26-1.65)
== END ==
LOC: M LABDRWAD 12:52
PROVIDERS: ATTEND Internal Medicine Medical Oncology
DX: C90.01 Multiple myeloma in remission (principal)

== ENCOUNTER 2023-02-28 11:48 | Outpatient (CLI) | payer MEDICARE, OTHER ==
[~2023-02-28] VITALS: Ht 177.8 cm; Wt 64.9 kg
[2023-02-28 11:50] VITALS: BP 167/73
[2023-02-28] MEDS ORDERED: IMMUNE GLOBULIN 10% 5 GM in IV 1 EA IV ONE (12:00)
[2023-02-28] MEDS ORDERED: diphenhydrAMINE 25MG CAP PO ONE (12:00)
[2023-02-28] MEDS ORDERED: ACETAMINOPHEN TAB 650MG DOSE (2X325MG) PO ONE (12:00)
[2023-02-28] MEDS ORDERED: IMMUNE GLOBULIN 10% 20 GM in IV 1 EA IV ONE (12:00)
[2023-02-28 12:30] VITALS: BP 153/82
[2023-02-28 13:00] VITALS: BP 141/86
[2023-02-28 13:30] VITALS: BP 158/71
[2023-02-28 14:40] VITALS: BP 167/81
== END 2023-02-28 14:40 | disposition home or self-care (01) ==
LOC: M INFU 11:48
PROVIDERS: ATTEND Internal Medicine Medical Oncology
DX: D80.1 Nonfamilial hypogammaglobulinemia (principal)
CPT/HCPCS: 96365; 96366; J1459

== ENCOUNTER → 2023-03-21 | Outpatient (CLI) | payer MEDICARE, OTHER ==
[~2023-03-21] MED LIST changes: +LORA1TAB23 PO; -LORA1TAB4 PO; +THERTAB52 PO
[2023-03-21 13:51] LABS: IMMUNOGLOBULIN G 617 MG/DL (650-1600)
[2023-03-21 13:54] LABS: ALBUMIN 3.9 G/DL (3.2-5.2); ALKALINE PHOSPHATASE 88 U/L (46-116); ALT/SGPT 17 U/L (7.0-40); AST/SGOT 31 U/L (<34); BASO # 0.1 10^3/uL (0.0-0.2); BASO % 1.7 % (0.0-1.0); BILIRUBIN,TOTAL 0.7 MG/DL (0.3-1.2); BLOOD UREA NITROGEN 23 MG/DL (9-23); CALCIUM LEVEL 8.8 MG/DL (8.3-10.6); CARBON DIOXIDE LEVEL 31 MMOL/L (20-31); CHLORIDE LEVEL 104 MMOL/L (98-107); CREATININE FOR GFR 1.31 MG/DL (0.70-1.30); EOS # 0.2 10^3/uL (0.0-0.5); EOS % 4.2 % (0.0-3.0); GLOMERULAR FILTRATION RATE 58.6 (>49); GLUCOSE, FASTING 74 MG/DL (74-106); HEMATOCRIT 44.6 % (42.0-52.0); HEMOGLOBIN 13.6 g/dl (13.5-17.5); LYMPH # 0.4 10^3/uL (1.5-5.0); LYMPH % 9.8 % (24.0-44.0); MEAN CORPUSCULAR HEMOGLOBIN 31.1 pg (27.0-33.0); MEAN CORPUSCULAR HGB CONC 30.5 g/dl (32.0-36.5); MEAN CORPUSCULAR VOLUME 102.1 fl (80.0-96.0); MONO # 0.3 10^3/uL (0.0-0.8); MONO % 7.8 % (2.0-8.0); NEUTROPHILS # 3.1 10^3/uL (1.5-8.5); NEUTROPHILS % 75.3 % (36.0-66.0); PLATELET COUNT, AUTOMATED 166 10^3/uL (150-450); POTASSIUM SERUM 3.4 MMOL/L (3.5-5.1); RED BLOOD COUNT 4.37 10^6/uL (4.30-6.10); SODIUM LEVEL 143 MMOL/L (136-145); TOTAL PROTEIN 5.9 G/DL (5.7-8.2); WHITE BLOOD COUNT 4.1 10^3/uL (4.0-10.0)
[2023-03-21 14:09] LABS: IMMUNOGLOBULIN A < 33.0 MG/DL (40-350); IMMUNOGLOBULIN M < 21.0 MG/DL (50-300)
[2023-03-22 18:07] LABS: FREE KAPPA LIGHT CHAINS SERUM 1.1 mg/L (3.3-19.4); FREE LAMBDA LIGHT CHAINS SERUM <1.5 mg/L (5.7-26.3); KAPPA/LAMBDA RATIO SERUM >0.73 (0.26-1.65)
== END ==
LOC: M LABDRWAD 08:45
PROVIDERS: ATTEND Internal Medicine Medical Oncology
DX: C90.00 Multiple myeloma not having achieved remission (principal)

== ENCOUNTER 2023-03-28 11:30 | Outpatient (CLI) | payer MEDICARE, OTHER ==
[2023-03-28 11:30] VITALS: BP 161/78
[2023-03-28] MEDS ORDERED: IMMUNE GLOBULIN 10% 20 GM in IV 1 EA IV ONE (12:00)
[2023-03-28] MEDS ORDERED: IMMUNE GLOBULIN 10% 5 GM in IV 1 EA IV ONE (12:00)
[2023-03-28] MEDS ORDERED: ACETAMINOPHEN TAB 650MG DOSE (2X325MG) PO ONE (12:00)
[2023-03-28] MEDS ORDERED: diphenhydrAMINE 25MG CAP PO ONE (12:00)
[2023-03-28 12:15] VITALS: BP 133/76
[2023-03-28 12:45] VITALS: BP 139/80
[2023-03-28 13:15] VITALS: BP 145/79
[2023-03-28 14:15] VITALS: BP 139/62
[2023-03-28 14:40] VITALS: BP 154/81
[2023-04-03] MEDS ORDERED: POMA4CAP PO (13:24)
== END 2023-03-28 14:45 ==
LOC: M INFU 11:30
PROVIDERS: ATTEND Internal Medicine Medical Oncology
DX: D80.1 Nonfamilial hypogammaglobulinemia (principal)
CPT/HCPCS: 96365; 96366; J1459

== ENCOUNTER → 2023-04-18 | Outpatient (CLI) | payer MEDICARE, OTHER ==
[2023-04-18 13:29] LABS: BASO # 0.1 10^3/uL (0.0-0.2); BASO % 1.2 % (0.0-1.0); EOS # 0.1 10^3/uL (0.0-0.5); EOS % 3.5 % (0.0-3.0); HEMATOCRIT 43.7 % (42.0-52.0); HEMOGLOBIN 13.6 g/dl (13.5-17.5); LYMPH # 0.5 10^3/uL (1.5-5.0); LYMPH % 12.4 % (24.0-44.0); MEAN CORPUSCULAR HEMOGLOBIN 32.1 pg (27.0-33.0); MEAN CORPUSCULAR HGB CONC 31.1 g/dl (32.0-36.5); MEAN CORPUSCULAR VOLUME 103.1 fl (80.0-96.0); MONO # 0.4 10^3/uL (0.0-0.8); MONO % 8.9 % (2.0-8.0); NEUTROPHILS % 73.5 % (36.0-66.0); PLATELET COUNT, AUTOMATED 164 10^3/uL (150-450); RED BLOOD COUNT 4.24 10^6/uL (4.30-6.10)
[2023-04-18 13:58] LABS: ALBUMIN 3.8 G/DL (3.2-5.2); ALKALINE PHOSPHATASE 83 U/L (46-116); ALT/SGPT 22 U/L (7.0-40); AST/SGOT 35 U/L (<34); BILIRUBIN,TOTAL 0.7 MG/DL (0.3-1.2); BLOOD UREA NITROGEN 29 MG/DL (9-23); CALCIUM LEVEL 8.5 MG/DL (8.3-10.6); CARBON DIOXIDE LEVEL 30 MMOL/L (20-31); CHLORIDE LEVEL 105 MMOL/L (98-107); CREATININE FOR GFR 1.39 MG/DL (0.70-1.30); GLOMERULAR FILTRATION RATE 54.6 (>49); GLUCOSE, FASTING 113 MG/DL (74-106); IMMUNOGLOBULIN G 605 MG/DL (650-1600); IRON (FE) 130 UG/DL (65-175); POTASSIUM SERUM 3.8 MMOL/L (3.5-5.1); SODIUM LEVEL 144 MMOL/L (136-145); TOTAL PROTEIN 5.7 G/DL (5.7-8.2)
[2023-04-18 14:10] LABS: IMMUNOGLOBULIN A < 33.0 MG/DL (40-350); IMMUNOGLOBULIN M < 21.0 MG/DL (50-300)
[2023-04-20 17:07] LABS: FREE LAMBDA LIGHT CHAINS SERUM 8.2 mg/L (5.7-26.3); KAPPA/LAMBDA RATIO SERUM 0.12 (0.26-1.65)
== END ==
LOC: M LABDRWAD 08:55
PROVIDERS: ATTEND Internal Medicine Medical Oncology
DX: C90.02 Multiple myeloma in relapse (principal)

== ENCOUNTER → 2023-04-25 | Outpatient (CLI) | payer MEDICARE, OTHER ==
[~2023-04-25] VITALS: Ht 177 cm; Wt 63.8 kg
[~2023-04-25] MED LIST changes: +ACETAMINOPHEN TAB 650MG DOSE (2X325MG) PO ONE; +IMMUNE GLOBULIN 10% 20 GM in IV 1 EA IV ONE; +IMMUNE GLOBULIN 10% 5 GM in IV 1 EA IV ONE; +diphenhydrAMINE 25MG CAP PO ONE
[2023-04-25 12:11] VITALS: BP 165/78; O2SAT 97
[2023-04-25 14:50] VITALS: BP 155/75; O2SAT 98
== END ==
LOC: M INFU 11:50
PROVIDERS: ATTEND Internal Medicine Medical Oncology
DX: D80.1 Nonfamilial hypogammaglobulinemia (principal)
CPT/HCPCS: 96365; 96366; J1459

== ENCOUNTER → 2023-05-16 | Outpatient (CLI) | payer MEDICARE, OTHER ==
[~2023-05-16] MED LIST changes: -ACETAMINOPHEN TAB 650MG DOSE (2X325MG) PO ONE; -IMMUNE GLOBULIN 10% 20 GM in IV 1 EA IV ONE; -IMMUNE GLOBULIN 10% 5 GM in IV 1 EA IV ONE; -diphenhydrAMINE 25MG CAP PO ONE
[2023-05-16 13:29] LABS: BASO # 0.1 10^3/uL (0.0-0.2); BASO % 1.3 % (0.0-1.0); EOS # 0.2 10^3/uL (0.0-0.5); HEMATOCRIT 41.4 % (42.0-52.0); HEMOGLOBIN 13.1 g/dl (13.5-17.5); LYMPH # 0.6 10^3/uL (1.5-5.0); MEAN CORPUSCULAR HEMOGLOBIN 33.6 pg (27.0-33.0); MEAN CORPUSCULAR HGB CONC 31.6 g/dl (32.0-36.5); MEAN CORPUSCULAR VOLUME 106.2 fl (80.0-96.0); MONO # 0.4 10^3/uL (0.0-0.8); MONO % 8.1 % (2.0-8.0); NEUTROPHILS # 3.2 10^3/uL (1.5-8.5); NEUTROPHILS % 71.6 % (36.0-66.0); PLATELET COUNT, AUTOMATED 212 10^3/uL (150-450); WHITE BLOOD COUNT 4.5 10^3/uL (4.0-10.0)
[2023-05-16 13:59] LABS: IMMUNOGLOBULIN G 589 MG/DL (650-1600)
[2023-05-16 14:00] LABS: ALBUMIN 3.6 G/DL (3.2-5.2); ALKALINE PHOSPHATASE 96 U/L (46-116); ALT/SGPT 17 U/L (7.0-40); AST/SGOT 21 U/L (<34); BILIRUBIN,TOTAL 0.7 MG/DL (0.3-1.2); BLOOD UREA NITROGEN 34 MG/DL (9-23); CALCIUM LEVEL 9.3 MG/DL (8.3-10.6); CARBON DIOXIDE LEVEL 27 MMOL/L (20-31); CHLORIDE LEVEL 107 MMOL/L (98-107); CREATININE FOR GFR 1.56 MG/DL (0.70-1.30); GLOMERULAR FILTRATION RATE 47.8 (>49); GLUCOSE, FASTING 110 MG/DL (74-106); POTASSIUM SERUM 3.8 MMOL/L (3.5-5.1); SODIUM LEVEL 143 MMOL/L (136-145); TOTAL PROTEIN 5.7 G/DL (5.7-8.2)
[2023-05-16 14:17] LABS: IMMUNOGLOBULIN A < 33.0 MG/DL (40-350); IMMUNOGLOBULIN M < 21.0 MG/DL (50-300)
[2023-05-17 19:08] LABS: FREE LAMBDA LIGHT CHAINS SERUM 1.5 mg/L (5.7-26.3); KAPPA/LAMBDA RATIO SERUM 0.67 (0.26-1.65)
== END ==
LOC: M LABDRWAD 08:08
PROVIDERS: ATTEND Internal Medicine Medical Oncology
DX: C90.00 Multiple myeloma not having achieved remission (principal)

== ENCOUNTER → 2023-05-21 | Outpatient (CLI) | payer MEDICARE, OTHER | LOC: M RAD 08:39 | PROVIDERS: ATTEND Internal Medicine Critical Care Medicine | DX: R91.8 Other nonspecific abnormal finding of lung field (principal) ==

== ENCOUNTER → 2023-06-15 | Outpatient (CLI) | payer MEDICARE, OTHER ==
[2023-06-15 13:15] LABS: BASO # 0.1 10^3/uL (0.0-0.2); BASO % 1.5 % (0.0-1.0); EOS # 0.1 10^3/uL (0.0-0.5); EOS % 2.2 % (0.0-3.0); HEMATOCRIT 44.2 % (42.0-52.0); LYMPH # 0.5 10^3/uL (1.5-5.0); LYMPH % 8.2 % (24.0-44.0); MEAN CORPUSCULAR HEMOGLOBIN 33.8 pg (27.0-33.0); MEAN CORPUSCULAR HGB CONC 31.7 g/dl (32.0-36.5); MEAN CORPUSCULAR VOLUME 106.8 fl (80.0-96.0); MONO # 0.5 10^3/uL (0.0-0.8); MONO % 8.8 % (2.0-8.0); NEUTROPHILS # 4.7 10^3/uL (1.5-8.5); NEUTROPHILS % 78.5 % (36.0-66.0); PLATELET COUNT, AUTOMATED 157 10^3/uL (150-450); RED BLOOD COUNT 4.14 10^6/uL (4.30-6.10)
[2023-06-15 13:40] LABS: IMMUNOGLOBULIN G 606 MG/DL (650-1600)
[2023-06-15 14:02] LABS: ALBUMIN 3.8 G/DL (3.2-5.2); ALKALINE PHOSPHATASE 80 U/L (46-116); ALT/SGPT 25 U/L (7.0-40); AST/SGOT 22 U/L (<34); BILIRUBIN,TOTAL 0.7 MG/DL (0.3-1.2); BLOOD UREA NITROGEN 32 MG/DL (9-23); CALCIUM LEVEL 8.9 MG/DL (8.3-10.6); CARBON DIOXIDE LEVEL 30 MMOL/L (20-31); CHLORIDE LEVEL 108 MMOL/L (98-107); CREATININE FOR GFR 1.39 MG/DL (0.70-1.30); GLOMERULAR FILTRATION RATE 54.6 (>49); GLUCOSE, FASTING 67 MG/DL (74-106); IMMUNOGLOBULIN A < 33.0 MG/DL (40-350); IMMUNOGLOBULIN M < 21.0 MG/DL (50-300); POTASSIUM SERUM 4.2 MMOL/L (3.5-5.1); SODIUM LEVEL 143 MMOL/L (136-145); TOTAL PROTEIN 5.9 G/DL (5.7-8.2)
[2023-06-18 18:07] LABS: FREE KAPPA LIGHT CHAINS SERUM 1.2 mg/L (3.3-19.4); FREE LAMBDA LIGHT CHAINS SERUM 1.5 mg/L (5.7-26.3)
== END ==
LOC: M LABDRWAD 08:00
PROVIDERS: ATTEND Internal Medicine Medical Oncology
DX: C90.00 Multiple myeloma not having achieved remission (principal)

== ENCOUNTER 2023-06-20 11:35 | Outpatient (CLI) | payer MEDICARE, OTHER ==
[~2023-06-20] VITALS: Ht 177.8 cm; Wt 65.0 kg
[2023-06-20 11:44] VITALS: BP 143/76; O2SAT 97
[2023-06-20] MEDS ORDERED: ACETAMINOPHEN TAB 650MG DOSE (2X325MG) PO ONE (12:00)
[2023-06-20] MEDS ORDERED: IMMUNE GLOBULIN 10% 20 GM in IV 1 EA IV ONE (12:00)
[2023-06-20] MEDS ORDERED: IMMUNE GLOBULIN 10% 5 GM in IV 1 EA IV ONE (12:00)
[2023-06-20] MEDS ORDERED: diphenhydrAMINE 25MG CAP PO ONE (12:00)
[2023-06-20 12:30] VITALS: BP 142/73; O2SAT 97
[2023-06-20 13:00] VITALS: BP 146/79; O2SAT 97
[2023-06-20 13:30] VITALS: BP 164/80; O2SAT 97
[2023-06-20 14:56] VITALS: BP 143/76; O2SAT 97
== END 2023-06-20 15:00 ==
LOC: M INFU 11:35
PROVIDERS: ATTEND Internal Medicine Medical Oncology
DX: D80.1 Nonfamilial hypogammaglobulinemia (principal)
CPT/HCPCS: 96365; 96366; J1459

== ENCOUNTER 2023-07-18 11:50 | Outpatient (CLI) | payer MEDICARE, OTHER ==
[~2023-07-18] VITALS: Ht 180.3 cm; Wt 65.0 kg
[2023-07-18 11:50] VITALS: BP 138/78; O2SAT 98
[2023-07-18 11:55] VITALS: BP 138/78; O2SAT 98
[2023-07-18] MEDS ORDERED: ACETAMINOPHEN 650MG PO PRIOR TO INFUSION PO ONE (12:00)
[2023-07-18] MEDS ORDERED: IMMUNE GLOBULIN 10% 20 GM in IV 1 EA IV ONE (12:00)
[2023-07-18] MEDS ORDERED: diphenhydrAMINE 25MG PO PRIOR TO INFUSION PO ONE (12:00)
[2023-07-18] MEDS ORDERED: IMMUNE GLOBULIN 10% 5 GM in IV 1 EA IV ONE (12:00)
[2023-07-18 12:30] VITALS: BP 166/73; O2SAT 97
[2023-07-18 13:00] VITALS: BP 139/74; O2SAT 98
[2023-07-18 13:30] VITALS: BP 139/66; O2SAT 96
[2023-07-18 14:40] VITALS: BP 153/73; O2SAT 97
== END 2023-07-18 14:40 | disposition home or self-care (01) ==
LOC: M INFU 11:50
PROVIDERS: ATTEND Internal Medicine Medical Oncology
DX: D80.1 Nonfamilial hypogammaglobulinemia (principal)
CPT/HCPCS: 96365; 96366; J1459

== ENCOUNTER → 2023-07-18 | Outpatient (REF) | payer MEDICARE, OTHER ==
[2023-07-18 15:21] LABS: BASO # 0.1 10^3/uL (0.0-0.2); BASO % 1.4 % (0.0-1.0); EOS # 0.2 10^3/uL (0.0-0.5); EOS % 2.7 % (0.0-3.0); HEMOGLOBIN 13.6 g/dl (13.5-17.5); LYMPH # 0.6 10^3/uL (1.5-5.0); LYMPH % 6.8 % (24.0-44.0); MEAN CORPUSCULAR HEMOGLOBIN 33.2 pg (27.0-33.0); MEAN CORPUSCULAR HGB CONC 30.9 g/dl (32.0-36.5); MEAN CORPUSCULAR VOLUME 107.3 fl (80.0-96.0); MONO % 19.8 % (2.0-8.0); NEUTROPHILS % 68.5 % (36.0-66.0); PLATELET COUNT, AUTOMATED 155 10^3/uL (150-450); WHITE BLOOD COUNT 8.8 10^3/uL (4.0-10.0)
[2023-07-18 15:27] LABS: MONO # 1.7 10^3/uL (0.0-0.8)
[2023-07-18 16:06] LABS: ALBUMIN 3.8 G/DL (3.2-5.2); ALKALINE PHOSPHATASE 74 U/L (46-116); ALT/SGPT 23 U/L (7.0-40); AST/SGOT 19 U/L (<34); BILIRUBIN,TOTAL 0.8 MG/DL (0.3-1.2); BLOOD UREA NITROGEN 30 MG/DL (9-23); CALCIUM LEVEL 8.4 MG/DL (8.3-10.6); CARBON DIOXIDE LEVEL 30 MMOL/L (20-31); CHLORIDE LEVEL 107 MMOL/L (98-107); GLOMERULAR FILTRATION RATE 54.1 (>49); GLUCOSE, FASTING 103 MG/DL (74-106); POTASSIUM SERUM 3.8 MMOL/L (3.5-5.1); SODIUM LEVEL 148 MMOL/L (136-145); TOTAL PROTEIN 5.9 G/DL (5.7-8.2)
[2023-07-21 18:57] LABS: IMMUNOGLOBULIN G 635 MG/DL (650-1600)
[2023-07-21 19:19] LABS: IMMUNOGLOBULIN A < 33.0 MG/DL (40-350); IMMUNOGLOBULIN M < 21.0 MG/DL (50-300)
[2023-07-23 18:07] LABS: FREE LAMBDA LIGHT CHAINS SERUM 1.6 mg/L (5.7-26.3); KAPPA/LAMBDA RATIO SERUM 0.63 (0.26-1.65)
== END ==
LOC: M LABDRWAD 12:43
PROVIDERS: ATTEND Internal Medicine Medical Oncology
DX: C90.00 Multiple myeloma not having achieved remission (principal)

== ENCOUNTER → 2023-08-07 | Outpatient (CLI) | payer MEDICARE, OTHER ==
[2023-08-07 15:42] LABS: HEMOGLOBIN 13.6 g/dl (13.5-17.5); MEAN CORPUSCULAR HEMOGLOBIN 33.9 pg (27.0-33.0); MEAN CORPUSCULAR HGB CONC 32.4 g/dl (32.0-36.5); MEAN CORPUSCULAR VOLUME 104.7 fl (80.0-96.0); PLATELET COUNT, AUTOMATED 160 10^3/uL (150-450); RED BLOOD COUNT 4.01 10^6/uL (4.30-6.10); WHITE BLOOD COUNT 4.6 10^3/uL (4.0-10.0)
[2023-08-07 16:03] LABS: BASOPHILS 1 % (0-1); EOSINOPHILS 5 % (0-3); LYMPHOCYTES 7 % (16-44); MONOCYTES 8 % (0-5); NEUTROPHILS 69 % (28-66)
[2023-08-07 16:04] LABS: ANISOCYTOSIS 2+; PLATELET ESTIMATE NORMAL (NORMAL)
[2023-08-07 16:13] LABS: ALBUMIN 3.6 G/DL (3.2-5.2); CALCIUM LEVEL 8.7 MG/DL (8.3-10.6); CREATININE FOR GFR 1.75 MG/DL (0.70-1.30); GLOMERULAR FILTRATION RATE 41.9 (>49); POTASSIUM SERUM 3.8 MMOL/L (3.5-5.1); TOTAL PROTEIN 5.9 G/DL (5.7-8.2)
== END ==
LOC: M PLALAB 12:25
PROVIDERS: ATTEND Registered Nurse
DX: R05.1 Acute cough (principal); R19.7 Diarrhea, unspecified

== ENCOUNTER 2023-08-15 12:00 | Outpatient (CLI) | payer MEDICARE, OTHER ==
[~2023-08-15] VITALS: Ht 177.8 cm; Wt 65.0 kg
[~2023-08-15 12:00] MED LIST changes: +ACETAMINOPHEN TAB 650MG DOSE (2X325MG) PO ONE; +diphenhydrAMINE 25MG CAP PO ONE
[2023-08-15] MEDS ORDERED: IMMUNE GLOBULIN 10% 20 GM in IV 1 EA IV ONE (12:30)
[2023-08-15] MEDS ORDERED: IMMUNE GLOBULIN 10% 5 GM in IV 1 EA IV ONE (12:30)
[2023-08-15 12:39] VITALS: BP 148/75; O2SAT 94
[2023-08-15 12:59] VITALS: BP 144/63; O2SAT 96
[2023-08-15 13:30] VITALS: BP 118/65; O2SAT 96
[2023-08-15 15:00] VITALS: BP 144/74; O2SAT 95
== END 2023-08-15 15:05 ==
LOC: M INFU 12:00
PROVIDERS: ATTEND Internal Medicine Medical Oncology
DX: D80.1 Nonfamilial hypogammaglobulinemia (principal); C90.00 Multiple myeloma not having achieved remission
CPT/HCPCS: 36415; 80053; 82784; 83521; 84155; 84165; 85025; 96365; 96366; J1459

== ENCOUNTER → 2023-08-15 | Outpatient (REF) | payer MEDICARE, OTHER ==
[~2023-08-15] MED LIST changes: -CALC1CAP31; -CEFD300C41 PO; +CEFD300C42 PO; -DAPS10TA; +DAPS10TA PO; -VELT1POW; +VELT1POW PO
[2023-08-15 13:16] LABS: BASO # 0.1 10^3/uL (0.0-0.2); BASO % 1.1 % (0.0-1.0); EOS # 0.3 10^3/uL (0.0-0.5); EOS % 3.1 % (0.0-3.0); HEMATOCRIT 38.3 % (42.0-52.0); HEMOGLOBIN 11.9 g/dl (13.5-17.5); LYMPH # 0.3 10^3/uL (1.5-5.0); LYMPH % 3.7 % (24.0-44.0); MEAN CORPUSCULAR HEMOGLOBIN 33.7 pg (27.0-33.0); MEAN CORPUSCULAR HGB CONC 31.1 g/dl (32.0-36.5); MEAN CORPUSCULAR VOLUME 108.5 fl (80.0-96.0); MONO % 10.6 % (2.0-8.0); NEUTROPHILS # 7.3 10^3/uL (1.5-8.5); NEUTROPHILS % 80.9 % (36.0-66.0); PLATELET COUNT, AUTOMATED 175 10^3/uL (150-450); RED BLOOD COUNT 3.53 10^6/uL (4.30-6.10)
[2023-08-15 13:45] LABS: ALBUMIN 3.4 G/DL (3.2-5.2); ALKALINE PHOSPHATASE 65 U/L (46-116); ALT/SGPT 11 U/L (7.0-40); AST/SGOT 18 U/L (<34); BILIRUBIN,TOTAL 0.8 MG/DL (0.3-1.2); BLOOD UREA NITROGEN 28 MG/DL (9-23); CALCIUM LEVEL 8.8 MG/DL (8.3-10.6); CARBON DIOXIDE LEVEL 30 MMOL/L (20-31); CHLORIDE LEVEL 108 MMOL/L (98-107); CREATININE FOR GFR 1.46 MG/DL (0.70-1.30); GLOMERULAR FILTRATION RATE 51.6 (>49); GLUCOSE, FASTING 139 MG/DL (74-106); POTASSIUM SERUM 4.7 MMOL/L (3.5-5.1); SODIUM LEVEL 146 MMOL/L (136-145); TOTAL PROTEIN 5.6 G/DL (5.7-8.2)
[2023-08-15 13:48] LABS: IMMUNOGLOBULIN G 512 MG/DL (650-1600)
[2023-08-15 14:07] LABS: IMMUNOGLOBULIN A < 33.0 MG/DL (40-350); IMMUNOGLOBULIN M < 21.0 MG/DL (50-300)
[2023-08-16 18:10] LABS: FREE KAPPA LIGHT CHAINS SERUM 3.7 mg/L (3.3-19.4); FREE LAMBDA LIGHT CHAINS SERUM 1.9 mg/L (5.7-26.3); KAPPA/LAMBDA RATIO SERUM 1.95 (0.26-1.65)
== END ==
LOC: M LABDRWAD 12:50
PROVIDERS: ATTEND Internal Medicine Medical Oncology
DX: C90.00 Multiple myeloma not having achieved remission (principal)

== ENCOUNTER → 2023-08-21 | Outpatient (CLI) | payer MEDICARE, OTHER ==
[~2023-08-21] MED LIST changes: -ACETAMINOPHEN TAB 650MG DOSE (2X325MG) PO ONE; -diphenhydrAMINE 25MG CAP PO ONE
== END ==
LOC: M PLAIMG 10:34
PROVIDERS: ATTEND Family Medicine
DX: J18.9 Pneumonia, unspecified organism (principal)

== ENCOUNTER 2023-09-12 11:33 | Outpatient (CLI) | payer MEDICARE, OTHER ==
[~2023-09-12] VITALS: Ht 177.8 cm; Wt 66.0 kg
[2023-09-12 11:50] VITALS: BP 139/73; O2SAT 96
[2023-09-12] MEDS ORDERED: IMMUNE GLOBULIN 10% 5 GM in IV 1 EA IV ONE (12:00)
[2023-09-12] MEDS ORDERED: ACETAMINOPHEN 650MG PO PRIOR TO INFUSION PO ONE (12:00)
[2023-09-12] MEDS ORDERED: diphenhydrAMINE 25MG PO PRIOR TO INFUSION PO ONE (12:00)
[2023-09-12] MEDS ORDERED: IMMUNE GLOBULIN 10% 20 GM in IV 1 EA IV ONE (12:00)
[2023-09-12 12:45] VITALS: BP 145/79; O2SAT 95
[2023-09-12 13:15] VITALS: BP 139/78; O2SAT 96
[2023-09-12 13:45] VITALS: BP 123/72; O2SAT 97
[2023-09-12 15:05] VITALS: BP 141/78; O2SAT 97
== END 2023-09-12 15:05 ==
LOC: M INFU 11:33
PROVIDERS: ATTEND Internal Medicine Medical Oncology
DX: D80.1 Nonfamilial hypogammaglobulinemia (principal); C90.00 Multiple myeloma not having achieved remission
CPT/HCPCS: 36415; 80053; 82784; 83521; 84155; 84165; 85025; 96365; 96366; J1459

== ENCOUNTER → 2023-09-12 | Outpatient (REF) | payer MEDICARE, OTHER ==
[2023-09-12 14:26] LABS: BASO # 0.1 10^3/uL (0.0-0.2); EOS # 0.4 10^3/uL (0.0-0.5); EOS % 4.4 % (0.0-3.0); HEMATOCRIT 45.3 % (42.0-52.0); HEMOGLOBIN 13.9 g/dl (13.5-17.5); LYMPH # 0.8 10^3/uL (1.5-5.0); LYMPH % 9.2 % (24.0-44.0); MEAN CORPUSCULAR HEMOGLOBIN 32.9 pg (27.0-33.0); MEAN CORPUSCULAR HGB CONC 30.7 g/dl (32.0-36.5); MEAN CORPUSCULAR VOLUME 107.3 fl (80.0-96.0); MONO # 1.2 10^3/uL (0.0-0.8); MONO % 14.7 % (2.0-8.0); NEUTROPHILS # 5.7 10^3/uL (1.5-8.5); PLATELET COUNT, AUTOMATED 175 10^3/uL (150-450); RED BLOOD COUNT 4.22 10^6/uL (4.30-6.10); WHITE BLOOD COUNT 8.1 10^3/uL (4.0-10.0)
[2023-09-12 14:36] LABS: ALBUMIN 3.6 G/DL (3.2-5.2); ALKALINE PHOSPHATASE 88 U/L (46-116); ALT/SGPT 27 U/L (7.0-40); AST/SGOT 25 U/L (<34); BILIRUBIN,TOTAL 0.6 MG/DL (0.3-1.2); BLOOD UREA NITROGEN 32 MG/DL (9-23); CALCIUM LEVEL 8.9 MG/DL (8.3-10.6); CARBON DIOXIDE LEVEL 28 MMOL/L (20-31); CHLORIDE LEVEL 110 MMOL/L (98-107); CREATININE FOR GFR 1.44 MG/DL (0.70-1.30); GLOMERULAR FILTRATION RATE 52.4 (>49); GLUCOSE, FASTING 112 MG/DL (74-106); POTASSIUM SERUM 4.8 MMOL/L (3.5-5.1); SODIUM LEVEL 146 MMOL/L (136-145); TOTAL PROTEIN 5.8 G/DL (5.7-8.2)
[2023-09-12 14:37] LABS: IMMUNOGLOBULIN G 510 MG/DL (650-1600)
[2023-09-12 14:49] LABS: IMMUNOGLOBULIN A < 33.0 MG/DL (40-350); IMMUNOGLOBULIN M < 21.0 MG/DL (50-300)
[2023-09-14 19:10] LABS: FREE KAPPA LIGHT CHAINS SERUM 1.2 mg/L (3.3-19.4); FREE LAMBDA LIGHT CHAINS SERUM 2.1 mg/L (5.7-26.3); KAPPA/LAMBDA RATIO SERUM 0.57 (0.26-1.65)
== END ==
LOC: M LABDRWAD 12:56
PROVIDERS: ATTEND Internal Medicine Medical Oncology
DX: C90.00 Multiple myeloma not having achieved remission (principal)

== ENCOUNTER 2023-10-10 11:37 | Outpatient (CLI) | payer MEDICARE, OTHER ==
[~2023-10-10] VITALS: Ht 177.8 cm; Wt 65.3 kg
[~2023-10-10 11:37] MED LIST changes: +ALBUTEROL SULFATE 2.5MG/0.5ML INH NEB SOLN INH PRN; +EPINEPHrine INJ 1 MG/ML 1ML AMP IM PRN; +diphenhydrAMINE 50MG/ML VIAL IV PRN; +methylPREDNISolone 125MG 2ML VIAL IV PRN
[2023-10-10 12:15] VITALS: BP 142/87; O2SAT 95
[2023-10-10] MEDS ORDERED: IMMUNE GLOBULIN 10% 5 GM in IV 1 EA IV ONE (12:30)
[2023-10-10] MEDS ORDERED: diphenhydrAMINE 25MG CAP PO ONE (12:30)
[2023-10-10] MEDS ORDERED: ACETAMINOPHEN TAB 650MG DOSE (2X325MG) PO ONE (12:30)
[2023-10-10] MEDS ORDERED: IMMUNE GLOBULIN 10% 20 GM in IV 1 EA IV ONE (12:30)
[2023-10-10 14:00] VITALS: BP_SYST 157; BP_SYST 177; BP_DIAS 77; BP_DIAS 82; O2SAT 96
[2023-10-10 16:15] VITALS: BP 173/83; O2SAT 97
[2023-10-11] MEDS ORDERED: POMA4CAP PO (09:57)
== END 2023-10-10 16:15 | disposition home or self-care (01) ==
LOC: M INFU 11:37
PROVIDERS: ATTEND Internal Medicine Medical Oncology
DX: D80.1 Nonfamilial hypogammaglobulinemia (principal); C90.00 Multiple myeloma not having achieved remission
CPT/HCPCS: 36415; 80053; 82784; 83521; 84155; 84165; 85025; 96365; 96366; J1459

== ENCOUNTER → 2023-10-10 | Outpatient (REF) | payer MEDICARE, OTHER ==
[~2023-10-10] MED LIST changes: +CEFD1CAP9 PO; -CEFD300C42 PO
[2023-10-10 14:06] LABS: ALBUMIN 3.5 G/DL (3.2-5.2); ALKALINE PHOSPHATASE 80 U/L (46-116); ALT/SGPT 21 U/L (7.0-40); AST/SGOT 30 U/L (<34); BILIRUBIN,TOTAL 0.5 MG/DL (0.3-1.2); BLOOD UREA NITROGEN 26 MG/DL (9-23); CARBON DIOXIDE LEVEL 30 MMOL/L (20-31); CHLORIDE LEVEL 110 MMOL/L (98-107); CREATININE FOR GFR 1.33 MG/DL (0.70-1.30); GLOMERULAR FILTRATION RATE 57.4 (>49); GLUCOSE, FASTING 94 MG/DL (74-106); SODIUM LEVEL 144 MMOL/L (136-145); TOTAL PROTEIN 5.7 G/DL (5.7-8.2)
[2023-10-10 14:08] LABS: BASO # 0.1 10^3/uL (0.0-0.2); BASO % 1.5 % (0.0-1.0); EOS # 0.2 10^3/uL (0.0-0.5); EOS % 3.2 % (0.0-3.0); HEMATOCRIT 44.8 % (42.0-52.0); HEMOGLOBIN 14.1 g/dl (13.5-17.5); IMMUNOGLOBULIN G 592 MG/DL (650-1600); LYMPH # 0.6 10^3/uL (1.5-5.0); LYMPH % 8.2 % (24.0-44.0); MEAN CORPUSCULAR HEMOGLOBIN 32.4 pg (27.0-33.0); MEAN CORPUSCULAR HGB CONC 31.5 g/dl (32.0-36.5); MONO # 1.1 10^3/uL (0.0-0.8); MONO % 16.5 % (2.0-8.0); NEUTROPHILS # 4.7 10^3/uL (1.5-8.5); NEUTROPHILS % 69.9 % (36.0-66.0); PLATELET COUNT, AUTOMATED 173 10^3/uL (150-450); RED BLOOD COUNT 4.35 10^6/uL (4.30-6.10); WHITE BLOOD COUNT 6.8 10^3/uL (4.0-10.0)
[2023-10-10 14:18] LABS: IMMUNOGLOBULIN A < 33.0 MG/DL (40-350); IMMUNOGLOBULIN M < 21.0 MG/DL (50-300)
== END ==
LOC: M LABDRWAD 13:40
PROVIDERS: ATTEND Internal Medicine Medical Oncology
DX: C90.00 Multiple myeloma not having achieved remission (principal)

== ENCOUNTER 2023-11-07 12:00 | Outpatient (CLI) | payer MEDICARE, OTHER ==
[~2023-11-07] VITALS: Ht 177.8 cm; Wt 65.0 kg
[~2023-11-07 12:00] MED LIST changes: +ALBUTEROL SULFATE 2.5MG/0.5ML INH NEB SOLN INH PRN; +diphenhydrAMINE 50MG/ML VIAL IV PRN
[2023-11-07 12:05] VITALS: BP 160/74; O2SAT 97
[2023-11-07] MEDS ORDERED: diphenhydrAMINE 25MG CAP PO ONE (12:15)
[2023-11-07] MEDS ORDERED: IMMUNE GLOBULIN 10% 20 GM in IV 1 EA IV ONE (12:15)
[2023-11-07] MEDS ORDERED: ACETAMINOPHEN TAB 650MG DOSE (2X325MG) PO ONE (12:15)
[2023-11-07] MEDS ORDERED: IMMUNE GLOBULIN 10% 5 GM in IV 1 EA IV ONE (12:15)
[2023-11-07] MEDS ORDERED: EPINEPHrine INJ 1 MG/ML 1ML AMP IM PRN (12:20)
[2023-11-07] MEDS ORDERED: dexAMETHasone 20MG/5ML VIAL IV PRN (12:20)
[2023-11-07] MEDS ORDERED: FAMOTIDINE 20MG/2ML VIAL IV PRN (12:20)
[2023-11-07 13:00] VITALS: BP 156/73; O2SAT 98
[2023-11-07 13:30] VITALS: BP 135/77; O2SAT 98
[2023-11-07 14:00] VITALS: BP 137/79; O2SAT 96
[2023-11-07 15:15] VITALS: BP 128/73; O2SAT 97
[2023-11-07] MEDS ORDERED: POMA4CAP PO (17:20)
== END 2023-11-07 15:30 | disposition home or self-care (01) ==
LOC: M INFU 12:00
PROVIDERS: ATTEND Internal Medicine Medical Oncology
DX: D80.1 Nonfamilial hypogammaglobulinemia (principal); C90.00 Multiple myeloma not having achieved remission
CPT/HCPCS: 36415; 80053; 82784; 83521; 84155; 84165; 85025; 96365; 96366; J1459

== ENCOUNTER → 2023-11-07 | Outpatient (REF) | payer MEDICARE, OTHER ==
[~2023-11-07] MED LIST changes: -ALBUTEROL SULFATE 2.5MG/0.5ML INH NEB SOLN INH PRN; -EPINEPHrine INJ 1 MG/ML 1ML AMP IM PRN; -diphenhydrAMINE 50MG/ML VIAL IV PRN; -methylPREDNISolone 125MG 2ML VIAL IV PRN
[2023-11-07 13:50] LABS: BASO # 0.1 10^3/uL (0.0-0.2); BASO % 1.4 % (0.0-1.0); EOS # 0.2 10^3/uL (0.0-0.5); EOS % 2.8 % (0.0-3.0); HEMATOCRIT 47.4 % (42.0-52.0); HEMOGLOBIN 14.7 g/dl (13.5-17.5); LYMPH # 0.7 10^3/uL (1.5-5.0); LYMPH % 9.2 % (24.0-44.0); MEAN CORPUSCULAR HEMOGLOBIN 32.3 pg (27.0-33.0); MEAN CORPUSCULAR VOLUME 104.2 fl (80.0-96.0); MONO # 1.2 10^3/uL (0.0-0.8); MONO % 17.6 % (2.0-8.0); NEUTROPHILS # 4.8 10^3/uL (1.5-8.5); NEUTROPHILS % 68.2 % (36.0-66.0); PLATELET COUNT, AUTOMATED 159 10^3/uL (150-450); RED BLOOD COUNT 4.55 10^6/uL (4.30-6.10); WHITE BLOOD COUNT 7.1 10^3/uL (4.0-10.0)
[2023-11-07 14:25] LABS: IMMUNOGLOBULIN G 599 MG/DL (650-1600)
[2023-11-07 14:34] LABS: ALBUMIN 3.9 G/DL (3.2-5.2); ALKALINE PHOSPHATASE 78 U/L (46-116); ALT/SGPT 19 U/L (7.0-40); AST/SGOT 25 U/L (<34); BILIRUBIN,TOTAL 0.7 MG/DL (0.3-1.2); BLOOD UREA NITROGEN 38 MG/DL (9-23); CALCIUM LEVEL 9.5 MG/DL (8.3-10.6); CARBON DIOXIDE LEVEL 31 MMOL/L (20-31); CHLORIDE LEVEL 108 MMOL/L (98-107); CREATININE FOR GFR 1.57 MG/DL (0.70-1.30); GLOMERULAR FILTRATION RATE 47.4 (>49); GLUCOSE, FASTING 78 MG/DL (74-106); POTASSIUM SERUM 5.4 MMOL/L (3.5-5.1); SODIUM LEVEL 142 MMOL/L (136-145); TOTAL PROTEIN 6.1 G/DL (5.7-8.2)
[2023-11-07 14:35] LABS: IMMUNOGLOBULIN A < 33.0 MG/DL (40-350)
[2023-11-09 18:07] LABS: FREE KAPPA LIGHT CHAINS SERUM 0.9 mg/L (3.3-19.4); FREE LAMBDA LIGHT CHAINS SERUM <1.5 mg/L (5.7-26.3); KAPPA/LAMBDA RATIO SERUM >0.60 (0.26-1.65)
== END ==
LOC: M LABDRWAD 12:34
PROVIDERS: ATTEND Internal Medicine Medical Oncology
DX: C90.00 Multiple myeloma not having achieved remission (principal)

== ENCOUNTER → 2023-11-26 | Outpatient (CLI) | payer MEDICARE, OTHER ==
[~2023-11-26] MED LIST changes: -ALBUTEROL SULFATE 2.5MG/0.5ML INH NEB SOLN INH PRN; -diphenhydrAMINE 50MG/ML VIAL IV PRN
[2023-11-26 14:21] LABS: BASO # 0.1 10^3/uL (0.0-0.2); BASO % 1.8 % (0.0-1.0); EOS # 0.1 10^3/uL (0.0-0.5); EOS % 2.4 % (0.0-3.0); HEMATOCRIT 42.2 % (42.0-52.0); HEMOGLOBIN 13.2 g/dl (13.5-17.5); LYMPH # 0.3 10^3/uL (1.5-5.0); LYMPH % 8.1 % (24.0-44.0); MEAN CORPUSCULAR HEMOGLOBIN 32.1 pg (27.0-33.0); MEAN CORPUSCULAR HGB CONC 31.3 g/dl (32.0-36.5); MEAN CORPUSCULAR VOLUME 102.7 fl (80.0-96.0); MONO # 0.3 10^3/uL (0.0-0.8); MONO % 9.3 % (2.0-8.0); NEUTROPHILS # 2.6 10^3/uL (1.5-8.5); NEUTROPHILS % 77.2 % (36.0-66.0); PLATELET COUNT, AUTOMATED 139 10^3/uL (150-450); RED BLOOD COUNT 4.11 10^6/uL (4.30-6.10); WHITE BLOOD COUNT 3.4 10^3/uL (4.0-10.0)
[2023-11-26 14:24] LABS: ALBUMIN 3.4 G/DL (3.2-5.2); BILIRUBIN,TOTAL 0.6 MG/DL (0.3-1.2); CALCIUM LEVEL 9.5 MG/DL (8.3-10.6); CREATININE FOR GFR 1.56 MG/DL (0.70-1.30); GLOMERULAR FILTRATION RATE 47.8 (>49); POTASSIUM SERUM 5.3 MMOL/L (3.5-5.1); TOTAL PROTEIN 5.9 G/DL (5.7-8.2)
== END ==
LOC: M PLALAB 10:22
PROVIDERS: ATTEND Registered Nurse
DX: R50.9 Fever, unspecified (principal)

== ENCOUNTER 2023-12-05 11:50 | Outpatient (CLI) | payer MEDICARE, OTHER ==
[~2023-12-05] VITALS: Ht 177.8 cm; Wt 65.0 kg
[2023-12-05 11:50] VITALS: BP 143/88; O2SAT 96
[~2023-12-05 11:50] MED LIST changes: +ALBUTEROL SULFATE 2.5MG/0.5ML INH NEB SOLN INH PRN; +EPINEPHrine INJ 1 MG/ML 1ML AMP IM PRN; +FAMOTIDINE 20MG/2ML VIAL IV PRN; -TRIA1CR80 TOP; +dexAMETHasone 20MG/5ML VIAL IV PRN; +diphenhydrAMINE 50MG/ML VIAL IV PRN
[2023-12-05] MEDS ORDERED: diphenhydrAMINE 25MG CAP PO ONE (12:00)
[2023-12-05] MEDS ORDERED: ACETAMINOPHEN TAB 650MG DOSE (2X325MG) PO ONE (12:00)
[2023-12-05] MEDS ORDERED: IMMUNE GLOBULIN 10% 5 GM in IV 1 EA IV ONE (12:00)
[2023-12-05] MEDS ORDERED: IMMUNE GLOBULIN 10% 20 GM in IV 1 EA IV ONE (12:00)
[2023-12-05 12:50] VITALS: BP 155/89; O2SAT 97
[2023-12-05 13:20] VITALS: BP 140/78; O2SAT 99
[2023-12-05 13:50] VITALS: BP 145/77; O2SAT 97
[2023-12-05 14:50] VITALS: BP 150/76; O2SAT 97
[2023-12-05 15:15] VITALS: BP 157/81; O2SAT 96
[2023-12-07] MEDS ORDERED: TRIA1CR80 TOP (10:07)
== END 2023-12-05 15:15 ==
LOC: M INFU 11:50
PROVIDERS: ATTEND Internal Medicine Medical Oncology
DX: C90.00 Multiple myeloma not having achieved remission (principal); D80.1 Nonfamilial hypogammaglobulinemia
CPT/HCPCS: 36415; 80053; 82784; 83521; 84155; 84165; 85025; 96365; 96366; J1459

== ENCOUNTER → 2023-12-05 | Outpatient (REF) | payer MEDICARE, OTHER ==
[~2023-12-05] MED LIST changes: +TRIA1CR80 TOP
[2023-12-05 15:28] LABS: ALBUMIN 3.6 G/DL (3.2-5.2); ALKALINE PHOSPHATASE 82 U/L (46-116); ALT/SGPT 27 U/L (7.0-40); AST/SGOT 32 U/L (<34); BILIRUBIN,TOTAL 0.7 MG/DL (0.3-1.2); BLOOD UREA NITROGEN 28 MG/DL (9-23); CALCIUM LEVEL 9.1 MG/DL (8.3-10.6); CARBON DIOXIDE LEVEL 31 MMOL/L (20-31); CHLORIDE LEVEL 107 MMOL/L (98-107); CREATININE FOR GFR 1.33 MG/DL (0.70-1.30); GLOMERULAR FILTRATION RATE 57.4 (>49); GLUCOSE, FASTING 108 MG/DL (74-106); POTASSIUM SERUM 3.9 MMOL/L (3.5-5.1); SODIUM LEVEL 145 MMOL/L (136-145)
[2023-12-05 15:30] LABS: IMMUNOGLOBULIN G 636 MG/DL (650-1600)
[2023-12-05 15:32] LABS: BASO # 0.1 10^3/uL (0.0-0.2); BASO % 0.7 % (0.0-1.0); EOS # 0.4 10^3/uL (0.0-0.5); EOS % 3.6 % (0.0-3.0); HEMATOCRIT 47.6 % (42.0-52.0); HEMOGLOBIN 14.6 g/dl (13.5-17.5); LYMPH # 1.2 10^3/uL (1.5-5.0); LYMPH % 12.2 % (24.0-44.0); MEAN CORPUSCULAR HGB CONC 30.7 g/dl (32.0-36.5); MEAN CORPUSCULAR VOLUME 104.4 fl (80.0-96.0); MONO # 1.4 10^3/uL (0.0-0.8); MONO % 14.1 % (2.0-8.0); NEUTROPHILS % 68.4 % (36.0-66.0); PLATELET COUNT, AUTOMATED 259 10^3/uL (150-450); RED BLOOD COUNT 4.56 10^6/uL (4.30-6.10); WHITE BLOOD COUNT 10.2 10^3/uL (4.0-10.0)
[2023-12-05 15:41] LABS: IMMUNOGLOBULIN A < 33.0 MG/DL (40-350)
== END ==
LOC: M LABDRWAD 13:25
PROVIDERS: ATTEND Internal Medicine Medical Oncology
DX: C90.00 Multiple myeloma not having achieved remission (principal)

== ENCOUNTER → 2023-12-14 | Outpatient (REF) | payer MEDICARE, OTHER ==
[~2023-12-14] MED LIST changes: -ALBUTEROL SULFATE 2.5MG/0.5ML INH NEB SOLN INH PRN; -EPINEPHrine INJ 1 MG/ML 1ML AMP IM PRN; -FAMOTIDINE 20MG/2ML VIAL IV PRN; +TRIA1CR80 TOP; -dexAMETHasone 20MG/5ML VIAL IV PRN; -diphenhydrAMINE 50MG/ML VIAL IV PRN
== END ==
LOC: M LAB REF 17:47
PROVIDERS: ATTEND Internal Medicine Nephrology
DX: E03.9 Hypothyroidism, unspecified (principal)

== ENCOUNTER 2024-01-02 11:50 | Outpatient (CLI) | payer MEDICARE, OTHER ==
[~2024-01-02] VITALS: Ht 177.8 cm; Wt 67.3 kg
[2024-01-02 11:50] VITALS: BP 158/70; O2SAT 96
[2024-01-02] MEDS: diphenhydrAMINE 25MG CAP PO ONE (11:58)
[2024-01-02] MEDS: ACETAMINOPHEN TAB 650MG DOSE (2X325MG) PO ONE (11:58)
[2024-01-02] MEDS: IMMUNE GLOBULIN 10% 20 GM in IV 1 EA IV ONE (12:16)
[2024-01-02] MEDS: IMMUNE GLOBULIN 10% 5 GM in IV 1 EA IV ONE (12:17)
[2024-01-02 13:02] VITALS: BP 148/72; O2SAT 95
[2024-01-02 14:00] VITALS: BP 134/63; O2SAT 95
[2024-01-02 15:00] VITALS: BP 151/73; O2SAT 97
[2024-01-04] MEDS ORDERED: NORV5TAB PO (09:59)
[2024-01-04] MEDS ORDERED: D-101000 (09:59)
== END 2024-01-02 15:00 | disposition home or self-care (01) ==
LOC: M INFU 11:50
PROVIDERS: ATTEND Internal Medicine Medical Oncology
DX: D80.1 Nonfamilial hypogammaglobulinemia (principal)
CPT/HCPCS: 96365; 96366; J1459

== ENCOUNTER → 2024-01-02 | Outpatient (REF) | payer MEDICARE, OTHER ==
[2024-01-02 14:39] LABS: BASO # 0.1 10^3/uL (0.0-0.2); BASO % 1.2 % (0.0-1.0); EOS # 0.2 10^3/uL (0.0-0.5); EOS % 2.6 % (0.0-3.0); HEMATOCRIT 42.4 % (42.0-52.0); HEMOGLOBIN 13.2 g/dl (13.5-17.5); LYMPH # 0.9 10^3/uL (1.5-5.0); LYMPH % 10.7 % (24.0-44.0); MEAN CORPUSCULAR HEMOGLOBIN 31.8 pg (27.0-33.0); MEAN CORPUSCULAR HGB CONC 31.1 g/dl (32.0-36.5); MEAN CORPUSCULAR VOLUME 102.2 fl (80.0-96.0); MONO # 1.3 10^3/uL (0.0-0.8); MONO % 16.7 % (2.0-8.0); NEUTROPHILS # 5.5 10^3/uL (1.5-8.5); NEUTROPHILS % 68.3 % (36.0-66.0); PLATELET COUNT, AUTOMATED 173 10^3/uL (150-450); RED BLOOD COUNT 4.15 10^6/uL (4.30-6.10)
[2024-01-02 15:02] LABS: ALBUMIN 3.4 G/DL (3.2-5.2); ALKALINE PHOSPHATASE 81 U/L (46-116); ALT/SGPT 17 U/L (7.0-40); AST/SGOT 18 U/L (<34); BILIRUBIN,TOTAL 0.6 MG/DL (0.3-1.2); BLOOD UREA NITROGEN 27 MG/DL (9-23); CALCIUM LEVEL 8.8 MG/DL (8.3-10.6); CARBON DIOXIDE LEVEL 30 MMOL/L (20-31); CHLORIDE LEVEL 107 MMOL/L (98-107); CREATININE FOR GFR 1.45 MG/DL (0.70-1.30); GLUCOSE, FASTING 132 MG/DL (74-106); POTASSIUM SERUM 4.1 MMOL/L (3.5-5.1); SODIUM LEVEL 145 MMOL/L (136-145); TOTAL PROTEIN 5.7 G/DL (5.7-8.2)
[2024-01-02 16:16] LABS: IMMUNOGLOBULIN G 532 MG/DL (650-1600)
[2024-01-02 16:32] LABS: IMMUNOGLOBULIN A < 33.0 MG/DL (40-350)
[2024-01-03 18:07] LABS: FREE KAPPA LIGHT CHAINS SERUM 0.9 mg/L (3.3-19.4); FREE LAMBDA LIGHT CHAINS SERUM 1.9 mg/L (5.7-26.3); KAPPA/LAMBDA RATIO SERUM 0.47 (0.26-1.65)
== END ==
LOC: M LABDRWAD 13:30
PROVIDERS: ATTEND Internal Medicine Medical Oncology
DX: C90.00 Multiple myeloma not having achieved remission (principal)

== ENCOUNTER 2024-01-30 11:32 | Outpatient (CLI) | payer MEDICARE, OTHER ==
[~2024-01-30 11:32] MED LIST changes: +ALBUTEROL SULFATE 2.5MG/0.5ML INH NEB SOLN INH PRN; +EPINEPHrine INJ 1 MG/ML 1ML AMP IM PRN; +NS 1,000 ML IV SCH; +diphenhydrAMINE 50MG/ML VIAL IV PRN; +methylPREDNISolone 125MG 2ML VIAL IV PRN
[2024-01-30 12:00] VITALS: BP 176/92; O2SAT 95
[2024-01-30] MEDS: diphenhydrAMINE 25MG PO PRIOR TO INFUSION PO ONE (12:40)
[2024-01-30] MEDS: ACETAMINOPHEN 650MG PO PRIOR TO INFUSION PO ONE (12:40)
[2024-01-30] MEDS: IMMUNE GLOBULIN 10% 20 GM in IV 1 EA IV ONE (12:57)
[2024-01-30] MEDS: IMMUNE GLOBULIN 10% 5 GM in IV 1 EA IV ONE (12:58)
[2024-01-30 13:00] VITALS: BP 148/76; O2SAT 95
[2024-01-30 15:58] VITALS: BP 156/88; O2SAT 95
== END 2024-01-30 16:00 ==
LOC: M INFU 11:32
PROVIDERS: ATTEND Internal Medicine Medical Oncology
DX: D80.1 Nonfamilial hypogammaglobulinemia (principal); C90.00 Multiple myeloma not having achieved remission
CPT/HCPCS: 36415; 80053; 82784; 83521; 84155; 84165; 85025; 96365; 96366; J1459

== ENCOUNTER → 2024-01-30 | Outpatient (REF) | payer MEDICARE, OTHER ==
[~2024-01-30] MED LIST changes: +D-101000; +NORV5TAB PO
[2024-01-30 14:36] LABS: BASO # 0.1 10^3/uL (0.0-0.2); BASO % 1.3 % (0.0-1.0); EOS # 0.2 10^3/uL (0.0-0.5); EOS % 2.9 % (0.0-3.0); HEMATOCRIT 44.5 % (42.0-52.0); HEMOGLOBIN 13.7 g/dl (13.5-17.5); LYMPH # 0.8 10^3/uL (1.5-5.0); LYMPH % 10.4 % (24.0-44.0); MEAN CORPUSCULAR HEMOGLOBIN 31.2 pg (27.0-33.0); MEAN CORPUSCULAR HGB CONC 30.8 g/dl (32.0-36.5); MEAN CORPUSCULAR VOLUME 101.4 fl (80.0-96.0); MONO # 1.4 10^3/uL (0.0-0.8); MONO % 17.9 % (2.0-8.0); NEUTROPHILS # 5.1 10^3/uL (1.5-8.5); PLATELET COUNT, AUTOMATED 165 10^3/uL (150-450); RED BLOOD COUNT 4.39 10^6/uL (4.30-6.10); WHITE BLOOD COUNT 7.6 10^3/uL (4.0-10.0)
[2024-01-30 15:07] LABS: ALBUMIN 3.6 G/DL (3.2-5.2); ALKALINE PHOSPHATASE 78 U/L (46-116); ALT/SGPT 15 U/L (7.0-40); AST/SGOT 21 U/L (<34); BILIRUBIN,TOTAL 0.5 MG/DL (0.3-1.2); BLOOD UREA NITROGEN 27 MG/DL (9-23); CALCIUM LEVEL 8.7 MG/DL (8.3-10.6); CARBON DIOXIDE LEVEL 31 MMOL/L (20-31); CHLORIDE LEVEL 106 MMOL/L (98-107); CREATININE FOR GFR 1.32 MG/DL (0.70-1.30); GLOMERULAR FILTRATION RATE 57.9 (>49); GLUCOSE, FASTING 80 MG/DL (74-106); POTASSIUM SERUM 4.3 MMOL/L (3.5-5.1); SODIUM LEVEL 144 MMOL/L (136-145); TOTAL PROTEIN 5.5 G/DL (5.7-8.2)
[2024-01-30 17:55] LABS: IMMUNOGLOBULIN G 563 MG/DL (650-1600)
[2024-01-30 18:29] LABS: IMMUNOGLOBULIN A < 33.0 MG/DL (40-350)
[2024-01-31 17:07] LABS: FREE KAPPA LIGHT CHAINS SERUM 0.9 mg/L (3.3-19.4); FREE LAMBDA LIGHT CHAINS SERUM <1.5 mg/L (5.7-26.3); KAPPA/LAMBDA RATIO SERUM >0.60 (0.26-1.65)
== END ==
LOC: M LABDRWAD 13:25
PROVIDERS: ATTEND Nurse Practitioner
DX: C90.00 Multiple myeloma not having achieved remission (principal)

== ENCOUNTER → 2024-02-27 | Outpatient (REF) | payer MEDICARE, OTHER ==
[~2024-02-27] MED LIST changes: -ALBUTEROL SULFATE 2.5MG/0.5ML INH NEB SOLN INH PRN; +DAPS100T22 PO; -DAPS10TA PO; -EPINEPHrine INJ 1 MG/ML 1ML AMP IM PRN; -NS 1,000 ML IV SCH; -diphenhydrAMINE 50MG/ML VIAL IV PRN; -methylPREDNISolone 125MG 2ML VIAL IV PRN
[2024-02-27 13:41] LABS: BASO # 0.1 10^3/uL (0.0-0.2); BASO % 1.2 % (0.0-1.0); EOS # 0.2 10^3/uL (0.0-0.5); EOS % 2.5 % (0.0-3.0); HEMATOCRIT 41.9 % (42.0-52.0); LYMPH # 0.5 10^3/uL (1.5-5.0); LYMPH % 7.4 % (24.0-44.0); MEAN CORPUSCULAR VOLUME 99.8 fl (80.0-96.0); MONO # 1.2 10^3/uL (0.0-0.8); MONO % 16.6 % (2.0-8.0); NEUTROPHILS # 5.2 10^3/uL (1.5-8.5); NEUTROPHILS % 71.8 % (36.0-66.0); PLATELET COUNT, AUTOMATED 142 10^3/uL (150-450); WHITE BLOOD COUNT 7.3 10^3/uL (4.0-10.0)
[2024-02-27 14:23] LABS: ALBUMIN 3.4 G/DL (3.2-5.2); BILIRUBIN,TOTAL 0.7 MG/DL (0.3-1.2); CALCIUM LEVEL 9.1 MG/DL (8.3-10.6); CREATININE FOR GFR 1.65 MG/DL (0.70-1.30); GLOMERULAR FILTRATION RATE 44.8 (>49); PERCENT SATURATION 42.2 % (19.7-50.0); POTASSIUM SERUM 4.8 MMOL/L (3.5-5.1); TOTAL PROTEIN 5.4 G/DL (5.7-8.2)
[2024-02-28 17:09] LABS: FREE KAPPA LIGHT CHAINS SERUM 0.8 mg/L (3.3-19.4); FREE LAMBDA LIGHT CHAINS SERUM <1.5 mg/L (5.7-26.3); KAPPA/LAMBDA RATIO SERUM >0.53 (0.26-1.65)
== END ==
LOC: M LABDRWAD 12:34
PROVIDERS: ATTEND Internal Medicine Medical Oncology
DX: C90.00 Multiple myeloma not having achieved remission (principal)

== ENCOUNTER → 2024-02-27 | Outpatient (CLI) | payer MEDICARE, OTHER ==
[~2024-02-27] VITALS: Ht 177.8 cm; Wt 64.5 kg
[~2024-02-27] MED LIST changes: +ALBUTEROL SULFATE 2.5MG/0.5ML INH NEB SOLN INH PRN; +EPINEPHrine INJ 1 MG/ML 1ML AMP IM PRN; +NS 1,000 ML IV SCH; +diphenhydrAMINE 50MG/ML VIAL IV PRN; +methylPREDNISolone 125MG 2ML VIAL IV PRN
[2024-02-27 09:30] VITALS: BP 171/76; O2SAT 95
[2024-02-27] MEDS: ACETAMINOPHEN TAB 650MG DOSE (2X325MG) PO ONE (09:47)
[2024-02-27] MEDS: diphenhydrAMINE 25MG CAP PO ONE (09:47)
[2024-02-27] MEDS: IMMUNE GLOBULIN 10% 5 GM in IV 1 EA IV ONE (09:55)
[2024-02-27] MEDS: IMMUNE GLOBULIN 10% 20 GM in IV 1 EA IV ONE (09:55)
[2024-02-27 10:25] VITALS: BP 120/81; O2SAT 94
[2024-02-27 12:23] VITALS: BP 130/71; O2SAT 96
[2024-02-27 12:46] VITALS: BP 140/76; O2SAT 95
== END ==
LOC: M INFU 09:22
PROVIDERS: ATTEND Internal Medicine Medical Oncology
DX: C90.00 Multiple myeloma not having achieved remission (principal); D80.1 Nonfamilial hypogammaglobulinemia
CPT/HCPCS: 36415; 80053; 82728; 83521; 83550; 85025; 96365; 96366; J1459

== ENCOUNTER → 2024-03-04 | Outpatient (REF) | payer MEDICARE, OTHER ==
[~2024-03-04] MED LIST changes: -ALBUTEROL SULFATE 2.5MG/0.5ML INH NEB SOLN INH PRN; -EPINEPHrine INJ 1 MG/ML 1ML AMP IM PRN; -NS 1,000 ML IV SCH; -diphenhydrAMINE 50MG/ML VIAL IV PRN; -methylPREDNISolone 125MG 2ML VIAL IV PRN
[2024-03-04 12:44] LABS: INR 0.95; PARTIAL THROMBOPLASTIN TIME 23.7 SECONDS (24.8-34.2); PROTHROMBIN TIME 12.4 SECONDS (12.5-14.5)
[2024-03-04 13:29] LABS: BASO # 0.1 10^3/uL (0.0-0.2); BASO % 1.3 % (0.0-1.0); EOS # 0.3 10^3/uL (0.0-0.5); EOS % 7.7 % (0.0-3.0); HEMATOCRIT 42.5 % (42.0-52.0); HEMOGLOBIN 13.1 g/dl (13.5-17.5); LYMPH # 0.5 10^3/uL (1.5-5.0); LYMPH % 13.8 % (24.0-44.0); MEAN CORPUSCULAR HEMOGLOBIN 31.3 pg (27.0-33.0); MEAN CORPUSCULAR HGB CONC 30.8 g/dl (32.0-36.5); MEAN CORPUSCULAR VOLUME 101.4 fl (80.0-96.0); MONO # 0.9 10^3/uL (0.0-0.8); MONO % 23.7 % (2.0-8.0); NEUTROPHILS % 51.5 % (36.0-66.0); RED BLOOD COUNT 4.19 10^6/uL (4.30-6.10); WHITE BLOOD COUNT 3.9 10^3/uL (4.0-10.0)
[2024-03-04 13:48] LABS: CALCIUM LEVEL 8.8 MG/DL (8.3-10.6); CREATININE FOR GFR 1.45 MG/DL (0.70-1.30); POTASSIUM SERUM 4.9 MMOL/L (3.5-5.1)
[2024-03-04 13:54] LABS: PLATELET COUNT, AUTOMATED 75 10^3/uL (150-450)
== END ==
LOC: M LABDRWAD 12:17
PROVIDERS: ATTEND Physician Assistant
DX: Z01.818 Encounter for other preprocedural examination (principal); I73.9 Peripheral vascular disease, unspecified; D69.8 Other specified hemorrhagic conditions

== ENCOUNTER 2024-03-26 09:40 | Outpatient (CLI) | payer MEDICARE, OTHER ==
[~2024-03-26] VITALS: Ht 177.8 cm; Wt 65.0 kg
[2024-03-26 09:40] VITALS: BP 147/77; O2SAT 100
[~2024-03-26 09:40] MED LIST changes: +ALBUTEROL SULFATE 2.5MG/0.5ML INH NEB SOLN INH PRN; +EPINEPHrine INJ 1 MG/ML 1ML AMP IM PRN; +NS 1,000 ML IV SCH; -VENTAER INH; +diphenhydrAMINE 50MG/ML VIAL IV PRN; +methylPREDNISolone 125MG 2ML VIAL IV PRN
[2024-03-26] MEDS: ACETAMINOPHEN 650MG PO PRIOR TO INFUSION PO ONE (09:50)
[2024-03-26] MEDS: diphenhydrAMINE 25MG PO PRIOR TO INFUSION PO ONE (09:50)
[2024-03-26] MEDS: IMMUNE GLOBULIN 10% 5 GM in IV 1 EA IV ONE (10:07)
[2024-03-26] MEDS: IMMUNE GLOBULIN 10% 20 GM in IV 1 EA IV ONE (10:12)
[2024-03-26 10:45] VITALS: BP 131/66; O2SAT 97
[2024-03-26 11:15] VITALS: BP 135/66; O2SAT 97
[2024-03-26 11:45] VITALS: BP 129/63; O2SAT 98
[2024-03-28] MEDS ORDERED: VENTAER INH (09:00)
== END 2024-03-26 13:10 ==
LOC: M INFU 09:40
PROVIDERS: ATTEND Internal Medicine Medical Oncology
DX: D80.1 Nonfamilial hypogammaglobulinemia (principal)
CPT/HCPCS: 96365; 96366; J1459

== ENCOUNTER → 2024-03-26 | Outpatient (REF) | payer MEDICARE, OTHER ==
[~2024-03-26] MED LIST changes: +VENTAER INH
[2024-03-26 17:36] LABS: ALBUMIN 3.9 G/DL (3.2-5.2); BILIRUBIN,TOTAL 0.9 MG/DL (0.3-1.2); CALCIUM LEVEL 8.9 MG/DL (8.3-10.6); CHOLESTEROL RISK RATIO 2.06 (<5); CREATININE FOR GFR 1.66 MG/DL (0.70-1.30); GLOMERULAR FILTRATION RATE 44.5 (>49); HDL CHOLESTEROL 69.2 MG/DL (>40); LDL CHOLESTEROL 52.4 MG/DL (<100); NON-HDL-C 73.8 MG/DL; POTASSIUM SERUM 3.6 MMOL/L (3.5-5.1); TOTAL PROTEIN 6.3 G/DL (5.7-8.2)
[2024-03-26 17:39] LABS: FREE T4 1.42 NG/DL (0.89-1.76); THYROID STIMULATING HORMONE 4.486 uIU/ML (0.55-4.78)
== END ==
LOC: M LABDRWAD 12:41
PROVIDERS: ATTEND Family Medicine
DX: N18.4 Chronic kidney disease, stage 4 (severe) (principal); E03.9 Hypothyroidism, unspecified; E78.2 Mixed hyperlipidemia

== ENCOUNTER → 2024-03-26 | Outpatient (REF) | payer MEDICARE, OTHER ==
[2024-03-26 13:46] LABS: BASO # 0.1 10^3/uL (0.0-0.2); BASO % 1.4 % (0.0-1.0); EOS # 0.2 10^3/uL (0.0-0.5); EOS % 2.3 % (0.0-3.0); HEMATOCRIT 42.7 % (42.0-52.0); HEMOGLOBIN 13.4 g/dl (13.5-17.5); LYMPH # 0.5 10^3/uL (1.5-5.0); LYMPH % 5.9 % (24.0-44.0); MEAN CORPUSCULAR HEMOGLOBIN 31.9 pg (27.0-33.0); MEAN CORPUSCULAR HGB CONC 31.4 g/dl (32.0-36.5); MEAN CORPUSCULAR VOLUME 101.7 fl (80.0-96.0); MONO # 1.6 10^3/uL (0.0-0.8); NEUTROPHILS # 6.6 10^3/uL (1.5-8.5); NEUTROPHILS % 72.6 % (36.0-66.0); PLATELET COUNT, AUTOMATED 199 10^3/uL (150-450); WHITE BLOOD COUNT 9.1 10^3/uL (4.0-10.0)
[2024-03-26 16:57] LABS: ALBUMIN 3.8 G/DL (3.2-5.2); ALKALINE PHOSPHATASE 79 U/L (46-116); ALT/SGPT 19 U/L (7.0-40); AST/SGOT 22 U/L (<34); BILIRUBIN,TOTAL 0.8 MG/DL (0.3-1.2); BLOOD UREA NITROGEN 32 MG/DL (9-23); CALCIUM LEVEL 9.1 MG/DL (8.3-10.6); CARBON DIOXIDE LEVEL 27 MMOL/L (20-31); CHLORIDE LEVEL 108 MMOL/L (98-107); GLOMERULAR FILTRATION RATE 43.3 (>49); GLUCOSE, FASTING 84 MG/DL (74-106); POTASSIUM SERUM 4.8 MMOL/L (3.5-5.1); SODIUM LEVEL 144 MMOL/L (136-145); TOTAL PROTEIN 6.1 G/DL (5.7-8.2)
[2024-03-26 16:58] LABS: IMMUNOGLOBULIN G 572 MG/DL (650-1600)
[2024-03-26 18:58] LABS: IMMUNOGLOBULIN A < 33.0 MG/DL (40-350)
[2024-03-27 18:08] LABS: FREE KAPPA LIGHT CHAINS SERUM 0.8 mg/L (3.3-19.4); FREE LAMBDA LIGHT CHAINS SERUM <1.5 mg/L (5.7-26.3); KAPPA/LAMBDA RATIO SERUM >0.53 (0.26-1.65)
== END ==
LOC: M LABDRWAD 12:45
PROVIDERS: ATTEND Internal Medicine Medical Oncology
DX: C90.00 Multiple myeloma not having achieved remission (principal); N18.4 Chronic kidney disease, stage 4 (severe); E03.9 Hypothyroidism, unspecified; E78.2 Mixed hyperlipidemia

== ENCOUNTER → 2024-04-22 | Outpatient (REF) | payer MEDICARE, OTHER ==
[~2024-04-22] MED LIST changes: -ALBUTEROL SULFATE 2.5MG/0.5ML INH NEB SOLN INH PRN; -EPINEPHrine INJ 1 MG/ML 1ML AMP IM PRN; -NS 1,000 ML IV SCH; +VENTAER INH; -diphenhydrAMINE 50MG/ML VIAL IV PRN; -methylPREDNISolone 125MG 2ML VIAL IV PRN
[2024-04-22 14:06] LABS: BASO # 0.1 10^3/uL (0.0-0.2); BASO % 1.1 % (0.0-1.0); EOS # 0.2 10^3/uL (0.0-0.5); EOS % 1.9 % (0.0-3.0); HEMATOCRIT 41.5 % (42.0-52.0); HEMOGLOBIN 13.1 g/dl (13.5-17.5); LYMPH # 0.4 10^3/uL (1.5-5.0); LYMPH % 4.9 % (24.0-44.0); MEAN CORPUSCULAR HEMOGLOBIN 31.9 pg (27.0-33.0); MEAN CORPUSCULAR HGB CONC 31.6 g/dl (32.0-36.5); MONO # 1.2 10^3/uL (0.0-0.8); MONO % 15.4 % (2.0-8.0); NEUTROPHILS % 75.9 % (36.0-66.0); PLATELET COUNT, AUTOMATED 169 10^3/uL (150-450); RED BLOOD COUNT 4.11 10^6/uL (4.30-6.10); WHITE BLOOD COUNT 7.9 10^3/uL (4.0-10.0)
[2024-04-22 14:32] LABS: ALBUMIN 3.4 G/DL (3.2-5.2); ALKALINE PHOSPHATASE 78 U/L (46-116); ALT/SGPT 10 U/L (7.0-40); AST/SGOT 11 U/L (<34); BILIRUBIN,TOTAL 0.5 MG/DL (0.3-1.2); BLOOD UREA NITROGEN 28 MG/DL (9-23); CALCIUM LEVEL 8.7 MG/DL (8.3-10.6); CARBON DIOXIDE LEVEL 30 MMOL/L (20-31); CHLORIDE LEVEL 106 MMOL/L (98-107); CREATININE FOR GFR 1.43 MG/DL (0.70-1.30); GLOMERULAR FILTRATION RATE 52.7 (>49); GLUCOSE, FASTING 134 MG/DL (74-106); POTASSIUM SERUM 3.8 MMOL/L (3.5-5.1); SODIUM LEVEL 143 MMOL/L (136-145); TOTAL PROTEIN 5.4 G/DL (5.7-8.2)
[2024-04-22 14:35] LABS: IMMUNOGLOBULIN G 538 MG/DL (650-1600)
[2024-04-22 14:55] LABS: IMMUNOGLOBULIN A < 33.0 MG/DL (40-350)
[2024-04-23 06:37] LABS: T P ELECTROPHORESIS SO 5.7 g/dL (6.1-8.1)
[2024-04-23 13:37] LABS: FREE KAPPA LIGHT CHAINS SERUM 1.1 mg/L (3.3-19.4); FREE LAMBDA LIGHT CHAINS SERUM < 1.5 mg/L (5.7-26.3); KAPPA/LAMBDA RATIO SERUM > 0.73 (0.26-1.65)
[2024-04-23 14:07] LABS: ALBUMIN SPEP 3.8 g/dL (3.8-4.8); ALPHA-1-GLOBULINS SO 0.3 g/dL (0.2-0.3); ALPHA-2-GLOBULINS SO 0.5 g/dL (0.5-0.9); BETA 2 GLOBULIN 0.2 g/dL (0.2-0.5); BETA-GLOBULIN SO 0.4 g/dL (0.4-0.6); GAMMA GLOBULINS SO 0.5 g/dL (0.8-1.7)
== END ==
LOC: M LABDRWAD 12:40
PROVIDERS: ATTEND Internal Medicine Medical Oncology
DX: C90.00 Multiple myeloma not having achieved remission (principal)

== ENCOUNTER 2024-04-23 08:27 | Outpatient (CLI) | payer MEDICARE, OTHER ==
[~2024-04-23] VITALS: Ht 177.8 cm; Wt 65.8 kg
[~2024-04-23 08:27] MED LIST changes: +ALBUTEROL SULFATE 2.5MG/0.5ML INH NEB SOLN INH PRN; +EPINEPHrine INJ 1 MG/ML 1ML AMP IM PRN; +diphenhydrAMINE 50MG/ML VIAL IV PRN; +methylPREDNISolone 125MG 2ML VIAL IV PRN
[2024-04-23] MEDS ORDERED: NS 1,000 ML IV SCH (08:30)
[2024-04-23 08:40] VITALS: BP 152/84; O2SAT 97
[2024-04-23] MEDS: diphenhydrAMINE 25MG PO PRIOR TO INFUSION PO ONE (09:01)
[2024-04-23] MEDS: ACETAMINOPHEN 650MG PO PRIOR TO INFUSION PO ONE (09:01)
[2024-04-23] MEDS: IMMUNE GLOBULIN 10% 20 GM in IV 1 EA IV ONE (09:03)
[2024-04-23] MEDS: IMMUNE GLOBULIN 10% 5 GM in IV 1 EA IV ONE (09:04)
[2024-04-23 09:30] VITALS: BP 158/72; O2SAT 95
[2024-04-23 10:00] VITALS: BP 145/77; O2SAT 97
[2024-04-23 10:30] VITALS: BP 136/68; O2SAT 98
[2024-04-23 11:30] VITALS: BP 138/82; O2SAT 97
[2024-04-25] MEDS ORDERED: LORA1TAB23 PO (09:55)
== END 2024-04-23 11:35 ==
LOC: M INFU 08:27
PROVIDERS: ATTEND Internal Medicine Medical Oncology
DX: D80.1 Nonfamilial hypogammaglobulinemia (principal)
CPT/HCPCS: 96365; 96366; J1459

== ENCOUNTER → 2024-05-20 | Outpatient (REF) | payer MEDICARE, OTHER ==
[~2024-05-20] MED LIST changes: -ALBUTEROL SULFATE 2.5MG/0.5ML INH NEB SOLN INH PRN; -EPINEPHrine INJ 1 MG/ML 1ML AMP IM PRN; -diphenhydrAMINE 50MG/ML VIAL IV PRN; -methylPREDNISolone 125MG 2ML VIAL IV PRN
[2024-05-20 14:35] LABS: BASO # 0.1 10^3/uL (0.0-0.2); BASO % 1.4 % (0.0-1.0); EOS # 0.2 10^3/uL (0.0-0.5); EOS % 2.8 % (0.0-3.0); HEMATOCRIT 44.8 % (42.0-52.0); HEMOGLOBIN 13.4 g/dl (13.5-17.5); LYMPH # 0.7 10^3/uL (1.5-5.0); LYMPH % 10.3 % (24.0-44.0); MEAN CORPUSCULAR HGB CONC 29.9 g/dl (32.0-36.5); MEAN CORPUSCULAR VOLUME 103.7 fl (80.0-96.0); MONO # 1.1 10^3/uL (0.0-0.8); MONO % 17.4 % (2.0-8.0); NEUTROPHILS # 4.3 10^3/uL (1.5-8.5); NEUTROPHILS % 67.2 % (36.0-66.0); PLATELET COUNT, AUTOMATED 160 10^3/uL (150-450); RED BLOOD COUNT 4.32 10^6/uL (4.30-6.10); WHITE BLOOD COUNT 6.3 10^3/uL (4.0-10.0)
[2024-05-20 15:04] LABS: ALBUMIN 3.6 G/DL (3.2-5.2); ALKALINE PHOSPHATASE 77 U/L (46-116); ALT/SGPT 16 U/L (7.0-40); AST/SGOT 24 U/L (<34); BILIRUBIN,TOTAL 0.6 MG/DL (0.3-1.2); BLOOD UREA NITROGEN 35 MG/DL (9-23); CALCIUM LEVEL 9.1 MG/DL (8.3-10.6); CARBON DIOXIDE LEVEL 28 MMOL/L (20-31); CHLORIDE LEVEL 109 MMOL/L (98-107); CREATININE FOR GFR 1.66 MG/DL (0.70-1.30); GLOMERULAR FILTRATION RATE 44.3 (>49); GLUCOSE, FASTING 155 MG/DL (74-106); IMMUNOGLOBULIN G 527 MG/DL (650-1600); POTASSIUM SERUM 4.9 MMOL/L (3.5-5.1); SODIUM LEVEL 144 MMOL/L (136-145); TOTAL PROTEIN 5.6 G/DL (5.7-8.2)
[2024-05-20 15:45] LABS: IMMUNOGLOBULIN A < 33.0 MG/DL (40-350)
[2024-05-21 07:53] LABS: T P ELECTROPHORESIS SO 6.1 g/dL (6.1-8.1)
[2024-05-21 11:38] LABS: FREE KAPPA LIGHT CHAINS SERUM 0.8 mg/L (3.3-19.4); FREE LAMBDA LIGHT CHAINS SERUM 1.5 mg/L (5.7-26.3); KAPPA/LAMBDA RATIO SERUM 0.53 (0.26-1.65)
== END ==
LOC: M LABDRAWP 13:37
PROVIDERS: ATTEND Internal Medicine Medical Oncology
DX: C90.02 Multiple myeloma in relapse (principal)

== ENCOUNTER → 2024-05-21 | Outpatient (CLI) | payer MEDICARE, OTHER ==
[~2024-05-21] VITALS: Ht 162.6 cm; Wt 65.5 kg
[~2024-05-21] MED LIST changes: +ALBUTEROL SULFATE 2.5MG/0.5ML INH NEB SOLN INH PRN; +EPINEPHrine INJ 1 MG/ML 1ML AMP IM PRN; +IMMUNE GLOBULIN 10% 5 GM in IV 1 EA IV ONE; +NS 1,000 ML IV SCH; +diphenhydrAMINE 50MG/ML VIAL IV PRN; +methylPREDNISolone 125MG 2ML VIAL IV PRN
[2024-05-21 08:25] VITALS: BP 152/72; O2SAT 98
[2024-05-21] MEDS: diphenhydrAMINE 25MG PO PRIOR TO INFUSION PO ONE (08:51)
[2024-05-21] MEDS: ACETAMINOPHEN 650MG PO PRIOR TO INFUSION PO ONE (08:51)
[2024-05-21] MEDS: IMMUNE GLOBULIN 10% 5 GM in IV 1 EA IV ONE (09:14)
[2024-05-21] MEDS: IMMUNE GLOBULIN 10% 20 GM in IV 1 EA IV ONE (09:15)
[2024-05-21 10:00] VITALS: BP 138/71; O2SAT 100
[2024-05-21 10:30] VITALS: BP 153/68; O2SAT 97
[2024-05-21 12:10] VITALS: BP 139/75; O2SAT 100
== END ==
LOC: M INFU 08:22
PROVIDERS: ATTEND Internal Medicine Medical Oncology
DX: D80.1 Nonfamilial hypogammaglobulinemia (principal)
CPT/HCPCS: 96365; 96366; J1459

== ENCOUNTER → 2024-05-22 | Outpatient (CLI) | payer MEDICARE, OTHER ==
[~2024-05-22] MED LIST changes: -ALBUTEROL SULFATE 2.5MG/0.5ML INH NEB SOLN INH PRN; -EPINEPHrine INJ 1 MG/ML 1ML AMP IM PRN; -IMMUNE GLOBULIN 10% 5 GM in IV 1 EA IV ONE; -NS 1,000 ML IV SCH; -diphenhydrAMINE 50MG/ML VIAL IV PRN; -methylPREDNISolone 125MG 2ML VIAL IV PRN
== END ==
LOC: M RAD 10:40
PROVIDERS: ATTEND Internal Medicine Critical Care Medicine
DX: R91.8 Other nonspecific abnormal finding of lung field (principal)

== ENCOUNTER → 2024-06-10 | Outpatient (REF) | payer MEDICARE, OTHER ==
[~2024-06-10] MED LIST changes: +[UNRECOGNIZED DRUG - CODE] IV; -[UNRECOGNIZED DRUG - CODE] IV
== END ==
LOC: M LAB REF 07:59
PROVIDERS: ATTEND Surgery
DX: D22.4 Melanocytic nevi of scalp and neck (principal)

== ENCOUNTER → 2024-06-17 | Outpatient (REF) | payer MEDICARE, OTHER ==
[~2024-06-17] MED LIST changes: +OMEP40CA4 PO
== END ==
LOC: M LAB REF 15:09
PROVIDERS: ATTEND Internal Medicine Critical Care Medicine
DX: A31.8 Other mycobacterial infections (principal)

== ENCOUNTER → 2024-06-17 | Outpatient (CLI) | payer MEDICARE, OTHER ==
[2024-06-17 13:20] LABS: BASO # 0.1 10^3/uL (0.0-0.2); BASO % 0.7 % (0.0-1.0); EOS # 0.2 10^3/uL (0.0-0.5); EOS % 2.4 % (0.0-3.0); HEMATOCRIT 43.4 % (42.0-52.0); HEMOGLOBIN 13.8 g/dl (13.5-17.5); LYMPH # 0.5 10^3/uL (1.5-5.0); LYMPH % 6.1 % (24.0-44.0); MEAN CORPUSCULAR HEMOGLOBIN 32.8 pg (27.0-33.0); MEAN CORPUSCULAR HGB CONC 31.8 g/dl (32.0-36.5); MEAN CORPUSCULAR VOLUME 103.1 fl (80.0-96.0); MONO # 1.3 10^3/uL (0.0-0.8); MONO % 16.4 % (2.0-8.0); NEUTROPHILS # 5.9 10^3/uL (1.5-8.5); NEUTROPHILS % 73.8 % (36.0-66.0); PLATELET COUNT, AUTOMATED 200 10^3/uL (150-450); RED BLOOD COUNT 4.21 10^6/uL (4.30-6.10)
[2024-06-17 13:45] LABS: ALBUMIN 3.8 G/DL (3.2-5.2); BILIRUBIN,TOTAL 0.6 MG/DL (0.3-1.2); CALCIUM LEVEL 9.1 MG/DL (8.3-10.6); CREATININE FOR GFR 1.32 MG/DL (0.70-1.30); GLOMERULAR FILTRATION RATE 57.8 (>49); TOTAL PROTEIN 6.2 G/DL (5.7-8.2)
[2024-06-18 12:02] LABS: PROTEIN CREATININE RATIO 298 mg/g creat (25-148); T PROTEIN CREATININE RATIO 0.298 (0.025-0.148); UPEP CREATININE 57 mg/dL (20-320); UPEP TOTAL PROTEIN 17 mg/dL (5-25)
[2024-06-18 12:07] LABS: FREE KAPPA LIGHT CHAINS SERUM 0.9 mg/L (3.3-19.4); FREE LAMBDA LIGHT CHAINS SERUM < 1.5 mg/L (5.7-26.3); KAPPA/LAMBDA RATIO SERUM > 0.60 (0.26-1.65)
[2024-06-19 06:56] LABS: UPEP ALBUMIN 53 %; URINE ALPHA 1 GLOBULIN 17 %; URINE ALPHA 2 GLOBULIN 13 %; URINE BETA GLOBULIN 11 %; URINE GAMMA GLOBULIN 7 %
[2024-06-19 17:32] LABS: % CD4 16 % (30-61); %CD8 59 % (12-42); ABSOLUTE CD4 CELLS 86 cells/uL (490-1740); ABSOLUTE CD8 CELLS 328 cells/uL (180-1170); ABSOLUTE LYMPHOCYTES 553 cells/uL (850-3900); CD4 CD8 RATIO 0.27 (0.86-5.00)
== END ==
LOC: M LABDRWAD 08:29
PROVIDERS: ATTEND Internal Medicine Medical Oncology
DX: C90.00 Multiple myeloma not having achieved remission (principal)

== ENCOUNTER 2024-06-18 08:27 | Outpatient (CLI) | payer MEDICARE, OTHER ==
[~2024-06-18] VITALS: Ht 177.8 cm; Wt 64.0 kg
[~2024-06-18 08:27] MED LIST changes: +ALBUTEROL SULFATE 2.5MG/0.5ML INH NEB SOLN INH PRN; +EPINEPHrine INJ 1 MG/ML 1ML AMP IM PRN; +NS 1,000 ML IV SCH; -OMEP40CA4 PO; +diphenhydrAMINE 50MG/ML VIAL IV PRN; +methylPREDNISolone 125MG 2ML VIAL IV PRN
[2024-06-18] MEDS: diphenhydrAMINE 25MG PO PRIOR TO INFUSION PO ONE (08:37)
[2024-06-18] MEDS: ACETAMINOPHEN 650MG PO PRIOR TO INFUSION PO ONE (08:37)
[2024-06-18] MEDS: IMMUNE GLOBULIN 10% 5 GM in IV 1 EA IV ONE (08:47)
[2024-06-18] MEDS: IMMUNE GLOBULIN 10% 20 GM in IV 1 EA IV ONE (08:47)
[2024-06-18 08:55] VITALS: BP 140/72; O2SAT 95
[2024-06-18 09:30] VITALS: BP 145/72; O2SAT 98
[2024-06-18 10:00] VITALS: BP 133/89; O2SAT 98
[2024-06-18 10:30] VITALS: BP 120/70; O2SAT 96
[2024-06-18 11:40] VITALS: BP 126/73; O2SAT 97
[2024-06-20] MEDS ORDERED: OMEP40CA4 PO (08:34)
== END 2024-06-18 12:45 ==
LOC: M INFU 08:27
PROVIDERS: ATTEND Internal Medicine Medical Oncology
DX: D80.1 Nonfamilial hypogammaglobulinemia (principal)
CPT/HCPCS: 96365; 96366; J1459

== ENCOUNTER → 2024-06-19 | Outpatient (REF) | payer MEDICARE, OTHER ==
[~2024-06-19] MED LIST changes: -ALBUTEROL SULFATE 2.5MG/0.5ML INH NEB SOLN INH PRN; -EPINEPHrine INJ 1 MG/ML 1ML AMP IM PRN; -NS 1,000 ML IV SCH; +OMEP40CA4 PO; -diphenhydrAMINE 50MG/ML VIAL IV PRN; -methylPREDNISolone 125MG 2ML VIAL IV PRN
== END ==
LOC: M LAB REF 17:11
PROVIDERS: ATTEND Surgery
DX: D48.5 Neoplasm of uncertain behavior of skin (principal); L81.4 Other melanin hyperpigmentation

== ENCOUNTER → 2024-07-09 | Outpatient (REF) | payer MEDICARE, OTHER ==
[~2024-07-09] MED LIST changes: +LEVO1TAB39
== END ==
LOC: M LAB REF 16:57
PROVIDERS: ATTEND Internal Medicine Critical Care Medicine
DX: J18.9 Pneumonia, unspecified organism (principal)

== ENCOUNTER → 2024-07-15 | Outpatient (REF) | payer MEDICARE, OTHER ==
[~2024-07-15] MED LIST changes: -LEVO1TAB39
[2024-07-15 13:44] LABS: BASO # 0.1 10^3/uL (0.0-0.2); BASO % 1.1 % (0.0-1.0); EOS # 0.2 10^3/uL (0.0-0.5); HEMATOCRIT 41.5 % (42.0-52.0); HEMOGLOBIN 12.9 g/dl (13.5-17.5); LYMPH # 0.6 10^3/uL (1.5-5.0); LYMPH % 5.7 % (24.0-44.0); MEAN CORPUSCULAR HEMOGLOBIN 33.2 pg (27.0-33.0); MEAN CORPUSCULAR HGB CONC 31.1 g/dl (32.0-36.5); MEAN CORPUSCULAR VOLUME 106.7 fl (80.0-96.0); MONO # 1.5 10^3/uL (0.0-0.8); MONO % 14.6 % (2.0-8.0); NEUTROPHILS # 7.6 10^3/uL (1.5-8.5); NEUTROPHILS % 75.7 % (36.0-66.0); PLATELET COUNT, AUTOMATED 162 10^3/uL (150-450); RED BLOOD COUNT 3.89 10^6/uL (4.30-6.10)
[2024-07-15 13:48] LABS: ALBUMIN 3.6 G/DL (3.2-5.2); ALKALINE PHOSPHATASE 81 U/L (46-116); ALT/SGPT < 9 U/L (7.0-40); AST/SGOT 13 U/L (<34); BILIRUBIN,TOTAL 0.5 MG/DL (0.3-1.2); BLOOD UREA NITROGEN 30 MG/DL (9-23); CARBON DIOXIDE LEVEL 30 MMOL/L (20-31); CHLORIDE LEVEL 110 MMOL/L (98-107); CREATININE FOR GFR 1.65 MG/DL (0.70-1.30); GLOMERULAR FILTRATION RATE 44.7 (>49); GLUCOSE, FASTING 92 MG/DL (74-106); POTASSIUM SERUM 5.4 MMOL/L (3.5-5.1); SODIUM LEVEL 143 MMOL/L (136-145); TOTAL PROTEIN 5.9 G/DL (5.7-8.2)
[2024-07-16 10:17] LABS: T P ELECTROPHORESIS SO 5.8 g/dL (6.1-8.1)
[2024-07-16 11:43] LABS: FREE KAPPA LIGHT CHAINS SERUM 0.9 mg/L (3.3-19.4); FREE LAMBDA LIGHT CHAINS SERUM < 1.5 mg/L (5.7-26.3); KAPPA/LAMBDA RATIO SERUM > 0.60 (0.26-1.65)
== END ==
LOC: M LABDRWAD 13:06
PROVIDERS: ATTEND Internal Medicine Medical Oncology
DX: C90.00 Multiple myeloma not having achieved remission (principal); G62.0 Drug-induced polyneuropathy; D80.8 Other immunodeficiencies with predominantly antibody defects

== ENCOUNTER → 2024-07-15 | Outpatient (REF) | payer MEDICARE, OTHER ==
[2024-07-15 14:12] LABS: CALCIUM LEVEL 8.8 MG/DL (8.3-10.6); CREATININE FOR GFR 1.68 MG/DL (0.70-1.30); GLOMERULAR FILTRATION RATE 43.7 (>49); POTASSIUM SERUM 5.4 MMOL/L (3.5-5.1)
== END ==
LOC: M LABDRWAD 13:10
PROVIDERS: ATTEND Internal Medicine Critical Care Medicine
DX: J18.9 Pneumonia, unspecified organism (principal)

== ENCOUNTER 2024-07-16 08:30 | Outpatient (CLI) | payer MEDICARE, OTHER ==
[~2024-07-16] VITALS: Ht 177.8 cm; Wt 65.6 kg
[~2024-07-16 08:30] MED LIST changes: +ALBUTEROL SULFATE 2.5MG/0.5ML INH NEB SOLN INH PRN; +EPINEPHrine INJ 1 MG/ML 1ML AMP IM PRN; +NS 1,000 ML IV SCH; +diphenhydrAMINE 50MG/ML VIAL IV PRN; +methylPREDNISolone 125MG 2ML VIAL IV PRN
[2024-07-16 08:35] VITALS: BP 158/72; O2SAT 95
[2024-07-16] MEDS: ACETAMINOPHEN 650MG PO PRIOR TO INFUSION PO ONE (08:48)
[2024-07-16] MEDS: diphenhydrAMINE 25MG PO PRIOR TO INFUSION PO ONE (08:48)
[2024-07-16] MEDS: IMMUNE GLOBULIN 10% 20 GM in IV 1 EA IV ONE (09:01)
[2024-07-16] MEDS: IMMUNE GLOBULIN 10% 5 GM in IV 1 EA IV ONE (09:06)
[2024-07-16 09:30] VITALS: BP 138/75; O2SAT 95
[2024-07-16 10:00] VITALS: BP 145/69; O2SAT 96
[2024-07-16 10:30] VITALS: BP 133/71; O2SAT 97
[2024-07-16 11:41] VITALS: BP 144/82; O2SAT 98
[2024-07-18] MEDS ORDERED: LEVO1TAB39 (08:56)
== END 2024-07-16 11:45 ==
LOC: M INFU 08:30
PROVIDERS: ATTEND Internal Medicine Medical Oncology
DX: D80.1 Nonfamilial hypogammaglobulinemia (principal)
CPT/HCPCS: 96365; 96366; J1459

== ENCOUNTER → 2024-07-24 | Outpatient (REF) | payer MEDICARE, OTHER ==
[~2024-07-24] MED LIST changes: -ALBUTEROL SULFATE 2.5MG/0.5ML INH NEB SOLN INH PRN; -EPINEPHrine INJ 1 MG/ML 1ML AMP IM PRN; +LEVO1TAB39; -NS 1,000 ML IV SCH; -diphenhydrAMINE 50MG/ML VIAL IV PRN; -methylPREDNISolone 125MG 2ML VIAL IV PRN
== END ==
LOC: M LAB REF 17:09
PROVIDERS: ATTEND Internal Medicine Critical Care Medicine
DX: J18.9 Pneumonia, unspecified organism (principal)

== ENCOUNTER → 2024-08-07 | Outpatient (REF) | payer MEDICARE, OTHER ==
[~2024-08-07] MED LIST changes: +ASPI-255 PO; +BUDE0.5S6; -D-101000; +D-101000 PO; +GABA-1172 PO; -GABA-282 PO
[2024-08-07 14:18] LABS: CALCIUM LEVEL 9.8 MG/DL (8.3-10.6); CREATININE FOR GFR 1.58 MG/DL (0.70-1.30); GLOMERULAR FILTRATION RATE 46.9 (>49)
== END ==
LOC: M LABDRWAD 13:24
PROVIDERS: ATTEND Internal Medicine Critical Care Medicine
DX: C90.01 Multiple myeloma in remission (principal); R91.8 Other nonspecific abnormal finding of lung field

== ENCOUNTER 2024-08-08 09:52 | Day surgery (SDC) | payer MEDICARE, OTHER ==
[~2024-08-08] VITALS: Ht 177.8 cm; Wt 63.6 kg
[~2024-08-08 09:52] MED LIST changes: +LIDOCAINE 2% 100MG/5ML SDV (FOR ANES.) As Ordered ONE; +MIDAZOLAM INJ 2MG/2ML VIAL As Ordered ONE; +ONDANSETRON 4MG 2ML VIAL As Ordered ONE; +ROCURONIUM BROMIDE 50MG/5ML VIAL As Ordered ONE; +SUGAMMADEX SODIUM 500 MG/5 ML VIAL (BRIDION) As Ordered ONE; +fentaNYL 100 MCG/2 ML INJECTION As Ordered ONE; +propofoL 200 MG/20 ML VIAL As Ordered ONE
[2024-08-08] MEDS ORDERED: LR 1,000 ML IV SCH (10:10)
[2024-08-08] MEDS: CETACAINE SPRAY 5GM As Ordered ONE (10:57)
[2024-08-08] MEDS ORDERED: oxyCODONE 5MG TAB PO PRN (11:25)
[2024-08-08] MEDS ORDERED: fentaNYL 100 MCG/2 ML INJECTION IV PRN (11:25)
[2024-08-08] MEDS ORDERED: MORPHINE 2 MG/ML 1ML VIAL IV PRN (11:25)
[2024-08-08] MEDS ORDERED: ONDANSETRON 4MG 2ML VIAL IV PRN (11:25)
[2024-08-08] MEDS: THROMBIN 20,000 UNITS KIT As Ordered ONE (11:46)
[2024-08-08] MEDS: EPINEPHrine 1MG/10ML SYRINGE 1.5IN As Ordered ONE (11:46)
[2024-08-08] MEDS: LIDOCAINE 1% MDV 20ML VIAL As Ordered ONE (11:47)
[2024-08-08 12:40] VITALS: BP 138/80; TEMP 97.7; O2SAT 96
[2024-08-15] MEDS ORDERED: FLUC150T9 PO (13:09)
[2024-08-20 07:02] LABS: BF ADENOVIRUS(ADV) BY PCR NEGATIVE (NEGATIVE)
[2024-08-20 07:06] LABS: BF ADENOVIRUS(ADV) BY PCR NEGATIVE (NEGATIVE)
== END 2024-08-08 12:42 | disposition home or self-care (01) ==
LOC: M SDC 09:52
PROVIDERS: ATTEND Internal Medicine Critical Care Medicine
DX: J18.9 Pneumonia, unspecified organism (principal); I10 Essential (primary) hypertension; Z92.21 Personal history of antineoplastic chemotherapy; E03.9 Hypothyroidism, unspecified; K21.9 Gastro-esophageal reflux disease without esophagitis; D75.1 Secondary polycythemia; D64.9 Anemia, unspecified; F41.9 Anxiety disorder, unspecified; F32.A Depression, unspecified; Z86.73 Personal history of transient ischemic attack (TIA), and cerebral infarction without residual deficits; Z79.82 Long term (current) use of aspirin; Z79.899 Other long term (current) drug therapy; Z79.51 Long term (current) use of inhaled steroids; N18.30 Chronic kidney disease, stage 3 unspecified
CPT/HCPCS: 31624; 31628; 71045; 76000; 87070; 87077; 87102; 87116; 87205; 87206; 87449; 87529; 87798; 88108; 88305; 88312; 88313; J1100; J2250; J2405; J3010

== ENCOUNTER → 2024-08-12 | Outpatient (CLI) | payer MEDICARE, OTHER ==
[~2024-08-12] MED LIST changes: -LIDOCAINE 2% 100MG/5ML SDV (FOR ANES.) As Ordered ONE; -MIDAZOLAM INJ 2MG/2ML VIAL As Ordered ONE; -ONDANSETRON 4MG 2ML VIAL As Ordered ONE; -ROCURONIUM BROMIDE 50MG/5ML VIAL As Ordered ONE; -SUGAMMADEX SODIUM 500 MG/5 ML VIAL (BRIDION) As Ordered ONE; -fentaNYL 100 MCG/2 ML INJECTION As Ordered ONE; -propofoL 200 MG/20 ML VIAL As Ordered ONE
[2024-08-12 13:25] LABS: BASO # 0.1 10^3/uL (0.0-0.2); BASO % 0.5 % (0.0-1.0); EOS # 0.1 10^3/uL (0.0-0.5); EOS % 1.2 % (0.0-3.0); HEMOGLOBIN 11.8 g/dl (13.5-17.5); LYMPH # 0.4 10^3/uL (1.5-5.0); LYMPH % 2.9 % (24.0-44.0); MEAN CORPUSCULAR HEMOGLOBIN 32.2 pg (27.0-33.0); MEAN CORPUSCULAR HGB CONC 31.1 g/dl (32.0-36.5); MEAN CORPUSCULAR VOLUME 103.5 fl (80.0-96.0); MONO # 1.5 10^3/uL (0.0-0.8); MONO % 12.7 % (2.0-8.0); NEUTROPHILS # 9.8 10^3/uL (1.5-8.5); NEUTROPHILS % 81.6 % (36.0-66.0); PLATELET COUNT, AUTOMATED 137 10^3/uL (150-450); RED BLOOD COUNT 3.67 10^6/uL (4.30-6.10)
[2024-08-12 13:48] LABS: ALBUMIN 3.4 G/DL (3.2-5.2); ALKALINE PHOSPHATASE 76 U/L (46-116); ALT/SGPT < 9 U/L (7.0-40); AST/SGOT 9 U/L (<34); BILIRUBIN,TOTAL 0.8 MG/DL (0.3-1.2); BLOOD UREA NITROGEN 34 MG/DL (9-23); CALCIUM LEVEL 8.9 MG/DL (8.3-10.6); CARBON DIOXIDE LEVEL 29 MMOL/L (20-31); CHLORIDE LEVEL 109 MMOL/L (98-107); CREATININE FOR GFR 1.45 MG/DL (0.70-1.30); GLOMERULAR FILTRATION RATE 51.8 (>49); GLUCOSE, FASTING 119 MG/DL (74-106); IMMUNOGLOBULIN G 504 MG/DL (650-1600); POTASSIUM SERUM 4.3 MMOL/L (3.5-5.1); SODIUM LEVEL 142 MMOL/L (136-145); TOTAL PROTEIN 5.8 G/DL (5.7-8.2)
[2024-08-12 16:01] LABS: IMMUNOGLOBULIN A < 33.0 MG/DL (40-350)
[2024-08-14 02:52] LABS: T P ELECTROPHORESIS SO 5.8 g/dL (6.1-8.1)
== END ==
LOC: M PLALAB 09:25
PROVIDERS: ATTEND Internal Medicine Medical Oncology
DX: C90.00 Multiple myeloma not having achieved remission (principal)

== ENCOUNTER 2024-08-13 08:25 | Outpatient (CLI) | payer MEDICARE, OTHER ==
[~2024-08-13] VITALS: Ht 177.8 cm; Wt 63.6 kg
[~2024-08-13 08:25] MED LIST changes: +ALBUTEROL SULFATE 2.5MG/0.5ML INH NEB SOLN INH PRN; +EPINEPHrine INJ 1 MG/ML 1ML AMP IM PRN; +NS 1,000 ML IV SCH; +diphenhydrAMINE 50MG/ML VIAL IV PRN; +methylPREDNISolone 125MG 2ML VIAL IV PRN
[2024-08-13 08:30] VITALS: BP 150/63; O2SAT 93
[2024-08-13] MEDS: ACETAMINOPHEN 650MG PO PRIOR TO INFUSION PO ONE (08:54)
[2024-08-13] MEDS: diphenhydrAMINE 25MG PO PRIOR TO INFUSION PO ONE (08:54)
[2024-08-13] MEDS: IMMUNE GLOBULIN 10% 20 GM in IV 1 EA IV ONE (09:31)
[2024-08-13] MEDS: IMMUNE GLOBULIN 10% 5 GM in IV 1 EA IV ONE (09:34)
[2024-08-13 10:00] VITALS: BP 146/63; O2SAT 96
[2024-08-13 10:30] VITALS: BP 131/76; O2SAT 91
[2024-08-13 11:00] VITALS: BP 130/70
[2024-08-13 12:20] VITALS: BP 120/77; O2SAT 96
[2024-08-15] MEDS ORDERED: FLUC150T9 PO (13:09)
== END 2024-08-13 12:20 ==
LOC: M INFU 08:25
PROVIDERS: ATTEND Internal Medicine Medical Oncology
DX: D80.1 Nonfamilial hypogammaglobulinemia (principal)
CPT/HCPCS: 96365; 96366; J1459

== ENCOUNTER 2024-09-09 08:29 | Outpatient (CLI) | payer MEDICARE, OTHER ==
[~2024-09-09] VITALS: Ht 177.8 cm; Wt 63.6 kg
[~2024-09-09 08:29] MED LIST changes: +FLUC150T9 PO
[2024-09-09 08:30] VITALS: BP 138/76; O2SAT 96
[2024-09-09] MEDS: diphenhydrAMINE 25MG PO PRIOR TO INFUSION PO ONE (08:42)
[2024-09-09] MEDS: ACETAMINOPHEN 650MG PO PRIOR TO INFUSION PO ONE (08:42)
[2024-09-09] MEDS: IMMUNE GLOBULIN 10% 5 GM in IV 1 EA IV ONE (08:49)
[2024-09-09] MEDS: IMMUNE GLOBULIN 10% 20 GM in IV 1 EA IV ONE (08:50)
[2024-09-09 09:30] VITALS: BP 138/67; O2SAT 98
[2024-09-09 10:00] VITALS: BP 133/71; O2SAT 98
[2024-09-09 10:30] VITALS: BP 134/64; O2SAT 96
[2024-09-09 11:30] VITALS: BP 133/66; O2SAT 95
== END 2024-09-09 11:40 ==
LOC: M INFU 08:29
PROVIDERS: ATTEND Internal Medicine Medical Oncology
DX: C90.00 Multiple myeloma not having achieved remission (principal)
CPT/HCPCS: 96365; 96366; J1459

== ENCOUNTER → 2024-09-11 | Outpatient (REF) | payer MEDICARE, OTHER ==
[~2024-09-11] MED LIST changes: -ALBUTEROL SULFATE 2.5MG/0.5ML INH NEB SOLN INH PRN; -EPINEPHrine INJ 1 MG/ML 1ML AMP IM PRN; +MAGO400T2 PO; -NS 1,000 ML IV SCH; +POTA-151 PO; -diphenhydrAMINE 50MG/ML VIAL IV PRN; -methylPREDNISolone 125MG 2ML VIAL IV PRN
[2024-09-11 14:59] LABS: BASO # 0.1 10^3/uL (0.0-0.2); BASO % 0.9 % (0.0-1.0); EOS # 0.1 10^3/uL (0.0-0.5); EOS % 1.7 % (0.0-3.0); HEMATOCRIT 38.5 % (42.0-52.0); LYMPH # 0.6 10^3/uL (1.5-5.0); LYMPH % 9.1 % (24.0-44.0); MEAN CORPUSCULAR HEMOGLOBIN 32.6 pg (27.0-33.0); MEAN CORPUSCULAR HGB CONC 31.2 g/dl (32.0-36.5); MEAN CORPUSCULAR VOLUME 104.6 fl (80.0-96.0); MONO # 0.9 10^3/uL (0.0-0.8); MONO % 13.4 % (2.0-8.0); NEUTROPHILS # 5.2 10^3/uL (1.5-8.5); PLATELET COUNT, AUTOMATED 149 10^3/uL (150-450); RED BLOOD COUNT 3.68 10^6/uL (4.30-6.10)
[2024-09-11 15:08] LABS: IMMUNOGLOBULIN G 1073 MG/DL (650-1600)
[2024-09-11 15:09] LABS: ALBUMIN 3.3 G/DL (3.2-5.2); ALKALINE PHOSPHATASE 81 U/L (40-129); ALT/SGPT < 9 U/L (7.0-40); AST/SGOT 17 U/L (<34); BILIRUBIN,TOTAL 0.5 MG/DL (0.3-1.2); BLOOD UREA NITROGEN 26 MG/DL (9-23); CALCIUM LEVEL 8.5 MG/DL (8.3-10.6); CARBON DIOXIDE LEVEL 28 MMOL/L (20-31); CHLORIDE LEVEL 111 MMOL/L (98-107); CREATININE FOR GFR 1.16 MG/DL (0.70-1.30); GLOMERULAR FILTRATION RATE > 60.0 (>49); GLUCOSE, FASTING 132 MG/DL (74-106); MAGNESIUM LEVEL 1.3 MG/DL (1.8-2.4); POTASSIUM SERUM 3.2 MMOL/L (3.5-5.1); SODIUM LEVEL 142 MMOL/L (136-145); TOTAL PROTEIN 6.3 G/DL (5.7-8.2)
[2024-09-12 10:03] LABS: T P ELECTROPHORESIS SO 6.1 g/dL (6.1-8.1)
[2024-09-15 15:07] LABS: FREE LAMBDA LIGHT CHAINS SERUM < 1.5 mg/L (5.7-26.3); KAPPA/LAMBDA RATIO SERUM > 0.67 (0.26-1.65)
[2024-09-16 15:07] LABS: ALBUMIN SPEP 3.8 g/dL (3.8-4.8); ALPHA-1-GLOBULINS SO 0.3 g/dL (0.2-0.3); ALPHA-2-GLOBULINS SO 0.5 g/dL (0.5-0.9); BETA 2 GLOBULIN 0.3 g/dL (0.2-0.5); BETA-GLOBULIN SO 0.3 g/dL (0.4-0.6); GAMMA GLOBULINS SO 0.9 g/dL (0.8-1.7)
== END ==
LOC: M LABDRWAD 13:02
PROVIDERS: ATTEND Internal Medicine Medical Oncology
DX: C90.00 Multiple myeloma not having achieved remission (principal); J18.9 Pneumonia, unspecified organism; Z79.899 Other long term (current) drug therapy; R06.02 Shortness of breath

== ENCOUNTER → 2024-09-11 | Outpatient (REF) | payer MEDICARE, OTHER ==
[2024-09-11 15:17] LABS: C REACTIVE PROTEIN QUANTITATIV < 0.40 MG/DL (<1.0)
[2024-09-11 15:21] LABS: TOTAL 25(OH) VITAMIN D 51.6 NG/ML (20.0-100.0)
[2024-09-11 15:26] LABS: PROCALCITONIN 0.12 ng/ml
== END ==
LOC: M LABDRWAD 13:00
PROVIDERS: ATTEND Internal Medicine Critical Care Medicine
DX: J18.9 Pneumonia, unspecified organism (principal)

== ENCOUNTER → 2024-09-30 | Outpatient (REF) | payer MEDICARE, OTHER | LOC: M LAB REF 17:19 | PROVIDERS: ATTEND Internal Medicine Nephrology | DX: E03.9 Hypothyroidism, unspecified (principal) ==

== ENCOUNTER 2024-10-07 08:34 | Outpatient (CLI) | payer MEDICARE, OTHER ==
[~2024-10-07] VITALS: Ht 177.8 cm; Wt 63.6 kg
[~2024-10-07 08:34] MED LIST changes: +ACETAMINOPHEN 650MG PO PRIOR TO INFUSION PO ONE; +ALBUTEROL SULFATE 2.5MG/0.5ML INH NEB SOLN INH PRN; -BUDE0.5S6; +BUDE0.5S6 INH; +EPINEPHrine INJ 1 MG/ML 1ML AMP IM PRN; +NS 1,000 ML IV SCH; +diphenhydrAMINE 25MG PO PRIOR TO INFUSION PO ONE; +diphenhydrAMINE 50MG/ML VIAL IV PRN; +methylPREDNISolone 125MG 2ML VIAL IV PRN
[2024-10-07 08:40] VITALS: BP 160/77; O2SAT 95
[2024-10-07] MEDS: IMMUNE GLOBULIN 10% 20 GM in IV 1 EA IV ONE (08:51)
[2024-10-07] MEDS: IMMUNE GLOBULIN 10% 5 GM in IV 1 EA IV ONE (08:52)
[2024-10-07 09:30] VITALS: BP 133/64; O2SAT 95
[2024-10-07 10:00] VITALS: BP 132/67; O2SAT 96
[2024-10-07 11:35] VITALS: BP 138/67; O2SAT 97
== END 2024-10-07 11:35 ==
LOC: M INFU 08:34
PROVIDERS: ATTEND Internal Medicine Medical Oncology
DX: C90.00 Multiple myeloma not having achieved remission (principal)

== ENCOUNTER 2024-10-09 08:42 | Inpatient (IN) | payer MEDICARE, OTHER ==
[~2024-10-09] VITALS: Ht 177.8 cm; Wt 62.5 kg
[~2024-10-09 08:42] MED LIST changes: -ACETAMINOPHEN 650MG PO PRIOR TO INFUSION PO ONE; -ALBUTEROL SULFATE 2.5MG/0.5ML INH NEB SOLN INH PRN; -EPINEPHrine INJ 1 MG/ML 1ML AMP IM PRN; -NS 1,000 ML IV SCH; -diphenhydrAMINE 25MG PO PRIOR TO INFUSION PO ONE; -diphenhydrAMINE 50MG/ML VIAL IV PRN; -methylPREDNISolone 125MG 2ML VIAL IV PRN
[2024-10-09 09:55] LABS: VENOUS BASE EXCESS -5.9 (-2.0-2.0); VENOUS HCO3 22.9 MMOL/L (23.0-27.0); VENOUS O2 SATURATION 70.9 % (60.0-80.0); VENOUS PARTIAL PRESSURE CO2 61.1 mmHg (38.0-50.0); VENOUS PARTIAL PRESSURE O2 47.1 mmHg (30.0-50.0); VENOUS PH 7.191 UNITS (7.330-7.430); VENOUS STANDARD HCO3 19.1 MMOL/L; VENOUS TOTAL CO2 24.7 MMOL/L (24.0-28.0)
[2024-10-09] MEDS: IPRATROPIUM 0.5MG/ALBUTEROL 2.5MG INH SOL UD 3ML (DUONEB) NEB PRN (10:03)
[2024-10-09 10:04] LABS: BASO # 0.1 10^3/uL (0.0-0.2); BASO % 0.8 % (0.0-1.0); EOS # 0.1 10^3/uL (0.0-0.5); EOS % 1.5 % (0.0-3.0); HEMATOCRIT 37.9 % (42.0-52.0); HEMOGLOBIN 11.4 g/dl (13.5-17.5); LYMPH # 0.4 10^3/uL (1.5-5.0); LYMPH % 4.5 % (24.0-44.0); MEAN CORPUSCULAR HEMOGLOBIN 31.5 pg (27.0-33.0); MEAN CORPUSCULAR HGB CONC 30.1 g/dl (32.0-36.5); MEAN CORPUSCULAR VOLUME 104.7 fl (80.0-96.0); MONO # 1.2 10^3/uL (0.0-0.8); MONO % 15.2 % (2.0-8.0); NEUTROPHILS % 77.4 % (36.0-66.0); PLATELET COUNT, AUTOMATED 167 10^3/uL (150-450); RED BLOOD COUNT 3.62 10^6/uL (4.30-6.10); WHITE BLOOD COUNT 7.8 10^3/uL (4.0-10.0)
[2024-10-09 10:22] LABS: ALBUMIN 3.3 G/DL (3.2-5.2); BILIRUBIN,DIRECT 0.1 MG/DL (<0.4); BILIRUBIN,TOTAL 0.5 MG/DL (0.3-1.2); CALCIUM LEVEL 8.9 MG/DL (8.3-10.6); CREATININE FOR GFR 1.31 MG/DL (0.70-1.30); GLOMERULAR FILTRATION RATE 58.3 (>49); POTASSIUM SERUM 5.2 MMOL/L (3.5-5.1); TOTAL PROTEIN 6.3 G/DL (5.7-8.2)
[2024-10-09 10:31] LABS: THYROID STIMULATING HORMONE 10.666 uIU/ML (0.55-4.78)
[2024-10-09] MEDS ORDERED: IPRA0.00 INH (10:43)
[2024-10-09] MEDS ORDERED: FLUT50SP33 (10:45)
[2024-10-09] MEDS ORDERED: HOME MED LIST COMPLETE! XX SCH (10:45)
[2024-10-09] MEDS: NS 1,800 ML in IV 1 EA IV ONE (11:01)
[2024-10-09 11:04] LABS: PROCALCITONIN 0.17 ng/ml
[2024-10-09] MEDS ORDERED: ALBUTEROL 90 MCG/ACT 8GM HFA INHALER INH PRN (11:10)
[2024-10-09] MEDS ORDERED: FLUTICASONE PROP 0.05% NASAL SPRAY 16 GM (FLONASE) NARES PRN (11:10)
[2024-10-09] MEDS ORDERED: guaiFENesin ER TABLET 600 MG TAB PO PRN (11:10)
[2024-10-09] MEDS ORDERED: LORazepam 1 MG TAB PO PRN (11:10)
[2024-10-09] MEDS ORDERED: diphenhydrAMINE 25MG CAP PO PRN (11:10)
[2024-10-09 11:11] LABS: ABG BASE EXCESS -2.2 (-2.0-2.0); ABG HCO3 22.4 MMOL/L (22.0-26.0); ABG O2 SATURATION 92.9 % (95.0-99.0); ABG PARTIAL PRESSURE CO2 38.2 mmHg (35.0-45.0); ABG STANDARD HCO3 22.5 MMOL/L. (22.0-26.0); ABG TOTAL CO2 23.6 MMOL/L (23.0-31.0); ABG pH (ARTERIAL) 7.387 UNITS (7.350-7.450)
[2024-10-09 11:45] LABS: FREE T3 3.4 PG/ML (2.3-4.2)
[2024-10-09 11:46] LABS: FREE T4 1.06 NG/DL (0.89-1.76)
[2024-10-09 13:30] VITALS: BP 144/80; TEMP 98.8; O2SAT 93
[2024-10-09 16:00] VITALS: BP 144/81; TEMP 98.6; O2SAT 93
[2024-10-09] MEDS ORDERED: BUDESONIDE 0.5 MG/2 ML INHALATION SUSPENSION INH SCH (16:00)
[2024-10-09] MEDS ORDERED: IPRATROPIUM 0.5MG/ALBUTEROL 2.5MG INH SOL UD 3ML (DUONEB) INH SCH ×2 (16:00)
[2024-10-09] MEDS: IPRATROPIUM 0.5MG/ALBUTEROL 2.5MG INH SOL UD 3ML (DUONEB) INH SCH (17:07)
[2024-10-09] MEDS: BUDESONIDE 0.5 MG/2 ML INHALATION SUSPENSION INH SCH (19:25)
[2024-10-09 20:00] VITALS: BP 145/81; TEMP 98.4; O2SAT 92
[2024-10-09] MEDS: SIMVASTATIN 40 MG TAB PO SCH (21:46)
[2024-10-09] MEDS: ACYCLOVIR 200 MG CAPSULE PO SCH (21:46)
[2024-10-09] MEDS: MAGNESIUM OXIDE 400MG TAB (MAG-OX) PO SCH (21:47)
[2024-10-10] VITALS: BP 148/82; TEMP 97.3; O2SAT 92
[2024-10-10 04:00] VITALS: BP 168/87; TEMP 98.4; O2SAT 93
[2024-10-10] MEDS: LEVOTHYROXINE 100MCG TABLET (0.1MG) PO SCH (05:11)
[2024-10-10 06:48] LABS: HEMATOCRIT 34.3 % (42.0-52.0); HEMOGLOBIN 10.5 g/dl (13.5-17.5); MEAN CORPUSCULAR HEMOGLOBIN 31.9 pg (27.0-33.0); MEAN CORPUSCULAR HGB CONC 30.6 g/dl (32.0-36.5); MEAN CORPUSCULAR VOLUME 104.3 fl (80.0-96.0); PLATELET COUNT, AUTOMATED 143 10^3/uL (150-450); RED BLOOD COUNT 3.29 10^6/uL (4.30-6.10); WHITE BLOOD COUNT 6.3 10^3/uL (4.0-10.0)
[2024-10-10 06:55] LABS: ERYTHROCYTE SEDIMENTATION RATE 6 mm/hr (0-20)
[2024-10-10 07:18] LABS: URIC ACID 5.2 MG/DL (3.7-9.2)
[2024-10-10 07:20] LABS: BLOOD UREA NITROGEN 23 MG/DL (9-23); C REACTIVE PROTEIN QUANTITATIV < 0.50 MG/DL (<1.0); CALCIUM LEVEL 8.4 MG/DL (8.3-10.6); CARBON DIOXIDE LEVEL 29 MMOL/L (20-31); CHLORIDE LEVEL 109 MMOL/L (98-107); CK-MB VALUE MASS < 1.0 NG/ML (<3.6); CPK CREATINE PHOSPHOKINASE 61 U/L (46-171); CREATININE FOR GFR 1.32 MG/DL (0.70-1.30); GLOMERULAR FILTRATION RATE 57.8 (>49); GLUCOSE, FASTING 97 MG/DL (74-106); LDH LACTATE DEHYDROGENASE 252 U/L (120-246); MB/CK RELATIVE INDEX 1.63 (< OR =4); POTASSIUM SERUM 4.6 MMOL/L (3.5-5.1); SODIUM LEVEL 144 MMOL/L (136-145)
[2024-10-10 07:33] LABS: PROCALCITONIN 0.13 ng/ml
[2024-10-10] MEDS: CALCITRIOL 0.25 MCG CAP (S0169) PO SCH (08:39)
[2024-10-10] MEDS: DAPSONE 100 MG TAB PO SCH (08:39)
[2024-10-10] MEDS: VITAMIN D 1,000 INTERNATIONAL UNITS TABLET PO SCH (08:39)
[2024-10-10] MEDS: OMEPRAZOLE 20MG CAP PO SCH (08:39)
[2024-10-10] MEDS: dexAMETHasone 4 MG TAB PO SCH (08:39)
[2024-10-10] MEDS: PATIROMER SORBITEX CALCIUM 8.4 GM POWDER PACKET (VELTASSA) PO SCH (08:40)
[2024-10-10] MEDS: amLODIPine 5 MG TAB PO SCH (08:40)
[2024-10-10] MEDS: ASPIRIN ENTERIC 325MG TAB PO SCH (08:40)
[2024-10-10] MEDS: ENOXAPARIN 40MG/0.4ML SYRINGE (J1650 PER 10MG) SC SCH (08:40)
[2024-10-10 08:48] VITALS: BP 160/95; TEMP 98.1; O2SAT 91
[2024-10-10] MEDS: EPINEPHrine 1MG/10ML SYRINGE 1.5IN As Ordered ONE (12:47)
[2024-10-10] MEDS: THROMBIN 5,000 UNITS VIAL As Ordered ONE (12:47)
[2024-10-10] MEDS ORDERED: fentaNYL 100 MCG/2 ML INJECTION As Ordered ONE (12:56)
[2024-10-10] MEDS ORDERED: MIDAZOLAM INJ 2MG/2ML VIAL As Ordered ONE (12:58)
[2024-10-10] MEDS ORDERED: ROCURONIUM BROMIDE 50MG/5ML VIAL As Ordered ONE (13:30)
[2024-10-10] MEDS ORDERED: ACETAMINOPHEN 1000MG/100ML IV BAG As Ordered ONE (13:30)
[2024-10-10] MEDS ORDERED: SUGAMMADEX SODIUM 500 MG/5 ML VIAL (BRIDION) As Ordered ONE (13:30)
[2024-10-10] MEDS ORDERED: propofoL 200 MG/20 ML VIAL As Ordered ONE (13:31)
[2024-10-10] MEDS ORDERED: ONDANSETRON 4MG 2ML VIAL As Ordered ONE (13:31)
[2024-10-10] MEDS ORDERED: LIDOCAINE 2% 100MG/5ML SDV (FOR ANES.) As Ordered ONE (13:31)
[2024-10-10] MEDS: CETACAINE SPRAY 5GM As Ordered ONE (13:35)
[2024-10-10] MEDS ORDERED: NS 1,000 ML IV SCH (13:55)
[2024-10-10] MEDS ORDERED: HYDROMORPHONE HCL 0.5 MG/ 0.5 ML SYRINGE IV PRN (13:55)
[2024-10-10] MEDS ORDERED: ONDANSETRON 4MG 2ML VIAL IV PRN (13:55)
[2024-10-10] MEDS ORDERED: fentaNYL 100 MCG/2 ML INJECTION IV PRN (13:55)
[2024-10-10] MEDS ORDERED: oxyCODONE 5MG TAB PO PRN (13:55)
[2024-10-10 14:25] VITALS: BP 129/68; TEMP 97.8; O2SAT 95
[2024-10-13 18:12] LABS: FUNGITELL INTERPRETATION INDETERMINATE (NEGATIVE); FUNGITELL, SERUM 77 pg/mL (<60)
== END 2024-10-10 17:15 | disposition home or self-care (01) | DRG 167 ==
LOC: M ED 08:42 → M ED INP 11:15 → M MS5PR 13:20
PROVIDERS: ADMIT Internal Medicine; ATTEND Internal Medicine
PROC: B246ZZZ Ultrasonography of Right and Left Heart (ICD-10-PCS; 2024-10-09)
PROC: 0B9J8ZX Drainage of Left Lower Lung Lobe, Via Natural or Artificial Opening Endoscopic, Diagnostic (ICD-10-PCS; 2024-10-10)
PROC: 0B9F8ZX Drainage of Right Lower Lung Lobe, Via Natural or Artificial Opening Endoscopic, Diagnostic (ICD-10-PCS; 2024-10-10)
PROC: 0BBJ8ZX Excision of Left Lower Lung Lobe, Via Natural or Artificial Opening Endoscopic, Diagnostic (ICD-10-PCS; principal; 2024-10-10 12:00)
DX: J12.9 Viral pneumonia, unspecified (principal); D80.1 Nonfamilial hypogammaglobulinemia; E87.20 Acidosis, unspecified; C90.00 Multiple myeloma not having achieved remission; B53.8 Other malaria, not elsewhere classified; J98.8 Other specified respiratory disorders; F39 Unspecified mood [affective] disorder; N18.30 Chronic kidney disease, stage 3 unspecified; B34.8 Other viral infections of unspecified site; I12.9 Hypertensive chronic kidney disease with stage 1 through stage 4 chronic kidney disease, or unspecified chronic kidney disease; E03.9 Hypothyroidism, unspecified; E78.5 Hyperlipidemia, unspecified; E83.42 Hypomagnesemia; K21.9 Gastro-esophageal reflux disease without esophagitis; E87.5 Hyperkalemia; D86.9 Sarcoidosis, unspecified; J47.9 Bronchiectasis, uncomplicated; Z79.890 Hormone replacement therapy; Z79.899 Other long term (current) drug therapy

== ENCOUNTER 2024-11-04 08:30 | Outpatient (CLI) | payer MEDICARE, OTHER ==
[~2024-11-04] VITALS: Ht 177.8 cm; Wt 63.6 kg
[2024-11-04 08:30] VITALS: BP 165/74; O2SAT 95
[~2024-11-04 08:30] MED LIST changes: +ALBUTEROL SULFATE 2.5MG/0.5ML INH NEB SOLN INH PRN; +EPINEPHrine INJ 1 MG/ML 1ML AMP IM PRN; +FLUT50SP33; +IPRA0.00 INH; +NS (Normal Saline) 0.9% 1,000 ML IV SCH; +diphenhydrAMINE 50MG/ML VIAL IV PRN; +methylPREDNISolone 125MG 2ML VIAL IV PRN
[2024-11-04] MEDS: diphenhydrAMINE 25MG PO PRIOR TO INFUSION PO ONE (08:35)
[2024-11-04] MEDS: ACETAMINOPHEN 325 MG TAB PO ONE (08:36)
[2024-11-04] MEDS: IMMUNE GLOBULIN 10% 20 GM in IV 1 EA IV ONE (08:37)
[2024-11-04] MEDS: IMMUNE GLOBULIN 10% 5 GM in IV 1 EA IV ONE (08:38)
[2024-11-04 09:15] VITALS: BP 148/79; O2SAT 97
[2024-11-04 11:20] VITALS: BP 129/72; O2SAT 99
== END 2024-11-04 11:28 ==
LOC: M INFU 08:30
PROVIDERS: ATTEND Internal Medicine Medical Oncology
DX: C90.00 Multiple myeloma not having achieved remission (principal)
CPT/HCPCS: 96365; 96366; J1459

== ENCOUNTER → 2024-11-17 | Outpatient (CLI) | payer MEDICARE, OTHER ==
[~2024-11-17] MED LIST changes: -ALBUTEROL SULFATE 2.5MG/0.5ML INH NEB SOLN INH PRN; -EPINEPHrine INJ 1 MG/ML 1ML AMP IM PRN; -NS (Normal Saline) 0.9% 1,000 ML IV SCH; +[UNRECOGNIZED DRUG - CODE] IV; -[UNRECOGNIZED DRUG - CODE] IV; -diphenhydrAMINE 50MG/ML VIAL IV PRN; -methylPREDNISolone 125MG 2ML VIAL IV PRN
[2024-11-17 13:01] LABS: BASO % 0.3 % (0.0-1.0); EOS # 0.2 10^3/uL (0.0-0.5); EOS % 1.5 % (0.0-3.0); HEMATOCRIT 44.7 % (42.0-52.0); HEMOGLOBIN 13.7 g/dl (13.5-17.5); LYMPH # 0.6 10^3/uL (1.5-5.0); LYMPH % 6.3 % (24.0-44.0); MEAN CORPUSCULAR HEMOGLOBIN 32.8 pg (27.0-33.0); MEAN CORPUSCULAR HGB CONC 30.6 g/dl (32.0-36.5); MEAN CORPUSCULAR VOLUME 106.9 fl (80.0-96.0); MONO # 1.1 10^3/uL (0.0-0.8); MONO % 11.1 % (2.0-8.0); NEUTROPHILS # 7.8 10^3/uL (1.5-8.5); NEUTROPHILS % 80.3 % (36.0-66.0); PLATELET COUNT, AUTOMATED 104 10^3/uL (150-450); RED BLOOD COUNT 4.18 10^6/uL (4.30-6.10); WHITE BLOOD COUNT 9.8 10^3/uL (4.0-10.0)
[2024-11-17 13:06] LABS: ALBUMIN 3.9 G/DL (3.2-5.2); ALKALINE PHOSPHATASE 96 U/L (40-129); ALT/SGPT 20 U/L (7.0-40); AST/SGOT 39 U/L (<34); BILIRUBIN,TOTAL 0.5 MG/DL (0.3-1.2); BLOOD UREA NITROGEN 36 MG/DL (9-23); CALCIUM LEVEL 9.3 MG/DL (8.3-10.6); CARBON DIOXIDE LEVEL 29 MMOL/L (20-31); CHLORIDE LEVEL 110 MMOL/L (98-107); CREATININE FOR GFR 1.32 MG/DL (0.70-1.30); GLOMERULAR FILTRATION RATE 57.8 (>49); GLUCOSE, FASTING 71 MG/DL (74-106); POTASSIUM SERUM 5.1 MMOL/L (3.5-5.1); SODIUM LEVEL 149 MMOL/L (136-145); TOTAL PROTEIN 6.6 G/DL (5.7-8.2)
[2024-11-17 13:08] LABS: IMMUNOGLOBULIN G 749 MG/DL (650-1600)
[2024-11-17 13:22] LABS: IMMUNOGLOBULIN M < 21.0 MG/DL (50-300)
[2024-11-18 19:47] LABS: T P ELECTROPHORESIS SO 6.7 g/dL (6.1-8.1)
== END ==
LOC: M ADAMS 08:23
PROVIDERS: ATTEND Internal Medicine Medical Oncology
DX: C90.00 Multiple myeloma not having achieved remission (principal)

== ENCOUNTER → 2024-11-27 | Outpatient (CLI) | payer MEDICARE, OTHER ==
[~2024-11-27] MED LIST changes: +BARIUM SULFATE 700 MG TABLET (E-Z-DISK) As Ordered ONE; +E-Z-PAQUE 96% w/w SUSP 176GM BTL As Ordered ONE; +VARIBAR NECTAR 40% w/v 240ML SUSP BTL As Ordered ONE; +VARIBAR PUDDING 40% w/v 230ML TUBE As Ordered ONE
== END ==
LOC: M RAD 11:14
PROVIDERS: ATTEND Internal Medicine Critical Care Medicine
DX: J18.9 Pneumonia, unspecified organism (principal); R13.10 Dysphagia, unspecified

== ENCOUNTER 2024-12-02 08:38 | Outpatient (CLI) | payer MEDICARE, OTHER ==
[~2024-12-02 08:38] MED LIST changes: +ALBUTEROL SULFATE 2.5MG/0.5ML INH NEB SOLN INH PRN; -BARIUM SULFATE 700 MG TABLET (E-Z-DISK) As Ordered ONE; -E-Z-PAQUE 96% w/w SUSP 176GM BTL As Ordered ONE; +EPINEPHrine INJ 1 MG/ML 1ML AMP IM PRN; +NS (Normal Saline) 0.9% 1,000 ML IV SCH; -VARIBAR NECTAR 40% w/v 240ML SUSP BTL As Ordered ONE; -VARIBAR PUDDING 40% w/v 230ML TUBE As Ordered ONE; +diphenhydrAMINE 50MG/ML VIAL IV PRN; +methylPREDNISolone 125MG 2ML VIAL IV PRN
[2024-12-02 08:50] VITALS: BP 163/79; O2SAT 97
[2024-12-02] MEDS: ACETAMINOPHEN 650MG PO PRIOR TO INFUSION PO ONE (08:58)
[2024-12-02] MEDS: diphenhydrAMINE 25MG PO PRIOR TO INFUSION PO ONE (08:58)
[2024-12-02] MEDS: IMMUNE GLOBULIN 10% 20 GM in IV 1 EA IV ONE (09:11)
[2024-12-02] MEDS: IMMUNE GLOBULIN 10% 5 GM in IV 1 EA IV ONE (09:12)
[2024-12-02 09:45] VITALS: BP 151/72; O2SAT 98
[2024-12-02 10:15] VITALS: BP 134/81; O2SAT 99
[2024-12-02 10:45] VITALS: BP 152/77; O2SAT 98
== END 2024-12-02 12:05 ==
LOC: M INFU 08:38
PROVIDERS: ATTEND Internal Medicine Medical Oncology
DX: C90.00 Multiple myeloma not having achieved remission (principal)
CPT/HCPCS: 96365; 96366; J1459

== ENCOUNTER → 2024-12-23 | Outpatient (CLI) | payer MEDICARE, OTHER ==
[~2024-12-23] MED LIST changes: -ALBUTEROL SULFATE 2.5MG/0.5ML INH NEB SOLN INH PRN; -EPINEPHrine INJ 1 MG/ML 1ML AMP IM PRN; -NS (Normal Saline) 0.9% 1,000 ML IV SCH; -diphenhydrAMINE 50MG/ML VIAL IV PRN; -methylPREDNISolone 125MG 2ML VIAL IV PRN
[2024-12-23 14:25] LABS: ALBUMIN 3.9 G/DL (3.2-5.2); ALKALINE PHOSPHATASE 95 U/L (40-129); ALT/SGPT 20 U/L (7.0-40); AST/SGOT 33 U/L (<34); BILIRUBIN,TOTAL 0.7 MG/DL (0.3-1.2); BLOOD UREA NITROGEN 30 MG/DL (9-23); CALCIUM LEVEL 9.2 MG/DL (8.3-10.6); CARBON DIOXIDE LEVEL 29 MMOL/L (20-31); CHLORIDE LEVEL 106 MMOL/L (98-107); CREATININE FOR GFR 1.39 MG/DL (0.70-1.30); GLOMERULAR FILTRATION RATE 54.4 (>49); GLUCOSE, FASTING 87 MG/DL (74-106); IMMUNOGLOBULIN G 657 MG/DL (650-1600); POTASSIUM SERUM 4.2 MMOL/L (3.5-5.1); SODIUM LEVEL 142 MMOL/L (136-145); TOTAL PROTEIN 6.3 G/DL (5.7-8.2)
[2024-12-23 14:26] LABS: BASO % 0.4 % (0.0-1.0); EOS # 0.1 10^3/uL (0.0-0.5); EOS % 0.9 % (0.0-3.0); HEMATOCRIT 43.6 % (42.0-52.0); HEMOGLOBIN 13.8 g/dl (13.5-17.5); LYMPH # 0.6 10^3/uL (1.5-5.0); MEAN CORPUSCULAR HEMOGLOBIN 33.5 pg (27.0-33.0); MEAN CORPUSCULAR HGB CONC 31.7 g/dl (32.0-36.5); MEAN CORPUSCULAR VOLUME 105.8 fl (80.0-96.0); MONO # 0.8 10^3/uL (0.0-0.8); MONO % 9.9 % (2.0-8.0); NEUTROPHILS # 6.5 10^3/uL (1.5-8.5); NEUTROPHILS % 81.3 % (36.0-66.0); PLATELET COUNT, AUTOMATED 136 10^3/uL (150-450); RED BLOOD COUNT 4.12 10^6/uL (4.30-6.10)
[2024-12-23 14:36] LABS: IMMUNOGLOBULIN M < 21.0 MG/DL (50-300)
[2024-12-24 07:37] LABS: T P ELECTROPHORESIS SO 6.2 g/dL (6.1-8.1)
[2024-12-24 14:01] LABS: FREE KAPPA LIGHT CHAINS SERUM 1.2 mg/L (3.3-19.4); FREE LAMBDA LIGHT CHAINS SERUM < 1.5 mg/L (5.7-26.3); KAPPA/LAMBDA RATIO SERUM > 0.80 (0.26-1.65)
== END ==
LOC: M ADAMS 09:36
PROVIDERS: ATTEND Internal Medicine Medical Oncology
DX: C90.00 Multiple myeloma not having achieved remission (principal)

== ENCOUNTER 2024-12-30 08:06 | Outpatient (CLI) | payer MEDICARE, OTHER ==
[~2024-12-30] VITALS: Ht 177.8 cm; Wt 60.5 kg
[~2024-12-30 08:06] MED LIST changes: +ACETAMINOPHEN 650 MG PO ONE; +ALBUTEROL SULFATE 2.5MG/0.5ML INH NEB SOLN INH PRN; +EPINEPHrine INJ 1 MG/ML 1ML AMP IM PRN; +NS (Normal Saline) 0.9% 1,000 ML IV SCH; +diphenhydrAMINE 25MG CAP PO ONE; +diphenhydrAMINE 50MG/ML VIAL IV PRN; +methylPREDNISolone 125MG 2ML VIAL IV PRN
[2024-12-30 08:15] VITALS: BP 166/85; O2SAT 97
[2024-12-30] MEDS: IMMUNE GLOBULIN 10% 20 GM in IV 1 EA IV ONE (08:44)
[2024-12-30] MEDS: IMMUNE GLOBULIN 10% 5 GM in IV 1 EA IV ONE (08:45)
[2024-12-30 09:15] VITALS: BP 159/81; O2SAT 96
[2024-12-30 09:45] VITALS: BP 137/78; O2SAT 98
[2024-12-30 10:15] VITALS: BP 140/79; O2SAT 96
[2024-12-30 11:15] VITALS: BP 138/77; O2SAT 97
[2024-12-30 11:35] VITALS: O2SAT 97
== END 2024-12-30 11:39 ==
LOC: M INFU 08:06
PROVIDERS: ATTEND Internal Medicine Medical Oncology
DX: C90.00 Multiple myeloma not having achieved remission (principal)
CPT/HCPCS: 96365; 96366; J1459

== ENCOUNTER → 2025-01-20 | Outpatient (REF) | payer MEDICARE, OTHER ==
[~2025-01-20] MED LIST changes: -ACETAMINOPHEN 650 MG PO ONE; -ALBUTEROL SULFATE 2.5MG/0.5ML INH NEB SOLN INH PRN; -EPINEPHrine INJ 1 MG/ML 1ML AMP IM PRN; -NS (Normal Saline) 0.9% 1,000 ML IV SCH; -diphenhydrAMINE 25MG CAP PO ONE; -diphenhydrAMINE 50MG/ML VIAL IV PRN; -methylPREDNISolone 125MG 2ML VIAL IV PRN
[2025-01-20 14:46] LABS: BASO % 0.5 % (0.0-1.0); EOS # 0.1 10^3/uL (0.0-0.5); HEMATOCRIT 47.4 % (42.0-52.0); HEMOGLOBIN 15.2 g/dl (13.5-17.5); LYMPH # 0.6 10^3/uL (1.5-5.0); LYMPH % 7.2 % (24.0-44.0); MEAN CORPUSCULAR HEMOGLOBIN 34.9 pg (27.0-33.0); MEAN CORPUSCULAR HGB CONC 32.1 g/dl (32.0-36.5); MEAN CORPUSCULAR VOLUME 108.7 fl (80.0-96.0); MONO # 0.8 10^3/uL (0.0-0.8); MONO % 10.7 % (2.0-8.0); NEUTROPHILS # 6.3 10^3/uL (1.5-8.5); NEUTROPHILS % 80.1 % (36.0-66.0); PLATELET COUNT, AUTOMATED 128 10^3/uL (150-450); RED BLOOD COUNT 4.36 10^6/uL (4.30-6.10); WHITE BLOOD COUNT 7.9 10^3/uL (4.0-10.0)
[2025-01-20 15:19] LABS: ALBUMIN 4.2 G/DL (3.2-5.2); ALKALINE PHOSPHATASE 96 U/L (40-129); ALT/SGPT 14 U/L (7.0-40); AST/SGOT 29 U/L (<34); BILIRUBIN,TOTAL 0.5 MG/DL (0.3-1.2); BLOOD UREA NITROGEN 32 MG/DL (9-23); CALCIUM LEVEL 9.8 MG/DL (8.3-10.6); CARBON DIOXIDE LEVEL 28 MMOL/L (20-31); CHLORIDE LEVEL 107 MMOL/L (98-107); CREATININE FOR GFR 1.44 MG/DL (0.70-1.30); GLOMERULAR FILTRATION RATE 52.3 (>49); GLUCOSE, FASTING 68 MG/DL (74-106); POTASSIUM SERUM 4.8 MMOL/L (3.5-5.1); SODIUM LEVEL 148 MMOL/L (136-145); TOTAL PROTEIN 6.9 G/DL (5.7-8.2)
[2025-01-20 15:21] LABS: IMMUNOGLOBULIN G 815 MG/DL (650-1600)
[2025-01-20 15:32] LABS: IMMUNOGLOBULIN M < 21.0 MG/DL (50-300)
[2025-01-21 08:36] LABS: T P ELECTROPHORESIS SO 6.5 g/dL (6.1-8.1)
== END ==
LOC: M LABDRWAD 13:28
PROVIDERS: ATTEND Internal Medicine Medical Oncology
DX: C90.00 Multiple myeloma not having achieved remission (principal)

== ENCOUNTER → 2025-01-27 | Outpatient (CLI) | payer MEDICARE, OTHER ==
[~2025-01-27] VITALS: Ht 175.3 cm; Wt 63.6 kg
[~2025-01-27] MED LIST changes: +ALBUTEROL SULFATE 2.5MG/0.5ML INH NEB SOLN INH PRN; +EPINEPHrine INJ 1 MG/ML 1ML AMP IM PRN; +NS (Normal Saline) 0.9% 1,000 ML IV SCH; +PREDOPD OP; +diphenhydrAMINE 50MG/ML VIAL IV PRN; +methylPREDNISolone 125MG 2ML VIAL IV PRN
[2025-01-27 07:45] VITALS: BP 176/80; O2SAT 97
[2025-01-27] MEDS: diphenhydrAMINE 25MG CAP PO ONE (08:13)
[2025-01-27] MEDS: ACETAMINOPHEN 650 MG PO ONE (08:13)
[2025-01-27] MEDS: IMMUNE GLOBULIN 10% 20 GM in IV 1 EA IV ONE (08:19)
[2025-01-27] MEDS: IMMUNE GLOBULIN 10% 5 GM in IV 1 EA IV ONE (08:20)
[2025-01-27 08:45] VITALS: BP 155/82; O2SAT 97
[2025-01-27 09:15] VITALS: BP 153/83; O2SAT 100
[2025-01-27 09:45] VITALS: BP 148/84; O2SAT 100
[2025-01-27 11:00] VITALS: BP 141/81; O2SAT 97
== END ==
LOC: M INFU 07:42
PROVIDERS: ATTEND Internal Medicine Medical Oncology
DX: C90.00 Multiple myeloma not having achieved remission (principal)
CPT/HCPCS: 96365; 96366; J1459

== ENCOUNTER → 2025-02-17 | Outpatient (CLI) | payer MEDICARE, OTHER ==
[~2025-02-17] MED LIST changes: -ALBUTEROL SULFATE 2.5MG/0.5ML INH NEB SOLN INH PRN; -EPINEPHrine INJ 1 MG/ML 1ML AMP IM PRN; -NS (Normal Saline) 0.9% 1,000 ML IV SCH; -diphenhydrAMINE 50MG/ML VIAL IV PRN; -methylPREDNISolone 125MG 2ML VIAL IV PRN
[2025-02-17 13:46] LABS: BASO % 0.2 % (0.0-1.0); EOS % 0.2 % (0.0-3.0); HEMATOCRIT 45.4 % (42.0-52.0); HEMOGLOBIN 14.3 g/dl (13.5-17.5); LYMPH # 0.5 10^3/uL (1.5-5.0); LYMPH % 3.6 % (24.0-44.0); MEAN CORPUSCULAR HEMOGLOBIN 33.9 pg (27.0-33.0); MEAN CORPUSCULAR HGB CONC 31.5 g/dl (32.0-36.5); MEAN CORPUSCULAR VOLUME 107.6 fl (80.0-96.0); MONO % 7.9 % (2.0-8.0); NEUTROPHILS # 11.3 10^3/uL (1.5-8.5); NEUTROPHILS % 87.6 % (36.0-66.0); PLATELET COUNT, AUTOMATED 125 10^3/uL (150-450); RED BLOOD COUNT 4.22 10^6/uL (4.30-6.10); WHITE BLOOD COUNT 12.9 10^3/uL (4.0-10.0)
[2025-02-17 13:53] LABS: ALBUMIN 4.2 G/DL (3.2-5.2); BILIRUBIN,TOTAL 0.6 MG/DL (0.3-1.2); CALCIUM LEVEL 9.5 MG/DL (8.3-10.6); CREATININE FOR GFR 1.5 MG/DL (0.70-1.30); POTASSIUM SERUM 4.9 MMOL/L (3.5-5.1); TOTAL PROTEIN 6.4 G/DL (5.7-8.2)
[2025-02-18 10:33] LABS: T P ELECTROPHORESIS SO 6.5 g/dL (6.1-8.1)
[2025-02-19 08:41] LABS: ALBUMIN SPEP 4.3 g/dL (3.8-4.8); ALPHA-1-GLOBULINS SO 0.3 g/dL (0.2-0.3); ALPHA-2-GLOBULINS SO 0.6 g/dL (0.5-0.9); BETA 2 GLOBULIN 0.3 g/dL (0.2-0.5); BETA-GLOBULIN SO 0.4 g/dL (0.4-0.6); GAMMA GLOBULINS SO 0.7 g/dL (0.8-1.7)
[2025-02-19 13:36] LABS: FREE KAPPA LIGHT CHAINS SERUM 1.1 mg/L (3.3-19.4); FREE LAMBDA LIGHT CHAINS SERUM < 1.5 mg/L (5.7-26.3); KAPPA/LAMBDA RATIO SERUM > 0.73 (0.26-1.65)
== END ==
LOC: M LABDRWAD 08:18
PROVIDERS: ATTEND Internal Medicine Medical Oncology
DX: C90.00 Multiple myeloma not having achieved remission (principal)

== ENCOUNTER 2025-02-24 08:04 | Outpatient (CLI) | payer MEDICARE, OTHER ==
[~2025-02-24 08:04] MED LIST changes: +ALBUTEROL SULFATE 2.5MG/0.5ML INH CONCENTRATE NEB SOLN INH PRN; +EPINEPHrine INJ 1 MG/ML 1ML AMP IM PRN; +NS (Normal Saline) 0.9% 1,000 ML IV SCH; +diphenhydrAMINE 50MG/ML VIAL IV PRN; +methylPREDNISolone 125MG 2ML VIAL IV PRN
[2025-02-24 08:10] VITALS: BP 168/84; O2SAT 96
[2025-02-24] MEDS: diphenhydrAMINE 25MG CAP PO ONE (08:26)
[2025-02-24] MEDS: ACETAMINOPHEN 650 MG PO ONE (08:26)
[2025-02-24] MEDS: IMMUNE GLOBULIN 10% 5 GM in IV 1 EA IV ONE (08:27)
[2025-02-24] MEDS: IMMUNE GLOBULIN 10% 20 GM in IV 1 EA IV ONE (08:28)
[2025-02-24 09:00] VITALS: BP 147/79; O2SAT 98
[2025-02-24 09:30] VITALS: BP 149/79; O2SAT 97
[2025-02-24 10:00] VITALS: BP 149/77; O2SAT 96
[2025-02-24 11:00] VITALS: BP 144/70; O2SAT 98
[2025-02-24 11:15] VITALS: BP 139/65; O2SAT 96
== END 2025-02-24 11:15 ==
LOC: M INFU 08:04
PROVIDERS: ATTEND Internal Medicine Medical Oncology
DX: C90.00 Multiple myeloma not having achieved remission (principal); D80.1 Nonfamilial hypogammaglobulinemia
CPT/HCPCS: 96365; 96366; J1459

== ENCOUNTER → 2025-03-04 | Outpatient (CLI) | payer MEDICARE, OTHER ==
[~2025-03-04] MED LIST changes: -ALBUTEROL SULFATE 2.5MG/0.5ML INH CONCENTRATE NEB SOLN INH PRN; -EPINEPHrine INJ 1 MG/ML 1ML AMP IM PRN; +ISOVUE-370 76% 100ML VIAL ONE; -LEVO100C PO; +LEVO100C2 PO; -NS (Normal Saline) 0.9% 1,000 ML IV SCH; -diphenhydrAMINE 50MG/ML VIAL IV PRN; -methylPREDNISolone 125MG 2ML VIAL IV PRN
== END ==
LOC: M PLAIMG 13:45
PROVIDERS: ATTEND Nurse Practitioner Women's Health
DX: C90.00 Multiple myeloma not having achieved remission (principal)
CPT/HCPCS: 71260; 74177; Q9967

== ENCOUNTER → 2025-03-17 | Outpatient (CLI) | payer MEDICARE, OTHER ==
[~2025-03-17] MED LIST changes: -ISOVUE-370 76% 100ML VIAL ONE; +PREDOPD OD; -PREDOPD OP
[2025-03-17 14:01] LABS: BASO % 0.4 % (0.0-1.0); EOS # 0.1 10^3/uL (0.0-0.5); EOS % 0.8 % (0.0-3.0); HEMATOCRIT 43.5 % (42.0-52.0); HEMOGLOBIN 13.7 g/dl (13.5-17.5); LYMPH # 0.5 10^3/uL (1.5-5.0); LYMPH % 6.7 % (24.0-44.0); MEAN CORPUSCULAR HEMOGLOBIN 33.5 pg (27.0-33.0); MEAN CORPUSCULAR HGB CONC 31.5 g/dl (32.0-36.5); MEAN CORPUSCULAR VOLUME 106.4 fl (80.0-96.0); MONO # 0.8 10^3/uL (0.0-0.8); MONO % 11.2 % (2.0-8.0); NEUTROPHILS # 5.7 10^3/uL (1.5-8.5); NEUTROPHILS % 80.3 % (36.0-66.0); PLATELET COUNT, AUTOMATED 114 10^3/uL (150-450); RED BLOOD COUNT 4.09 10^6/uL (4.30-6.10); WHITE BLOOD COUNT 7.1 10^3/uL (4.0-10.0)
[2025-03-17 14:31] LABS: LDH LACTATE DEHYDROGENASE 285 U/L (120-246)
[2025-03-17 14:33] LABS: ALBUMIN 3.8 G/DL (3.2-5.2); ALKALINE PHOSPHATASE 79 U/L (40-129); ALT/SGPT 12 U/L (7.0-40); AST/SGOT 31 U/L (<34); BILIRUBIN,TOTAL 0.6 MG/DL (0.3-1.2); BLOOD UREA NITROGEN 37 MG/DL (9-23); CALCIUM LEVEL 9.1 MG/DL (8.3-10.6); CARBON DIOXIDE LEVEL 31 MMOL/L (20-31); CHLORIDE LEVEL 105 MMOL/L (98-107); CREATININE FOR GFR 1.59 MG/DL (0.70-1.30); GLOMERULAR FILTRATION RATE 47.6 (>49); GLUCOSE, FASTING 85 MG/DL (74-106); POTASSIUM SERUM 4.2 MMOL/L (3.5-5.1); SODIUM LEVEL 147 MMOL/L (136-145); TOTAL PROTEIN 6.3 G/DL (5.7-8.2)
[2025-03-18 10:27] LABS: T P ELECTROPHORESIS SO 6.3 g/dL (6.1-8.1)
[2025-03-19 13:12] LABS: FREE KAPPA LIGHT CHAINS SERUM 1.5 mg/L (3.3-19.4); FREE LAMBDA LIGHT CHAINS SERUM < 1.5 mg/L (5.7-26.3); KAPPA/LAMBDA RATIO SERUM > 1.00 (0.26-1.65)
[2025-03-20 06:32] LABS: ALBUMIN SPEP 4.2 g/dL (3.8-4.8); ALPHA-1-GLOBULINS SO 0.3 g/dL (0.2-0.3); ALPHA-2-GLOBULINS SO 0.5 g/dL (0.5-0.9); BETA 2 GLOBULIN 0.2 g/dL (0.2-0.5); BETA-GLOBULIN SO 0.4 g/dL (0.4-0.6); GAMMA GLOBULINS SO 0.6 g/dL (0.8-1.7)
[2025-03-20 13:22] LABS: IMMUNOGLOBULIN G 698 MG/DL (650-1600)
[2025-03-20 13:39] LABS: IMMUNOGLOBULIN M < 21.0 MG/DL (50-300)
== END ==
LOC: M LABDRWAD 08:09
PROVIDERS: ATTEND Internal Medicine Medical Oncology
DX: C90.00 Multiple myeloma not having achieved remission (principal)

== ENCOUNTER → 2025-03-26 | Outpatient (CLI) | payer MEDICARE, OTHER | LOC: M WHC 08:51 | PROVIDERS: ATTEND Internal Medicine Medical Oncology | DX: C90.00 Multiple myeloma not having achieved remission (principal); Z79.51 Long term (current) use of inhaled steroids ==

== ENCOUNTER → 2025-05-06 | Outpatient (CLI) | payer MEDICARE, OTHER ==
[~2025-05-06] MED LIST changes: +AMIT10TA11 PO; -AMIT10TA7 PO; +PROHANCE 279.3MG/ML 15ML VIAL As Ordered ONE
== END ==
LOC: M RAD 08:01
PROVIDERS: ATTEND General Practice
DX: C90.00 Multiple myeloma not having achieved remission (principal); M16.0 Bilateral primary osteoarthritis of hip; M25.452 Effusion, left hip; N40.0 Benign prostatic hyperplasia without lower urinary tract symptoms; M89.8X5 Other specified disorders of bone, thigh
CPT/HCPCS: 72197; 73720; A9576

== ENCOUNTER → 2025-05-12 | Outpatient (CLI) | payer MEDICARE, OTHER ==
[~2025-05-12] MED LIST changes: -PROHANCE 279.3MG/ML 15ML VIAL As Ordered ONE
[2025-05-12 15:43] LABS: ALT/SGPT 13 U/L (7.0-40); AST/SGOT 34 U/L (<34); CALCIUM LEVEL 9.9 MG/DL (8.3-10.6); CARBON DIOXIDE LEVEL 28 MMOL/L (20-31); CHLORIDE LEVEL 106 MMOL/L (98-107); CREATININE FOR GFR 1.57 MG/DL (0.70-1.30); GLOMERULAR FILTRATION RATE 48.0 (>49); POTASSIUM SERUM 4.4 MMOL/L (3.5-5.1); SODIUM LEVEL 148 MMOL/L (136-145)
[2025-05-12 15:46] LABS: BASO # 0.0 10^3/uL (0.0-0.2); BASO % 0.4 % (0.0-1.0); EOS # 0.1 10^3/uL (0.0-0.5); EOS % 1.4 % (0.0-3.0); LYMPH # 0.7 10^3/uL (1.5-5.0); LYMPH % 8.4 % (24.0-44.0); MONO # 0.9 10^3/uL (0.0-0.8); MONO % 10.5 % (2.0-8.0); NEUTROPHILS # 6.4 10^3/uL (1.5-8.5); NEUTROPHILS % 78.8 % (36.0-66.0); PLATELET COUNT, AUTOMATED 118 10^3/uL (150-450)
[2025-05-14 11:01] LABS: T P ELECTROPHORESIS SO 6.3 g/dL (6.1-8.1)
[2025-05-15 15:18] LABS: FREE KAPPA LIGHT CHAINS SERUM 2.7 mg/L (3.3-19.4); FREE LAMBDA LIGHT CHAINS SERUM 2.6 mg/L (5.7-26.3); KAPPA/LAMBDA RATIO SERUM 1.04 (0.26-1.65)
[2025-05-18 06:48] LABS: ALBUMIN SPEP 4.3 g/dL (3.8-4.8); ALPHA-1-GLOBULINS SO 0.3 g/dL (0.2-0.3); ALPHA-2-GLOBULINS SO 0.5 g/dL (0.5-0.9); BETA 2 GLOBULIN 0.3 g/dL (0.2-0.5); BETA-GLOBULIN SO 0.4 g/dL (0.4-0.6); GAMMA GLOBULINS SO 0.6 g/dL (0.8-1.7)
== END ==
LOC: M PLALAB 08:55
PROVIDERS: ATTEND Internal Medicine Medical Oncology
DX: C90.00 Multiple myeloma not having achieved remission (principal)

== ENCOUNTER 2025-05-25 07:28 | Outpatient (CLI) | payer MEDICARE, OTHER ==
[~2025-05-25] VITALS: Ht 177.8 cm; Wt 59.0 kg
[~2025-05-25 07:28] MED LIST changes: +ALBUTEROL SULFATE 2.5 MG/0.5 ML INH CONCENTRATE NEB SOLN INH PRN; +EPINEPHrine INJ 1 MG/ML 1ML AMP IM PRN; +NS (Normal Saline) 0.9% 1,000 ML IV SCH; +diphenhydrAMINE 50 MG/ML VIAL IV PRN
[2025-05-25 07:40] VITALS: BP 167/79; O2SAT 97
[2025-05-25] MEDS: ACETAMINOPHEN 650 MG PO ONE (08:15)
[2025-05-25] MEDS: IMMUNE GLOBULIN 10% 20 GM in IV 1 EA IV ONE (08:17)
[2025-05-25] MEDS: IMMUNE GLOBULIN 10% 5 GM in IV 1 EA IV ONE (08:18)
[2025-05-25 08:50] VITALS: BP 149/81; O2SAT 92
[2025-05-25 09:20] VITALS: BP 141/80; O2SAT 97
[2025-05-25 09:50] VITALS: BP 142/74; O2SAT 99
[2025-05-25 10:50] VITALS: BP 147/81; O2SAT 98
[2025-05-25 11:20] VITALS: BP 156/84; O2SAT 99
== END 2025-05-25 11:20 | disposition home or self-care (01) ==
LOC: M INFU 07:28
PROVIDERS: ATTEND Internal Medicine Medical Oncology
DX: D80.1 Nonfamilial hypogammaglobulinemia (principal); C90.00 Multiple myeloma not having achieved remission
CPT/HCPCS: 96365; 96366; J1459

== ENCOUNTER → 2025-06-09 | Outpatient (REF) | payer MEDICARE, OTHER ==
[~2025-06-09] MED LIST changes: -ALBUTEROL SULFATE 2.5 MG/0.5 ML INH CONCENTRATE NEB SOLN INH PRN; -EPINEPHrine INJ 1 MG/ML 1ML AMP IM PRN; -NS (Normal Saline) 0.9% 1,000 ML IV SCH; -diphenhydrAMINE 50 MG/ML VIAL IV PRN
[2025-06-09 14:29] LABS: BASO # 0.0 10^3/uL (0.0-0.2); BASO % 0.4 % (0.0-1.0); EOS # 0.1 10^3/uL (0.0-0.5); EOS % 1.6 % (0.0-3.0); LYMPH # 0.7 10^3/uL (1.5-5.0); LYMPH % 10.0 % (24.0-44.0); MONO # 0.8 10^3/uL (0.0-0.8); MONO % 11.7 % (2.0-8.0); NEUTROPHILS # 5.1 10^3/uL (1.5-8.5); NEUTROPHILS % 75.9 % (36.0-66.0); PLATELET COUNT, AUTOMATED 118 10^3/uL (150-450)
[2025-06-09 14:34] LABS: ALT/SGPT 14 U/L (7.0-40); AST/SGOT 42 U/L (<34); CALCIUM LEVEL 10.0 MG/DL (8.3-10.6); CARBON DIOXIDE LEVEL 29 MMOL/L (20-31); CHLORIDE LEVEL 105 MMOL/L (98-107); CREATININE FOR GFR 1.66 MG/DL (0.70-1.30); GLOMERULAR FILTRATION RATE 44.9 (>49); POTASSIUM SERUM 4.8 MMOL/L (3.5-5.1); SODIUM LEVEL 144 MMOL/L (136-145)
[2025-06-10 13:27] LABS: T P ELECTROPHORESIS SO 6.4 g/dL (6.1-8.1)
[2025-06-11 14:47] LABS: FREE KAPPA LIGHT CHAINS SERUM 4.0 mg/L (3.3-19.4); FREE LAMBDA LIGHT CHAINS SERUM 2.8 mg/L (5.7-26.3); KAPPA/LAMBDA RATIO SERUM 1.43 (0.26-1.65)
[2025-06-12 11:32] LABS: ALBUMIN SPEP 4.2 g/dL (3.8-4.8); ALPHA-1-GLOBULINS SO 0.3 g/dL (0.2-0.3); ALPHA-2-GLOBULINS SO 0.5 g/dL (0.5-0.9); BETA 2 GLOBULIN 0.3 g/dL (0.2-0.5); BETA-GLOBULIN SO 0.4 g/dL (0.4-0.6); GAMMA GLOBULINS SO 0.7 g/dL (0.8-1.7)
== END ==
LOC: M LABDRWAD 13:10
PROVIDERS: ATTEND Internal Medicine Medical Oncology
DX: C90.00 Multiple myeloma not having achieved remission (principal)

== ENCOUNTER 2025-06-23 08:27 | Outpatient (CLI) | payer MEDICARE, OTHER ==
[~2025-06-23] VITALS: Ht 177.8 cm; Wt 60.5 kg
[~2025-06-23 08:27] MED LIST changes: +ALBUTEROL SULFATE 2.5 MG/0.5 ML INH CONCENTRATE NEB SOLN INH PRN; +EPINEPHrine INJ 1 MG/ML 1ML AMP IM PRN; +NS (Normal Saline) 0.9% 1,000 ML IV SCH; +diphenhydrAMINE 50 MG/ML VIAL IV PRN
[2025-06-23 08:35] VITALS: BP_SYST 144; BP_SYST 158; BP_DIAS 70; BP_DIAS 77; O2SAT 96
[2025-06-23] MEDS: ACETAMINOPHEN 650 MG PO ONE (08:48)
[2025-06-23] MEDS: IMMUNE GLOBULIN 10% 20 GM in IV 1 EA IV ONE (08:50)
[2025-06-23] MEDS: IMMUNE GLOBULIN 10% 5 GM in IV 1 EA IV ONE (08:51)
[2025-06-23 09:30] VITALS: BP 130/75; O2SAT 99
[2025-06-23 10:00] VITALS: BP 133/79; O2SAT 98
[2025-06-23 10:30] VITALS: BP 132/72; O2SAT 96
[2025-06-23 11:45] VITALS: BP 152/72; O2SAT 97
== END 2025-06-23 11:45 | disposition home or self-care (01) ==
LOC: M INFU 08:27
PROVIDERS: ATTEND Internal Medicine Medical Oncology
DX: C90.00 Multiple myeloma not having achieved remission (principal)
CPT/HCPCS: 96365; 96366; 96375; J1459; J2919

== ENCOUNTER → 2025-07-07 | Outpatient (CLI) | payer MEDICARE, OTHER ==
[~2025-07-07] MED LIST changes: +ACYC200C10 PO; -ACYC200C8 PO; -ALBUTEROL SULFATE 2.5 MG/0.5 ML INH CONCENTRATE NEB SOLN INH PRN; -EPINEPHrine INJ 1 MG/ML 1ML AMP IM PRN; -NS (Normal Saline) 0.9% 1,000 ML IV SCH; +SUCR1ORA; -diphenhydrAMINE 50 MG/ML VIAL IV PRN
[2025-07-07 14:59] LABS: BASO # 0.0 10^3/uL (0.0-0.2); BASO % 0.6 % (0.0-1.0); EOS # 0.1 10^3/uL (0.0-0.5); EOS % 1.7 % (0.0-3.0); LYMPH # 0.7 10^3/uL (1.5-5.0); LYMPH % 10.2 % (24.0-44.0); MONO # 0.6 10^3/uL (0.0-0.8); MONO % 9.6 % (2.0-8.0); NEUTROPHILS # 5.1 10^3/uL (1.5-8.5); NEUTROPHILS % 77.3 % (36.0-66.0); PLATELET COUNT, AUTOMATED 108 10^3/uL (150-450)
[2025-07-07 15:41] LABS: ALT/SGPT 16 U/L (7.0-40); AST/SGOT 40 U/L (<34); CALCIUM LEVEL 10.1 MG/DL (8.3-10.6); CARBON DIOXIDE LEVEL 29 MMOL/L (20-31); CHLORIDE LEVEL 107 MMOL/L (98-107); CREATININE FOR GFR 1.56 MG/DL (0.70-1.30); GLOMERULAR FILTRATION RATE 48.4 (>49); MAGNESIUM LEVEL 1.9 MG/DL (1.8-2.4); POTASSIUM SERUM 4.6 MMOL/L (3.5-5.1); SODIUM LEVEL 148 MMOL/L (136-145)
[2025-07-08 09:38] LABS: T P ELECTROPHORESIS SO 6.5 g/dL (6.1-8.1)
[2025-07-09 14:22] LABS: FREE KAPPA LIGHT CHAINS SERUM 2.1 mg/L (3.3-19.4); FREE LAMBDA LIGHT CHAINS SERUM 2.7 mg/L (5.7-26.3); KAPPA/LAMBDA RATIO SERUM 0.78 (0.26-1.65)
[2025-07-10 07:32] LABS: ALBUMIN SPEP 4.3 g/dL (3.8-4.8); ALPHA-1-GLOBULINS SO 0.2 g/dL (0.2-0.3); ALPHA-2-GLOBULINS SO 0.6 g/dL (0.5-0.9); BETA 2 GLOBULIN 0.3 g/dL (0.2-0.5); BETA-GLOBULIN SO 0.4 g/dL (0.4-0.6); GAMMA GLOBULINS SO 0.7 g/dL (0.8-1.7)
== END ==
LOC: M LABDRWAD 08:30
PROVIDERS: ATTEND Internal Medicine Medical Oncology
DX: C90.00 Multiple myeloma not having achieved remission (principal)

== ENCOUNTER → 2025-07-16 | Outpatient (CLI) | payer MEDICARE, OTHER ==
[~2025-07-16] MED LIST changes: +PROHANCE 279.3MG/ML 15ML VIAL As Ordered ONE; +PROHANCE 279.3MG/ML 5ML VIAL As Ordered ONE
== END ==
LOC: M RAD 10:33
PROVIDERS: ATTEND General Practice
DX: K86.2 Cyst of pancreas (principal); R93.2 Abnormal findings on diagnostic imaging of liver and biliary tract; R93.3 Abnormal findings on diagnostic imaging of other parts of digestive tract
CPT/HCPCS: 74183; A9576

== ENCOUNTER 2025-07-21 08:13 | Outpatient (CLI) | payer MEDICARE, OTHER ==
[~2025-07-21] VITALS: Ht 170.2 cm; Wt 75.0 kg
[~2025-07-21 08:13] MED LIST changes: -PROHANCE 279.3MG/ML 15ML VIAL As Ordered ONE; -PROHANCE 279.3MG/ML 5ML VIAL As Ordered ONE
[2025-07-21 08:30] VITALS: BP 150/78; O2SAT 100
[2025-07-21] MEDS ORDERED: EPINEPHrine INJ 1 MG/ML 1ML AMP IM PRN (08:30)
[2025-07-21] MEDS ORDERED: ALBUTEROL SULFATE 2.5 MG/0.5 ML INH CONCENTRATE NEB SOLN INH PRN (08:30)
[2025-07-21] MEDS ORDERED: diphenhydrAMINE 50 MG/ML VIAL IV PRN (08:30)
[2025-07-21] MEDS ORDERED: NS (Normal Saline) 0.9% 1,000 ML IV SCH (08:30)
[2025-07-21] MEDS: IMMUNE GLOBULIN 10% 20 GM in IV 1 EA IV ONE (08:33)
[2025-07-21] MEDS: ACETAMINOPHEN 650 MG PO ONE (08:34)
[2025-07-21 09:00] VITALS: BP 146/88; O2SAT 100
[2025-07-21 09:30] VITALS: BP 130/68; O2SAT 98
[2025-07-21 10:00] VITALS: BP 134/70; O2SAT 96
[2025-07-21] MEDS: IMMUNE GLOBULIN 10% 5 GM in IV 1 EA IV ONE (10:57)
[2025-07-21 11:15] VITALS: BP 140/69; O2SAT 98
== END 2025-07-21 11:19 | disposition home or self-care (01) ==
LOC: M INFU 08:13
PROVIDERS: ATTEND Internal Medicine Medical Oncology
DX: C90.00 Multiple myeloma not having achieved remission (principal); D80.1 Nonfamilial hypogammaglobulinemia
CPT/HCPCS: 96365; 96366; J1459

== ENCOUNTER → 2025-08-04 | Outpatient (CLI) | payer MEDICARE, OTHER ==
[2025-08-04 14:55] LABS: BASO # 0.0 10^3/uL (0.0-0.2); BASO % 0.5 % (0.0-1.0); EOS # 0.1 10^3/uL (0.0-0.5); EOS % 1.0 % (0.0-3.0); LYMPH # 0.7 10^3/uL (1.5-5.0); LYMPH % 11.2 % (24.0-44.0); MONO # 0.7 10^3/uL (0.0-0.8); MONO % 12.2 % (2.0-8.0); NEUTROPHILS # 4.5 10^3/uL (1.5-8.5); NEUTROPHILS % 74.3 % (36.0-66.0); PLATELET COUNT, AUTOMATED 105 10^3/uL (150-450)
[2025-08-04 15:24] LABS: ALT/SGPT 21 U/L (7.0-40); AST/SGOT 56 U/L (<34); CALCIUM LEVEL 9.4 MG/DL (8.3-10.6); CARBON DIOXIDE LEVEL 29 MMOL/L (20-31); CHLORIDE LEVEL 106 MMOL/L (98-107); CREATININE FOR GFR 1.49 MG/DL (0.70-1.30); GLOMERULAR FILTRATION RATE 51.1 (>49); MAGNESIUM LEVEL 1.8 MG/DL (1.8-2.4); POTASSIUM SERUM 5.3 MMOL/L (3.5-5.1); SODIUM LEVEL 144 MMOL/L (136-145)
[2025-08-05 10:08] LABS: T P ELECTROPHORESIS SO 6.6 g/dL (6.1-8.1)
[2025-08-05 12:22] LABS: FREE KAPPA LIGHT CHAINS SERUM 4.9 mg/L (3.3-19.4); FREE LAMBDA LIGHT CHAINS SERUM 5.7 mg/L (5.7-26.3); KAPPA/LAMBDA RATIO SERUM 0.86 (0.26-1.65)
[2025-08-06 09:47] LABS: ALBUMIN SPEP 4.3 g/dL (3.8-4.8); ALPHA-1-GLOBULINS SO 0.3 g/dL (0.2-0.3); ALPHA-2-GLOBULINS SO 0.5 g/dL (0.5-0.9); BETA 2 GLOBULIN 0.3 g/dL (0.2-0.5); BETA-GLOBULIN SO 0.4 g/dL (0.4-0.6); GAMMA GLOBULINS SO 0.8 g/dL (0.8-1.7)
== END ==
LOC: M LABDRWAD 08:27
PROVIDERS: ATTEND Internal Medicine Medical Oncology
DX: C90.00 Multiple myeloma not having achieved remission (principal)

== ENCOUNTER 2025-08-18 08:28 | Outpatient (CLI) | payer MEDICARE, OTHER ==
[~2025-08-18] VITALS: Ht 177.8 cm; Wt 64.1 kg
[~2025-08-18 08:28] MED LIST changes: +ALBUTEROL SULFATE 2.5 MG/0.5 ML INH CONCENTRATE NEB SOLN INH PRN; +EPINEPHrine INJ 1 MG/ML 1ML AMP IM PRN; +NS (Normal Saline) 0.9% 1,000 ML IV SCH; +diphenhydrAMINE 50 MG/ML VIAL IV PRN
[2025-08-18 08:40] VITALS: BP 148/89; O2SAT 95
[2025-08-18] MEDS: ACETAMINOPHEN 650MG PO PRIOR TO INFUSION PO ONE (08:54)
[2025-08-18] MEDS: diphenhydrAMINE 25MG PO PRIOR TO INFUSION PO ONE (08:54)
[2025-08-18] MEDS: IMMUNE GLOBULIN 10% 20 GM in IV 1 EA IV ONE (09:13)
[2025-08-18] MEDS: IMMUNE GLOBULIN 10% 5 GM in IV 1 EA IV ONE (09:14)
[2025-08-18 09:45] VITALS: BP 140/72; O2SAT 96
[2025-08-18 10:15] VITALS: BP 142/71; O2SAT 97
[2025-08-18 10:45] VITALS: BP 140/80; O2SAT 97
[2025-08-18 11:45] VITALS: BP 147/88; O2SAT 98
[2025-08-18 12:05] VITALS: BP 163/75; O2SAT 98
== END 2025-08-18 12:05 ==
LOC: M INFU 08:28
PROVIDERS: ATTEND Internal Medicine Medical Oncology
DX: D80.1 Nonfamilial hypogammaglobulinemia (principal); C90.00 Multiple myeloma not having achieved remission
CPT/HCPCS: 96365; 96366; J1459

== ENCOUNTER → 2025-09-04 | Outpatient (CLI) | payer MEDICARE, OTHER ==
[~2025-09-04] MED LIST changes: -ALBUTEROL SULFATE 2.5 MG/0.5 ML INH CONCENTRATE NEB SOLN INH PRN; -EPINEPHrine INJ 1 MG/ML 1ML AMP IM PRN; -NS (Normal Saline) 0.9% 1,000 ML IV SCH; -diphenhydrAMINE 50 MG/ML VIAL IV PRN
[2025-09-04 18:00] LABS: BASO # 0.0 10^3/uL (0.0-0.2); BASO % 0.4 % (0.0-1.0); EOS # 0.0 10^3/uL (0.0-0.5); EOS % 0.1 % (0.0-3.0); LYMPH # 0.4 10^3/uL (1.5-5.0); LYMPH % 5.3 % (24.0-44.0); MONO # 0.1 10^3/uL (0.0-0.8); MONO % 1.2 % (2.0-8.0); NEUTROPHILS # 7.6 10^3/uL (1.5-8.5); NEUTROPHILS % 92.4 % (36.0-66.0); PLATELET COUNT, AUTOMATED 128 10^3/uL (150-450)
[2025-09-04 18:25] LABS: ALT/SGPT 14 U/L (7.0-40); AST/SGOT 42 U/L (<34); CALCIUM LEVEL 10.5 MG/DL (8.3-10.6); CARBON DIOXIDE LEVEL 29 MMOL/L (20-31); CHLORIDE LEVEL 106 MMOL/L (98-107); CREATININE FOR GFR 1.50 MG/DL (0.70-1.30); GLOMERULAR FILTRATION RATE 50.7 (>49); POTASSIUM SERUM 6.0 MMOL/L (3.5-5.1); SODIUM LEVEL 144 MMOL/L (136-145)
[2025-09-06 03:08] LABS: T P ELECTROPHORESIS SO 7.1 g/dL (6.1-8.1)
[2025-09-07 13:37] LABS: FREE KAPPA LIGHT CHAINS SERUM 4.9 mg/L (3.3-19.4); FREE LAMBDA LIGHT CHAINS SERUM 10.5 mg/L (5.7-26.3); KAPPA/LAMBDA RATIO SERUM 0.47 (0.26-1.65)
[2025-09-07 17:57] LABS: ALBUMIN SPEP 4.5 g/dL (3.8-4.8); ALPHA-1-GLOBULINS SO 0.4 g/dL (0.2-0.3); ALPHA-2-GLOBULINS SO 0.6 g/dL (0.5-0.9); BETA 2 GLOBULIN 0.3 g/dL (0.2-0.5); BETA-GLOBULIN SO 0.5 g/dL (0.4-0.6); GAMMA GLOBULINS SO 0.8 g/dL (0.8-1.7)
== END ==
LOC: M LABDRWAD 11:45
PROVIDERS: ATTEND Internal Medicine Medical Oncology
DX: C90.00 Multiple myeloma not having achieved remission (principal)

== ENCOUNTER → 2025-09-09 | Outpatient (CLI) | payer MEDICARE, OTHER | LOC: M PLAIMG 07:47 | PROVIDERS: ATTEND Internal Medicine Critical Care Medicine | DX: R91.8 Other nonspecific abnormal finding of lung field (principal) ==

== ENCOUNTER 2025-09-15 07:50 | Outpatient (CLI) | payer MEDICARE, OTHER ==
[~2025-09-15] VITALS: Ht 177.8 cm; Wt 63.6 kg
[~2025-09-15 07:50] MED LIST changes: +ALBUTEROL SULFATE 2.5 MG/0.5 ML INH CONCENTRATE NEB SOLN INH PRN; +EPINEPHrine INJ 1 MG/ML 1ML AMP IM PRN; +NS (Normal Saline) 0.9% 1,000 ML IV SCH; +diphenhydrAMINE 50 MG/ML VIAL IV PRN
[2025-09-15] MEDS: ACETAMINOPHEN 650MG PO PRIOR TO INFUSION PO ONE (08:23)
[2025-09-15] MEDS: diphenhydrAMINE 25MG PO PRIOR TO INFUSION PO ONE (08:23)
[2025-09-15] MEDS: IMMUNE GLOBULIN 10% 20 GM in IV 1 EA IV ONE (08:25)
[2025-09-15] MEDS: IMMUNE GLOBULIN 10% 5 GM in IV 1 EA IV ONE (08:26)
[2025-09-15 08:32] VITALS: BP 153/89; O2SAT 95
[2025-09-15 09:00] VITALS: BP 146/82; O2SAT 95
[2025-09-15 09:30] VITALS: BP 140/66; O2SAT 96
[2025-09-15 10:00] VITALS: BP 138/81; O2SAT 96
[2025-09-15 11:20] VITALS: BP 145/89; O2SAT 96
== END 2025-09-15 11:20 | disposition home or self-care (01) ==
LOC: M INFU 07:50
PROVIDERS: ATTEND Internal Medicine Medical Oncology
DX: C90.00 Multiple myeloma not having achieved remission (principal); D80.1 Nonfamilial hypogammaglobulinemia
CPT/HCPCS: 96365; 96366; J1459

== ENCOUNTER → 2025-10-06 | Outpatient (CLI) | payer MEDICARE, OTHER ==
[~2025-10-06] MED LIST changes: -ALBUTEROL SULFATE 2.5 MG/0.5 ML INH CONCENTRATE NEB SOLN INH PRN; -DAPS100T22 PO; -EPINEPHrine INJ 1 MG/ML 1ML AMP IM PRN; -NS (Normal Saline) 0.9% 1,000 ML IV SCH; +[UNRECOGNIZED DRUG - CODE] PO; -diphenhydrAMINE 50 MG/ML VIAL IV PRN
[2025-10-06 13:29] LABS: BASO # 0.0 10^3/uL (0.0-0.2); BASO % 0.6 % (0.0-1.0); EOS # 0.1 10^3/uL (0.0-0.5); EOS % 1.7 % (0.0-3.0); LYMPH # 0.9 10^3/uL (1.5-5.0); LYMPH % 12.4 % (24.0-44.0); MONO # 0.8 10^3/uL (0.0-0.8); MONO % 10.6 % (2.0-8.0); NEUTROPHILS # 5.3 10^3/uL (1.5-8.5); NEUTROPHILS % 74.3 % (36.0-66.0); PLATELET COUNT, AUTOMATED 128 10^3/uL (150-450)
[2025-10-06 13:55] LABS: ALT/SGPT 24 U/L (7.0-40); AST/SGOT 58 U/L (<34); CALCIUM LEVEL 9.6 MG/DL (8.3-10.6); CARBON DIOXIDE LEVEL 30 MMOL/L (20-31); CHLORIDE LEVEL 104 MMOL/L (98-107); CREATININE FOR GFR 1.52 MG/DL (0.70-1.30); GLOMERULAR FILTRATION RATE 49.9 (>49); POTASSIUM SERUM 4.4 MMOL/L (3.5-5.1); SODIUM LEVEL 143 MMOL/L (136-145)
[2025-10-07 09:48] LABS: T P ELECTROPHORESIS SO 6.9 g/dL (6.1-8.1)
[2025-10-08 13:01] LABS: FREE KAPPA LIGHT CHAINS SERUM 5.8 mg/L (3.3-19.4); FREE LAMBDA LIGHT CHAINS SERUM 10.9 mg/L (5.7-26.3); KAPPA/LAMBDA RATIO SERUM 0.53 (0.26-1.65)
[2025-10-09 07:17] LABS: ALBUMIN SPEP 4.6 g/dL (3.8-4.8); ALPHA-1-GLOBULINS SO 0.3 g/dL (0.2-0.3); ALPHA-2-GLOBULINS SO 0.6 g/dL (0.5-0.9); BETA 2 GLOBULIN 0.3 g/dL (0.2-0.5); BETA-GLOBULIN SO 0.5 g/dL (0.4-0.6); GAMMA GLOBULINS SO 0.7 g/dL (0.8-1.7)
== END ==
LOC: M LABDRWAD 08:05
PROVIDERS: ATTEND Internal Medicine Medical Oncology
DX: C90.00 Multiple myeloma not having achieved remission (principal)

== ENCOUNTER 2025-10-13 08:28 | Outpatient (CLI) | payer MEDICARE, OTHER ==
[~2025-10-13] VITALS: Ht 177.8 cm; Wt 63.6 kg
[~2025-10-13 08:28] MED LIST changes: +ALBUTEROL SULFATE 2.5 MG/0.5 ML INH CONCENTRATE NEB SOLN INH PRN; +EPINEPHrine INJ 1 MG/ML 1ML AMP IM PRN; +NS (Normal Saline) 0.9% 1,000 ML IV SCH; +diphenhydrAMINE 50 MG/ML VIAL IV PRN
[2025-10-13] MEDS: diphenhydrAMINE 25MG PO PRIOR TO INFUSION PO ONE (08:44)
[2025-10-13 08:45] VITALS: BP 149/78; O2SAT 98
[2025-10-13] MEDS: ACETAMINOPHEN 650MG PO PRIOR TO INFUSION PO ONE (08:45)
[2025-10-13] MEDS: IMMUNE GLOBULIN 10% 20 GM in IV 1 EA IV ONE (09:00)
[2025-10-13] MEDS: IMMUNE GLOBULIN 10% 5 GM in IV 1 EA IV ONE (09:01)
[2025-10-13 09:30] VITALS: BP 147/72; O2SAT 97
[2025-10-13 10:00] VITALS: BP 150/86; O2SAT 96
[2025-10-13 10:30] VITALS: BP 149/88; O2SAT 97
[2025-10-13 11:45] VITALS: BP 160/87; O2SAT 96
== END 2025-10-13 11:40 | disposition home or self-care (01) ==
LOC: M INFU 08:28
PROVIDERS: ATTEND Internal Medicine Medical Oncology
DX: D80.1 Nonfamilial hypogammaglobulinemia (principal); C90.00 Multiple myeloma not having achieved remission
CPT/HCPCS: 96365; 96366; J1459